=== PATIENT | female | born 1950 | race African-American/Black ===

== ENCOUNTER 2019-11-19 15:18 | Emergency (ER) | payer MEDICARE, SELFPAY ==
[2019-11-19] VITALS (7 sets, daily range): BP systolic 128–162; BP diastolic 92–120; PULSE 94–114; RESP 16–20; TEMP 36.7–36.8; O2SAT 96–100
--- NOTE | ~2019-11-19 | XR_ITS ---
EXAMINATION: XR chest 2V EXAM DATE: 11/19/2019 16:39 INDICATION: Cough, shortness of breath. History of bronchitis. TECHNIQUE: Frontal and lateral projections of the chest obtained and reviewed. Comparison is made to prior examination from 02/24/2018. FINDINGS: The lungs are clear. There are no pleural effusions. Cardiac silhouette is prominent but magnified on this AP technique. There is no pneumothorax suspected. The bones and soft tissues are unremarkable. IMPRESSION: No acute cardiopulmonary findings. Reviewed, dictated and finalized at location A.
--- NOTE | ~2019-11-19 | CT_ITS ---
EXAMINATION: CT abdomen pelvis w con EXAM DATE: 11/19/2019 17:47 INDICATION: Vomiting, diarrhea. Shortness of breath. TECHNIQUE: Spiral CT of the abdomen and pelvis was performed following intravenous injection of 100 m L Omnipaque 350. Axial, coronal and sagittal images were reviewed. The dose-length product (DLP) fo r this examination was 1506.32 mGy-cm. The exposure was tailored according to patient size (auto mA exposure control), and iterative reconstruction (ASIR) was used as additional dose reduction techniqu e. There is no prior study for comparison. FINDINGS: There are approximately a dozen heterogeneous hypodense lobular splenic regions measuring u p to about 3 cm in size, with differential diagnosis including abscesses (could be fungal), Hemangiom elel lymphoma, other metastatic disease. There are also several splenic calcifications indicating hist ory of adenomatous process. There is hepatic steatosis without focal density abnormality. Adrenal glands, pancreas are unremarkab le. Gallbladder is unremarkable. No biliary obstruction. Portal and splenic veins are patent. Kidn eys enhance symmetrically. There is no hydronephrosis. Fibroid uterus. The bladder is unremarkabl e. There is no retroperitoneal or pelvic lymphadenopathy. The appendix is normal. There is small to moderate-sized gastroesophageal hiatal hernia. There is mi ld sigmoid colonic diverticulosis. There is no adjacent inflammatory change to suggest diverticuliti s. No free intraperitoneal gas. There is cardiomegaly. The lung bases are unremarkable. There ar e no osteoblastic or osteolytic lesions identified. IMPRESSION: 1. Multiple lobular heterogeneous splenic regions, differential diagnosis including abscesses, lymph em, metastatic disease, hemangiomata. 2. Small to moderate hiatal hernia. 3. Sigmoid diverticulosis 4. Hepatic steatosis. Reviewed, dictated and finalized at location A. IMPRESSION: 1. Multiple lobular heterogeneous splenic regions, differential diagnosis incl uding abscesses, lymphoma, metastatic disease, hemangiomata. 2. Small to moderate hiatal hernia. 3. Sigmoid diverticulosis 4. Hepatic steatosis.
--- NOTE | 2019-11-19 15:19 | ED.GENADULT ---
HPI - General Adult General Chief complaint: Shortness of Breath/Dyspnea Stated complaint: Throwing up Time Seen by Provider: 11/19/19 15:19 Source: patient and family Mode of arrival: wheelchair Limitations: dementia History of Present Illness HPI narrative: Patient is a 69-year-old female with a history of dementia who presents for evaluation of vomiting, cough and shortness of breath. Patient's daughter provides most of the history. She states her mother has had a 4-day history of inability to tolerate oral intake, numerous episodes of nonbilious, nonbloody emesis over the past 4 days. No associated chest or abdominal pain. No headache. Patient does report a productive cough and shortness of breath. Patient has been isolating at home, no sick contacts. Patient's daughter also states she has had some diarrhea without blood or mucus present. No dark or tarry stools. No rashes. No lower extremity swelling. Patient has been intermittently very diaphoretic per family. Related Data Allergies Allergy/AdvReac Type Severity Reaction Status Date / Time Penicillins Allergy Mild hives Verified 11/10/19 09:21 acetaminophen Allergy Unknown Unknown Verified 11/10/19 09:21 hydrocodone Allergy Unknown Unknown Verified 11/10/19 09:21 peanut Allergy Unknown Itching Verified 11/10/19 09:21 PROPOXYPHENE NAPSYLATE Allergy Mild Rash Uncoded 11/10/19 09:21 Shrimp Allergy Mild Unknown Uncoded 11/10/19 09:21 Review of Systems Review of Systems: Narrative: CONSTITUTIONAL: Denies fever, reports chills and sweats EYES: Denies visual changes, redness, or discharge. ENT: Denies rhinorrhea, reports congestion CARDIOVASCULAR: Denies chest pain, palpitations, or edema. RESPIRATORY: Reports cough and shortness of breath GASTROINTESTINAL: Denies abdominal pain, reports nausea, vomiting and diarrhea GENITOURINARY: Denies dysuria or hematuria. SKIN: Denies rash or itching. MUSCULOSKELETAL: Denies back pain, joint pain, or myalgia. NEUROLOGIC: Denies headache, numbness, or weakness. [facility] [place] Past Medical History Medical History (Updated 11/19/19 @ 20:38 by Milla Abraham MD) Bronchitis Dementia Diabetes Surgical History Surgical History (Updated 11/19/19 @ 15:22 by Milla Abraham MD) H/O section Family History Family History Sibling Cerebrovascular accident Family history of diabetes mellitus in first degree relative Father Carcinoma of colon Family history of malignant neoplasm Mother Family history of diabetes mellitus in first degree relative Hypertension Family history of arthritis Family history of malignant neoplasm Family history of type 2 diabetes mellitus Other Diabetes mellitus Family history of cardiovascular disease Family history of gout Family history of seizure disorder Social History Social History Smoking status: Never smoker Alcohol intake: never Gender identity (if verbalized by the patient): Female Exam Narrative: Exam Narrative: GENERAL: Awake, alert, conversant HEAD: Normocephalic, atraumatic. EYES: PERRLA and EOMI. ENT: Nares clear, no rhinorrhea or epistaxis. Mucous membranes moist. NECK: Supple. CHEST: No respiratory distress, breathing even and non labored HEART: Tachycardic rate, sinus rhythm ABDOMEN: Obese abdomen, non distended, non tender EXTREMITIES: Normal range of motion. No edema. SKIN: Warm, dry, no rash. NEURO:No focal deficits. Alert and oriented x3 Course Course Emergency Course: Patient presented to the emergency department for evaluation of cough, intermittent shortness of breath, nausea and vomiting. At the time of initial assessment, patient's ABCs are intact, vital signs are stable. Patient has no fever, she is not hypoxic. EKG without acute ischemic changes. Laboratory results show no elevation in troponin. No severe electrolyte derangeme
[2019-11-19 15:45] LABS: Hemoglobin 12.9 g/dL (12.0-15.0); Red Blood Count 4.51 M/mm3 (4.2-5.4); White Blood Count 9.6 K/mm3 (4.5-10.0)
[2019-11-19 15:46] LABS: Hematocrit 40.1 % (37.0-47.0); Mean Corpuscular HGB Conc 32.2 g/dl (32-36); Mean Corpuscular Hemoglobin 28.6 pg (26-34); Mean Corpuscular Volume 88.9 fl (80-100); Platelet Count Result 283 k/mm3 (150-375); Red Cell Distribution Width 13.7 % (11.5-14.5)
[2019-11-19 15:47] LABS: Basophils Percent Auto 0.4 % (0.2-1.2); Eosinophils Percent Auto 0.3 % (0-4.4); Immature Granulocyte Absolute 0.05 K/mm3 (0.00-0.031); Immature Granulocyte Percent A 0.5 % (0-0.5); Lymphocytes Absolute Auto 2.41 K/mm3 (0.9-3.2); Lymphocytes Percent Auto 25.1 % (18.3-44.2); Monocytes Absolute Auto 0.7 K/mm3 (0.1-0.6); Monocytes Percent Auto 7.6 % (2.6-8.5); Neutrophils Absolute Auto 6.3 K/mm3 (1.3-6.7); Neutrophils Percent Auto 66.1 % (45.5-73.1)
--- NOTE | 2019-11-19 15:48 | ECG_ITS ---
Measurements Intervals [place] Rate: P: OK: QRS: QRSD: T: QT: QTc: Interpretive Statements SINUS TACHYCARDIA POOR R WAVE PROGRESSION, ANTERIOR LEADS INFERIOR INFARCT, AGE INDETERMINATE ABNORMAL ECG Electronically Signed On 11-20-2019 7:02:09 CDT by Ej Pack D.O.
[2019-11-19 15:51] LABS: Partial Thromboplastin Time 24.6 SECONDS (22.3-36.8); Prothrombin Time 12.4 Seconds (11.1-14.7)
[2019-11-19 16:04] LABS: Albumin Level 4.2 g/dL (3.5-5.1); Alkaline Phosphatase 87 U/L (38-126); Aspartate Amino Transferase 27 U/L (14-36); Bilirubin,Total 0.2 mg/dL (0.2-1.3); Blood Urea Nitrogen 10 mg/dL (7-17); Calcium 9.1 mg/dL (8.4-10.2); Carbon Dioxide 23 mmol/L (22-30); Chloride 94 mmol/L (98-107); Estimated CRCL calculation 80 ml/min; Estimated Glomerular Filt Rate > 60; Glucose 410 mg/dL (65-105); NT Pro B Type Natriuretic Pept 34 PG/ML (5-100); Potassium 3.5 mmol/L (3.4-5.0); Sodium 132 mmol/L (137-145); Troponin I < 0.012 ng/mL (0.000-0.034)
[2019-11-19 16:06] LABS: Alanine Aminotransferase 27 U/L (4-35)
[2019-11-19] MEDS: ONDANSETRON INJ 4 MG/2 ML VIAL IV PUSH (16:13)
[2019-11-19] MEDS: SODIUM CHLORIDE 0.9% IV 1,000 ML 999 ML IV CONT (16:13)
[2019-11-19 16:22] LABS: Add Urine Microscopic? YES; Appearance Urine Clear (Clear); Bilirubin Urine Negative (Negative); Blood Urine Negative (Negative); Color Urine Yellow (Yellow); Glucose Urine UA 3+ mg/dL (Negative); Ketones Urine Negative (Negative); Leukocyte Esterase Ur Negative LEU/UL (Negative); Mucus Urine Few /lpf; Nitrate Urine Negative (Negative); Protein Urine 2+ mg/dL (Negative); RBC Urine 0-2 /hpf (0-2); Urobilinogen Urine Negative mg/dL (<2.0); WBC Urine 0-3 /hpf
== END 2019-11-19 20:57 | disposition home or self-care (01) ==
PROVIDERS: Emergency Provider Emergency Medicine; PCP Family Medicine
DX: R11.2 Nausea with vomiting, unspecified (principal); D73.89 Other diseases of spleen; F03.90 Unspecified dementia, unspecified severity, without behavioral disturbance, psychotic disturbance, mood disturbance, and anxiety; E11.9 Type 2 diabetes mellitus without complications; R06.82 Tachypnea, not elsewhere classified; R94.31 Abnormal electrocardiogram [ECG] [EKG]; K76.0 Fatty (change of) liver, not elsewhere classified; K57.90 Diverticulosis of intestine, part unspecified, without perforation or abscess without bleeding; K44.9 Diaphragmatic hernia without obstruction or gangrene; Z79.4 Long term (current) use of insulin
CPT/HCPCS: 36415; 51701; 71046; 74177; 80053; 81001; 83880; 84484; 85025; 85610; 85730; 87804; 93005; 96374; 99284; J2405; J7030; Q9967

== ENCOUNTER 2019-12-10 21:21 | Emergency (ER) | payer MEDICARE, SELFPAY ==
--- NOTE | ~2019-12-10 | CT_ITS ---
EXAMINATION: CT abdomen pelvis w con DATE: 12/10/2019 22:33 INDICATION: Vomiting and diarrhea TECHNIQUE: Computed tomography (CT) of the abdomen and pelvis was performed with 100 cc Omnipaque 350 intravenous contrast. The dose-length product was 1450.42 mGy-cm. Automated exposure control and ite rative reconstruction technique were employed. COMPARISON: CT dated 11/19/2019 FINDINGS: Heart size is normal. Large hiatal hernia. Mild thickening of the distal esophagus, suspici ous for reflux esophagitis. Fatty infiltration of the liver. Small pleural effusions. No significant vascular abnormality. No lymphadenopathy. Stable hypovascular splenic masses, most likely benign mauricio ngiomas or granulomatous disease. The pancreas, adrenal glands and kidneys are unremarkable. Colonic diverticulosis without evidence for diverticulitis. No free air or free fluid. Tiny fat-containing um bilical hernia. There is moderate thoracic and lumbar spondylosis. There is grade 1 spondylolisthesis at L5-S1. IMPRESSION: 1. Large hiatal hernia with moderate thickening of the distal esophagus, suspicious for reflux esopha gitis. 2: Small pleural effusions. 3: Stable hypovascular splenic masses, most likely benign hemangiomas or granulomatous disease. Malig balta is much less favored given stability compared with MRI dated 08/09/2015. Reviewed, dictated and finalized at location A. IMPRESSION: 1. Large hiatal hernia with moderate thickening of the distal esophagus, suspic ious for reflux esophagitis. 2: Small pleural effusions. 3: Stable hypovascular splenic masses, most likely benign hemangiomas or granul omatous disease. Malignancy is much less favored given stability compared with MRI dated 08/09/2015.
--- NOTE | ~2019-12-10 | XR_ITS ---
EXAMINATION: XR chest 2V 12/10/2019 22:47 INDICATION: Chest pain and shortness of breath PROCEDURE: 2 view chest COMPARISON: Comparison to multiple prior studies sequentially, with oldest reviewed study dated . FINDINGS: The lungs are clear. The cardiomediastinal silhouette is enlarged. There are no pleural ef fusions. There is no pneumothorax suspected. There is dextroscoliosis of the thoracic spine. IMPRESSION: 1: NO ACUTE CARDIOPULMONARY DISEASE. Reviewed, dictated and finalized at location A.
[2019-12-10 21:27] VITALS: BP 159/98; PULSE 126; RESP 28; TEMP 37.2; O2SAT 99
--- NOTE | 2019-12-10 21:35 | ECG_ITS ---
Measurements Intervals [place] Rate: 122 P: 38 AK: 139 QRS: -17 QRSD: 78 T: 32 QT: 322 QTc: 459 Interpretive Statements SINUS TACHYCARDIA DELAYED PRECORDIAL R/S TRANSITION INFERIOR INFARCT, AGE INDETERMINATE BASELINE ARTIFACT- I, III, AVL, AVF ABNORMAL ECG Electronically Signed On 12-11-2019 7:13:37 CDT by Ej Pack D.O.
[2019-12-10 21:51] LABS: Basophils Percent Auto 0.2 % (0.2-1.2); Hematocrit 38.8 % (37.0-47.0); Hemoglobin 12.6 g/dL (12.0-15.0); Immature Granulocyte Percent A 0.8 % (0-0.5); Lymphocytes Absolute Auto 1.71 K/mm3 (0.9-3.2); Lymphocytes Percent Auto 13.1 % (18.3-44.2); Mean Corpuscular HGB Conc 32.5 g/dl (32-36); Mean Corpuscular Hemoglobin 29.2 pg (26-34); Mean Platelet Volume 10.5 fl (7.4-10.4); Monocytes Absolute Auto 0.7 K/mm3 (0.1-0.6); Monocytes Percent Auto 5.5 % (2.6-8.5); Neutrophils Absolute Auto 10.5 K/mm3 (1.3-6.7); Neutrophils Percent Auto 80.4 % (45.5-73.1); Platelet Count Result 248 k/mm3 (150-375); Red Blood Count 4.31 M/mm3 (4.2-5.4); Red Cell Distribution Width 13.8 % (11.5-14.5); White Blood Count 13.1 K/mm3 (4.5-10.0)
[2019-12-10 22:02] LABS: Blood Urea Nitrogen 11 mg/dL (7-17); Carbon Dioxide 25 mmol/L (22-30); Chloride 96 mmol/L (98-107); Estimated CRCL calculation 78 ml/min; Estimated Glomerular Filt Rate > 60; Glucose 427 mg/dL (65-105); Potassium 3.4 mmol/L (3.4-5.0); Sodium 133 mmol/L (137-145)
--- NOTE | 2019-12-10 22:09 | ED.SOB ---
HPI - SOB/Dyspnea General Chief Complaint: Shortness of Breath/Dyspnea Stated Complaint: sob, productive cough Time Seen by Provider: 12/10/19 21:59 History of Present Illness HPI Narrative: Patient presents via EMS for 1 week of vomiting and diarrhea, and chronic shortness of breath. The patient has Alzheimer's dementia, and lives with her . Today she is with her daughter Paty Helms, who just lives a short bit away, and checks on her parents frequently. The daughter reports that her mom has had chills and sweats for a week, vomiting of brown material, coughing and wheezing, and frequent diarrhea. No recorded fever. The patient denies any pain. MD elicited complaint: shortness of breath and cough Onset (ago): week(s) Context: recent illness Timing: constant Severity: moderate Known history of: asthma and diabetes Associated symptoms: cough, wheezing and nausea/vomiting Related Data Allergies Allergy/AdvReac Type Severity Reaction Status Date / Time Penicillins Allergy Mild hives Verified 11/24/19 13:44 acetaminophen Allergy Unknown Unknown Verified 11/24/19 13:44 hydrocodone Allergy Unknown Unknown Verified 11/24/19 13:44 peanut Allergy Unknown Itching Verified 11/24/19 13:44 PROPOXYPHENE NAPSYLATE Allergy Mild Rash Uncoded 11/24/19 13:44 Shrimp Allergy Mild Unknown Uncoded 11/24/19 13:44 Review of Systems Review of Systems: Narrative: The review of systems as per the daughter. No chest pain abdominal pain. Positive cough chills and sweats. Positive vomiting and diarrhea. Positive wheezing. Poor memory. All systems reviewed & are unremarkable except as noted in HPI and below PMFSH Past Medical History Medical History Bronchitis Dementia Diabetes Lesion of spleen Surgical History Surgical History H/O section Social History Social History Smoking status: Never smoker Alcohol intake: never Gender identity (if verbalized by the patient): Female Exam Narrative: Exam Narrative: GENERAL: Well-appearing, well-nourished, and in no acute distress. Morbid obesity. HEAD: Normocephalic, atraumatic. EYES: PERRLA and EOMI. ENT: Nares clear, no rhinorrhea or epistaxis. Mucous membranes moist. NECK: Supple. CHEST: Clear to auscultation. No respiratory distress. HEART: Regular rate and rhythm. No murmur heard. Normal peripheral pulses. ABDOMEN: Soft, nontender, nondistended, normal active bowel sounds. EXTREMITIES: Normal range of motion. No edema. SKIN: Warm, dry, no rash. NEURO: No focal deficits. Alert. PSYCH: Normal mood and affect. Quite pleasant. Course Reevaluation(s) Reevaluation #1: I checked back in with the patient and her daughter, and told them about the testing not showing any particular source for her discomfort, but that the sugar has been high. Daughter told me that she vomited one more time here in the ER. She suggests that it might just be a germ causing the vomiting and diarrhea. I recommended starting her on an antinausea medicine, and possibly an antibiotic. She agrees. I will order ciprofloxacin, which would cover either bronchitis or diverticulosis. And Reglan for the nausea. Date: 12/11/19 Time: 01:14 Vital Signs Vital signs: Vital Signs Temperature 98.9 F 12/10/19 21:27 Pulse Rate 126 H 12/10/19 21:27 Respiratory Rate 28 H 12/10/19 21:27 Blood Pressure 159/98 H 12/10/19 21:27 Pulse Oximetry 99 12/10/19 21:27 Temperature 99.5 F 12/10/19 23:33 Pulse Rate 112 H 12/10/19 23:33 Respiratory Rate 22 H 12/10/19 23:33 Blood Pressure 160/75 H 12/10/19 23:33 Pulse Oximetry 100 12/10/19 23:33 MDM - SOB/Dyspnea Differential Diagnosis Differential diagnosis: Likely asthma with exacerbation Medical Records Attestation: I reviewed the patient's medical records. Lab Data Attestation: I revi
[2019-12-10 22:14] LABS: Troponin I < 0.012 ng/mL (0.000-0.034)
[2019-12-10] MEDS: ASPIRIN 81 MG CHEWABLE TABLET 324 MG PO (22:17)
[2019-12-10 22:23] LABS: Prothrombin Time 12.8 Seconds (11.1-14.7)
[2019-12-10 22:33] LABS: NT Pro B Type Natriuretic Pept 90 PG/ML (5-100)
[2019-12-10] MEDS: FAMOTIDINE 20 MG/2 ML VIAL IV PUSH (22:49)
[2019-12-10] MEDS: INSULIN HUMAN REGULAR (*BKC) 100 UNITS/ML 11 UNITS IV PUSH (22:49)
[2019-12-10] MEDS: SODIUM CHLORIDE 0.9% IV 1,000 ML 999 ML IV CONT (22:49)
[2019-12-10] MEDS: ONDANSETRON INJ 4 MG/2 ML VIAL IV PUSH (22:50)
[2019-12-10 22:52] VITALS: BP 128/80; PULSE 117; RESP 20; O2SAT 99
[2019-12-10 23:33] VITALS: BP 160/75; PULSE 112; RESP 22; TEMP 37.5; O2SAT 100
[2019-12-10 23:43] LABS: Glucose Point of Care 202 (65-105)
[2019-12-11 01:04] LABS: Troponin I 0.012 ng/mL (0.000-0.034)
[2019-12-11 01:30] VITALS: BP 144/85; PULSE 99; RESP 17; O2SAT 97
[2019-12-11] MEDS: METOCLOPRAMIDE HCL INJ 10 MG/2 ML VIAL IV PUSH (01:34)
[2019-12-11] MEDS: CIPROFLOXACIN 500 MG TAB PO (01:34)
== END 2019-12-11 01:40 | disposition home or self-care (01) ==
PROVIDERS: Emergency Provider Emergency Medicine; PCP Family Medicine
DX: K52.9 Noninfective gastroenteritis and colitis, unspecified (principal); E11.9 Type 2 diabetes mellitus without complications; G30.9 Alzheimer's disease, unspecified; F02.80 Dementia in other diseases classified elsewhere, unspecified severity, without behavioral disturbance, psychotic disturbance, mood disturbance, and anxiety; Z79.4 Long term (current) use of insulin; Z79.84 Long term (current) use of oral hypoglycemic drugs
CPT/HCPCS: 36415; 71046; 74177; 80048; 82948; 83880; 84484; 85025; 85610; 85730; 93005; 96361; 96374; 96375; 99284; A9270; J1815; J2405; J2765; J7030; Q9967

== ENCOUNTER 2019-12-22 14:52 | Outpatient (CLI) | payer MEDICARE, SELFPAY ==
[2019-12-22 15:31] LABS: Hematocrit 37.6 % (37.0-47.0); Mean Corpuscular HGB Conc 31.9 g/dl (32-36); Mean Corpuscular Hemoglobin 28.6 pg (26-34); Mean Corpuscular Volume 89.5 fl (80-100); Mean Platelet Volume 9.8 fl (7.4-10.4); Platelet Count Result 322 k/mm3 (150-375); Red Cell Distribution Width 13.5 % (11.5-14.5); White Blood Count 13.8 K/mm3 (4.5-10.0)
[2019-12-22 15:53] LABS: Alanine Aminotransferase 21 U/L (4-35); Albumin Level 3.7 g/dL (3.5-5.1); Alkaline Phosphatase 68 U/L (38-126); Aspartate Amino Transferase 25 U/L (14-36); Bilirubin,Total 0.4 mg/dL (0.2-1.3); Blood Urea Nitrogen 15 mg/dL (7-17); Calcium 9.1 mg/dL (8.4-10.2); Carbon Dioxide 34 mmol/L (22-30); Chloride 97 mmol/L (98-107); Estimated Glomerular Filt Rate 39; Glucose 34 mg/dL (65-105); Sodium 136 mmol/L (137-145)
== END 2019-12-22 14:53 | disposition home or self-care (01) ==
PROVIDERS: PCP Family Medicine; Visit Provider Family Medicine
DX: I10 Essential (primary) hypertension (principal); K92.1 Melena
CPT/HCPCS: 36415; 80053; 85027

== ENCOUNTER 2019-12-22 18:02 | Observation (INO) | payer MEDICARE, SELFPAY ==
--- NOTE | ~2019-12-22 | CT_ITS ---
EXAMINATION: CT abdomen pelvis wo con EXAM DATE: 12/22/2019 21:00 INDICATION: Black diarrhea. Vomiting, abdominal pain. History diverticulitis. TECHNIQUE: Spiral CT of the abdomen and pelvis was performed without contrast. Axial, coronal and s agittal images were reviewed. The dose-length product (DLP) for this examination was 1448.30 mGy-cm. The exposure was tailored according to patient size (auto mA exposure control), and iterative recon struction (ASIR) was used as additional dose reduction technique. Comparison is made to prior examina tion from 12/10/2019. FINDINGS: There is hepatic steatosis with small regions of focal fatty sparing. Splenic lesions again noted, likely benign. Adrenal glands, pancreas are unremarkable. Gallbladder is unremarkable. No bi liary obstruction. There is no nephrolithiasis or hydronephrosis. Fibroid uterus. The bladder is unremarkable. There is no retroperitoneal or pelvic lymphadenopathy. The appendix is normal. There is small to moderate-sized gastroesophageal hiatal hernia. There is be en interval resolution of previously seen distal esophageal edema, esophagitis. There is mild sigmoid colonic diverticulosis. There is no adjacent inflammatory change to suggest diverticulitis. Colonic fluid. No free intraperitoneal gas. There is cardiomegaly. The lung bases are unremarkable. The re are no osteoblastic or osteolytic lesions identified. IMPRESSION: 1. Colonic fluid, correlate for diarrhea. 2. Stable splenic lesions likely benign. 3. Small to moderate hiatal hernia. 4. Sigmoid diverticulosis. 5. Hepatic steatosis. 6. Fibroids. Reviewed, dictated and finalized at location A.
[2019-12-22 18:19] VITALS: BP 102/78; PULSE 92; RESP 20; TEMP 36.3; O2SAT 98
[2019-12-22 18:31] LABS: Basophils Percent Auto 0.4 % (0.2-1.2); Eosinophils Percent Auto 0.2 % (0-4.4); Hematocrit 36.7 % (37.0-47.0); Hemoglobin 11.6 g/dL (12.0-15.0); Immature Granulocyte Absolute 0.05 K/mm3 (0.00-0.031); Immature Granulocyte Percent A 0.5 % (0-0.5); Lymphocytes Absolute Auto 1.77 K/mm3 (0.9-3.2); Mean Corpuscular HGB Conc 31.6 g/dl (32-36); Mean Corpuscular Hemoglobin 28.9 pg (26-34); Mean Corpuscular Volume 91.3 fl (80-100); Mean Platelet Volume 9.8 fl (7.4-10.4); Monocytes Absolute Auto 0.8 K/mm3 (0.1-0.6); Monocytes Percent Auto 6.9 % (2.6-8.5); Neutrophils Absolute Auto 8.5 K/mm3 (1.3-6.7); Platelet Count Result 284 k/mm3 (150-375); Red Blood Count 4.02 M/mm3 (4.2-5.4); Red Cell Distribution Width 13.6 % (11.5-14.5); White Blood Count 11.1 K/mm3 (4.5-10.0)
[2019-12-22 18:45] LABS: Alanine Aminotransferase 21 U/L (4-35); Albumin Level 3.6 g/dL (3.5-5.1); Alkaline Phosphatase 69 U/L (38-126); Aspartate Amino Transferase 23 U/L (14-36); Bilirubin,Total 0.3 mg/dL (0.2-1.3); Blood Urea Nitrogen 15 mg/dL (7-17); Carbon Dioxide 31 mmol/L (22-30); Chloride 96 mmol/L (98-107); Estimated CRCL calculation 27 ml/min; Estimated Glomerular Filt Rate 28; Glucose 118 mg/dL (65-105); Lipase 74 U/L (23-300); Potassium 3.7 mmol/L (3.4-5.0); Sodium 135 mmol/L (137-145)
--- NOTE | 2019-12-22 19:20 | ED.GENADULT ---
HPI - General Adult General Chief complaint: Nausea/Vomiting/Diarrhea Stated complaint: shes having kidney failure Time Seen by Provider: 12/22/19 19:19 Source: patient and family Mode of arrival: ambulatory Limitations: no limitations History of Present Illness HPI narrative: Patient is a 69-year-old female who presents for evaluation of abnormal labs via her primary care physician's office. Patient's daughter states the patient has had numerous episodes of nausea and vomiting since being diagnosed with diverticulitis earlier this week. Patient denies any current chest pain, belly pain, but reports vomiting. Patient's daughter states she has had some black-colored stool, does have a history of bleeding ulcer many years ago. No syncopal event. No fevers. Per daughter, states that the patient has kidney failure and abnormal potassium from recent labs. Related Data Allergies Allergy/AdvReac Type Severity Reaction Status Date / Time Penicillins Allergy Mild hives Verified 12/22/19 13:57 acetaminophen Allergy Unknown Unknown Verified 12/22/19 13:57 hydrocodone Allergy Unknown Unknown Verified 12/22/19 13:57 peanut Allergy Unknown Itching Verified 12/22/19 13:57 PROPOXYPHENE NAPSYLATE Allergy Mild Rash Uncoded 12/22/19 13:57 Shrimp Allergy Mild Unknown Uncoded 12/22/19 13:57 Review of Systems Review of Systems: Narrative: CONSTITUTIONAL: Denies fever, chills, or sweats. EYES: Denies visual changes, redness, or discharge. ENT: Denies rhinorrhea, congestion, sore throat, or otalgia. CARDIOVASCULAR: Denies chest pain, palpitations, or edema. RESPIRATORY: Denies cough or dyspnea. GASTROINTESTINAL: Denies abdominal pain, reports nausea and vomiting, reports dark-colored stools GENITOURINARY: Denies dysuria or hematuria. SKIN: Denies rash or itching. MUSCULOSKELETAL: Denies back pain, joint pain, or myalgia. NEUROLOGIC: Denies headache, numbness, chronic bilateral lower extremity weakness PMFSH Past Medical History Medical History Bronchitis Dementia Diabetes Essential (primary) hypertension Lesion of spleen Melena Surgical History Surgical History H/O section Family History Family History Sibling Cerebrovascular accident Family history of diabetes mellitus in first degree relative Father Carcinoma of colon Family history of malignant neoplasm Mother Family history of diabetes mellitus in first degree relative Hypertension Family history of arthritis Family history of malignant neoplasm Family history of type 2 diabetes mellitus Other Diabetes mellitus Family history of cardiovascular disease Family history of gout Family history of seizure disorder Social History Social History Smoking status: Never smoker Alcohol intake: never Gender identity (if verbalized by the patient): Female Exam Narrative: Exam Narrative: GENERAL: Awake, alert, conversant HEAD: Normocephalic, atraumatic. EYES: PERRLA and EOMI. ENT: Nares clear, no rhinorrhea or epistaxis. Mucous membranes moist. NECK: Supple. CHEST: No respiratory distress, breathing even and non labored HEART: Regular rate, sinus rhythm ABDOMEN:Non distended, mild tenderness in the periumbilical region Rectal: No hemorrhoids, guaiac negative EXTREMITIES: Normal range of motion. No edema. SKIN: Warm, dry, no rash. NEURO:No focal deficits. Alert and oriented x3 Course Vital Signs Vital signs: Vital Signs Temperature 36.3 C L 12/22/19 18:19 Pulse Rate 92 12/22/19 18:19 Respiratory Rate 12/22/19 18:19 Blood Pressure 102/78 12/22/19 18:19 Pulse Oximetry 98 12/22/19 18:19 Temperature 36.3 C L 12/22/19 18:19 Pulse Rate 92 12/22/19 18:19 Respiratory Rate 20 12/22/19 18:19 Blood Pressure 93/
[2019-12-22] MEDS: SODIUM CHLORIDE 0.9% IV 1,000 ML 999 ML IV CONT (20:08)
[2019-12-22 20:45] LABS: Add Urine Microscopic? YES; Amorphous Sediment Urine Moderate; Appearance Urine Cloudy (Clear); Bacteria Urine 1+ /hpf; Bilirubin Urine 2+ (Negative); Blood Urine Negative (Negative); Color Urine Amber (Yellow); Glucose Urine UA Negative (Negative); Ketones Urine Trace mg/dL (Negative); Leukocyte Esterase Ur Negative LEU/UL (Negative); Mucus Urine Heavy /lpf; Nitrate Urine Negative (Negative); Protein Urine 2+ mg/dL (Negative); Squamous Epithelial Cell Urine Few /hpf (Few); Urobilinogen Urine Negative mg/dL (<2.0)
[2019-12-22 20:49] LABS: Specific Grav Ur 1.032 (1.001-1.035)
[2019-12-22 21:30] VITALS: BP 93/78
[2019-12-22 22:00] VITALS: BP 110/59; PULSE 85; RESP 14; O2SAT 97
--- NOTE | 2019-12-22 22:44 | PC.NURSE ---
Report given to nurse Hodan [id number].
[2019-12-22 23:20] VITALS: BP 120/64; PULSE 65; RESP 14; O2SAT 94
[2019-12-22 23:30] VITALS: O2SAT 98
[2019-12-22 23:32] VITALS: BMI 40.3
[2019-12-22 23:33] VITALS: BP 110/76; PULSE 98; RESP 20; TEMP 36.5; O2SAT 97
[2019-12-22] MEDS: SODIUM CHLORIDE 0.9% IV 1,000 ML 125 ML IV CONT (23:33)
--- NOTE | 2019-12-22 23:33 | PC.NURSE ---
This patient, Diane Garrett, was admitted to Medical Room 347-. Patient/family oriented to hospital policies and general routines including ID bracelet, bed and alarms, visiting hours, pain management, procedures, bathroom and other care routines, personal items, smoking policy, room service/diet, and visiting hours. Valuables list has been completed. Information on how to activate the Rapid Response Team has been discussed. Patient/Family are encouraged to report perceived risks to care and to ask questions if they do not understand what they are told or what they should do.
--- NOTE | 2019-12-23 01:44 | PM.IMHP ---
H&P: HPI History of Present Illness Chief complaint: Dehydration, JENNIFER Narrative: This is a 69 year old severely demented diabetic female who presented to the hospital [facility] after being found to have abnormal labs at her doctor's office. The patient was diagnosed and treated for diverticulitis this past week and has had nausea and vomiting throughout the week. The patient's daughter reported to ER provider that the patient has been having black stools. Her BM was tested in the ER and was guiaic negative. The patient was evaluated in the ER [facility] and found to have acute renal failure and dehydration. ON my encounter with the patient she is severely demented and cannot provide any reliable history. When I ask her how old she is, she states, 9 and also believes that she lives with her parents. She denies any discomfort on my encounter with her. Review of Systems Review of Systems: ROS unobtainable: Yes unobtainable due to mental status PMFSH Past Medical History Medical History Bronchitis Dementia Diabetes Essential (primary) hypertension Lesion of spleen Melena Surgical History Surgical History H/O section Family History Family History Sibling Cerebrovascular accident Family history of diabetes mellitus in first degree relative Father Carcinoma of colon Family history of malignant neoplasm Mother Family history of diabetes mellitus in first degree relative Hypertension Family history of arthritis Family history of malignant neoplasm Family history of type 2 diabetes mellitus Other Diabetes mellitus Family history of cardiovascular disease Family history of gout Family history of seizure disorder Social History Social History Smoking status: Never smoker Alcohol intake: unknown Substance use: unknown Substance use type: unknown Gender identity (if verbalized by the patient): Female Spiritual care concerns: No Meds Home Medications and Allergies Home Medications Medication Instructions Recorded Confirmed Type omeprazole 40 mg capsule,delayed 40 mg PO DAILY #30 cap 06/14/19 12/23/19 Rx release diaper,brief,adult,disposable #120 each 06/17/19 12/23/19 Rx fluticasone furoate 100 1 inhalation INHALATION DAILY #1 10/13/19 12/23/19 Rx mcg-vilanterol 25 mcg/dose device inhalation powder celecoxib 200 mg capsule 200 mg PO DAILY #90 cap 10/27/19 12/22/19 Rx furosemide 20 mg tablet 20 mg PO QAM #30 tablet 10/27/19 12/23/19 Rx insulin aspart U-100 100 unit/mL See Rx Instructions SUB-Q .COMPLEX 10/27/19 12/23/19 Rx (3 mL) subcutaneous pen #15 ml MDD 80 units pen needle, diabetic 32 gauge x #100 each 10/27/19 12/23/19 Rx 1/ blood sugar diagnostic #120 each 11/09/19 12/23/19 Rx blood-glucose meter #1 each 11/09/19 12/23/19 Rx lancets 30 gauge #120 each 11/09/19 12/23/19 Rx mirtazapine 7.5 mg tablet 7.5 mg PO DAILY #30 tablet 11/10/19 12/23/19 Rx ondansetron HCl 8 mg tablet 8 mg PO Q8H PRN #60 tablet 11/24/19 12/23/19 Rx metoclopramide HCl [Reglan] 10 mg PO Q6H PRN #20 tablet 12/11/19 12/23/19 Rx losartan 50 mg tablet 50 mg PO DAILY #90 tablet 12/15/19 12/23/19 Rx metformin 500 mg tablet,extended 1,000 mg PO BID #120 tablet 12/17/19 12/23/19 Rx release 24 hr albuterol sulfate 90 mcg/actuation 1 puff INHALATION Q4H PRN #8 gm 12/18/19 12/22/19 Rx aerosol inhaler triamcinolone acetonide 0.5 % 1 applic TOPICAL BID #80 gm 12/22/19 12/23/19 Rx topical cream Allergies Allergy/AdvReac Type Severity Reaction Status Date / Time Penicillins Allergy Mild hives Verified 12/22/19 13:57 acetaminophen Allergy Unknown Unknown Verified 12/22/19 13:57 hydrocodone Allergy Unknown Unknown Verified 12/22/19 13:57 peanut Allergy Unknown Itching Veri
[2019-12-23] MEDS: TOLNAFTATE 1% POWDER 45 GM BTL 1 APPLIC TOPICAL ×3 (02:36→20:26)
[2019-12-23 06:00] VITALS: BP 117/71; PULSE 83; RESP 16; TEMP 36; O2SAT 98
[2019-12-23 06:13] LABS: Basophils Percent Auto 0.4 % (0.2-1.2); Eosinophils Absolute Auto 0.1 K/mm3 (0-0.3); Eosinophils Percent Auto 1.5 % (0-4.4); Hematocrit 33.7 % (37.0-47.0); Hemoglobin 10.6 g/dL (12.0-15.0); Immature Granulocyte Absolute 0.04 K/mm3 (0.00-0.031); Immature Granulocyte Percent A 0.6 % (0-0.5); Lymphocytes Absolute Auto 2.04 K/mm3 (0.9-3.2); Lymphocytes Percent Auto 29.8 % (18.3-44.2); Mean Corpuscular HGB Conc 31.5 g/dl (32-36); Mean Corpuscular Hemoglobin 28.6 pg (26-34); Mean Corpuscular Volume 90.8 fl (80-100); Mean Platelet Volume 9.9 fl (7.4-10.4); Monocytes Absolute Auto 0.6 K/mm3 (0.1-0.6); Monocytes Percent Auto 8.2 % (2.6-8.5); Neutrophils Absolute Auto 4.1 K/mm3 (1.3-6.7); Neutrophils Percent Auto 59.5 % (45.5-73.1); Platelet Count Result 238 k/mm3 (150-375); Red Blood Count 3.71 M/mm3 (4.2-5.4); Red Cell Distribution Width 13.4 % (11.5-14.5); White Blood Count 6.9 K/mm3 (4.5-10.0)
[2019-12-23 06:25] LABS: Blood Urea Nitrogen 16 mg/dL (7-17); Calcium 8.4 mg/dL (8.4-10.2); Carbon Dioxide 32 mmol/L (22-30); Chloride 100 mmol/L (98-107); Estimated CRCL calculation 35 ml/min; Estimated Glomerular Filt Rate 39; Glucose 133 mg/dL (65-105); Potassium 3.4 mmol/L (3.4-5.0); Sodium 135 mmol/L (137-145)
[2019-12-23] MEDS: SODIUM CHLORIDE 0.9% IV 1,000 ML 125 ML IV CONT (07:28)
[2019-12-23 07:58] LABS: Glucose Point of Care 157 (65-105)
[2019-12-23] MEDS: POTASSIUM CHLORIDE 20 MEQ TABLET PO (08:54)
[2019-12-23] MEDS: MIRTAZAPINE 7.5 MG TABLET PO (08:54)
[2019-12-23] MEDS: TRIAMCINOLONE ACET 0.5% CREAM 15 GM TUBE 1 APPLIC TOPICAL ×2 (08:54→16:46)
[2019-12-23] MEDS: PANTOPRAZOLE 40 MG TABLET PO (08:54)
[2019-12-23 11:32] LABS: Glucose Point of Care 187 (65-105)
--- NOTE | 2019-12-23 12:06 | PM.IMPN ---
Progress Note: A&P Assessment and Plan (1) Nausea & vomiting: Code(s): R11.2 - Nausea with vomiting, unspecified Status: Acute Assessment and Plan: Patient had n/v prior to admission most likely the etiology of her dehydration and JENNIFER. She was recently diagnosed with gastroenteritris end of November. Renal function normal then. Symptoms appear to be resolving. She is eating but not eating much per RN. (2) JENNIFER (acute kidney injury): Code(s): N17.9 - Acute kidney failure, unspecified Status: Acute Assessment and Plan: Cr 2.1 on admisison. Appears to be secondary to dehydration from diarrhea, nausea and vomiting from her recent gastroenteritis. Cr better at 1.6 today. Continue IV fluids for now. Avoid nephrotoxic agents and renally dose medications. (3) Dementia: Qualifiers: Dementia behavioral disturbance: without behavioral disturbance Dementia type: unspecified type Qualified Code(s): F03.90 - Unspecified dementia without behavioral disturbance Code(s): F03.90 - Unspecified dementia without behavioral disturbance Status: Chronic Assessment and Plan: Stable. We will treat any acute agitation appropriately (4) Diabetes: Qualifiers: Diabetes mellitus complication status: without complication Diabetes mellitus care home insulin use: with care home use Diabetes mellitus type: type 2 Qualified Code(s): E11.9 - Type 2 diabetes mellitus without complications; Z79.4 - manager long term care (current) use of insulin Code(s): E11.9 - Type 2 diabetes mellitus without complications Status: Chronic Assessment and Plan: A1c 8.2 in September. Glucose reviewed 12/23/19. Glucose well controlled. Continue Accuchecks, SSI Coverage. Metformin remains on hold. Hypoglycemic protocol available as needed. (5) Essential (primary) hypertension: Code(s): I10 - Essential (primary) hypertension Status: Chronic Assessment and Plan: Blood pressure reviewed on 12/23/2019. Blood pressure well controlled. Continue to hold home losartan and Lasix secondary to ARF. PRN IV antihypertensives w/ parameters. (6) Acute dehydration: Code(s): E86.0 - Dehydration Status: Acute Assessment and Plan: Continue IV hydration. Monitor vital signs and urine output. (7) Lesion of spleen: Code(s): D73.89 - Other diseases of spleen Status: Acute Assessment and Plan: CT scan showing a stable splenic lesions likely benign. (8) DVT prophylaxis: Code(s): Z29.9 - Encounter for prophylactic measures, unspecified Status: Acute Assessment and Plan: SCDs Subjective Date/time seen: 12/23/19 12:06 Interval history: 69yo female with dementia here for JENNIFER. Assuming care. Chart reviewed. Patient alert but confused and unable to provide accurate hx. Per RN, no issues overnight. Exam Narrative: Exam Narrative: AF 96.8 117/71 83 16 98% ra Gen - NARD lying almost flat in bed Chest - CTA bilaterally, nml RR CV - RRR S1/S2 Abd - Soft, NT/ND, Positive BS Ext - No pedal edema Neuro - Alert but confused. Psych - Nml mood and affect, pleasant and cooperative Skin - Warm and dry Objective Data Vital Signs Vital Signs: Vital Signs - 24 hr 12/22/19 18:19 12/22/19 21:30 12/22/19 22:00 Temperature 97.3 F L Pulse Rate 92 85 Respiratory Rate 20 14 Blood Pressure 102/78 93/78 L 110/59 L Pulse Oximetry 98 97 12/22/19 23:20 12/22/19 23:30 12/22/19 23:33 Temperature 97.7 F Pulse Rate 65 98 Respiratory Rate 14 20 Blood Pressure 120/64 110/76 Pulse Oximetry 94 98 97 12/23/19 06:00 Temperature 96.8 F L Pulse Rate 83 Respiratory Rate 16 Blood Pressure 117/71 Pulse Oximetry 98 Intake/Output Intake/Output: Intake & Output 12/20/19 12/21/19 12/22/19 12/23/19 23:59 23:59 23:59 23:59 Intake Total 1000 1340 Balance 1000 1340 Meds/Results Medi
[2019-12-23 14:00] VITALS: BP 115/70; PULSE 80; RESP 16; TEMP 36.4; O2SAT 100
[2019-12-23 16:37] LABS: Glucose Point of Care 158 (65-105)
[2019-12-23] MEDS: SODIUM CHLORIDE 0.9% IV 1,000 ML 70 ML IV CONT (16:46)
[2019-12-23 20:17] VITALS: BP 119/64; PULSE 81; RESP 13; TEMP 36.1; O2SAT 98
[2019-12-23 20:34] VITALS: PULSE 81; RESP 13; O2SAT 98
[2019-12-23 20:51] LABS: Glucose Point of Care 136 (65-105)
[2019-12-24 04:49] VITALS: BP 127/89; PULSE 80; RESP 12; TEMP 36.1; O2SAT 97
[2019-12-24 06:41] LABS: Blood Urea Nitrogen 10 mg/dL (7-17); Calcium 8.6 mg/dL (8.4-10.2); Carbon Dioxide 30 mmol/L (22-30); Chloride 98 mmol/L (98-107); Estimated CRCL calculation 67 ml/min; Estimated Glomerular Filt Rate > 60; Glucose 139 mg/dL (65-105); Potassium 3.7 mmol/L (3.4-5.0); Sodium 133 mmol/L (137-145)
[2019-12-24] MEDS: SODIUM CHLORIDE 0.9% IV 1,000 ML 70 ML IV CONT (07:11)
[2019-12-24 07:54] LABS: Glucose Point of Care 143 (65-105)
[2019-12-24] MEDS: PANTOPRAZOLE 40 MG TABLET PO (09:41)
[2019-12-24] MEDS: MIRTAZAPINE 7.5 MG TABLET PO (09:41)
[2019-12-24] MEDS: TOLNAFTATE 1% POWDER 45 GM BTL 1 APPLIC TOPICAL (09:43)
[2019-12-24] MEDS: TRIAMCINOLONE ACET 0.5% CREAM 15 GM TUBE 1 APPLIC TOPICAL (09:44)
[2019-12-24 10:10] LABS: IFOB Positive Control Positive; Immunochemical Fecal Occult Bl Negative (N)
[2019-12-24 11:51] LABS: Glucose Point of Care 209 (65-105)
[2019-12-24] MEDS: INSULIN ASPART (*BKC) 100 UNITS/ML SUB-Q (12:00)
--- NOTE | 2019-12-24 12:45 | PM.DS ---
DS: Admitting Diagnosis Admitting Diagnosis Admitting Diagnosis: Acute kidney failure, unspecified DS: Discharge Diagnosis Discharge Diagnosis (1) Nausea & vomiting: Code(s): R11.2 - Nausea with vomiting, unspecified Status: Acute Assessment and Plan: Patient had n/v prior to admission most likely the etiology of her dehydration and JENNIFER. She was recently diagnosed with gastroenteritris end of November. Renal function normal then. No further GI symptoms. She is eating normal. (2) JENNIFER (acute kidney injury): Code(s): N17.9 - Acute kidney failure, unspecified Status: Acute Assessment and Plan: Cr 2.1 on admisison. Appears to be secondary to dehydration from diarrhea, nausea and vomiting from her recent gastroenteritis as well as her lasix. Treated with IV fluids and Cr normalized. (3) Dementia: Qualifiers: Dementia type: unspecified type Dementia behavioral disturbance: without behavioral disturbance Qualified Code(s): F03.90 - Unspecified dementia without behavioral disturbance Code(s): F03.90 - Unspecified dementia without behavioral disturbance Status: Chronic Assessment and Plan: Stable. (4) Diabetes: Qualifiers: Diabetes mellitus type: type 2 Diabetes mellitus terminologist insulin use: with terminologist use Diabetes mellitus complication status: without complication Qualified Code(s): E11.9 - Type 2 diabetes mellitus without complications; Z79.4 - care home (current) use of insulin Code(s): E11.9 - Type 2 diabetes mellitus without complications Status: Chronic Assessment and Plan: A1c 8.2 in September. Glucose monitored closely. Glucose remained well controlled. Accuchecks, SSI Coverage. Metformin remained on hold. Hypoglycemic protocol available as needed. (5) Essential (primary) hypertension: Code(s): I10 - Essential (primary) hypertension Status: Chronic Assessment and Plan: Blood pressure monitored closely. Blood pressure remianed well controlled. We held home losartan and Lasix secondary to ARF. (6) Acute dehydration: Code(s): E86.0 - Dehydration Status: Acute Assessment and Plan: Related to above. (7) Lesion of spleen: Code(s): D73.89 - Other diseases of spleen Status: Acute Assessment and Plan: CT scan showing a stable splenic lesions likely benign. DS: Summary Hospital Course Reason for hospitalization: 69yo female here for dehydration. Please see H&P for details. Hospital Course: As above. Time Spent with Patient Time attestation: Total time spent providing and/or coordinating discharge services:32 minutes Time spent: Greater than 30 minutes Specific discharge activities: Left message with family. Exam Narrative: Exam Narrative: AF 127/89 80 Gen - NARD Chest - CTA bilaterally, nml RR CV - RRR S1/S2 Abd - Soft, NT/ND, Positive BS Ext - No pedal edema Psych - Nml mood and affect, pleasant and cooperative Skin - Warm and dry DS: Data Data Completed and Pending Labs on day of discharge: Labs from last 24 hours 12/24/19 12/24/19 12/24/19 11:42 09:48 07:52 Sodium Potassium Chloride Carbon Dioxide BUN Creatinine Estim Creat Clear Calc Estimated GFR Glucose POC Capillary Glucose 209 H 143 H Calcium Stl Occult Blood (IFOB) Negative 12/24/19 12/23/19 12/23/19 05:39 20:26 16:35 Sodium 133 L Potassium 3.7 Chloride 98 Carbon Dioxide 30 BUN 10 D Creatinine 0.80 Estim Creat Clear Calc 67 Estimated GFR > 60 Glucose 139 H POC Capillary Glucose 136 H 158 H Calcium 8.6 Stl Occult Blood (IFOB) Discharge Plan Discharge Attending physician on discharge: Carson Fay Discharging Clinician: Carson Fay Anticipated Discharge Date/Time: 12/24/19 12:51 Patient Disposition: Home Health Service
== END 2019-12-24 15:15 | disposition home health service (06) ==
LOC: ANHED 22:00 → ANH3MED 22:27
PROVIDERS: Emergency Medicine; Admitting Provider Family Medicine; Emergency Provider Emergency Medicine; PCP Family Medicine; Visit Provider Internal Medicine
DX: N17.9 Acute kidney failure, unspecified (principal); E86.0 Dehydration; R11.2 Nausea with vomiting, unspecified; F03.90 Unspecified dementia, unspecified severity, without behavioral disturbance, psychotic disturbance, mood disturbance, and anxiety; E11.9 Type 2 diabetes mellitus without complications; I10 Essential (primary) hypertension; D73.89 Other diseases of spleen; Z79.4 Long term (current) use of insulin; Z79.899 Other long term (current) drug therapy
CPT/HCPCS: 36415; 51701; 74176; 80048; 80053; 81001; 81025; 82274; 83690; 85025; 85027; 94640; 96360; 96361; 97162; 99285; A9270; G0378; J1815; J7030

== ENCOUNTER 2019-12-31 10:09 | Outpatient (CLI) | payer MEDICARE, SELFPAY ==
[2019-12-31 11:14] LABS: Blood Urea Nitrogen 7 mg/dL (7-17); Calcium 8.8 mg/dL (8.4-10.2); Carbon Dioxide 27 mmol/L (22-30); Chloride 102 mmol/L (98-107); Estimated Glomerular Filt Rate > 60; Glucose 161 mg/dL (65-105); Potassium 3.7 mmol/L (3.4-5.0); Sodium 136 mmol/L (137-145)
== END 2019-12-31 10:10 | disposition home or self-care (01) ==
LOC: ANHLAB 10:12
PROVIDERS: PCP Family Medicine; Visit Provider Internal Medicine
DX: N17.9 Acute kidney failure, unspecified (principal)
CPT/HCPCS: 36415; 80048

== ENCOUNTER 2020-07-02 10:02 | Emergency (ER) | payer MEDICARE, SELFPAY ==
[2020-07-02] VITALS (11 sets, daily range): BP systolic 104–169; BP diastolic 77–95; PULSE 94–113; RESP 16–23; TEMP 36.6; O2SAT 97–100
--- NOTE | ~2020-07-02 | XR_ITS ---
EXAMINATION: XR chest 1V portable DATE: 07/02/2020 11:40 INDICATION: Cough. TECHNIQUE: A single frontal view of the chest was obtained. COMPARISON: Chest 2 views 12/02/2019, CT abdomen and pelvis 12/22/2019 FINDINGS: There is no pneumonia, pleural effusion, or pneumothorax. The heart size is normal. There i s a moderate-sized hiatal hernia. IMPRESSION: 1. Moderate-sized hiatal hernia. Reviewed, dictated and finalized at location A. UME DESIGN TEACHER
--- NOTE | 2020-07-02 11:00 | ED.GENADULT ---
HPI - General Adult General Chief complaint: Nausea/Vomiting/Diarrhea Stated complaint: N/V Time Seen by Provider: 07/02/20 10:29 Source: patient Mode of arrival: EMS Limitations: dementia History of Present Illness HPI narrative: This patient is a 70 year old female who presents for evaluation of nausea, vomiting diarrhea. Patient has no complaints. She denies nausea, vomiting, diarrhea, abdominal pain, chest pain, sob. Triage was told by daughter that patient had cough, vomiting , diarrhea for 3 days. They were exposed to someone that was positive for covid 3 weeks ago. Her daughter is not at bedside currently to provide history. Related Data Allergies Allergy/AdvReac Type Severity Reaction Status Date / Time Penicillins Allergy Mild hives Verified 07/02/20 11:06 acetaminophen Allergy Unknown Unknown Verified 07/02/20 11:06 hydrocodone Allergy Unknown Unknown Verified 07/02/20 11:06 peanut Allergy Unknown Itching Verified 07/02/20 11:06 PROPOXYPHENE NAPSYLATE Allergy Mild Rash Uncoded 07/02/20 11:06 Shrimp Allergy Mild Unknown Uncoded 07/02/20 11:06 Review of Systems Review of Systems: All systems reviewed & are unremarkable except as noted in HPI and below PMFSH Past Medical History Medical History (Updated 07/02/20 @ 17:05 by Dayana Mott MD) Bronchitis Dementia Dementia with psychosis Diabetes Essential (primary) hypertension Lesion of spleen Melena Surgical History Surgical History H/O section Family History Family History Sibling Cerebrovascular accident Family history of diabetes mellitus in first degree relative Father Carcinoma of colon Family history of malignant neoplasm Mother Family history of diabetes mellitus in first degree relative Hypertension Family history of arthritis Family history of malignant neoplasm Family history of type 2 diabetes mellitus Other Diabetes mellitus Family history of cardiovascular disease Family history of gout Family history of seizure disorder Social History Social History Smoking status: Never smoker Alcohol intake: unknown Substance use: unknown Substance use type: unknown Gender identity (if verbalized by the patient): Female Spiritual care concerns: No Exam Const: General: no acute distress and alert Nutritional Appearance: obese Orientation/consciousness: patient oriented x3 Eyes: EOM: EOMs intact bilaterally Resp: Effort & Inspection: normal respiratory effort and no retractions Auscultation: clear to auscultation bilaterally Cardio: Rate: regular rate Rhythm: regular rhythm Heart sounds: no murmurs GI: GI Palp: Yes Soft to palpation, No Tenderness to palpation present (GI), No Guarding due to palpation present (GI) and No Rebound tenderness present Skin: General skin exam: normal color Rashes: no rashes Neuro: General: patient oriented x3 and moves all extremities Extrem: General: normal to inspection Psych: Mental Status: mental status grossly normal Affect: normal affect Course Reevaluation(s) Reevaluation #1: PAtient has been comfortable without a complaint. She has had no vomiting. She was able to tolerate PO. PAtient's POA is at bedside. I Discussed labs and discharge plan. She reports patient states she feels fine which is good. No abdominal tenderness. Date: 07/02/20 Time: 16:57 Vital Signs Vital signs: Vital Signs Temperature 97.9 F 07/02/20 10:15 Pulse Rate 113 H 07/02/20 10:15 Respiratory Rate 20 07/02/20 10:15 Blood Pressure 132/91 H 07/02/20 10:15 Pulse Oximetry 99 07/02/20 10:15 Temperature 97.9 F 07/02/20 10:15 Pulse Rate 96 07/02/20 13:00 Respiratory Rate 20 07/02/20 13:00 Blood Pressure 169/85 H 07/02/20 13:00 Pulse Oximetry 99 07/02/20 13:00 M
[2020-07-02] MEDS: ONDANSETRON INJ 4 MG/2 ML VIAL IV PUSH (11:14)
[2020-07-02] MEDS: SODIUM CHLORIDE 0.9% IV 1,000 ML 999 ML IV CONT ×2 (11:14→14:12)
[2020-07-02 11:27] LABS: Glucose Point of Care 278 (65-105)
--- NOTE | 2020-07-02 11:27 | PC.NURSE ---
blood sugar was 278
[2020-07-02 11:37] LABS: Basophils Absolute Auto 0.1 K/mm3 (0.0-0.1); Basophils Percent Auto 0.6 % (0.2-1.2); Eosinophils Absolute Auto 0.1 K/mm3 (0-0.3); Eosinophils Percent Auto 0.7 % (0-4.4); Hematocrit 32.9 % (37.0-47.0); Hemoglobin 10.6 g/dL (12.0-15.0); Immature Granulocyte Absolute 0.03 K/mm3 (0.00-0.031); Immature Granulocyte Percent A 0.4 % (0-0.5); Lymphocytes Absolute Auto 2.09 K/mm3 (0.9-3.2); Mean Corpuscular HGB Conc 32.2 g/dl (32-36); Mean Corpuscular Hemoglobin 29.3 pg (26-34); Mean Corpuscular Volume 90.9 fl (80-100); Mean Platelet Volume 10.8 fl (7.4-10.4); Monocytes Absolute Auto 0.7 K/mm3 (0.1-0.6); Monocytes Percent Auto 8.7 % (2.6-8.5); Neutrophils Absolute Auto 5.1 K/mm3 (1.3-6.7); Neutrophils Percent Auto 63.6 % (45.5-73.1); Platelet Count Result 283 k/mm3 (150-375); Red Blood Count 3.62 M/mm3 (4.2-5.4)
[2020-07-02 11:48] LABS: Alanine Aminotransferase 12 U/L (4-35); Albumin Level 3.7 g/dL (3.5-5.1); Alkaline Phosphatase 68 U/L (38-126); Anion Gap 7 mmol/L (8-16); Aspartate Amino Transferase 17 U/L (14-36); Bilirubin,Total 0.3 mg/dL (0.2-1.3); Blood Urea Nitrogen 14 mg/dL (7-17); Calcium 9.1 mg/dL (8.4-10.2); Carbon Dioxide 31 mmol/L (22-30); Chloride 97 mmol/L (98-107); Estimated Glomerular Filt Rate > 60; Glucose 331 mg/dL (65-105); Lipase 64 U/L (23-300); Potassium 3.6 mmol/L (3.4-5.0); Sodium 135 mmol/L (137-145)
[2020-07-02 11:49] LABS: Lactic Acid Reflex 2.1 mmol/L (0.7-2.1)
[2020-07-02 11:54] LABS: CRP 5.3 mg/dL (<1.0)
[2020-07-02 14:34] LABS: Reflex Lactic Acid Yes or No Add Lactic
[2020-07-02 15:00] LABS: Lactic Acid 1.2 mmol/L (0.7-2.1)
[2020-07-02 15:26] LABS: Add Urine Microscopic? YES; Appearance Urine Cloudy (Clear); Bacteria Urine Trace /hpf; Bilirubin Urine Negative (Negative); Blood Urine 3+ (Negative); Color Urine Yellow (Yellow); Glucose Urine UA 1+ mg/dL (Negative); Ketones Urine Trace mg/dL (Negative); Leukocyte Esterase Ur 2+ LEU/UL (Negative); Mucus Urine Rare /lpf; Nitrate Urine Negative (Negative); Protein Urine 3+ mg/dL (Negative); RBC Urine >75 /hpf (0-2); Specific Grav Ur 1.022 (1.001-1.035); Squamous Epithelial Cell Urine Few /hpf (Few); Urobilinogen Urine Negative mg/dL (<2.0)
[2020-07-03 01:23] LABS: SARS-CoV-2 RNA PCR Negative
== END 2020-07-02 17:20 | disposition home or self-care (01) ==
PROVIDERS: Emergency Provider General Practice; PCP Family Medicine
DX: K52.9 Noninfective gastroenteritis and colitis, unspecified (principal); N39.0 Urinary tract infection, site not specified; Z20.828 Contact with and (suspected) exposure to other viral communicable diseases; F03.90 Unspecified dementia, unspecified severity, without behavioral disturbance, psychotic disturbance, mood disturbance, and anxiety; E11.9 Type 2 diabetes mellitus without complications; I10 Essential (primary) hypertension; K44.9 Diaphragmatic hernia without obstruction or gangrene
CPT/HCPCS: 36415; 51701; 71045; 80053; 81001; 82948; 83605; 83690; 85025; 86140; 87086; 87635; 96361; 96374; 99284; C9803; J2405; J7030; U0003

== ENCOUNTER 2020-07-13 15:15 | Emergency (ER) | payer MEDICARE, SELFPAY ==
[2020-07-13] VITALS (22 sets, daily range): BP systolic 118–151; BP diastolic 76–113; PULSE 92–107; RESP 12–27; TEMP 37.1; O2SAT 99–100
--- NOTE | ~2020-07-13 | XR_ITS ---
EXAMINATION: XR chest 2V EXAM DATE: 07/13/2020 16:01 INDICATION: Cough, yellow phlegm. Fell 2 days ago. Diabetes. TECHNIQUE: Frontal and lateral projections of the chest obtained and reviewed. Comparison is made to prior examination from 07/02/2020. FINDINGS: Probable small pleural effusions. There is cardiomegaly. No confluent consolidation. No pne umothorax. Left-sided rotator cuff repair anchor. Thoracolumbar spondylosis. IMPRESSION: 1. Cardiomegaly, small pleural effusions. Reviewed, dictated and finalized at location B. PLANNER
--- NOTE | ~2020-07-13 | CT_ITS ---
EXAMINATION: CT brain wo con DATE: 07/13/2020 15:53 INDICATION: Weakness. Paresis. TECHNIQUE: Computed tomography (CT) of the head was performed without intravenous contrast. The mA wa s adjusted according to patient size. Iterative reconstruction technique was employed. Exam dose: 60 5.33 mGy-cm total exam DLP. COMPARISON: 11/11/2015 MRI brain/brainstem FINDINGS: There is cerebellar and central and cortical cerebral atrophy. Prominent bilateral carotid siphon internal carotid artery calcifications are noted. There is nonspec ific diminished attenuation of the subcortical and periventricular cerebral white matter, likely due to chronic small vessel ischemic changes. No intracranial mass lesion or hemorrhage or cerebrovascular accident is detected. There is no midlin e shift or mass effect. There is no subdural or epidural hematoma. No fracture or bone destruction of the cranial vault. There is mild mucoperiosteal thickening of the maxillary sinuses and soft tissue thickening in the po sterior medial aspect of the right sphenoid sinus. The paranasal sinuses and mastoid air cells otherw ise are unremarkable. IMPRESSION: Cerebral atherosclerosis and chronic small vessel ischemic changes of the cerebral white matter Cerebellar and cerebral atrophy No acute intracranial finding Reviewed, dictated and finalized at Location A. Reviewed, dictated and finalized at location A. OMER ACCOUNT TECHNICIAN
--- NOTE | 2020-07-13 15:24 | ED.SOB ---
HPI - SOB/Dyspnea General Chief Complaint: Weakness Stated Complaint: SOB Time Seen by Provider: 07/13/20 15:22 Source: patient and family Mode of arrival: wheelchair Limitations: dementia History of Present Illness HPI Narrative: Patient is a 70-year-old female with history of Alzheimer's dementia, type 2 diabetes, chronic kidney disease, dementia, who presents for evaluation of diffuse weakness, difficulty with ambulation, cough with productive sputum. Patient's daughter provides most of the history given the patient's history of dementia. Of note, patient was recently seen in this emergency department on July 02, with negative Covid swab, diagnosed with a urinary tract infection and prescribed oral antibiotics. Patient has been worsening since that time. She did finish that course of antibiotics. Patient's daughter states she typically is able to ambulate around the house and complete some ADLs but now patient is so weak she has been unable to do this. No fever, chills, nausea or vomiting. No reported abdominal pain. Related Data Allergies Allergy/AdvReac Type Severity Reaction Status Date / Time Penicillins Allergy Mild hives Verified 07/13/20 15:39 acetaminophen Allergy Unknown Unknown Verified 07/13/20 15:39 hydrocodone Allergy Unknown Unknown Verified 07/13/20 15:39 peanut Allergy Unknown Itching Verified 07/13/20 15:39 PROPOXYPHENE NAPSYLATE Allergy Mild Rash Uncoded 07/02/20 11:06 Shrimp Allergy Mild Unknown Uncoded 07/02/20 11:06 Review of Systems Review of Systems: Narrative: CONSTITUTIONAL: Denies fever, chills, or sweats. EYES: Denies visual changes, redness, or discharge. ENT: Denies rhinorrhea, congestion, sore throat, or otalgia. CARDIOVASCULAR: Denies chest pain, palpitations, or edema. RESPIRATORY: Reports productive cough and shortness of breath with exertion GASTROINTESTINAL: Denies abdominal pain, nausea, vomiting, or diarrhea. GENITOURINARY: Denies dysuria or hematuria. SKIN: Denies rash or itching. MUSCULOSKELETAL: Denies back pain, joint pain, or myalgia. NEUROLOGIC: Denies headache, numbness, or weakness. [facility] Past Medical History Medical History (Updated 07/13/20 @ 18:36 by Milla Abraham MD) Bronchitis Dementia Dementia with psychosis Diabetes Essential (primary) hypertension Lesion of spleen Melena Surgical History Surgical History H/O section Family History Family History Sibling Cerebrovascular accident Family history of diabetes mellitus in first degree relative Father Carcinoma of colon Family history of malignant neoplasm Mother Family history of diabetes mellitus in first degree relative Hypertension Family history of arthritis Family history of malignant neoplasm Family history of type 2 diabetes mellitus Other Diabetes mellitus Family history of cardiovascular disease Family history of gout Family history of seizure disorder Social History Social History Smoking status: Never smoker Alcohol intake: unknown Substance use: unknown Substance use type: unknown Gender identity (if verbalized by the patient): Female Spiritual care concerns: No Exam Narrative: Exam Narrative: GENERAL: Awake, alert, conversant HEAD: Normocephalic, atraumatic. EYES: PERRLA and EOMI. ENT: Nares clear, no rhinorrhea or epistaxis. Mucous membranes moist. NECK: Supple. CHEST: No respiratory distress, breathing even and non labored HEART: Regular rate, sinus rhythm ABDOMEN:Non distended, non tender EXTREMITIES: Normal range of motion. No edema. SKIN: Warm, dry, no rash. NEURO:No focal deficits. Alert and oriented to person, not to place or time. Course Vital Signs Vital signs: Vital Signs Pulse Rate 105 H 07/13/20 15:28 Respiratory Rate 20 07/13/20 15:28 Blood Pressure 118/
--- NOTE | 2020-07-13 15:30 | ECG_ITS ---
Measurements Intervals [place] Rate: 103 P: 34 MS: 149 QRS: 13 QRSD: 73 T: 8 QT: 342 QTc: 448 Interpretive Statements SINUS TACHYCARDIA POSSIBLE LEFT ATRIAL ENLARGEMENT BORDERLINE T WAVE ABNORMALITY- INFERIOR LEADS BORDERLINE ECG Electronically Signed On 07-14-2020 8:44:49 BIT SHARPENER OPERATOR by Ej Pack D.O.
[2020-07-13 15:40] LABS: Basophils Percent Auto 0.3 % (0.2-1.2); Eosinophils Percent Auto 0.4 % (0-4.4); Hemoglobin 10.6 g/dL (12.0-15.0); Immature Granulocyte Absolute 0.05 K/mm3 (0.00-0.031); Immature Granulocyte Percent A 0.5 % (0-0.5); Lymphocytes Absolute Auto 1.68 K/mm3 (0.9-3.2); Lymphocytes Percent Auto 16.7 % (18.3-44.2); Mean Corpuscular HGB Conc 33.1 g/dl (32-36); Mean Corpuscular Hemoglobin 29.3 pg (26-34); Mean Corpuscular Volume 88.4 fl (80-100); Mean Platelet Volume 9.6 fl (7.4-10.4); Monocytes Absolute Auto 0.7 K/mm3 (0.1-0.6); Monocytes Percent Auto 7.1 % (2.6-8.5); Neutrophils Absolute Auto 7.6 K/mm3 (1.3-6.7); Platelet Count Result 430 k/mm3 (150-375); Red Blood Count 3.62 M/mm3 (4.2-5.4); Red Cell Distribution Width 13.5 % (11.5-14.5); White Blood Count 10.1 K/mm3 (4.5-10.0)
[2020-07-13] MEDS: SODIUM CHLORIDE 0.9% IV 1,000 ML 999 ML IV CONT (15:43)
[2020-07-13 15:53] LABS: Alanine Aminotransferase 12 U/L (4-35); Albumin Level 3.4 g/dL (3.5-5.1); Alkaline Phosphatase 71 U/L (38-126); Anion Gap 6 mmol/L (8-16); Aspartate Amino Transferase 15 U/L (14-36); Bilirubin,Total 0.4 mg/dL (0.2-1.3); Blood Urea Nitrogen 9 mg/dL (7-17); Calcium 8.8 mg/dL (8.4-10.2); Carbon Dioxide 30 mmol/L (22-30); Chloride 95 mmol/L (98-107); Estimated CRCL calculation 83 ml/min; Estimated Glomerular Filt Rate > 60; Glucose 269 mg/dL (65-105); Potassium 3.6 mmol/L (3.4-5.0); Sodium 131 mmol/L (137-145)
[2020-07-13 16:01] LABS: Creatine Kinase 27 U/L (30-135)
[2020-07-13 16:05] LABS: Partial Thromboplastin Time 26.1 SECONDS (22.3-36.8); Prothrombin Time 13.8 Seconds (11.1-14.7)
[2020-07-13 16:14] LABS: NT Pro B Type Natriuretic Pept 62 PG/ML (5-100); Troponin I < 0.012 ng/mL (0.000-0.034)
[2020-07-13 17:24] LABS: Add Urine Microscopic? YES; Appearance Urine Clear (Clear); Bacteria Urine Trace /hpf; Bilirubin Urine Negative (Negative); Blood Urine 3+ (Negative); Color Urine Yellow (Yellow); Glucose Urine UA 1+ mg/dL (Negative); Ketones Urine 2+ mg/dL (Negative); Leukocyte Esterase Ur Trace LEU/UL (Negative); Mucus Urine Few /lpf; Nitrate Urine Negative (Negative); Protein Urine 2+ mg/dL (Negative); RBC Urine >75 /hpf (0-2); Specific Grav Ur 1.018 (1.001-1.035); Squamous Epithelial Cell Urine Occasional /hpf (Few); Urobilinogen Urine Negative mg/dL (<2.0)
== END 2020-07-13 18:45 | disposition home or self-care (01) ==
PROVIDERS: Emergency Provider Emergency Medicine; PCP Family Medicine
DX: E86.0 Dehydration (principal); F03.90 Unspecified dementia, unspecified severity, without behavioral disturbance, psychotic disturbance, mood disturbance, and anxiety; E11.9 Type 2 diabetes mellitus without complications; I10 Essential (primary) hypertension
CPT/HCPCS: 36415; 51701; 70450; 71046; 80053; 81001; 82550; 83880; 84484; 85025; 85610; 85730; 87081; 87086; 87880; 93005; 96360; 96361; 99284; J7030

== ENCOUNTER → 2020-07-18 14:46 | Outpatient (CLI) | payer MEDICARE, SELFPAY ==
--- NOTE | ~2020-07-18 | XR_ITS ---
XR chest 2V DATE: 07/18/2020 15:26 INDICATION: Shortness of breath TECHNIQUE: 2 views in wheelchair COMPARISON: 07/13/2020 AP and lateral chest FINDINGS: There is mild infiltrate and/or atelectasis in both lower lung lau. There is minimal if any pleural effusion. Heart size appears borderline. No pulmonary vascular congestion or pneumothorax . Diffuse osteopenia. IMPRESSION: Mild bibasilar infiltrate and/or atelectasis Reviewed, dictated and finalized at location B. RTISING COPY WRITER
--- NOTE | ~2020-07-18 | XR_ITS ---
EXAMINATION: XR abdomen/kub 1V EXAM DATE: 07/18/2020 15:26 INDICATION: R19.7 - Diarrhea, unspecified TECHNIQUE: Frontal projection(s) of the abdomen for interpretation. Comparison is made to prior exami nation from 09/25/2011. FINDINGS: There is moderate amount of colonic stool and gas. No small bowel dilation, nonobstructiv e bowel gas pattern. There are no suspicious calcifications identified. There is no organomegaly suspected. Mild lumbar levoscoliosis. Possible small right pleural effusion. IMPRESSION: Moderate amount of colonic stool and gas. Reviewed, dictated and finalized at location A. TECHNICIAN
== END ==
PROVIDERS: PCP Nurse Practitioner Family; Visit Provider Nurse Practitioner Family
DX: R06.02 Shortness of breath (principal); R05 Cough; R19.7 Diarrhea, unspecified; R11.2 Nausea with vomiting, unspecified; K92.1 Melena; R10.9 Unspecified abdominal pain; R14.0 Abdominal distension (gaseous); D72.820 Lymphocytosis (symptomatic); E87.1 Hypo-osmolality and hyponatremia; R91.8 Other nonspecific abnormal finding of lung field
CPT/HCPCS: 71046; 74018

== ENCOUNTER 2020-07-24 10:02 | Observation (INO) | payer MEDICARE, SELFPAY ==
[2020-07-24] VITALS (11 sets, daily range): BP systolic 96–124; BP diastolic 51–74; PULSE 78–95; RESP 15–18; TEMP 36.1–36.6; O2SAT 95–100
--- NOTE | ~2020-07-24 | CT_ITS ---
EXAMINATION: CTA brain carotid DATE: 07/24/2020 12:09 DISTRICT LEADER INDICATION: Possible stroke TECHNIQUE: Computed tomographic angiography (CTA) of the head was performed without and with 100 mL O mnipaque-350 intravenous contrast. CTA of the neck was performed with intravenous contrast. The dose- length product was 1788.73 mGy-cm. Maximum intensity projection and volume rendered 3D-reconstruction s were created by the technologist on a separate workstation. COMPARISON: CT head dated 07/13/2020. FINDINGS: CT HEAD: No acute intracranial hemorrhage, infarction, mass or mass effect. Generalized brain parench ymal volume loss. There are scattered moderate periventricular and subcortical white matter changes, most likely related to small vessel ischemic disease (microangiopathy). No midline shift. Mild intrac ranial atherosclerosis. Paranasal sinuses are pneumatized. No depressed skull fractures. Lytic defect right temporal bone lateral aspect of the middle cranial fossa. Cannot exclude metastatic disease. HEAD CTA: No hemodynamically significant stenosis, dissection or aneurysm. There is a small defect in the right temporal bone lateral margin middle cranial fossa. Consider metastatic disease. NECK CTA: There is atherosclerosis. The aortic arch and great vessels are unremarkable. No evidence f or aneurysm, dissection or hemodynamically significant stenosis. There is less than 50%% stenosis of the proximal right internal carotid artery relative to normal dis janusz artery lumen diameter (NASCET criteria). There is less than 50% utilized aspects of the lung apic es are unremarkable.% stenosis of the proximal left internal carotid artery relative to normal distal artery lumen diameter. IMPRESSION: 1: No acute intracranial abnormality. No significant abnormality of the intracranial and neck vascula ture. 2: Small defect in the right temporal bone lateral margin middle cranial fossa. Consider metastatic d isease. Reviewed, dictated and finalized at location A. RICT LEADER IMPRESSION: 1: No acute intracranial abnormality. No significant abnormality of the intracr anial and neck vasculature. 2: Small defect in the right temporal bone lateral margin middle cranial fossa. Consider metastatic disease.
--- NOTE | ~2020-07-24 | MR_ITS ---
EXAMINATION: MR brain/brain stem wo/w con EXAM DATE: 07/25/2020 12:07 INDICATION: Facial droop . TECHNIQUE: Magnetic resonance imaging (MRI) of the brain/brain stem obtained without contrast. Sagit janusz T1, axial diffusion, gradient echo (T2*), T1, T2, FLAIR sequences obtained. Patient was then inj ected with 18 cc intravenous Multihance contrast. Axial and coronal postcontrast T1 weighted sequence s obtained. Comparison is made to prior examination from 11/11/2015. FINDINGS: There are no areas of restricted diffusion to suggest acute infarction. There is no acute hemorrhage seen on the T2*, a hemosiderin sensitive sequence. No intraparenchymal brain mass lesion. There is mild to moderate periventricular and subcortical T2/FLAIR signal hyperintensity, nonspecifi c but probably related to small vessel ischemic disease (microangiopathy). There is mild to moderat e prominence of the sulci and ventricles related to cerebral atrophy. There are no extra-axial deonte ections. Flow voids are seen in the cerebral arteries on the T2-weighted sequences consistent with t heir expected patency. Patient has had bilateral ocular lens surgery. Soft tissue is unremarkable. Interval progression of age-related intracranial findings. IMPRESSION: 1. No acute intracranial findings. 2. Chronic age related findings. Reviewed, dictated and finalized at location B. HANDLERS SUPERVISOR
--- NOTE | ~2020-07-24 | XR_ITS ---
EXAMINATION: XR chest 1V portable 07/24/2020 10:39 INDICATION: Left-sided facial droop. Alzheimer's. PROCEDURE: AP portable chest COMPARISON: 07/18/2020 and 07/13/2020 FINDINGS: The lungs are clear. The cardiomediastinal silhouette is within normal limits. There are no pleural effusions. There is no pneumothorax suspected. IMPRESSION: 1: NO ACUTE CARDIOPULMONARY DISEASE. Reviewed, dictated and finalized at location A. AND SPICE MIXER
--- NOTE | 2020-07-24 10:14 | ECG_ITS ---
Measurements Intervals [place] Rate: 82 P: 33 WV: 149 QRS: -15 QRSD: 84 T: -12 QT: 377 QTc: 442 Interpretive Statements SINUS RHYTHM VOLTAGE CRITERIA FOR LVH DELAYED PRECORDIAL R/S TRANSITION NONSPECIFIC ST ELEVATION IN ANT/HIGH LAT LEADS BORDERLINE T WAVE ABNORMALITY- INFERIOR LEADS BORDERLINE ECG Electronically Signed On 07-24-2020 16:35:24 [employer] INTERMODAL TRUCK DRIVER by Ej Pack D.O.
[2020-07-24 10:21] LABS: Glucose Point of Care 140 (65-105)
--- NOTE | 2020-07-24 10:23 | ED.GENADULT ---
HPI - General Adult General Chief complaint: Suspected CVA Stated complaint: facial droop since [id number] Time Seen by Provider: 07/24/20 10:06 Source: family History of Present Illness HPI narrative: Patient is a 70 y/o female brought in by EMS for right facial droop. Patient has history of dementia and she is unable to provide history. Daughter states that she was with this patient from 8:00 AM to 3:00 PM yesterday and she was at baseline when daughter left at 3:00 PM. However, when daughter returned around 9:30 PM, patient had some right facial droop. Daughter states that patient has not been able to walk or eat herself for last 2 week. Daughter states that patient has advance dementia. Related Data Home Medications Medication Instructions Recorded Confirmed folic acid 0.4 mg PO DAILY 07/24/20 memantine-donepezil [Namzaric] PO 07/24/20 Allergies Allergy/AdvReac Type Severity Reaction Status Date / Time Penicillins Allergy Mild hives Verified 07/24/20 10:10 acetaminophen Allergy Unknown Unknown Verified 07/24/20 10:10 hydrocodone Allergy Unknown Unknown Verified 07/24/20 10:10 Iodine and Iodide Containing Allergy Unknown Unknown Verified 07/24/20 12:26 Produc peanut Allergy Unknown Itching Verified 07/24/20 10:10 shellfish derived Allergy Unknown Unknown Verified 07/24/20 12:26 PROPOXYPHENE NAPSYLATE Allergy Mild Rash Uncoded 07/24/20 10:10 Review of Systems Review of Systems: ROS unobtainable: Yes unobtainable due to mental status PMFSH Past Medical History Medical History Bleeding ulcer BMI 33.0-33.9,adult Bronchitis Dementia Dementia with psychosis Diabetes Essential (primary) hypertension Lesion of spleen Melena Surgical History Surgical History H/O section Family History Family History Sibling Cerebrovascular accident Family history of diabetes mellitus in first degree relative Father Carcinoma of colon Family history of malignant neoplasm Mother Family history of diabetes mellitus in first degree relative Hypertension Family history of arthritis Family history of malignant neoplasm Family history of type 2 diabetes mellitus Stomach cancer Sibling Hypertension Hyperlipidemia Cancer Other Diabetes mellitus Family history of cardiovascular disease Family history of gout Family history of seizure disorder Social History Social History Smoking status: Never smoker Alcohol intake: former Substance use: unknown Substance use type: does not use and unknown 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 Gender identity (if verbalized by the patient): Female Spiritual care concerns: No Exam Const: General: no acute distress and well developed Orientation/consciousness: oriented to person, oriented to place, oriented to time and patient oriented x3 HENMT: Head: normocephalic Ears: external ears normal General nose exam: Normal external nose present Eyes: General: appearance normal, both eyes and all related structures Conjunctivae: conjunctivae normal Neck: Neck: normal visual inspection and full ROM Chest: Chest palpation & inspection: normal inspection of the chest and no tenderness Resp: Effort & Inspection: normal respiratory effort Auscultation: clear to auscultation bilaterally Cardio: Rate: regular rate Rhythm: regular rhythm GI: GI Palp: No abdominal tenderness and Yes Soft to palpation Skin: General skin exam: normal color and turgor normal Neuro: General: confusion and other (has spontaneous movement in both arms) Cognition (Neuro): abnormal cognition Speech: Other speech findings present (Neuro) (does not answer question or follow command) Extrem: General: normal to inspection, full ROM and no pedal edema
[2020-07-24 10:24] LABS: Basophils Percent Auto 0.6 % (0.2-1.2); Eosinophils Absolute Auto 0.1 K/mm3 (0-0.3); Eosinophils Percent Auto 1.7 % (0-4.4); Hematocrit 31.8 % (37.0-47.0); Hemoglobin 9.9 g/dL (12.0-15.0); Immature Granulocyte Absolute 0.04 K/mm3 (0.00-0.031); Immature Granulocyte Percent A 0.6 % (0-0.5); Lymphocytes Absolute Auto 1.87 K/mm3 (0.9-3.2); Lymphocytes Percent Auto 28.8 % (18.3-44.2); Mean Corpuscular HGB Conc 31.1 g/dl (32-36); Mean Corpuscular Hemoglobin 27.7 pg (26-34); Mean Corpuscular Volume 89.1 fl (80-100); Mean Platelet Volume 9.2 fl (7.4-10.4); Monocytes Absolute Auto 0.6 K/mm3 (0.1-0.6); Monocytes Percent Auto 8.9 % (2.6-8.5); Neutrophils Absolute Auto 3.9 K/mm3 (1.3-6.7); Neutrophils Percent Auto 59.4 % (45.5-73.1); Platelet Count Result 376 k/mm3 (150-375); Red Blood Count 3.57 M/mm3 (4.2-5.4); Red Cell Distribution Width 13.6 % (11.5-14.5); White Blood Count 6.5 K/mm3 (4.5-10.0)
[2020-07-24 10:34] LABS: Prothrombin Time 14.1 Seconds (11.1-14.7)
[2020-07-24 10:35] LABS: Partial Thromboplastin Time 25.8 SECONDS (22.3-36.8)
[2020-07-24 10:45] LABS: Anion Gap 8 mmol/L (8-16); Blood Urea Nitrogen 16 mg/dL (7-17); Carbon Dioxide 30 mmol/L (22-30); Chloride 100 mmol/L (98-107); Estimated CRCL calculation 61 ml/min; Estimated Glomerular Filt Rate > 60; Glucose 131 mg/dL (65-105); Potassium 3.9 mmol/L (3.4-5.0); Sodium 138 mmol/L (137-145)
[2020-07-24 10:57] LABS: Troponin I < 0.012 ng/mL (0.000-0.034)
--- NOTE | 2020-07-24 14:15 | PM.IMHP ---
H&P: HPI History of Present Illness Date/Time: 07/24/20 14:15 Chief Complaint: Right facial droop. Narrative: This is a 70-year-old female with dementia, hypertension, and insulin-dependent diabetes who presented to the emergency department earlier today via EMS from home for evaluation of a right facial droop. Given her advanced dementia she is unable to provide any history as she is reportedly nonverbal at baseline. As such a majority of the following is obtained via a review of her electronic medical records as well as discussions with family members. Daughter was with the patient yesterday between 08:00 and 15:00 and at that time the patient seemed to be in her usual state of health. When the daughter returned at 21:30, she noticed slight drooping of the right side of the patient's face. I am not certain why they decided to bring her in today and not last night. In any event I was also told that she was recently treated for pneumonia and in fact finished an antibiotic just yesterday. Additionally over the past 2 weeks the patient has not gotten up to walk, is not feeding herself, and apparently she has had a swollen lower lip. Family members are worried that she may be getting dehydrated. At the time my evaluation she is alert and will smile at me on occasion. She did squeeze my fingers with both hands but did not answer questions or follow commands. Review of Systems Review of Systems: Narrative: A review of systems is unable to be obtained given the patient's advanced dementia and nonverbal status. [facility] Past Medical History Medical History (Updated 07/24/20 @ 13:41 by Angy Torre PA-C) Bleeding ulcer Chronic anemia Dementia with behavioral disturbance Essential hypertension Gastroesophageal reflux disease History of bleeding peptic ulcer Insulin dependent type 2 diabetes mellitus Hemoglobin A1c was 6.9% on 04/19/2020. Lesion of spleen Surgical History Surgical History (Updated 07/24/20 @ 13:38 by Angy Torre PA-C) History of section Family History Family History Sibling Cerebrovascular accident Family history of diabetes mellitus in first degree relative Father Carcinoma of colon Family history of malignant neoplasm Mother Family history of diabetes mellitus in first degree relative Hypertension Family history of arthritis Family history of malignant neoplasm Family history of type 2 diabetes mellitus Stomach cancer Sibling Hypertension Hyperlipidemia Cancer Other Diabetes mellitus Family history of cardiovascular disease Family history of gout Family history of seizure disorder Social History Social History (Updated 07/24/20 @ 16:47 by Angy Torre PA-C) Social History: The patient lives in [place] with her . He is legally blind and they have caretakers that help out at home. The patient's daughter also lives nearby and is very involved in her care. 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 Lifelong nonsmoker. No alcohol or illicit substance use. Healthcare power of civil attorney is her daughter, Paty Garrett. Full code. Smoking status: Never smoker Alcohol intake: never Substance use: never Gender identity (if verbalized by the patient): Female Spiritual care concerns: No Meds Home Medications and Allergies Home Medications Medication Instructions Recorded Confirmed Type pen needle, diabetic 32 gauge x #100 each 10/27/19 07/24/20 Rx 1/ blood sugar diagnostic #120 each 11/09/19 07/24/20 Rx blood-glucose meter #1 each 11/09/19 07/24/20 Rx lancets 30 gauge #120 each 11/09/19 07/24/20 Rx metformin 500 mg tablet,extended 1,000 mg PO BID #120 tablet 12/17/19 07/24/20 Rx release 24 hr omeprazole 40 mg capsule,delayed 40 mg PO DAILY #30 cap 01/04/20 07/24/20 Rx release tolnaftate 1 % topical powder 1 applic TOPICAL BID #45 gm 04/11/20 07/24/20 Rx furosemide 20 mg tablet
--- NOTE | 2020-07-24 15:55 | ADMGEN ---
This patient, Diane Garrett, was admitted to Medical Room 250-01. Patient/family oriented to hospital policies and general routines including ID bracelet, bed and alarms, visiting hours, pain management, procedures, bathroom and other care routines, personal items, smoking policy, room service/diet, and visiting hours. Information on how to activate the Rapid Response Team has been discussed. Patient/Family are encouraged to report perceived risks to care and to ask questions if they do not understand what they are told or what they should do.
[2020-07-24 18:45] LABS: Glucose Point of Care 112 (65-105)
[2020-07-24] MEDS: TOLNAFTATE 1% POWDER 45 GM BTL 1 APPLIC TOPICAL (20:44)
[2020-07-24 23:32] LABS: Glucose Point of Care 111 (65-105)
[2020-07-25] VITALS (11 sets, daily range): BP systolic 113–134; BP diastolic 62–84; PULSE 83–103; RESP 15–20; TEMP 36.2–36.8; O2SAT 96–100; BMI 34.7
--- NOTE | 2020-07-25 | ECHO_ITS ---
Patient Info Name: Diane Garrett Age: 70 years : 1950 Gender: Female Ht: 64 in Wt: 201 lbs BSA: 2.07 m2 HR: 92 bpm BP: 128 / 71 mmHg Technical Quality: Good Exam Date: 07/25/2020 10:22 AM Exam Location: [facility] Patient Status: Inpatient Admit Date: 07/24/2020 Staff Ordering Physician: Ami Rob PA-C Machines Technician: Maday Ortega RDCS Attending Provider: Wilder Gonzalez MD Referring Physician: Darron CHEN; Exam Type: CA echo doppler w bubble study Study Info Indications - TIA VS STROKE Complete two-dimensional, color flow and Doppler transthoracic echocardiogram is performed with agitated saline. Summary 1. Left ventricular chamber dimension is normal. 2. Left ventricular systolic function is hyperdynamic, estimated at >70%. 3. The left ventricular diastolic function is grade I diastolic dysfunction. 4. E/e' 7 is not elevated. 5. There is trace tricuspid valve regurgitation. 6. No pulmonary hypertension, estimated pulmonary arterial systolic pressure is 22 mmHg. Left Ventricle E/e' 7 is not elevated. Left ventricular chamber dimension is normal. Left ventricular systolic function is hyperdynamic, estimated at >70%. The left ventricular diastolic function is grade I diastolic dysfunction. Right Ventricle Right ventricular chamber dimension is normal. Right ventricular systolic function is normal. Left Atria Left atrial chamber dimension is normal. Right Atria Right atrial chamber dimension is normal. Atrial Septum Agitated saline injection with and without valsalva maneuver opacified right sided cardiac chambers and no shunt noted to left cardiac chambers. Intact interatrial septum visualized by agitated saline imaging. Aortic Valve The aortic valve is trileaflet. There is no aortic valve stenosis. There is no aortic valve regurgitation. Pulmonic Valve There is no pulmonic regurgitation. Mitral Valve There is no mitral valve stenosis. There is no mitral valve regurgitation. Tricuspid Valve There is trace tricuspid valve regurgitation. No pulmonary hypertension, estimated pulmonary arterial systolic pressure is 22 mmHg. Pericardium/Pleural There is no pericardial effusion. Inferior Vena Cava Normal inferior vena cava with >50% collapse upon inspiration consistent with normal right atrial pressure, 5 mmHg. Aorta The aortic root size at the sinus of Valsalva is normal. Left Ventricular Outflow Tract Name Value Normal LVOT 2D LVOT Diameter 2.0 cm LVOT Doppler LVOT Peak Gradient 5 mmHg LVOT Mean Gradient 3 mmHg LVOT VTI 20 cm LVOT VTI/AV VTI Ratio 0.9 LVOT Stroke Volume 61 ml LVOT CO 5.4 l/min LVOT CI 2.6 l/min/m2 Pulmonic Valve Name Value Normal
[2020-07-25 05:44] LABS: Hematocrit 31.1 % (37.0-47.0); Hemoglobin 9.7 g/dL (12.0-15.0); Mean Corpuscular HGB Conc 31.2 g/dl (32-36); Mean Corpuscular Hemoglobin 27.6 pg (26-34); Mean Corpuscular Volume 88.6 fl (80-100); Mean Platelet Volume 9.3 fl (7.4-10.4); Platelet Count Result 351 k/mm3 (150-375); Red Blood Count 3.51 M/mm3 (4.2-5.4); Red Cell Distribution Width 13.7 % (11.5-14.5); White Blood Count 7.3 K/mm3 (4.5-10.0)
[2020-07-25 06:29] LABS: Hemoglobin A1C 7.9 % (<5.7)
[2020-07-25 06:47] LABS: Alanine Aminotransferase 11 U/L (4-35); Albumin Level 3.3 g/dL (3.5-5.1); Alkaline Phosphatase 62 U/L (38-126); Anion Gap 9 mmol/L (8-16); Aspartate Amino Transferase 28 U/L (14-36); Bilirubin,Total 0.6 mg/dL (0.2-1.3); Blood Urea Nitrogen 13 mg/dL (7-17); Calcium 8.9 mg/dL (8.4-10.2); Carbon Dioxide 27 mmol/L (22-30); Chloride 103 mmol/L (98-107); Cholesterol 175 mg/dL (0-200); Estimated CRCL calculation 79 ml/min; Estimated Glomerular Filt Rate > 60; Glucose 122 mg/dL (65-105); HDL Direct 42 mg/dL; Magnesium 1.7 mg/dL (1.6-2.3); Potassium 4.4 mmol/L (3.4-5.0); Sodium 139 mmol/L (137-145); Triglycerides 138 mg/dL (<150)
[2020-07-25 06:58] LABS: LDL Cholesterol Direct 120 mg/dL
[2020-07-25 07:20] LABS: Iron 38 ug/dL (37-170)
[2020-07-25 07:28] LABS: Percent Iron Saturation 15 % (20-50)
[2020-07-25 07:50] LABS: Glucose Point of Care 121 (65-105)
[2020-07-25 07:53] LABS: Thyroid Stimulating Hormone Reflex 0.837 uIU/mL (0.465-4.68)
[2020-07-25 12:30] LABS: Glucose Point of Care 133 (65-105)
[2020-07-25 14:11] LABS: Folic Acid 12.5 ng/mL (2.76->20)
[2020-07-25 16:23] LABS: Glucose Point of Care 154 (65-105)
[2020-07-25] MEDS: TOLNAFTATE 1% POWDER 45 GM BTL 1 APPLIC TOPICAL (16:37)
--- NOTE | 2020-07-25 16:41 | PM.IMPN ---
Progress Note: A&P Assessment and Plan (1) Facial droop: Code(s): R29.810 - Facial weakness Status: Acute Assessment and Plan: Patient had reported facial droop on admission which has resolved -her MRI is negative -CTA of head shows no acute abnormalities -could be a TIA, aspirin started -echo pending -likely discharge tomorrow once echo is resulted to ensure no shunt causing a TIA (2) Essential hypertension: Code(s): I10 - Essential (primary) hypertension Status: Inactive Assessment and Plan: Last blood pressure 132/76 -continue home Lasix -discontinue Losartan since there is question of possible angioedema outpatient with the swelling of her lip (3) Dementia with behavioral disturbance: Code(s): F03.91 - Unspecified dementia with behavioral disturbance Status: Inactive Assessment and Plan: Chronic and at baseline (4) Chronic anemia: Code(s): D64.9 - Anemia, unspecified Status: Inactive Assessment and Plan: Hemoglobin 9.7 -B12 added -monitor H&H and transfuse if less than 7 (5) Insulin dependent type 2 diabetes mellitus: Code(s): E11.9 - Type 2 diabetes mellitus without complications; Z79.4 - terminal press operator (current) use of insulin Status: Acute Assessment and Plan: Last glucose 154 -continue sliding scale insulin (6) Gastroesophageal reflux disease: Code(s): K21.9 - Gastro-esophageal reflux disease without esophagitis Status: Acute Assessment and Plan: Continue Protonix (7) Abnormal brain CT: Code(s): R90.89 - Other abnormal findings on diagnostic imaging of central nervous system Status: Acute Assessment and Plan: After speaking with the radiologist, this abnormality has been there since 2005 and has not changed. No concern for metastatic disease at this time Time Spent With Patient Time with patient: 25 - 35 minutes Subjective Date/time seen: 07/25/20 16:41 Interval history: Pt is a 70-year-old female who was reportedly nonverbal but does speak with the but mostly just repeats we use a. She is unable to really answer any questions. She did tell me she was not in pain but could not answer any orientation questions, including her name. I have called multiple numbers in the chart and left a message for someone to call me back and I have not heard from them yet. No reports from nursing staff Review of Systems Review of Systems: All systems reviewed & are unremarkable except as noted in HPI and below Exam Narrative: Exam Narrative: General: Well developed well nourished patient in NAD HEENT: normocephalic Neck: supple Neuro: Alert but unable to answer orientation questions. Able to follow commands. Cranial nerves 2-12 intact. Equal strength the upper lower extremity 5/5 CV:RRR Resp:CTA Abd: Soft, non distended. No pain to palpation. Positive bowel sounds Extremities: No swelling, erythema, or pain to palpation. Objective Data Vital Signs Vital Signs: Vital Signs - 24 hr 07/24/20 18:00 07/24/20 20:00 07/24/20 21:59 Temperature 97.2 F L 97.9 F Pulse Rate 82 87 95 Respiratory Rate 16 18 Blood Pressure 100/51 L 124/74 Pulse Oximetry 98 97 07/25/20 00:00 07/25/20 02:42 07/25/20 04:00 Temperature 97.6 F Pulse Rate 90 92 85 Respiratory Rate 16 Blood Pressure 128/71 Pulse Oximetry 98 07/25/20 06:00 07/25/20 08:00 07/25/20 10:00 Temperature 97.5 F L 97.1 F L Pulse Rate 86 85 83 Respiratory Rate 18 18 Blood Pressure 113/75 128/84 Pulse Oximetry 98 100 07/25/20 14:00 Temperature 97.3 F L Pulse Rate 90 Respiratory Rate 15 Blood Pressure 132/76 Pulse Oximetry 99 Intake/Output Intake/Output: Intake & Output 07/22/20 07/23/20 07/24/20 07/25/20 23:59 23:59 23:59 23:59 Intake Total 0 Balance 0 Meds/Results Medications: Active Medications Generic Name Dose Route Start Last
[2020-07-25] MEDS: DONEPEZIL HCL 10 MG TABLET PO (20:33)
[2020-07-25] MEDS: PANTOPRAZOLE 40 MG TABLET PO (20:34)
[2020-07-25] MEDS: COLESTIPOL HCL 1 GM TABLET PO (20:34)
[2020-07-25] MEDS: MEMANTINE HCL XR 28 MG CAP PO (20:35)
[2020-07-25 20:38] LABS: Glucose Point of Care 148 (65-105)
[2020-07-26] VITALS (7 sets, daily range): BP systolic 104–144; BP diastolic 54–70; PULSE 68–92; RESP 14–18; TEMP 36.4–37.1; O2SAT 98–100
[2020-07-26 05:46] LABS: Hematocrit 31.9 % (37.0-47.0)
[2020-07-26 06:02] LABS: Anion Gap 8 mmol/L (8-16); Blood Urea Nitrogen 11 mg/dL (7-17); Calcium 8.6 mg/dL (8.4-10.2); Carbon Dioxide 29 mmol/L (22-30); Chloride 101 mmol/L (98-107); Estimated CRCL calculation 79 ml/min; Estimated Glomerular Filt Rate > 60; Glucose 129 mg/dL (65-105); Potassium 3.4 mmol/L (3.4-5.0); Sodium 138 mmol/L (137-145)
[2020-07-26 08:01] LABS: Glucose Point of Care 126 (65-105)
[2020-07-26] MEDS: TOLNAFTATE 1% POWDER 45 GM BTL 1 APPLIC TOPICAL (09:36)
--- NOTE | 2020-07-26 11:36 | PM.DS ---
DS: Admitting Diagnosis Admitting Diagnosis Admitting Diagnosis: Facial droop DS: Discharge Diagnosis Discharge Diagnosis (1) Facial droop: Code(s): R29.810 - Facial weakness Status: Acute Assessment and Plan: Date of Admission 07/24/20 Date of Discharge/DOS 07/26/20 Ms. Garrett is a 70yo F with history of hypertension, dementia, chronic anemia, insulin-dependent type 2 DM, GERD who presented to the ED for evaluation of right facial droop prior to arrival. She is known to have advanced dementia and family noted she had not been able to walk or feed herself for around 2 weeks. Family noted she had just finished antibiotics for treatment of pneumonia. Head/neck CTA as well as MRI brain show no evidence of acute intracranial findings. CT read small defect in right temporal bone and on further discussion with radiologist it is noted on imaging dating back to at least 2005, not acute. Echocardiogram is within normal limits without atrial shunting identified, detailed below. TIA is a possible cause of her symptoms and aspirin has been started. Patient was ambulating in halls. She remained confused, at times is minimally verbal but is able to speak in few-word phrases with is said to be her baseline. Chest XR is clear without evidence of pneumonia and patient is not short of breath, coughing, or hypoxic. She is hemodynamically stable for discharge on 07/26/20 with instructions to follow up with PCP in 1 week. Patient had reported facial droop on admission which has resolved -her MRI is negative -CTA of head shows no acute abnormalities -could be a TIA, aspirin started -echo detailed below. (2) Essential hypertension: Code(s): I10 - Essential (primary) hypertension Status: Inactive Assessment and Plan: Stable; continue home meds. (3) Dementia with behavioral disturbance: Code(s): F03.91 - Unspecified dementia with behavioral disturbance Status: Chronic Assessment and Plan: Chronic and at baseline (4) Chronic anemia: Code(s): D64.9 - Anemia, unspecified Status: Chronic Assessment and Plan: Hgb low but stable. B12 added. No evidence of acute bleeding. (5) Insulin dependent type 2 diabetes mellitus: Code(s): E11.9 - Type 2 diabetes mellitus without complications; Z79.4 - salvage determiner (current) use of insulin Status: Chronic Assessment and Plan: Blood sugars stable, covered with sliding scale insulin while hospitalized. Continue home regimen with insulin + metformin at discharge. (6) Gastroesophageal reflux disease: Code(s): K21.9 - Gastro-esophageal reflux disease without esophagitis Status: Chronic Assessment and Plan: Continue Protonix (7) Abnormal brain CT: Code(s): R90.89 - Other abnormal findings on diagnostic imaging of central nervous system Status: Acute Assessment and Plan: After speaking with the radiologist, this abnormality has been there since 2005 and has not changed. No concern for metastatic disease at this time DS: Summary Hospital Course Hospital Course: See above. Time Spent with Patient Time attestation: Total time spent providing and/or coordinating discharge services: 35 minutes Exam Narrative: Exam Narrative: General: Well developed well nourished patient in NAD HEENT: normocephalic Neck: supple Neuro: Alert but unable to answer orientation questions. Able to follow commands. Responds verbally to most questions and asks me how I am doing. Cranial nerves 2-12 intact. Equal strength the upper lower extremity 5/5 CV:RRR Resp:CTA Abd: Soft, non distended. No pain to palpation. Positive b
== END 2020-07-26 14:10 | disposition home or self-care (01) ==
LOC: ANHED 12:13 → ANH2MED 12:52
PROVIDERS: Physician Assistant; Admitting Provider Family Medicine; Emergency Provider Emergency Medicine; PCP Nurse Practitioner Family; Visit Provider Internal Medicine
DX: R29.810 Facial weakness (principal); R53.1 Weakness; R90.89 Other abnormal findings on diagnostic imaging of central nervous system; F03.90 Unspecified dementia, unspecified severity, without behavioral disturbance, psychotic disturbance, mood disturbance, and anxiety; I10 Essential (primary) hypertension; E11.9 Type 2 diabetes mellitus without complications; Z79.4 Long term (current) use of insulin; D64.9 Anemia, unspecified; K21.9 Gastro-esophageal reflux disease without esophagitis; Z87.11 Personal history of peptic ulcer disease; Z79.84 Long term (current) use of oral hypoglycemic drugs
CPT/HCPCS: 36415; 70496; 70498; 70553; 71045; 80048; 80053; 80061; 82607; 82728; 82746; 82948; 83036; 83540; 83550; 83735; 84443; 84484; 85014; 85018; 85025; 85027; 85610; 85730; 92610; 93005; 93306; 96375; 99285; A9270; A9577; G0378; Q9967

== ENCOUNTER 2020-09-06 18:03 | Emergency (ER) | payer MEDICARE, SELFPAY ==
[2020-09-06] MEDS: SODIUM CHLORIDE 0.9% IV 1,000 ML 999 ML IV CONT (18:14)
[2020-09-06 18:26] VITALS: BP 99/85; PULSE 122; RESP 14; TEMP 36.9; O2SAT 99
[2020-09-06 18:47] LABS: Glucose Point of Care 338 (65-105)
[2020-09-06 19:12] LABS: Basophils Absolute Auto 0.1 K/mm3 (0.0-0.1); Basophils Percent Auto 0.4 % (0.2-1.2); Eosinophils Percent Auto 0.1 % (0-4.4); Hematocrit 35.4 % (37.0-47.0); Hemoglobin 11.3 g/dL (12.0-15.0); Immature Granulocyte Absolute 0.17 K/mm3 (0.00-0.031); Immature Granulocyte Percent A 1.3 % (0-0.5); Lymphocytes Absolute Auto 2.04 K/mm3 (0.9-3.2); Lymphocytes Percent Auto 15.2 % (18.3-44.2); Mean Corpuscular HGB Conc 31.9 g/dl (32-36); Mean Corpuscular Hemoglobin 27.3 pg (26-34); Mean Corpuscular Volume 85.5 fl (80-100); Mean Platelet Volume 9.5 fl (7.4-10.4); Monocytes Percent Auto 7.2 % (2.6-8.5); Neutrophils Absolute Auto 10.2 K/mm3 (1.3-6.7); Neutrophils Percent Auto 75.8 % (45.5-73.1); Platelet Count Result 441 k/mm3 (150-375); Red Blood Count 4.14 M/mm3 (4.2-5.4); Red Cell Distribution Width 17.2 % (11.5-14.5); White Blood Count 13.5 K/mm3 (4.5-10.0)
[2020-09-06 19:22] LABS: Partial Thromboplastin Time 26.8 SECONDS (22.3-36.8); Prothrombin Time 13.5 Seconds (11.1-14.7)
[2020-09-06 19:26] LABS: Alanine Aminotransferase 23 U/L (4-35); Albumin Level 3.3 g/dL (3.5-5.1); Alkaline Phosphatase 110 U/L (38-126); Anion Gap 6 mmol/L (8-16); Aspartate Amino Transferase 33 U/L (14-36); Bilirubin,Total 0.4 mg/dL (0.2-1.3); Blood Urea Nitrogen 23 mg/dL (7-17); Calcium 8.7 mg/dL (8.4-10.2); Carbon Dioxide 24 mmol/L (22-30); Chloride 101 mmol/L (98-107); Estimated Glomerular Filt Rate > 60; Glucose 374 mg/dL (65-105); Potassium 4.4 mmol/L (3.4-5.0); Sodium 131 mmol/L (137-145)
[2020-09-06 20:16] VITALS: BP 105/92; PULSE 121; RESP 24; O2SAT 100
[2020-09-06 20:48] VITALS: BP 113/93; PULSE 130; RESP 25; O2SAT 98
--- NOTE | 2020-09-06 20:52 | ED.GIBLEED ---
HPI - GI Bleed General Chief complaint: GI Bleed Stated complaint: N/V Time Seen by Provider: 09/06/20 18:12 Source: EMS Mode of arrival: EMS Limitations: dementia History of Present Illness HPI Narrative: Patient is 70 years old -[place] female brought to the emergency room from a snf with a chief complaint of vomiting of coffee-ground material. Once prior to arrival to the emergency room. Patient was discharged from [facility] yesterday after 4 weeks hospitalization for similar symptoms. Patient is status post feeding tube placement 1 week ago. Related Data Home Medications Medication Instructions Recorded Confirmed Namzaric 1 cap PO HS 07/24/20 07/24/20 celecoxib 200 mg PO DAILY 07/24/20 07/24/20 colestipol 1 g PO TID 07/24/20 07/24/20 folic acid 0.4 mg PO DAILY 07/24/20 07/24/20 losartan 50 mg PO DAILY 07/24/20 07/24/20 Allergies Allergy/AdvReac Type Severity Reaction Status Date / Time Penicillins Allergy Mild hives Verified 09/02/20 10:13 hydrocodone Allergy Unknown Unknown Verified 09/02/20 10:13 peanut Allergy Unknown Itching Verified 09/02/20 10:13 shellfish derived Allergy Unknown Unknown Verified 09/02/20 10:13 Review of Systems Review of Systems: ROS unobtainable: Yes unobtainable due to mental status PMFSH Past Medical History Medical History Bleeding ulcer Chronic anemia Dementia with behavioral disturbance Essential hypertension Gastroesophageal reflux disease History of bleeding peptic ulcer Insulin dependent type 2 diabetes mellitus Hemoglobin A1c was 6.9% on 04/19/2020. Lesion of spleen Surgical History Surgical History History of section Family History Family History Sibling Cerebrovascular accident Family history of diabetes mellitus in first degree relative Father Carcinoma of colon Family history of malignant neoplasm Mother Family history of diabetes mellitus in first degree relative Hypertension Family history of arthritis Family history of malignant neoplasm Family history of type 2 diabetes mellitus Stomach cancer Sibling Hypertension Hyperlipidemia Cancer Other Diabetes mellitus Family history of cardiovascular disease Family history of gout Family history of seizure disorder Social History Social History Social History: The patient lives in [place] with her . He is legally blind and they have caretakers that help out at home. The patient's daughter also lives nearby and is very involved in her care. 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 Lifelong nonsmoker. No alcohol or illicit substance use. Healthcare power of sports attorney is her daughter, Paty Garrett. Full code. Smoking status: Never smoker Alcohol intake: never Substance use: never Gender identity (if verbalized by the patient): Female Spiritual care concerns: No Exam Narrative: Exam Narrative: General appearance: Well-developed, well-nourished Skin: Normal color Chest and respiratory: Airway patent, no respiratory distress, no accessory muscle use Heart: Regular rate/rhythm Abdomen: Soft, nontender, no organomegaly, quiet bowel sounds Alert, disoriented x4 Course Course Emergency Course: Stable Consultations Consultation #1: DR CARDOSO, hospitalist at [facility], accepted transfusion. Date: 09/06/20 Time: 21:46 Vital Signs Vital signs: Vital Signs Temperature 36.9 C 09/06/20 18:26 Pulse Rate 122 H 09/06/20 18:26 Respi
[2020-09-06 22:29] VITALS: BP 93/62; PULSE 119; RESP 18; O2SAT 98
--- NOTE | 2020-09-06 22:55 | PC.NURSE ---
made contact with [facility] and [facility] to transfer patient to [facility]. both companies declined. [employer] accepted with an eta of [id number]
--- NOTE | 2020-09-06 23:38 | PC.NURSE ---
[facility] has arrived
[2020-09-06 23:44] VITALS: BP 83/65; PULSE 114; RESP 18; O2SAT 22
== END 2020-09-06 23:47 | disposition short-term general hospital (02) ==
PROVIDERS: Emergency Provider Emergency Medicine; PCP Nurse Practitioner Family
DX: F03.91 Unspecified dementia, unspecified severity, with behavioral disturbance (principal); I10 Essential (primary) hypertension; K21.9 Gastro-esophageal reflux disease without esophagitis; E11.9 Type 2 diabetes mellitus without complications; D64.9 Anemia, unspecified; K92.2 Gastrointestinal hemorrhage, unspecified
CPT/HCPCS: 36415; 80053; 82948; 85025; 85610; 85730; 96360; 96361; 99285; J7030

== ENCOUNTER 2020-10-01 19:22 | Emergency (ER) | payer MEDICARE, SELFPAY ==
[2020-10-01] VITALS (35 sets, daily range): BP systolic 109–153; BP diastolic 80–104; PULSE 121–137; RESP 9–28; TEMP 37.2–37.6; O2SAT 96–100
--- NOTE | ~2020-10-01 | CT_ITS ---
EXAMINATION: CT abdomen pelvis wo con DATE: 10/01/2020 20:39 INDICATION: Coffee-ground emesis TECHNIQUE: Computed tomography (CT) of the abdomen and pelvis was performed without intravenous contr ast. Automated exposure control and iterative reconstruction technique were employed. Exam dose: 120 4.87 mGy-cm total exam DLP. COMPARISON: 12/22/2019 CT abdomen pelvis FINDINGS: Mild predominantly dependent infiltrate and/or atelectasis in the lower lung zones includin g lingula and left greater than right lower lobes. Borderline heart size. Moderate hiatal hernia. Gastrostomy tube in the stomach. The liver, gallbladder, bile ducts, pancreas, pancreatic duct and spleen are unremarkable. Normal morphology of the adrenal glands. No renal mass lesion or urinary tract calculus or hydroureteronephrosis. There is a Baltazar catheter and air within the urinary bladder lumen; moderate thickening and urinary b ladder wall. Approximately 5 cm uterine fundic fibroid. Normal caliber of the abdominal aorta. No intraperitoneal or retroperitoneal or pelvic mass lesion or adenopathy or ascites is noted. Normal appendix. There is diverticulosis of the colon; no CT evidence of diverticulitis. No bowel obs truction, bowel wall thickening, pneumatosis or intraperitoneal free air. Small fat-containing umbilical hernia. Moderately severe multilevel degenerative disc disease of the lumbar spine. There is degenerative change at the apophyseal joints with associated grade 1 anterolisthesis at L5-S 1. IMPRESSION: No bowel obstruction or free air Diverticulosis of the colon Gastrostomy tube in the stomach Moderate hiatal hernia Reviewed, dictated and finalized at [facility]. Reviewed, dictated and finalized at [facility].
--- NOTE | 2020-10-01 19:32 | ED.NAVMDI ---
HPI - Nausea/Vomiting/Diarrhea General Chief complaint: Nausea/Vomiting/Diarrhea Stated complaint: n/v Source: RN notes reviewed History of Present Illness HPI Narrative: Patient presents to emergency department from [facility] via EMS for nausea vomiting. Per staff patient with nausea vomiting starting yesterday with one episode of coffee-ground emesis possible today. The patient was recently admitted to [facility] and discharged on for an upper GI bleed patient currently has a PEG tube as well as chronic Baltazar catheter unable to give any history. The patient was to go to [facility] but per EMS had to suction her twice of brought her to our facility as it was closer. Per the daughter's request at this time she does wish her to return to [facility]. 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 patient was given Zofran by EMS Related Data Home Medications Medication Instructions Recorded Confirmed Namzaric 1 cap PO HS 07/24/20 07/24/20 celecoxib 200 mg PO DAILY 07/24/20 07/24/20 colestipol 1 g PO TID 07/24/20 07/24/20 folic acid 0.4 mg PO DAILY 07/24/20 07/24/20 losartan 50 mg PO DAILY 07/24/20 07/24/20 Allergies Allergy/AdvReac Type Severity Reaction Status Date / Time Penicillins Allergy Mild hives Verified 10/01/20 19:44 hydrocodone Allergy Unknown Unknown Verified 10/01/20 19:44 peanut Allergy Unknown Itching Verified 10/01/20 19:44 shellfish derived Allergy Unknown Unknown Verified 10/01/20 19:44 Review of Systems Review of Systems: ROS unobtainable: Yes unobtainable due to medical condition (Dementia and minimal ability to communicate) PMFSH Past Medical History Medical History Bleeding ulcer Chronic anemia Dementia with behavioral disturbance Essential hypertension Gastroesophageal reflux disease History of bleeding peptic ulcer Insulin dependent type 2 diabetes mellitus Hemoglobin A1c was 6.9% on 04/19/2020. Lesion of spleen Surgical History Surgical History History of section Family History Family History Sibling Cerebrovascular accident Family history of diabetes mellitus in first degree relative Father Carcinoma of colon Family history of malignant neoplasm Mother Family history of diabetes mellitus in first degree relative Hypertension Family history of arthritis Family history of malignant neoplasm Family history of type 2 diabetes mellitus Stomach cancer Sibling Hypertension Hyperlipidemia Cancer Other Diabetes mellitus Family history of cardiovascular disease Family history of gout Family history of seizure disorder Social History Social History Social History: The patient lives in [place] with her . He is legally blind and they have caretakers that help out at home. The patient's daughter also lives nearby and is very involved in her care. 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 Lifelong nonsmoker. No alcohol or illicit substance use. Healthcare power of attorney recruiter is her daughter, Paty Garrett. Full code. Smoking status: Never smoker Alcohol intake: never Substance use: never Gender identity (if verbalized by the patient): Female Spiritual care concerns: No Exam Narrative: Exam Narrative: APPEARANCE: Awake with eyes open will occasionally mumble words does not follow command EYES: PERRL HEENT: Normocephalic, atraumatic, OMM RESPIRATORY: No respiratory distress Clear to auscultation bilaterally with no rhonchi wheezing or rales. CARDIOVASCULAR: Regular rate and rhythm without murmurs rubs or gallops. ABDOMINAL: Soft, nontender, nondistended, no rebound or guarding PEG tube present Rectal: Small amount of soft bro
[2020-10-01] MEDS: SODIUM CHLORIDE 0.9% IV 1,000 ML 999 ML IV CONT ×2 (19:39→23:36)
[2020-10-01 20:13] LABS: Add Urine Microscopic? YES; Amorphous Sediment Urine Few; Appearance Urine Cloudy (Clear); Bacteria Urine 4+ /hpf; Bilirubin Urine Negative (Negative); Color Urine Amber (Yellow); Glucose Urine UA Negative (Negative); Ketones Urine Negative (Negative); Leukocyte Esterase Ur 2+ LEU/UL (Negative); Mucus Urine Heavy /lpf; Nitrate Urine Negative (Negative); Protein Urine 2+ mg/dL (Negative); Specific Grav Ur 1.025 (1.001-1.035); Urobilinogen Urine Negative mg/dL (<2.0); WBC Urine 31-50 /hpf
[2020-10-01 20:19] LABS: Blood Urine Negative (Negative)
[2020-10-01 20:37] LABS: Basophils Absolute Auto 0.1 K/mm3 (0.0-0.1); Basophils Percent Auto 0.3 % (0.2-1.2); Eosinophils Percent Auto 0.1 % (0-4.4); Hematocrit 30.5 % (37.0-47.0); Hemoglobin 9.4 g/dL (12.0-15.0); Immature Granulocyte Absolute 0.15 K/mm3 (0.00-0.031); Immature Granulocyte Percent A 0.9 % (0-0.5); Lymphocytes Absolute Auto 2.15 K/mm3 (0.9-3.2); Lymphocytes Percent Auto 12.4 % (18.3-44.2); Mean Corpuscular HGB Conc 30.8 g/dl (32-36); Mean Corpuscular Hemoglobin 26.3 pg (26-34); Mean Corpuscular Volume 85.4 fl (80-100); Mean Platelet Volume 9.2 fl (7.4-10.4); Monocytes Absolute Auto 1.1 K/mm3 (0.1-0.6); Monocytes Percent Auto 6.3 % (2.6-8.5); Neutrophils Absolute Auto 13.9 K/mm3 (1.3-6.7); Nucleated Red Blood Cells Perc 0.1 % (0.0-0.2); Platelet Count Result 643 k/mm3 (150-375); Red Blood Count 3.57 M/mm3 (4.2-5.4); Red Cell Distribution Width 17.6 % (11.5-14.5); White Blood Count 17.4 K/mm3 (4.5-10.0)
[2020-10-01 20:46] LABS: INR 1.1; Prothrombin Time 15.1 Seconds (11.1-14.7)
[2020-10-01 20:47] LABS: Lactic Acid Reflex 1.3 mmol/L (0.7-2.1); Partial Thromboplastin Time 33.7 SECONDS (22.3-36.8); Potassium 3.8 mmol/L (3.4-5.0)
[2020-10-01 20:49] LABS: Alanine Aminotransferase 12 U/L (4-35); Albumin Level 3.5 g/dL (3.5-5.1); Alkaline Phosphatase 108 U/L (38-126); Anion Gap 4 mmol/L (8-16); Aspartate Amino Transferase 20 U/L (14-36); Bilirubin,Total 0.3 mg/dL (0.2-1.3); Blood Urea Nitrogen 21 mg/dL (7-17); Calcium 9.5 mg/dL (8.4-10.2); Carbon Dioxide 35 mmol/L (22-30); Chloride 100 mmol/L (98-107); Estimated Glomerular Filt Rate > 60; Glucose 228 mg/dL (65-105); Lipase 18 U/L (23-300); Sodium 139 mmol/L (137-145)
--- NOTE | 2020-10-01 21:05 | ECG_ITS ---
Measurements Intervals [place] Rate: 123 P: 22 SD: 143 QRS: -27 QRSD: 81 T: 60 QT: 322 QTc: 461 Interpretive Statements SINUS TACHYCARDIA POOR R WAVE PROGRESSION, CONSIDER ANTERIOR INFARCT ABNORMAL ECG Electronically Signed On 10-02-2020 7:34:23 CDT by Ej Pack D.O.
[2020-10-01] MEDS: PANTOPRAZOLE SODIUM IV 40 MG VIAL IV PUSH (22:02)
--- NOTE | 2020-10-01 22:33 | PC.NURSE ---
spoke with Nadia at [facility] patient access. Triage information given. States will call when bed is available.
--- NOTE | 2020-10-01 22:50 | PC.NURSE ---
PT RECEIVED BED AT [facility]. REPORT CALLED TO [facility]. ALL QUESTIONS ANSWERED
[2020-10-02] VITALS: PULSE 120; O2SAT 97
[2020-10-02 00:01] VITALS: BP 116/80; PULSE 120; RESP 20; O2SAT 99
[2020-10-02 00:05] VITALS: TEMP 36.9
[2020-10-02 00:15] VITALS: PULSE 119; RESP 16; O2SAT 100
[2020-10-02] MEDS: SODIUM CHLORIDE 0.9% IV 1,000 ML 125 ML IV CONT (00:28)
[2020-10-02 00:34] VITALS: BP 107/81; PULSE 123; RESP 14; TEMP 36.9; O2SAT 98
[2020-10-02 01:06] VITALS: BP 113/83; PULSE 125; RESP 16; TEMP 36.9; O2SAT 98
== END 2020-10-02 01:08 | disposition short-term general hospital (02) ==
LOC: ANHED 20:08
PROVIDERS: Emergency Provider Emergency Medicine; PCP Nurse Practitioner Family
DX: R11.2 Nausea with vomiting, unspecified (principal); N39.0 Urinary tract infection, site not specified; K92.2 Gastrointestinal hemorrhage, unspecified; D64.9 Anemia, unspecified; G30.9 Alzheimer's disease, unspecified; F02.80 Dementia in other diseases classified elsewhere, unspecified severity, without behavioral disturbance, psychotic disturbance, mood disturbance, and anxiety; I10 Essential (primary) hypertension; K21.9 Gastro-esophageal reflux disease without esophagitis; E11.9 Type 2 diabetes mellitus without complications; K57.90 Diverticulosis of intestine, part unspecified, without perforation or abscess without bleeding; K44.9 Diaphragmatic hernia without obstruction or gangrene; Z93.1 Gastrostomy status; R00.0 Tachycardia, unspecified; R94.31 Abnormal electrocardiogram [ECG] [EKG]
CPT/HCPCS: 36415; 74176; 80053; 81001; 83605; 83690; 85025; 85610; 85730; 86850; 86900; 86901; 87040; 87077; 87086; 87088; 87186; 93005; 96361; 96365; 96366; 96375; 99285; C9113; J0131; J1956; J7030

== ENCOUNTER 2020-12-01 08:16 | Inpatient (IN) | payer MEDICARE, MEDICAID, SELFPAY ==
[2020-12-01] VITALS (24 sets, daily range): BP systolic 101–139; BP diastolic 70–98; PULSE 96–114; RESP 16–22; TEMP 36.2–36.8; O2SAT 91–100
--- NOTE | ~2020-12-01 | XR_ITS ---
EXAMINATION: XR chest 1V portable EXAM DATE: 12/01/2020 09:05 INDICATION: Dark emesis this morning. TECHNIQUE: Portable AP frontal chest x-ray was obtained. Comparison is made to prior examination from 07/24/2020. FINDINGS: The lungs are clear. There are no pleural effusions. Cardiac silhouette is prominent but magnified on this AP technique. There is no pneumothorax suspected. There are bony degenerative ch anges. There is left rotator cuff repair anchor. There is a gastric banding device. IMPRESSION: No acute cardiopulmonary findings. Reviewed, dictated and finalized at location [facility].
--- NOTE | ~2020-12-01 | CT_ITS ---
EXAMINATION: CT abdomen pelvis w con DATE: 12/01/2020 10:27 INDICATION: Vomiting, dark emesis. TECHNIQUE: Computed tomography (CT) of the abdomen and pelvis was performed with 100 cc Omnipaque 350 intravenous contrast. Automated exposure control and iterative reconstruction technique were employe d. Exam dose: 1188.81 mGy-cm total exam DLP. COMPARISON: 10/01/[address] abdomen pelvis FINDINGS: The lung bases are clear of infiltrate or consolidation. Normal heart size. No pericardia l or pleural effusion. There is a catheter extending from the moderate size hiatal hernia to the mid duodenum. There is a pe rcutaneous gastrostomy tube in the stomach. There are multiple hypoattenuating splenic lesions of variable size measuring up to 3 cm. Overall spl enic size is normal. No hepatic space-occupying mass lesion is detected. The gallbladder is distended. No gallbladder wall thickening or pericholecystic fluid or fat strandin g. No bile duct or pancreatic duct dilatation. No pancreatic mass lesion or calcification. Normal morphology of the adrenal glands. No suspicious renal mass lesion or urinary tract calculus or hydroureteronephrosis. Normal caliber of the abdominal aorta. No intraperitoneal or retroperitoneal or pelvic mass lesion or adenopathy or ascites is evident. Apparent bicornuate uterus. There is a Baltazar catheter in the completely evacuated urinary bladder. The bladder therefore is not o ptimally evaluated. Normal appendix. No bowel obstruction, bowel wall thickening, pneumatosis or intraperitoneal free air . Normal appendix. Diffuse osteopenia. Levoscoliosis of the lumbar spine. Degenerative changes at the apophyseal joints of the lumbar spine with associated grade 1 anterolisth esis at L5-S1. Prominent degenerative disc disease at L5-S1. IMPRESSION: Numerous hypoattenuating splenic lesions; multifocal splenic lesion differential diagnos is includes infectious and inflammatory processes, primary vascular lymphoid neoplasms, metastatic di sease, vascular processes and systemic diseases. The spleen is a relatively rare site for metastatic disease; patient with metastatic lesions of the spleen usually have disease at other sites as well. B reast, lung, ovary, melanoma and colon cancer, and primary tumors metastasize to the spleen. Moderate hiatal hernia Catheter extends from hiatal hernia to mid duodenum Percutaneous gastrostomy tube Bicornuate uterus Baltazar catheter in urinary bladder Reviewed, dictated and finalized at [facility]. Reviewed, dictated and finalized at location [facility]. IMPRESSION: Numerous hypoattenuating splenic lesions; multifocal splenic lesio n differential diagnosis includes infectious and inflammatory processes, primar y vascular lymphoid neoplasms, metastatic disease, vascular processes and syste armani diseases. The spleen is a relatively rare site for metastatic disease; andreas ent with metastatic lesions of the spleen usually have disease at other sites a s well. Breast, lung, ovary, melanoma and colon cancer, and primary tumors meta stasize to the spleen. Moderate hiatal hernia Catheter extends from hiatal hernia to mid duodenum Percutaneous gastrostomy tube Bicornuate uterus Baltazar catheter in urinary bladder
--- NOTE | ~2020-12-01 | XR_ITS ---
EXAMINATION: XR hip RT min 2V DATE: 12/02/2020 19:27 INDICATION: Right hip pain TECHNIQUE: Two views of right hip were obtained. COMPARISON: 08/16/2009 FINDINGS: Bone alignment is normal. No fracture is identified. The soft tissues are unremarkable. The re is moderate osteoarthritis of the hip. IMPRESSION: 1. No acute osseous abnormality. Reviewed, dictated and finalized at location [facility].
--- NOTE | 2020-12-01 08:54 | ED.GIBLEED ---
HPI - GI Bleed General Chief complaint: GI Bleed Stated complaint: Vomiting, GI Bleed Time Seen by Provider: 12/01/20 08:17 Source: family, EMS and RN notes reviewed Mode of arrival: EMS Limitations: dementia History of Present Illness HPI Narrative: This is a 70 year old female with history of dementia. PUD, DM who presents for evaluation of coffee ground EMS. She is coming from a custodial because she had coffee ground emesis this morning. She is unable to given any history. Past history shows she has history of esophageal stricture in which she had to be dilated. She has been to ER twice since August for coffee ground emesis. she is on eliquis for DVT. MD complaint: coffee ground emesis Related Data Home Medications Medication Instructions Recorded Confirmed Saccharomyces boulardii [Florastor] 250 mg FEEDING TUBE BID 12/01/20 12/01/20 apixaban [Eliquis] 5 mg FEEDING TUBE BID 12/01/20 12/01/20 bisacodyl 10 mg RECTAL DAILY PRN 12/01/20 12/01/20 cefuroxime axetil 5 mg FEEDING TUBE BID 12/01/20 12/01/20 collagenase clostridium histo. 1 applic TOPICAL DAILY 12/01/20 12/01/20 [Santyl] cyanocobalamin (vitamin B-12) 1,000 mcg IM MONTHLY 12/01/20 12/01/20 donepezil 10 mg FEEDING TUBE HS 12/01/20 12/01/20 folic acid 1 mg FEEDING TUBE DAILY 12/01/20 12/01/20 gentamicin 1 applic TOPICAL DAILY 12/01/20 12/01/20 insulin glargine 16 unit SUBCUT BID 12/01/20 12/01/20 loperamide [Anti-Diarrheal 2 mg FEEDING TUBE Q8H PRN 12/01/20 12/01/20 (loperamide)] magnesium hydroxide [Milk of 30 ml FEEDING TUBE HS PRN 12/01/20 12/01/20 Magnesia] metoclopramide HCl 5 mg FEEDING TUBE BID PRN 12/01/20 12/01/20 mineral oil [Cnfdl-Rc-Tuh Enema 133 ml RECTAL DAILY PRN 12/01/20 12/01/20 (min oil)] pusfcvlpajav-wwq-ggnm-FA-vit K 1 tablet PO DAILY 12/01/20 12/01/20 [Adults Multivitamin] omeprazole 20 mg FEEDING TUBE BID 12/01/20 12/01/20 rivastigmine 1 patch TOPICAL Q72H PRN 12/01/20 12/01/20 sennosides-docusate sodium 2 tablet PO DAILY PRN 12/01/20 12/01/20 [Senokot-S] sodium phosphates [Fleet Enema] 118 ml RECTAL PRN PRN 12/01/20 12/01/20 sulfamethoxazole-trimethoprim 1 tablet FEEDING TUBE BID 12/01/20 12/01/20 Allergies Allergy/AdvReac Type Severity Reaction Status Date / Time Penicillins Allergy Mild hives Verified 12/01/20 15:02 hydrocodone Allergy Unknown Unknown Verified 12/01/20 15:02 peanut Allergy Unknown Itching Verified 12/01/20 15:02 shellfish derived Allergy Unknown Unknown Verified 12/01/20 15:02 Review of Systems Review of Systems: ROS unobtainable: Yes unobtainable due to medical condition PMFSH Past Medical History Medical History (Updated 12/01/20 @ 18:32 by Esmer Oliveros NP) Bilateral cataracts Bleeding ulcer Chronic anemia Coffee ground emesis Dementia with behavioral disturbance Esophageal stricture Essential hypertension Gastroesophageal reflux disease History of bleeding peptic ulcer Insulin dependent type 2 diabetes mellitus Hemoglobin A1c was 6.9% on 04/19/2020. Lesion of spleen Surgical History Surgical History (Updated 12/01/20 @ 18:32 by Esmer Oliveros NP) History of bilateral carpal tunnel release History of section X3 History of replacement of both shoulder joints Family History Family History Sibling Cerebrovascular accident Family history of diabetes mellitus in first degree relative Father Carcinoma of colon Family history of malignant neoplasm Mother Family history of diabetes mellitus in first degree relative Hypertension Family history of arthritis Family history of malignant neoplasm Family history of type 2 diabetes mellitus Stomach cancer Sibling Hypertension Hyperlipidemia Cancer Other Diabetes mellitus Family history of cardiovascular disease Family history of gout Family history of seizure disorder Social History Social History (Updated 12/01/20 @ 18:33 b
[2020-12-01] MEDS: LACTATED RINGERS 1,000 ML 999 ML IV CONT (09:25)
[2020-12-01] MEDS: ONDANSETRON INJ 4 MG/2 ML VIAL IV PUSH (09:26)
[2020-12-01 09:27] LABS: Basophils Absolute Auto 0.1 K/mm3 (0.0-0.1); Basophils Percent Auto 0.4 % (0.2-1.2); Eosinophils Percent Auto 0.3 % (0-4.4); Hematocrit 32.7 % (37.0-47.0); Hemoglobin 10.1 g/dL (12.0-15.0); Immature Granulocyte Absolute 0.08 K/mm3 (0.00-0.031); Immature Granulocyte Percent A 0.7 % (0-0.5); Lymphocytes Absolute Auto 1.93 K/mm3 (0.9-3.2); Lymphocytes Percent Auto 16.2 % (18.3-44.2); Mean Corpuscular HGB Conc 30.9 g/dl (32-36); Mean Corpuscular Hemoglobin 22.9 pg (26-34); Mean Corpuscular Volume 74.1 fl (80-100); Mean Platelet Volume 9.4 fl (7.4-10.4); Monocytes Absolute Auto 0.9 K/mm3 (0.1-0.6); Monocytes Percent Auto 7.9 % (2.6-8.5); Neutrophils Absolute Auto 8.9 K/mm3 (1.3-6.7); Neutrophils Percent Auto 74.5 % (45.5-73.1); Platelet Count Result 612 k/mm3 (150-375); Red Blood Count 4.41 M/mm3 (4.2-5.4); Red Cell Distribution Width 16.7 % (11.5-14.5); White Blood Count 11.9 K/mm3 (4.5-10.0)
[2020-12-01 09:31] LABS: Add Urine Microscopic? YES; Appearance Urine Cloudy (Clear); Bacteria Urine Trace /hpf; Bilirubin Urine Negative (Negative); Blood Urine 2+ (Negative); Color Urine Amber (Yellow); Glucose Urine UA 2+ mg/dL (Negative); Ketones Urine Negative (Negative); Leukocyte Esterase Ur 3+ LEU/UL (Negative); Mucus Urine Rare /lpf; Nitrate Urine Negative (Negative); Protein Urine 3+ mg/dL (Negative); RBC Urine >75 /hpf (0-2); Squamous Epithelial Cell Urine Few /hpf (Few); Urobilinogen Urine Negative mg/dL (<2.0); WBC Clumps Urine Present /HPF; WBC Urine >75 /hpf
[2020-12-01] MEDS: PANTOPRAZOLE SODIUM IV 40 MG VIAL IV PUSH (09:31)
[2020-12-01 09:37] LABS: INR 1.1; Prothrombin Time 14.3 Seconds (11.1-14.7); Specific Grav Ur 1.032 (1.001-1.035)
[2020-12-01 09:38] LABS: Partial Thromboplastin Time 29.6 SECONDS (22.3-36.8)
[2020-12-01 09:39] LABS: Magnesium 1.8 mg/dL (1.6-2.3)
[2020-12-01 09:59] LABS: Alanine Aminotransferase 16 U/L (4-35); Albumin Level 3.8 g/dL (3.5-5.1); Alkaline Phosphatase 104 U/L (38-126); Anion Gap 6 mmol/L (8-16); Aspartate Amino Transferase 22 U/L (14-36); Bilirubin,Total 0.1 mg/dL (0.2-1.3); Blood Urea Nitrogen 16 mg/dL (7-17); Carbon Dioxide 28 mmol/L (22-30); Chloride 95 mmol/L (98-107); Estimated Glomerular Filt Rate > 60; Glucose 353 mg/dL (65-105); Potassium 4.8 mmol/L (3.4-5.0); Sodium 129 mmol/L (137-145)
--- NOTE | 2020-12-01 10:06 | ECG_ITS ---
Measurements Intervals [place] Rate: 106 P: 28 AL: 147 QRS: 35 QRSD: 70 T: 24 QT: 318 QTc: 422 Interpretive Statements SINUS TACHYCARDIA VENTRICULAR PREMATURE COMPLEX BASELINE ARTIFACT- I, II, III, AVR, AVL,A VF, V5-V6 ABNORMAL ECG Electronically Signed On 12-01-2020 11:20:47 CDT by Ej Pack D.O.
--- NOTE | 2020-12-01 17:18 | WPDGICN ---
Assessment and Plan Assessment and plan (1) Coffee ground emesis: Code(s): K92.0 - Hematemesis Status: Acute Assessment and Plan: daughter asking to evaluate with EGD, she says that had bleeding previously continue with iv protonix bid and will do egd tomorrow last time had esophageal stricture- wonder if she could have esophagitis, ulcer, etc (2) Chronic anemia: Code(s): D64.9 - Anemia, unspecified Status: Chronic Assessment and Plan: continue to monitor hb (3) Dementia with behavioral disturbance: Code(s): F03.91 - Unspecified dementia with behavioral disturbance Status: Chronic Assessment and Plan: she is total care (4) Nausea & vomiting: Code(s): R11.2 - Nausea with vomiting, unspecified Status: Acute Assessment and Plan: antiemetics prn g-j tube in place, holding feeding for now (5) Esophageal stricture: Code(s): K22.2 - Esophageal obstruction Status: Acute GI Consult Note Consult date/time: 12/01/20 17:18 Reason for consult: coffee ground emesis HPI: Diane Garrett is a 70 year old female with advanced dementia who is a jail resident, she has G-J tube that was placed on because ongoing dysphagia (reviewed records, also had esophageal stricture dilated up to 15mm), on anticoagulation with eliquis, DM on insulin, she is bed bound. Daughter is given all the information, patient is almost non-verbal. She came here with new onset of coffee ground emesis, no obvious melena. Hb 10 (similar to previous admission). Review of Systems Review of Systems: ROS unobtainable: Yes unobtainable due to mental status PMFSH Past Medical History Medical History (Updated 12/01/20 @ 17:21 by Steven Pablo MD) Bleeding ulcer Chronic anemia Coffee ground emesis Dementia with behavioral disturbance Esophageal stricture Essential hypertension Gastroesophageal reflux disease History of bleeding peptic ulcer Insulin dependent type 2 diabetes mellitus Hemoglobin A1c was 6.9% on 04/19/2020. Lesion of spleen Surgical History Surgical History History of section Family History Family History Sibling Cerebrovascular accident Family history of diabetes mellitus in first degree relative Father Carcinoma of colon Family history of malignant neoplasm Mother Family history of diabetes mellitus in first degree relative Hypertension Family history of arthritis Family history of malignant neoplasm Family history of type 2 diabetes mellitus Stomach cancer Sibling Hypertension Hyperlipidemia Cancer Other Diabetes mellitus Family history of cardiovascular disease Family history of gout Family history of seizure disorder Social History Social History Social History: The patient lives in [place] with her . He is legally blind and they have caretakers that help out at home. The patient's daughter also lives nearby and is very involved in her care. 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 Lifelong nonsmoker. No alcohol or illicit substance use. Healthcare power of admitted attorneys is her daughter, Paty Garrett. Full code. Smoking status: Never smoker Alcohol intake: never Substance use: never Substance use type: does not use Gender identity (if verbalized by the patient): Female Spiritual care concerns: No Meds Home Medications and Allergies Home Medications Medication Instructions Recorded Confirmed Type Saccharomyces boulardii [Florastor] 250 mg FEEDING TUBE BID 12/01/20 12/01/20 History apixaban [Eliquis] 5 mg FEEDING TUBE BID 12/01/20 12/01/20 History bisacodyl 10 mg RECTAL DAILY PRN 12/01/20 12/01/20 History cefuroxime axetil 5 mg FEEDING TUBE BID 12/01/20 12/01/20 History collagenase clostridium histo. 1 applic T
--- NOTE | 2020-12-01 18:24 | PM.IMHP ---
H&P: HPI History of Present Illness Date/Time: 12/01/20 18:24 this is a 70-year-old female patient who is a resident at care center at [facility]. She has a history of having multiple DVTs and PEs and has been on Eliquis. She has a history of dementia and is bed bound. She is at the end stage of her dementia. The patient recently was admitted to [facility] and discharged last month due to PEG tube issues as well as nausea and vomiting. She also has a history of peptic ulcer disease. The patient was brought to the hospital today to be evaluated for coffee-ground emesis. She typically has tube feeding which causes her diarrhea. She recently was diagnosed with a urinary tract infection as well. She has been on antibiotics. Her daughter Paty Helms who is the power insurance attorney is at the bedside answering questions. The patient is nonverbal. Her H&H was 10.1 and 32.7. Her blood sugar was 353 today. Patient was positive for UTI and Levaquin was started. She was given IV fluids, Protonix,and Levaquin in the emergency room. Patient was admitted to observation status on date of service 12/01/2020. Chief Complaint: Coffee-ground emesis Review of Systems Review of Systems: All systems reviewed & are unremarkable except as noted in HPI and below Constitutional: Constitutional: Reports as per HPI and Reports no additional constitutional complaints Eyes: Eyes: Reports as per HPI and Reports no additional eye complaints ENT: Reports system reviewed and no additional complaints, except as documented and Reports Normal hearing present Cardiovascular: Cardiovascular: Reports no additional cardiovascular complaints Respiratory: Respiratory: Reports no additional respiratory complaints and Reports no additional respiratory complaints Gastrointestinal: Gastrointestinal: Reports as per HPI and Reports no additional gastrointestinal complaints Musculoskeletal: Musculoskeletal: Reports no additional musculoskeletal complaints Integumentary/Breasts: Skin/Breast: Reports system reviewed and no additional complaints, except as docu and Reports as per HPI Neurologic: Reports system reviewed and no additional complaints, except as documented, Reports as per HPI and Reports Normal hearing present Psychiatric: Psychiatric: Reports no additional psychiatric complaints and Reports as per HPI Endocrine: Endocrine: Reports no additional endocrine complaints Hematologic/Lymphatic: Hematologic/Lymphatic: Reports no additional hematologic/lymphatic complaints Allergic/Immunologic: Allergic/Immunologic: Reports no additional allergic/immunologic complaints [facility] Past Medical History Medical History (Updated 05/20/21 @ 18:50 by Esmer Oliveros NP) Bilateral cataracts Bleeding ulcer Chronic anemia Coffee ground emesis Dementia with behavioral disturbance Esophageal stricture Essential hypertension Gastroesophageal reflux disease History of bleeding peptic ulcer Insulin dependent type 2 diabetes mellitus Hemoglobin A1c was 6.9% on 04/19/2020. Lesion of spleen Surgical History Surgical History (Updated 12/01/20 @ 18:32 by Esmer Oliveros NP) History of bilateral carpal tunnel release History of section X3 History of replacement of both shoulder joints Family History Family History Sibling Cerebrovascular accident Family history of diabetes mellitus in first degree relative Father Carcinoma of colon Family history of malignant neoplasm Mother Family history of diabetes mellitus in first degree relative Hypertension Family history of arthritis Family history of malignant neoplasm Family history of type 2 diabetes mellitus Stomach cancer Sibling Hypertension Hyperlipidemia Cancer Other Diabetes mellitus Family history of cardiovascular disease Family history of gout Family history of seizure disorder Social History Social History (Up
[2020-12-01 19:01] LABS: Hematocrit 33.7 % (37.0-47.0); Hemoglobin 10.1 g/dL (12.0-15.0)
[2020-12-01] MEDS: LACTATED RINGERS 1,000 ML 100 ML IV CONT (22:37)
[2020-12-02] VITALS (8 sets, daily range): BP systolic 104–123; BP diastolic 68–78; PULSE 93–112; RESP 14–20; TEMP 36–36.9; O2SAT 96–100; BMI 32.9
[2020-12-02 00:46] LABS: Glucose Point of Care 182 mg/dl (65-105)
[2020-12-02 01:08] LABS: Hematocrit 31.8 % (37.0-47.0); Hemoglobin 9.7 g/dL (12.0-15.0)
[2020-12-02] MEDS: PANTOPRAZOLE SODIUM IV 40 MG VIAL IV PUSH ×3 (03:52→20:23)
[2020-12-02 05:08] LABS: Glucose Point of Care 149 mg/dl (65-105)
[2020-12-02 06:44] LABS: Basophils Percent Auto 0.5 % (0.2-1.2); Eosinophils Percent Auto 0.4 % (0-4.4); Hemoglobin 9.1 g/dL (12.0-15.0); Immature Granulocyte Absolute 0.06 K/mm3 (0.00-0.031); Immature Granulocyte Percent A 0.7 % (0-0.5); Lymphocytes Absolute Auto 1.96 K/mm3 (0.9-3.2); Lymphocytes Percent Auto 23.4 % (18.3-44.2); Mean Corpuscular HGB Conc 30.3 g/dl (32-36); Mean Corpuscular Hemoglobin 23.2 pg (26-34); Mean Corpuscular Volume 76.3 fl (80-100); Mean Platelet Volume 9.2 fl (7.4-10.4); Monocytes Absolute Auto 0.7 K/mm3 (0.1-0.6); Monocytes Percent Auto 8.9 % (2.6-8.5); Neutrophils Absolute Auto 5.5 K/mm3 (1.3-6.7); Neutrophils Percent Auto 66.1 % (45.5-73.1); Platelet Count Result 457 k/mm3 (150-375); Red Blood Count 3.93 M/mm3 (4.2-5.4); Red Cell Distribution Width 16.7 % (11.5-14.5); White Blood Count 8.4 K/mm3 (4.5-10.0)
[2020-12-02 06:58] LABS: Hemoglobin A1C 8.7 % (<5.7)
[2020-12-02 07:03] LABS: Alanine Aminotransferase 13 U/L (4-35); Albumin Level 3.1 g/dL (3.5-5.1); Alkaline Phosphatase 79 U/L (38-126); Anion Gap 3 mmol/L (8-16); Aspartate Amino Transferase 16 U/L (14-36); Bilirubin,Total 0.1 mg/dL (0.2-1.3); Blood Urea Nitrogen 12 mg/dL (7-17); Calcium 9.9 mg/dL (8.4-10.2); Carbon Dioxide 30 mmol/L (22-30); Chloride 99 mmol/L (98-107); Estimated Glomerular Filt Rate > 60; Glucose 139 mg/dL (65-105); Potassium 4.1 mmol/L (3.4-5.0); Sodium 132 mmol/L (137-145)
[2020-12-02 07:11] LABS: Uric Acid 3.3 mg/dL (2.5-7.5)
[2020-12-02] MEDS: LACTATED RINGERS 1,000 ML 100 ML IV CONT ×2 (10:18→23:23)
[2020-12-02] MEDS: levoFLOXacin 500 MG/D5W 100 ML 500 MG/100 ML BAG 100 MG IVPB (10:18)
--- NOTE | 2020-12-02 11:21 | PC.NURSE ---
To GI Lab per bi, IV infusing. Report given to MUMTAZ Martinez.
[2020-12-02 11:46] LABS: Glucose Point of Care 197 mg/dl (65-105)
[2020-12-02] MEDS: LACTATED RINGERS 1,000 ML 150 ML IV CONT (11:48)
--- NOTE | 2020-12-02 11:54 | PCDIET ---
See Nutrition comprehensive, Assessment. When diet order advances tube feeding recommendations: Jevity 1.5 at 60 ml/hr with 120 ml free water flush q 4 hours. Tube feedings providing 1980 kcals/84 gms protein protein. Will continue to monitor every Saturday and Saturday.
--- NOTE | 2020-12-02 11:58 | WPDANESEPPF ---
Anes - Initial Pre Proc Eval Procedure: Operation Date: 12/02/20 12:30 Proposed Procedures p Esophagogastroduodenoscopy - Steven Pablo MD Date/Time: 12/02/20 11:58 Surgeon: Gabriela Pitt MD Pre Op Diagnosis: coffee ground emesis,uti,uti with chronic indwell Patient Data Age: 70 Gender: F Height: 5 ft 2 in Weight: 81.7 kg Last Vital Signs Temp 96.8 F L 12/02/20 11:29 Pulse 100 12/02/20 11:29 Resp 20 12/02/20 11:29 BP 106/68 12/02/20 11:29 Pulse Ox 98 12/02/20 11:29 Allergies Allergy/AdvReac Type Severity Reaction Status Date / Time Penicillins Allergy Mild hives Verified 12/02/20 11:25 hydrocodone Allergy Unknown Unknown Verified 12/02/20 11:25 peanut Allergy Unknown Itching Verified 12/02/20 11:25 shellfish derived Allergy Unknown Unknown Verified 12/02/20 11:25 Home Medications Medication Instructions Recorded Confirmed Type Saccharomyces boulardii [Florastor] 250 mg FEEDING TUBE BID 12/01/20 12/01/20 History apixaban [Eliquis] 5 mg FEEDING TUBE BID 12/01/20 12/01/20 History bisacodyl 10 mg RECTAL DAILY PRN 12/01/20 12/01/20 History cefuroxime axetil 5 mg FEEDING TUBE BID 12/01/20 12/01/20 History collagenase clostridium histo. 1 applic TOPICAL DAILY 12/01/20 12/01/20 History [Santyl] cyanocobalamin (vitamin B-12) 1,000 mcg IM MONTHLY 12/01/20 12/01/20 History donepezil 10 mg FEEDING TUBE HS 12/01/20 12/01/20 History folic acid 1 mg FEEDING TUBE DAILY 12/01/20 12/01/20 History gentamicin 1 applic TOPICAL DAILY 12/01/20 12/01/20 History insulin glargine 16 unit SUBCUT BID 12/01/20 12/01/20 History loperamide [Anti-Diarrheal 2 mg FEEDING TUBE Q8H PRN 12/01/20 12/01/20 History (loperamide)] magnesium hydroxide [Milk of 30 ml FEEDING TUBE HS PRN 12/01/20 12/01/20 History Magnesia] metoclopramide HCl 5 mg FEEDING TUBE BID PRN 12/01/20 12/01/20 History mineral oil [Ejuua-By-Xgl Enema 133 ml RECTAL DAILY PRN 12/01/20 12/01/20 History (min oil)] puyeqhmujhfy-cix-fxko-FA-vit K 1 tablet PO DAILY 12/01/20 12/01/20 History [Adults Multivitamin] omeprazole 20 mg FEEDING TUBE BID 12/01/20 12/01/20 History rivastigmine 1 patch TOPICAL Q72H PRN 12/01/20 12/01/20 History sennosides-docusate sodium 2 tablet PO DAILY PRN 12/01/20 12/01/20 History [Senokot-S] sodium phosphates [Fleet Enema] 118 ml RECTAL PRN PRN 12/01/20 12/01/20 History sulfamethoxazole-trimethoprim 1 tablet FEEDING TUBE BID 12/01/20 12/01/20 History Laboratory Tests 12/01/20 12/01/20 12/02/20 18:48 23:58 00:39 WBC RBC Hgb 10.1 g/dL L g/dL 9.7 g/dL L g/dL (12.0-15.0) (12.0-15.0) Hct 33.7 % L % 31.8 % L % (37.0-47.0) (37.0-47.0) MCV MCH MCHC RDW Plt Count MPV Immature Gran % (Auto) Neut % (Auto) Lymph % (Auto) [place] % (Auto) Eos % (Auto) Baso % (Auto) Lymph # (Auto) [place] # (Auto) Eos # (Auto) Baso # (Auto) Abs Immat Gran (auto) Absolute Neuts (auto) Absolute Nucleated RBC Nucleated RBC % Sodium Potassium Chloride Carbon Dioxide Anion Gap BUN Creatinine Estim Creat Clear Calc Estimated GFR Glucose POC Capillary Glucose 182 mg/dl H mg/dl (65-105) Hemoglobin A1c Uric Acid Calcium Total Bilirubin AST ALT Alkaline Phosphatase Total Protein Albumin 12/02/20 12/02/20 12/02/20 05:02 06:23 06:23 WBC RBC Hgb Hct MCV MCH MCHC RDW Plt Count MPV
--- NOTE | 2020-12-02 13:07 | PC.NURSE ---
Return from GI lab at 1307. Report received from MUMTAZ Bernal.
[2020-12-02 16:25] LABS: Hematocrit 29.9 % (37.0-47.0)
[2020-12-02] MEDS: SILVERGEL (ELTA) 45 ML 1 APPLIC TOPICAL (18:37)
[2020-12-02 18:49] LABS: Glucose Point of Care 129 mg/dl (65-105)
--- NOTE | 2020-12-02 18:56 | PM.IMPN ---
Progress Note: A&P Assessment and Plan (1) Pressure ulcer: Code(s): L89.90 - Pressure ulcer of unspecified site, unspecified stage Status: Acute (2) UTI (urinary tract infection): Code(s): N39.0 - Urinary tract infection, site not specified Status: Acute (3) Esophageal stricture: Code(s): K22.2 - Esophageal obstruction Status: Acute (4) Coffee ground emesis: Code(s): K92.0 - Hematemesis Status: Acute (5) Dementia with behavioral disturbance: Code(s): F03.91 - Unspecified dementia with behavioral disturbance Status: Chronic (6) Chronic anemia: Code(s): D64.9 - Anemia, unspecified Status: Chronic (7) Gastroesophageal reflux disease: Code(s): K21.9 - Gastro-esophageal reflux disease without esophagitis Status: Chronic (8) Insulin dependent type 2 diabetes mellitus: Code(s): E11.9 - Type 2 diabetes mellitus without complications; Z79.4 - exterminator (current) use of insulin Status: Chronic (9) JENNIFER (acute kidney injury): Code(s): N17.9 - Acute kidney failure, unspecified Status: Acute (10) Dementia: Qualifiers: Dementia type: unspecified type Dementia behavioral disturbance: without behavioral disturbance Qualified Code(s): F03.90 - Unspecified dementia without behavioral disturbance Code(s): F03.90 - Unspecified dementia without behavioral disturbance Status: Chronic (11) Hyponatremia: Code(s): E87.1 - Hypo-osmolality and hyponatremia Status: Acute (12) BMI 33.0-33.9,adult: Code(s): Z68.33 - Body mass index [BMI] 33.0-33.9, adult Status: Acute (13) Essential (primary) hypertension: Code(s): I10 - Essential (primary) hypertension Status: Chronic Additional Plan H&H every 6 hours. The patient is NPO. GI consultation has been placed. Dr. Partida has seen the patient. I will attempt to get records from [facility] from her hospitalization back in October. According to the daughter the patient was having some nausea vomiting and having difficulty with her PEG tube at that time. The patient also has a history of peptic ulcer disease and has been on Eliquis. 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 According to the daughter the patient developed DVTs and PEs after she had COVID. However her Eliquis is on hold at this time. The patient is NPO and we will continue with IV fluids and IV Protonix. Patient is NPO at this time. The patient is nonverbal. According to the daughter the patient was still active as of May of this past year. Since then the patient has gone downhill and is at the end-stage of the disease. The patient is nonambulatory and nonverbal. We will do Accu-Cheks every 6 hours with sliding scale. Continue with IV fluids and check her electrolytes in the morning. Will do p.r.n. hydralazine. Urine and blood cultures are pending. She is on Levaquin at this time. Will obtain records from her admission to [facility] in October. The patient had been on antibiotics that was placed in the G-tube however patient apparently has a UTI again. Wound care consult was placed. Continue with Santyl for now. 12/02/20 pt underwent EGD today, cleared to continue using PEG tube, dietary has made Feed recommendations.cont abx following cultures. will meet w POA tomorrow prior to dc R hip xray ordered in light of history of recent fall at SNF prior to admission Time Spent With Patient Time with patient: 25 - 35 minutes Subjective Date/time seen: 12/02/20 18:56 Patient nonverbal does make good eye contact and follows commands able to squeeze my hands does not move feet. Does not grimace during physical examination Exam Narrative: Exam Narrative: GEN: NAD, cooperative obese HEENT: NCAT, MMM, EOMI Neck: no JVD Heart: S1S2 RRR Lungs: CTA B/l Abd: soft, NT, ND, bowel sounds normoactive Ext: moves all, no cyanosis, n
[2020-12-02 23:26] LABS: Glucose Point of Care 148 mg/dl (65-105)
[2020-12-03 06:00] VITALS: BP 98/62; PULSE 91; RESP 16; TEMP 36.8; O2SAT 99
[2020-12-03 06:31] LABS: Glucose Point of Care 223 mg/dl (65-105)
[2020-12-03] MEDS: INSULIN ASPART (*BKC) 100 UNITS/ML SUB-Q ×3 (06:33→18:44)
[2020-12-03 08:28] LABS: Basophils Percent Auto 0.4 % (0.2-1.2); Eosinophils Absolute Auto 0.1 K/mm3 (0-0.3); Eosinophils Percent Auto 0.6 % (0-4.4); Hematocrit 26.9 % (37.0-47.0); Hemoglobin 8.2 g/dL (12.0-15.0); Immature Granulocyte Absolute 0.04 K/mm3 (0.00-0.031); Immature Granulocyte Percent A 0.5 % (0-0.5); Lymphocytes Absolute Auto 2.39 K/mm3 (0.9-3.2); Lymphocytes Percent Auto 28.8 % (18.3-44.2); Mean Corpuscular HGB Conc 30.5 g/dl (32-36); Mean Corpuscular Volume 75.6 fl (80-100); Mean Platelet Volume 9.7 fl (7.4-10.4); Monocytes Absolute Auto 0.7 K/mm3 (0.1-0.6); Monocytes Percent Auto 8.4 % (2.6-8.5); Neutrophils Absolute Auto 5.1 K/mm3 (1.3-6.7); Neutrophils Percent Auto 61.3 % (45.5-73.1); Platelet Count Result 425 k/mm3 (150-375); Red Blood Count 3.56 M/mm3 (4.2-5.4); White Blood Count 8.3 K/mm3 (4.5-10.0)
[2020-12-03 08:39] LABS: Anion Gap 3 mmol/L (8-16); Blood Urea Nitrogen 10 mg/dL (7-17); Carbon Dioxide 26 mmol/L (22-30); Chloride 100 mmol/L (98-107); Estimated CRCL calculation 102 ml/min; Estimated Glomerular Filt Rate > 60; Glucose 253 mg/dL (65-105); Magnesium 1.9 mg/dL (1.6-2.3); Phosphorus 4.5 mg/dL (2.5-4.5); Sodium 129 mmol/L (137-145)
[2020-12-03] MEDS: SILVERGEL (ELTA) 45 ML 1 APPLIC TOPICAL (08:52)
[2020-12-03] MEDS: PANTOPRAZOLE SODIUM IV 40 MG VIAL IV PUSH ×2 (08:52→20:35)
[2020-12-03] MEDS: LACTATED RINGERS 1,000 ML 100 ML IV CONT ×2 (08:55→19:08)
--- NOTE | 2020-12-03 12:25 | P.PNAN_ITS ---
Anes - Prog Note Post-Op Date/Time: 12/03/20 12:25 Cardiovascular status: normal Respiratory status: normal Airway patency: baseline Mental status: baseline Post-Op hydration status: normal Vital Signs: Last Vital Signs Temp 36.8 C 12/03/20 06:00 Pulse 91 12/03/20 06:00 Resp 16 12/03/20 06:00 BP 98/62 L 12/03/20 06:00 Pulse Ox 99 12/03/20 06:00 Pain Score (VAS): 0 I/O: Intake & Output 12/02/20 12/03/20 12/03/20 23:59 07:59 15:59 Intake Total 1000 1000 Output Total 350 750 Balance 650 -750 1000 Laboratory Tests 12/03/20 08:07 12/03/20 08:06 12/02/20 12/02/20 12/02/20 16:09 18:36 23:23 WBC RBC Hgb 9.0 L Hct 29.9 L MCV MCH MCHC RDW Plt Count MPV Immature Gran % (Auto) Neut % (Auto) Lymph % (Auto) [place] % (Auto) Eos % (Auto) Baso % (Auto) Lymph # (Auto) [place] # (Auto) Eos # (Auto) Baso # (Auto) Abs Immat Gran (auto) Absolute Neuts (auto) Absolute Nucleated RBC Nucleated RBC % Sodium Potassium Chloride Carbon Dioxide Anion Gap BUN Creatinine Estim Creat Clear Calc Estimated GFR Glucose POC Capillary Glucose 129 H 148 H Calcium Phosphorus Magnesium 12/03/20 12/03/20 12/03/20 06:29 08:06 08:07 WBC 8.3 RBC 3.56 L Hgb 8.2 L Hct 26.9 L MCV 75.6 L MCH 23.0 L MCHC 30.5 L RDW 17.0 H Plt Count 425 H MPV 9.7 Immature Gran % (Auto) 0.5 Neut % (Auto) 61.3 Lymph % (Auto) 28.8 [place] % (Auto) 8.4 Eos % (Auto) 0.6 Baso % (Auto) 0.4 Lymph # (Auto) 2.39 [place] # (Auto) 0.7 H Eos # (Auto) 0.1 Baso # (Auto) 0.0 Abs Immat Gran (auto) 0.04 H Absolute Neuts (auto) 5.1 Absolute Nucleated RBC 0.0 Nucleated RBC % 0.0 Sodium 129 L Potassium 4.0 Chloride 100 Carbon Dioxide 26 Anion Gap 3 L BUN 10 Creatinine 0.40 L Estim Creat Clear Calc 102 Estimated GFR > 60 Glucose 253 H POC Capillary Glucose 223 H Calcium 9.0 Phosphorus 4.5 Magnesium 1.9 Microbiology 12/01/20 09:12 Urine [place] Urine Culture - Final Klebsiella pnemoniae Enterococcus species 12/01/20 21:06 Blood Blood Culture - Preliminary 12/01/20 21:05 Blood Blood Culture - Preliminary Post-procedural complaints: none Patient Feedback: Patient satisfied with anesthetic care.
[2020-12-03 12:27] LABS: Glucose Point of Care 319 mg/dl (65-105)
[2020-12-03] MEDS: levoFLOXacin 500 MG/D5W 100 ML 500 MG/100 ML BAG 100 MG IVPB (12:36)
[2020-12-03 14:00] VITALS: BP 103/65; PULSE 79; RESP 18; TEMP 36.5; O2SAT 94
--- NOTE | 2020-12-03 16:08 | PM.IMPN ---
Progress Note: A&P Assessment and Plan (1) Pressure ulcer: Code(s): L89.90 - Pressure ulcer of unspecified site, unspecified stage Status: Acute Assessment and Plan: Wound care consult was placed. Continue with Santyl for now. (2) UTI (urinary tract infection): Code(s): N39.0 - Urinary tract infection, site not specified Status: Acute Assessment and Plan: Urine and blood cultures are pending. She is on Levaquin at this time. Will obtain records from her admission to [facility] in October. The patient had been on antibiotics that was placed in the G-tube however patient apparently has a UTI again. (3) Esophageal stricture: Code(s): K22.2 - Esophageal obstruction Status: Acute (4) Coffee ground emesis: Code(s): K92.0 - Hematemesis Status: Acute Assessment and Plan: H&H every 6 hours. The patient is NPO. GI consultation has been placed. Dr. Partida has seen the patient. I will attempt to get records from [facility] from her hospitalization back in October. According to the daughter the patient was having some nausea vomiting and having difficulty with her PEG tube at that time. The patient also has a history of peptic ulcer disease and has been on Eliquis. 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 According to the daughter the patient developed DVTs and PEs after she had COVID. However her Eliquis is on hold at this time. The patient is NPO and we will continue with IV fluids and IV Protonix. (5) Dementia with behavioral disturbance: Code(s): F03.91 - Unspecified dementia with behavioral disturbance Status: Chronic Assessment and Plan: Patient is NPO at this time. The patient is nonverbal. According to the daughter the patient was still active as of May of this past year. Since then the patient has gone downhill and is at the end-stage of the disease. The patient is nonambulatory and nonverbal. (6) Chronic anemia: Code(s): D64.9 - Anemia, unspecified Status: Chronic (7) Gastroesophageal reflux disease: Code(s): K21.9 - Gastro-esophageal reflux disease without esophagitis Status: Chronic (8) Insulin dependent type 2 diabetes mellitus: Code(s): E11.9 - Type 2 diabetes mellitus without complications; Z79.4 - ferry terminal agent (current) use of insulin Status: Chronic Assessment and Plan: We will do Accu-Cheks every 6 hours with sliding scale. (9) JENNIFER (acute kidney injury): Code(s): N17.9 - Acute kidney failure, unspecified Status: Acute (10) Dementia: Qualifiers: Dementia type: unspecified type Dementia behavioral disturbance: without behavioral disturbance Qualified Code(s): F03.90 - Unspecified dementia without behavioral disturbance Code(s): F03.90 - Unspecified dementia without behavioral disturbance Status: Chronic (11) Hyponatremia: Code(s): E87.1 - Hypo-osmolality and hyponatremia Status: Acute Assessment and Plan: Continue with IV fluids and check her electrolytes in the morning. (12) BMI 33.0-33.9,adult: Code(s): Z68.33 - Body mass index [BMI] 33.0-33.9, adult Status: Acute (13) Essential (primary) hypertension: Code(s): I10 - Essential (primary) hypertension Status: Chronic Assessment and Plan: Will do p.r.n. hydralazine Additional Plan H&H every 6 hours. The patient is NPO. GI consultation has been placed. Dr. Partida has seen the patient. I will attempt to get records from [facility] from her hospitalization back in October. According to the daughter the patient was having some nausea vomiting and having difficulty with her PEG tube at that time. The patient also has a history of peptic ulcer disease and has been on Eliquis. 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 According to the daughter the patient developed DVTs
[2020-12-03 16:19] VITALS: O2SAT 95
[2020-12-03 18:42] LABS: Glucose Point of Care 274 mg/dl (65-105)
[2020-12-03 22:00] VITALS: BP 106/59; PULSE 100; RESP 16; TEMP 36.4; O2SAT 100
[2020-12-03 22:06] VITALS: O2SAT 98
[2020-12-04] MEDS: INSULIN ASPART (*BKC) 100 UNITS/ML SUB-Q ×3 (00:06→12:26)
[2020-12-04 00:09] LABS: Glucose Point of Care 258 mg/dl (65-105)
[2020-12-04 06:00] VITALS: BP 96/50; PULSE 104; RESP 16; TEMP 37; O2SAT 100
[2020-12-04] MEDS: LACTATED RINGERS 1,000 ML 100 ML IV CONT (06:14)
[2020-12-04 06:45] LABS: Glucose Point of Care 348 mg/dl (65-105)
[2020-12-04] MEDS: PANTOPRAZOLE SODIUM IV 40 MG VIAL IV PUSH (08:50)
[2020-12-04] MEDS: SILVERGEL (ELTA) 45 ML 1 APPLIC TOPICAL (08:50)
[2020-12-04] MEDS: RIVASTIGMINE TARTRATE 9.5 MG PATCH 1 PATCH TRANSDERM (08:50)
[2020-12-04 09:50] VITALS: O2SAT 96
[2020-12-04 11:25] LABS: Glucose Point of Care 293 mg/dl (65-105)
--- NOTE | 2020-12-04 11:39 | PM.DS ---
DS: Admitting Diagnosis Admitting Diagnosis Admitting Diagnosis: 1) Coffee ground emesis: Code(s): K92.0 - Hematemesis Status: Acute Assessment and Plan: (2) Dementia with behavioral disturbance: Code(s): F03.91 - Unspecified dementia with behavioral disturbance Status: Chronic Assessment and Plan: (3) Insulin dependent type 2 diabetes mellitus: Code(s): E11.9 - Type 2 diabetes mellitus without complications; Z79.4 - USP (current) use of insulin Status: Chronic Assessment and Plan: (4) Hyponatremia: Code(s): E87.1 - Hypo-osmolality and hyponatremia Status: Acute Assessment and Plan: (5) Dementia with psychosis: Code(s): F03.91 - Unspecified dementia with behavioral disturbance Status: Acute Assessment and Plan: (6) Essential (primary) hypertension: Code(s): I10 - Essential (primary) hypertension Status: Chronic Assessment and Plan: Will do p.r.n. hydralazine (7) UTI (urinary tract infection): Code(s): N39.0 - Urinary tract infection, site not specified Status: Acute Assessment and Plan: (8) Pressure ulcer: Code(s): L89.90 - Pressure ulcer of unspecified site, unspecified stage Status: Acute Assessment and Plan: Wound care consult was placed. Continue with Santyl for now. DS: Discharge Diagnosis Discharge Diagnosis (1) Pressure ulcer: Code(s): L89.90 - Pressure ulcer of unspecified site, unspecified stage Status: Acute (2) UTI (urinary tract infection): Code(s): N39.0 - Urinary tract infection, site not specified Status: Acute (3) Esophageal stricture: Code(s): K22.2 - Esophageal obstruction Status: Acute (4) Coffee ground emesis: Code(s): K92.0 - Hematemesis Status: Acute (5) Dementia with behavioral disturbance: Code(s): F03.91 - Unspecified dementia with behavioral disturbance Status: Chronic (6) Chronic anemia: Code(s): D64.9 - Anemia, unspecified Status: Chronic (7) Abnormal brain CT: Code(s): R90.89 - Other abnormal findings on diagnostic imaging of central nervous system Status: Acute (8) Gastroesophageal reflux disease: Code(s): K21.9 - Gastro-esophageal reflux disease without esophagitis Status: Chronic (9) Insulin dependent type 2 diabetes mellitus: Code(s): E11.9 - Type 2 diabetes mellitus without complications; Z79.4 - oysterman (current) use of insulin Status: Chronic (10) BMI 33.0-33.9,adult: Code(s): Z68.33 - Body mass index [BMI] 33.0-33.9, adult Status: Acute DS: Summary Hospital Course Reason for hospitalization: [facility] Hospital Course: H&H every 6 hours. The patient is NPO. GI consultation has been placed. Dr. Partida has seen the patient. I will attempt to get records from [facility] from her hospitalization back in October. According to the daughter the patient was having some nausea vomiting and having difficulty with her PEG tube at that time. The patient also has a history of peptic ulcer disease and has been on Eliquis. 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 According to the daughter the patient developed DVTs and PEs after she had COVID. However her Eliquis is on hold at this time. The patient is NPO and we will continue with IV fluids and IV Protonix. Patient is NPO at this time. The patient is nonverbal. According to the daughter the patient was still active as of May of this past year. Since then the patient has gone downhill and is at the end-stage of the disease. The patient is nonambulatory and nonverbal. We will do Accu-Cheks every 6 hours with sliding scale. Continue with IV fluids and check her electrolytes in the morning. Will do p.r.n. hydralazine. Urine and blood cultures are pending. She is on Levaquin at this time. Will obtain records from her admission
[2020-12-04] MEDS: levoFLOXacin 500 MG/D5W 100 ML 500 MG/100 ML BAG 100 MG IVPB (12:24)
--- NOTE | 2020-12-04 15:02 | PC.NURSE ---
Pt is being discharged back to [facility]. Report has been called and ambulance has been set up to transport pt. Pt's IV has been removed, and PEG tube has been clamped. [place] is chronic and remains intact. Pt's daughter is at bed side. Wound pictures were taken of pt's buttocks at time of discharge.
== END 2020-12-04 14:55 | DRG 381 ==
LOC: ANHED 09:30 → ANH3MEDSUR 13:00
PROVIDERS: Internal Medicine Gastroenterology; Nurse Practitioner; Admitting Provider Family Medicine; Emergency Provider General Practice; PCP Family Medicine; Visit Provider Hospitalist
PROC: 0DJ08ZZ Inspection of Upper Intestinal Tract, Via Natural or Artificial Opening Endoscopic (ICD-10-PCS; CPT 43235; principal; 2020-12-02 12:30)
DX: K22.11 Ulcer of esophagus with bleeding (principal); F03.91 Unspecified dementia, unspecified severity, with behavioral disturbance; E87.1 Hypo-osmolality and hyponatremia; N39.0 Urinary tract infection, site not specified; K22.2 Esophageal obstruction; R13.10 Dysphagia, unspecified; D64.9 Anemia, unspecified; I10 Essential (primary) hypertension; L89.90 Pressure ulcer of unspecified site, unspecified stage; E11.36 Type 2 diabetes mellitus with diabetic cataract; H26.9 Unspecified cataract; E66.9 Obesity, unspecified; Z68.33 Body mass index [BMI] 33.0-33.9, adult; Z74.01 Bed confinement status; Z79.01 Long term (current) use of anticoagulants; Z79.4 Long term (current) use of insulin; Z86.16 Personal history of COVID-19; Z86.711 Personal history of pulmonary embolism; Z86.718 Personal history of other venous thrombosis and embolism; Z88.0 Allergy status to penicillin; Z93.1 Gastrostomy status; Z97.8 Presence of other specified devices
CPT/HCPCS: 36415; 71045; 73502; 74177; 80048; 80053; 81001; 82948; 83036; 83735; 84100; 84550; 85014; 85018; 85025; 85610; 85730; 86850; 86900; 86901; 87040; 87077; 87086; 87088; 87186; 93005; 96361; 96365; 96366; 96375; 96376; 99285; A9270; C9113; G0378; J1815; J1956; J2001; J2405; J2704; J7120; Q9967

== ENCOUNTER 2020-12-07 05:52 | Inpatient (IN) | payer MEDICARE, MEDICAID, SELFPAY ==
[2020-12-07] VITALS (19 sets, daily range): BP systolic 101–136; BP diastolic 58–81; PULSE 111–141; RESP 20–45; TEMP 36.2–37.4; O2SAT 93–100; BMI 26.4
--- NOTE | ~2020-12-07 | XR_ITS ---
EXAMINATION: XR chest 1V portable INDICATION: Hematemesis TECHNIQUE: Portable AP chest at 0743 hours COMPARISON: 12/01/2020 FINDINGS: There are minimal airspace opacities of the lung bases. There is no pleural effusion or pne umothorax. The cardiomediastinal silhouette is normal. An enteric tube projects over the stomach. The re is a suture anchor the left humeral head. IMPRESSION: 1. Bibasilar airspace opacities, consistent with atelectasis versus pneumonia. Reviewed, dictated and finalized at location A.
--- NOTE | ~2020-12-07 | CT_ITS ---
EXAMINATION: CT abdomen pelvis wo con DATE: 12/07/2020 12:34 INDICATION: Sepsis TECHNIQUE: Computed tomography (CT) of the abdomen and pelvis was performed without intravenous contr ast. The dose-length product (DLP) was 1191.62 mGy-cm. Automated exposure control and iterative recon struction technique were employed. COMPARISON: 12/01/2020 FINDINGS: There are airspace opacities of the lower lobes. The heart size is normal. There is a small sliding hiatal hernia. The liver, pancreas, and adrenal glands are normal. There is mild distention of the gallbladder which could relate to fasting state. Previously described hypoattenuating splenic lesions are not well demonstrated in the absence of intravenous contrast but are grossly stable. The kidneys are unremarkable. There is a percutaneous gastrostomy with an enteric tube passing into the t hird portion of the duodenum. There is no free intraperitoneal gas or evidence of bowel obstruction. The bladder is decompressed by Baltazar catheter. There is severe spondylosis. IMPRESSION: 1. Airspace opacities of the lower lobes, consistent with pneumonia. Reviewed, dictated and finalized at location A.
--- NOTE | ~2020-12-07 | US_ITS ---
EXAMINATION: US right upper quadrant DATE: 12/15/2020 11:46 INDICATION: Gallbladder distention. TECHNIQUE: Multiple grayscale and Doppler ultrasound images of the abdomen were obtained. COMPARISON: CT dated 12/14/2020 FINDINGS: Liver has normal echogenicity and contour, with a smooth surface. No liver lesion identified. No intr ahepatic biliary duct dilation suspected. Portal venous flow was seen in the hepatopetal, normal dire ction and has normal Doppler waveform. Gallbladder is dilated with posterior layering echogenic sludg e and shadowing gallstones. There is mild gallbladder wall thickening along with small amount of riley cholecystic fluid. Additional small amount of perihepatic ascites. Common bile duct measures 3 mm britany meter which is normal. The region of the pancreas was not visualized due to the presence of an overly ing percutaneous gastrostomy tube. Per discussion with the drop crew laborer the patient. Indicate discomfo rt on imaging over the gallbladder consistent with a positive sonographic Marx's although specifici ties decreased by patient mental status. Visualized portion of the right kidney demonstrates normal c ontour and echogenicity with no hydronephrosis. Visualized portion of the proximal inferior vena cava is normal. IMPRESSION: 1. Sludge and gallstones within the dilated gallbladder with wall thickening and likely positive sono graphic Marx sign consistent with acute cholecystitis. 2. Small amount of ascites. Reviewed, dictated and finalized at location A. IMPRESSION: 1. Sludge and gallstones within the dilated gallbladder with wall thickening an d likely positive sonographic Marx sign consistent with acute cholecystitis. 2. Small amount of ascites.
--- NOTE | ~2020-12-07 | XR_ITS ---
EXAMINATION: XR chest 1V portable DATE: 12/11/2020 21:53 INDICATION: Aspiration. TECHNIQUE: A single frontal view of the chest was obtained. COMPARISON: Chest single view 12/07/2020, CT abdomen and pelvis 12/07/2020 FINDINGS: There are mild airspace opacities in the perihilar regions. No pleural effusion or pneumoth orax. The heart size is normal. IMPRESSION: 1. Mild airspace opacities in the perihilar regions, consistent with pulmonary edema versus pneumonia . Reviewed, dictated and finalized at location A. IMPRESSION: 1. Mild airspace opacities in the perihilar regions, consistent with pulmonary edema versus pneumonia.
--- NOTE | ~2020-12-07 | US_ITS ---
EXAMINATION: US perc cholecystostomy w imag DATE: 12/16/2020 14:47 INDICATION: Acute cholecystitis TECHNIQUE: The procedure including the risks and benefits was discussed with the patient. Risks discu ssed included bleeding including hemorrhage and bile peritonitis. Oral and written consent were obtai brent. The patient was confirmed to be receiving appropriate antibiotic coverage. The skin overlying t he liver and gallbladder was prepped and draped in usual sterile fashion. Anesthetic was administere d with 1% lidocaine subcutaneously. Attempt was made to pass an 8.5 Fr catheter into the gallbladder by trocar technique under continuous ultrasound observation. The needle could be seen within the gal lbladder however the catheter telescoped along the needle and remaining peripheral to the gallbladder . The inner stylette was removed with spontaneous reflux of likely bile. A J-wire was advanced throug h the and catheter and central needle into the gallbladder with positioning confirmed by CT . Utilizi vita Seldinger technique the tract was serially dilated to 8 Vincentian and subsequently a new 8.5 Vincentian c atheter was advanced into the gallbladder with position confirmed by CT. The stiffener was removed, a nd the pigtail tip was performed and locked. 10 mm black-colored bile was aspirated and sent for cult ure. The catheter was stitched to the skin with suture. Antibiotic ointment and a sterile dressing we re applied. The catheter was then attached to gravity drainage and was draining additional likely vol ar to the conclusion of the procedure. There were no immediate complications. FINDINGS: The gallbladder is dilated with wall thickening and stones and sludge, consistent with acut e cholecystitis. There is also a small amount of perihepatic ascites. Ultrasound images demonstrate t he catheter within the gallbladder. 10 mL bile was aspirated. Final images show the formed pigtail c atheter tip in the gallbladder. IMPRESSION: 1. Successful ultrasound-guided cholecystostomy tube placement. 2. 10 mL bile was sent for aerobic, anaerobic, and fungal cultures. 3. The catheter will be managed by Dr. Ny. A catheter cholangiogram may be performed not less th an 48 hours after tube placement if clinically indicated to assess cystic duct patency. If cholecyst ectomy is not eventually performed and the infectious episode has resolved, the tube may be removed o karolyn a guidewire, preferably not less than 3 weeks after placement to allow time for a mature catheter tract to form to prevent bile leakage and peritonitis. Reviewed, dictated and finalized at location A. IMPRESSION: 1. Successful ultrasound-guided cholecystostomy tube placement. 2. 10 mL bile was sent for aerobic, anaerobic, and fungal cultures. 3. The catheter will be managed by Dr. Ny. A catheter cholangiogram may be performed not less than 48 hours after tube placement if clinically indicated to assess cystic duct patency. If cholecystectomy is not eventually performed and the infectious episode has resolved, the tube may be removed over a guidewi re, preferably not less than 3 weeks after placement to allow time for a mature catheter tract to form to prevent bile leakage and peritonitis.
--- NOTE | ~2020-12-07 | CT_ITS ---
EXAMINATION: CT abdomen pelvis wo con DATE: 12/14/2020 18:51 INDICATION: Abdominal pain, nausea and vomiting TECHNIQUE: Computed tomography (CT) of the abdomen and pelvis was performed without intravenous contr ast. Automated exposure control and iterative reconstruction technique were employed. Exam dose: 124 3.84 mGy-cm total exam DLP. COMPARISON: 12/08/19992010 noncontrast CT abdomen pelvis FINDINGS: There are mild bilateral pleural effusions. There is bilateral lower lobe predominantly dep endent atelectasis and/or infiltrate and mild right middle lobe basilar atelectasis. Cardiomegaly. No pericardial effusion. Mild ascites, a new finding since 12/01/2020. New onset of gallbladder distention and pericholecystic fat stranding since 12/01/2020. Consider acute cholecystitis. Again noted are multiple hypoattenuating lesions of the spleen, also present on 12/01/2020. No pancreatic mass, calcification or ductal dilatation. No bile duct dilatation. There is a gastrostomy tube in the stomach as well as the catheter extending from the gastric fundus into the jejunum. No bowel obstruction is evident. Sliding hiatal hernia. Normal appendix Mild sigmoid diverticulosis; no CT evidence of diverticulitis. Baltazar catheter in urinary bladder; diffuse bladder wall thickening; consider possible cystitis. Enlarged lobular uterus; previous suggestion of bicornuate uterus on 12/01/2020 CT abdomen pelvis exam ination. Normal caliber of the abdominal aorta. No intraperitoneal or retroperitoneal or pelvic mass lesion or adenopathy. No suspicious osteolytic or osteoblastic lesions. IMPRESSION: New onset of mild ascites since 12/01/2020 New onset of the gallbladder distention and pericholecystic fat stranding; consider acute cholecystit is. Reviewed, dictated and finalized at Location A. Reviewed, dictated and finalized at location A. IMPRESSION: New onset of mild ascites since 12/01/2020 New onset of the gallbladder distention and pericholecystic fat stranding; cons ider acute cholecystitis.
[2020-12-07] MEDS: SODIUM CHLORIDE 0.9% IV 1,000 ML 999 ML IV CONT ×2 (06:06→07:36)
--- NOTE | 2020-12-07 06:26 | ED.GIBLEED ---
HPI - GI Bleed General Chief complaint: GI Bleed <Jericho Leon MD - Last Filed: 12/07/20 06:31> Stated complaint: coffee ground emesis <Jericho Leon MD - Last Filed: 12/07/20 06:31> Time Seen by Provider: 12/07/20 06:17 <Jericho Leon MD - Last Filed: 12/07/20 06:31> Source: family <Jericho Leon MD - Last Filed: 12/07/20 06:31> Mode of arrival: ambulatory <Jericho Leon MD - Last Filed: 12/07/20 06:31> Limitations: dementia <Jericho Leon MD - Last Filed: 12/07/20 06:31> History of Present Illness HPI Narrative: Patient is a 70-year-old female brought in from the assisted due to coffee-ground emesis that started this morning. Patient currently on Eliquis due to a history of blood clots according to the daughter. Patient states that she is had similar episodes in the past. Patient is a very poor historian due to her dementia history. <Jericho Leon MD - Last Filed: 12/07/20 06:31> Related Data Home medications: Home Medications Medication Instructions Recorded Confirmed Adults Multivitamin 1 tablet PO DAILY 12/01/20 12/01/20 Eliquis 5 mg FEEDING TUBE BID 12/01/20 12/01/20 Fleet Enema 118 ml RECTAL PRN PRN 12/01/20 12/01/20 Saccharomyces boulardii [Florastor] 250 mg FEEDING TUBE BID 12/01/20 12/01/20 Santyl 1 applic TOPICAL DAILY 12/01/20 12/01/20 bisacodyl 10 mg RECTAL DAILY PRN 12/01/20 12/01/20 cyanocobalamin (vitamin B-12) 1,000 mcg IM MONTHLY 12/01/20 12/01/20 donepezil 10 mg FEEDING TUBE HS 12/01/20 12/01/20 folic acid 1 mg FEEDING TUBE DAILY 12/01/20 12/01/20 gentamicin 1 applic TOPICAL DAILY 12/01/20 12/01/20 insulin glargine 16 unit SUBCUT BID 12/01/20 12/01/20 loperamide [Anti-Diarrheal 2 mg FEEDING TUBE Q8H PRN 12/01/20 12/01/20 (loperamide)] magnesium hydroxide [Milk of 30 ml FEEDING TUBE HS PRN 12/01/20 12/01/20 Magnesia] metoclopramide HCl 5 mg FEEDING TUBE BID PRN 12/01/20 12/01/20 mineral oil [Tufpz-Np-Brz Enema 133 ml RECTAL DAILY PRN 12/01/20 12/01/20 (min oil)] omeprazole 20 mg FEEDING TUBE BID 12/01/20 12/01/20 rivastigmine 1 patch TOPICAL Q72H PRN 12/01/20 12/01/20 sennosides-docusate sodium 2 tablet PO DAILY PRN 12/01/20 12/01/20 [Senokot-S] <Jericho Leon MD - Last Filed: 12/07/20 06:31> Allergies/Adverse reactions: Allergies Allergy/AdvReac Type Severity Reaction Status Date / Time Penicillins Allergy Mild hives Verified 12/07/20 06:56 hydrocodone Allergy Unknown Unknown Verified 12/07/20 06:56 peanut Allergy Unknown Itching Verified 12/07/20 06:56 shellfish derived Allergy Unknown Unknown Verified 12/07/20 06:56 <Jericho Leon MD - Last Filed: 12/07/20 06:31> Review of Systems Review of Systems: ROS unobtainable: Yes unobtainable due to medical condition and unobtainable due to mental status <Jericho Leon MD - Last Filed: 12/07/20 06:31> [facility] Past Medical History Medical History: Medical History Bilateral cataracts Bleeding ulcer Chronic anemia Coffee ground emesis Dementia with behavioral disturbance DVT (deep venous thrombosis) Esophageal stricture Essential hypertension Gastroesophageal reflux disease History of bleeding peptic ulcer History of pulmonary embolism Insulin dependent type 2 diabetes mellitus Hemoglobin A1c was 6.9% on 04/19/2020. Lesion of spleen <Jericho Leon MD - Last Filed: 12/07/20 06:31> Surgical History Surgical History: Surgical History History of bilateral carpal tunnel release History of section X3 History of replacement of both shoulder joints <Jericho Leon MD - Last Filed: 12/07/20 06:31> Family History Family History: Family History Sibling Cerebrovascular accident Family history of diabetes mellitus in first degree rel
[2020-12-07] MEDS: PANTOPRAZOLE SODIUM IV 40 MG VIAL 80 MG IV PUSH (06:36)
[2020-12-07 06:45] LABS: Basophils Percent Auto 0.3 % (0.2-1.2); Hematocrit 34.2 % (37.0-47.0); Hemoglobin 10.2 g/dL (12.0-15.0); Immature Granulocyte Percent A 0.6 % (0-0.5); Lymphocytes Absolute Auto 0.73 K/mm3 (0.9-3.2); Lymphocytes Percent Auto 4.6 % (18.3-44.2); Mean Corpuscular HGB Conc 29.8 g/dl (32-36); Mean Corpuscular Hemoglobin 22.7 pg (26-34); Mean Corpuscular Volume 76.2 fl (80-100); Mean Platelet Volume 9.3 fl (7.4-10.4); Monocytes Absolute Auto 0.7 K/mm3 (0.1-0.6); Monocytes Percent Auto 4.6 % (2.6-8.5); Neutrophils Absolute Auto 14.4 K/mm3 (1.3-6.7); Neutrophils Percent Auto 89.9 % (45.5-73.1); Platelet Count Result 566 k/mm3 (150-375); Red Blood Count 4.49 M/mm3 (4.2-5.4); Red Cell Distribution Width 17.2 % (11.5-14.5)
[2020-12-07 06:53] LABS: Prothrombin Time 14.1 Seconds (11.1-14.7)
[2020-12-07 06:54] LABS: Alanine Aminotransferase 20 U/L (4-35); Albumin Level 3.6 g/dL (3.5-5.1); Alkaline Phosphatase 109 U/L (38-126); Anion Gap 11 mmol/L (8-16); Aspartate Amino Transferase 28 U/L (14-36); Bilirubin,Total 0.3 mg/dL (0.2-1.3); Blood Urea Nitrogen 22 mg/dL (7-17); Calcium 10.1 mg/dL (8.4-10.2); Carbon Dioxide 24 mmol/L (22-30); Chloride 100 mmol/L (98-107); Estimated CRCL calculation 86 ml/min; Estimated Glomerular Filt Rate > 60; Glucose 445 mg/dL (65-105); Partial Thromboplastin Time 21.2 SECONDS (22.3-36.8); Potassium 4.6 mmol/L (3.4-5.0); Sodium 135 mmol/L (137-145)
--- NOTE | 2020-12-07 07:30 | PC.NURSE ---
daughter at [facility] at this time. tech drawing lactic acid and blood cultures. family requesting pt to be transferred to [facility].
[2020-12-07 07:54] LABS: Add Urine Microscopic? YES; Appearance Urine Cloudy (Clear); Bilirubin Urine Negative (Negative); Blood Urine 3+ (Negative); Color Urine Yellow (Yellow); Glucose Urine UA 3+ mg/dL (Negative); Ketones Urine 1+ mg/dL (Negative); Leukocyte Esterase Ur 1+ LEU/UL (Negative); Mucus Urine Rare /lpf; Nitrate Urine Negative (Negative); Protein Urine 2+ mg/dL (Negative); RBC Urine >75 /hpf (0-2); Specific Grav Ur 1.031 (1.001-1.035); Squamous Epithelial Cell Urine Rare /hpf (Few); Urobilinogen Urine Negative mg/dL (<2.0); WBC Urine 51-75 /hpf
[2020-12-07 07:56] LABS: Lactic Acid Reflex 3.4 mmol/L (0.7-2.1)
--- NOTE | 2020-12-07 08:41 | PC.NURSE ---
called imu to give report to the nurse taking care of pt. Talked to Rosanne and stated nurse is taking care of critical pt at the moment and will call back when she has a free moment.
--- NOTE | 2020-12-07 08:43 | PC.NURSE ---
called phlebotomy to come get 2nd set of blood cultures. RN and Tech stuck pt multiple times and were unsuccessful.
--- NOTE | 2020-12-07 10:17 | PM.IMHP ---
H&P: HPI History of Present Illness Date/Time: 12/07/20 10:17 Chief Complaint: Coffee-ground emesis Narrative: 70yo female with advanced dementia and PE/DVT [facility] for coffee-ground emesis and HoTN. Patient is nonverbal and nonmobile chronically and thus unable to provide history. Daughter not available at this time so majority of the history obtained from the chart. Scott hospitalized here on 12/01 for coffee-ground emesis. 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 She underwent EGD which showed multiple superficial ulcers mid esophagus and a severe mid esophageal stenosis that was not traversed. There was concern about dilating the esophagus. Hemoglobin dropped to 8.2 at time of discharge. She was discharged home on December 04 back on Eliquis and Pepcid added (omeprazole was also continued). She had a complicated UTI as well due to her chronic indwelling Baltazar catheter and was discharged back to the prison on antibiotics. Patient is brought in by EMS from the [facility] for recurrent episode of coffee-ground emesis. Blood pressure is 88/56. She was given IV fluids. On arrival in the ED, blood pressure was normal with heart rate of 141. Hemoglobin 10.2. UA had findings consistent with UTI but she does have chronic indwelling Baltazar. Blood and urine cultures collected. Chest x-ray showed minimal bibasilar airspace disease (images reviewed personally). She was given IV fluids, IV Protonix and IV antibiotics. She is on a Protonix drip. She was admitted to the IMU for further care. Review of Systems Review of Systems: ROS unobtainable: Yes unobtainable due to mental status [facility] Past Medical History Medical History (Updated 12/07/20 @ 16:21 by Steven Pablo MD) Bilateral cataracts Bleeding ulcer Chronic anemia Coffee ground emesis Dementia with behavioral disturbance DVT (deep venous thrombosis) Erosive esophagitis Esophageal stricture Essential hypertension Gastroesophageal reflux disease History of bleeding peptic ulcer History of pulmonary embolism Insulin dependent type 2 diabetes mellitus Hemoglobin A1c was 6.9% on 04/19/2020. Lesion of spleen Surgical History Surgical History History of bilateral carpal tunnel release History of section X3 History of replacement of both shoulder joints Family History Family History Sibling Cerebrovascular accident Family history of diabetes mellitus in first degree relative Father Carcinoma of colon Family history of malignant neoplasm Mother Family history of diabetes mellitus in first degree relative Hypertension Family history of arthritis Family history of malignant neoplasm Family history of type 2 diabetes mellitus Stomach cancer Sibling Hypertension Hyperlipidemia Cancer Other Diabetes mellitus Family history of cardiovascular disease Family history of gout Family history of seizure disorder Social History Social History Social History: 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 Lifelong nonsmoker. No alcohol or illicit substance use. Healthcare power of sports attorney is her daughter, Paty Garrett. Full code. She had 3 children. She resides in a prison. Smoking status: Never smoker Alcohol intake: never Substance use: never Substance use type: does not use Gender identity (if verbalized by the patient): Female Spiritual care concerns: No Meds Home Medications and Allergies Home Medications Medication Instructions Recorded Confirmed Type Adults Multivitamin 1 tablet PO DAILY 12/01/20 12/07/20 History Eliquis 5 mg FEEDING TUBE BID 12/01/20 12/07/20 History Fleet Enema 118 ml RECTAL PRN PRN 12/01/20 12/07/20 History Saccharomyces boulardii [Florastor] 250 mg FEEDING TUBE BID 0
[2020-12-07 10:45] LABS: Reflex Lactic Acid Yes or No Add Lactic
[2020-12-07 11:20] LABS: Lactic Acid 5.2 mmol/L (0.7-2.1)
[2020-12-07 11:22] LABS: Hemoglobin 9.4 g/dL (12.0-15.0)
[2020-12-07 11:32] LABS: Iron 15 ug/dL (37-170)
[2020-12-07 11:42] LABS: Percent Iron Saturation 6 % (20-50)
[2020-12-07] MEDS: SODIUM CHLORIDE 0.9% IV 1,000 ML 100 ML IV CONT (11:48)
[2020-12-07 12:30] LABS: Glucose Point of Care 372 mg/dl (65-105)
[2020-12-07 12:43] LABS: Folic Acid 17.1 ng/mL (2.76->20)
[2020-12-07] MEDS: INSULIN ASPART (*BKC) 100 UNITS/ML SUB-Q ×2 (13:14→17:05)
--- NOTE | 2020-12-07 14:20 | ADMGEN ---
This patient, Diane Garrett, was admitted to IMU Room 231-01 on 12/07/20 at 0958. Patient/family oriented to hospital policies and general routines including ID bracelet, bed and alarms, visiting hours, pain management, procedures, bathroom and other care routines, personal items, smoking policy, room service/diet, and visiting hours. Information on how to activate the Rapid Response Team has been discussed. Patient/Family are encouraged to report perceived risks to care and to ask questions if they do not understand what they are told or what they should do.
--- NOTE | 2020-12-07 16:03 | WPDGICN ---
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 (2) Erosive esophagitis: Code(s): K22.10 - Ulcer of esophagus without bleeding Status: Acute Assessment and Plan: protonix twice daily (3) Esophageal stricture: Code(s): K22.2 - Esophageal obstruction Status: Acute Assessment and Plan: ok to resume feeding slowly (she has jejunal feeding using G-J tube- less risk for ongoing aspiration) (4) Severe sepsis: Code(s): A41.9 - Sepsis, unspecified organism; R65.20 - Severe sepsis without septic shock Status: Acute Assessment and Plan: started on antibiotics (5) Pneumonia: Code(s): J18.9 - Pneumonia, unspecified organism Status: Acute Assessment and Plan: antibiotics (6) Pressure ulcer: Code(s): L89.90 - Pressure ulcer of unspecified site, unspecified stage Status: Acute Assessment and Plan: wound care (7) Chronic anemia: Code(s): D64.9 - Anemia, unspecified Status: Chronic GI Consult Note Consult date/time: 12/07/20 16:03 Reason for consult: coffee ground emesis, severe esophagitis HPI: Diane Garrett is a 70 year old female who I met her during recent hospitalization when she was admtited for n/v and coffee ground emesis. She has advanced dementia and is a residential resident, she has G-J tube that was placed on at another hospital because ongoing dysphagia (reviewed records, also had esophageal stricture dilated up to 15mm), on anticoagulation with eliquis because DVT, DM on insulin, she is bed bound. Last hospitalization had EGD that showed severe peptic stenotic stricture in mid esophagus, unable to traverse and dilation was not attempted in this setting. She was sent back to hospital because recurrent episode of coffee-ground emesis and low blood pressure 88/56. Hb low but stable (9-10 close to baseline). Had CT scan a/p that was reviewed, airspace opacities of the lower lobes c/w pneumonia, small sliding hiatal hernia. The liver, pancreas, and adrenal glands are normal, percutaneous gastrostomy with an enteric tube passing into the third portion of the duodenum. Admitted to hospital, started on antibiotics. Daughter is at the bedside. RN reports no more episode of emesis and no melena. Review of Systems Review of Systems: ROS unobtainable: Yes unobtainable due to mental status [facility] Past Medical History Medical History (Updated 12/07/20 @ 16:21 by Steven Pablo MD) Bilateral cataracts Bleeding ulcer Chronic anemia Coffee ground emesis Dementia with behavioral disturbance DVT (deep venous thrombosis) Erosive esophagitis Esophageal stricture Essential hypertension Gastroesophageal reflux disease History of bleeding peptic ulcer History of pulmonary embolism Insulin dependent type 2 diabetes mellitus Hemoglobin A1c was 6.9% on 04/19/2020. Lesion of spleen Surgical History Surgical History History of bilateral carpal tunnel release History of section X3 History of replacement of both shoulder joints Family History Family History Sibling Cerebrovascular accident Family history of diabetes mellitus in first degree relative Father Carcinoma of colon Family history of malignant neoplasm Mother Family history of diabetes mellitus in first degree relative Hypertension Family history of arthritis Family history of malignant neoplasm Family history of type 2 diabetes mellitus Stomach cancer Sibling Hypertension Hyperlipidemia Cancer Other Diabetes mellitus Family
[2020-12-07] MEDS: COLLAGENASE OINT 30 GM TUBE 1 APPLIC TOPICAL (17:05)
[2020-12-07] MEDS: GENTAMICIN SULFATE 0.1% OINT 15 GM TUBE 1 APPLIC TOPICAL (17:05)
[2020-12-07 17:13] LABS: Glucose Point of Care 328 mg/dl (65-105)
[2020-12-07 17:56] LABS: Hematocrit 28.5 % (37.0-47.0); Hemoglobin 8.5 g/dL (12.0-15.0)
[2020-12-07] MEDS: PANTOPRAZOLE SODIUM IV 40 MG VIAL IV PUSH (20:22)
[2020-12-07] MEDS: DONEPEZIL HCL 10 MG TABLET FEED TUBE (20:22)
[2020-12-07 23:36] LABS: Glucose Point of Care 222 mg/dl (65-105)
[2020-12-08] VITALS (26 sets, daily range): BP systolic 100–119; BP diastolic 48–63; PULSE 96–128; RESP 16–26; TEMP 35.8–37; O2SAT 94–100; BMI 28.0; BMI 11.0
[2020-12-08] MEDS: SODIUM CHLORIDE 0.9% IV 1,000 ML 100 ML IV CONT (00:15)
[2020-12-08 05:20] LABS: Lactic Acid Reflex 1.7 mmol/L (0.7-2.1)
[2020-12-08 05:43] LABS: Alanine Aminotransferase 13 U/L (4-35); Albumin Level 2.6 g/dL (3.5-5.1); Alkaline Phosphatase 59 U/L (38-126); Anion Gap 4 mmol/L (8-16); Aspartate Amino Transferase 19 U/L (14-36); Bilirubin,Total < 0.1 mg/dL (0.2-1.3); Blood Urea Nitrogen 13 mg/dL (7-17); Calcium 8.7 mg/dL (8.4-10.2); Carbon Dioxide 24 mmol/L (22-30); Chloride 105 mmol/L (98-107); Estimated CRCL calculation 142 ml/min; Estimated Glomerular Filt Rate > 60; Glucose 246 mg/dL (65-105); Magnesium 1.6 mg/dL (1.6-2.3); Phosphorus 2.7 mg/dL (2.5-4.5); Potassium 3.7 mmol/L (3.4-5.0); Sodium 133 mmol/L (137-145)
[2020-12-08 06:26] LABS: Basophils Percent Auto 0.2 % (0.2-1.2); Eosinophils Absolute Auto 0.1 K/mm3 (0-0.3); Eosinophils Percent Auto 0.5 % (0-4.4); Hematocrit 21.9 % (37.0-47.0); Immature Granulocyte Absolute 0.02 K/mm3 (0.00-0.031); Immature Granulocyte Percent A 0.2 % (0-0.5); Lymphocytes Absolute Auto 1.38 K/mm3 (0.9-3.2); Lymphocytes Percent Auto 14.8 % (18.3-44.2); Mean Corpuscular HGB Conc 30.6 g/dl (32-36); Mean Corpuscular Hemoglobin 22.9 pg (26-34); Mean Corpuscular Volume 74.7 fl (80-100); Mean Platelet Volume 8.9 fl (7.4-10.4); Monocytes Absolute Auto 0.7 K/mm3 (0.1-0.6); Monocytes Percent Auto 7.3 % (2.6-8.5); Neutrophils Absolute Auto 7.2 K/mm3 (1.3-6.7); Platelet Count Result 313 k/mm3 (150-375); Red Blood Count 2.93 M/mm3 (4.2-5.4); Red Cell Distribution Width 17.2 % (11.5-14.5); White Blood Count 9.3 K/mm3 (4.5-10.0)
[2020-12-08 06:28] LABS: Hemoglobin 6.7 g/dL (12.0-15.0)
[2020-12-08] MEDS: GENTAMICIN SULFATE 0.1% OINT 15 GM TUBE 1 APPLIC TOPICAL (09:46)
[2020-12-08] MEDS: COLLAGENASE OINT 30 GM TUBE 1 APPLIC TOPICAL (09:46)
[2020-12-08] MEDS: PANTOPRAZOLE SODIUM IV 40 MG VIAL IV PUSH ×2 (09:46→21:16)
--- NOTE | 2020-12-08 11:35 | PM.IMPN ---
Progress Note: A&P Assessment and Plan (1) Severe sepsis: Code(s): A41.9 - Sepsis, unspecified organism; R65.20 - Severe sepsis without septic shock Status: Acute Assessment and Plan: Patient with sepsis like symptoms with tachycardia, hypotension and leukocytosis. Lactic acid 3.4. Chest x-ray noted and would be concern for aspiration possibly. UA noted as well so consider UTI. No obvious CVA tenderness to suggest pyelonephritis. CT of the abdomen pelvis showing no acute findings. Repeat lactic acid normal this morning. Okay to stop IV fluids. Follow up on cultures. (2) Hematemesis: Code(s): K92.0 - Hematemesis Status: Acute Assessment and Plan: Patient sent back to the ED for coffee-ground emesis. Last admission showed mid-esophageal ulcers near the stricture. It was felt this was the source of the bleeding last time. Suspect this would have been more red blood then coffee-ground. Stomach was not visualized last admission due to the stricture. She was discharged home on Pepcid (Xareto and omeprazole were continued). Discussed with GI. no plans to repeat EGD. Plan to hold Eliquis longer. Continue monitor H&H closely. Contineu PPI. (3) UTI (urinary tract infection): Code(s): N39.0 - Urinary tract infection, site not specified Status: Acute Assessment and Plan: UA concerning for complicated UTI. She has chronic indwelling Baltazar catheter which was exchanged yesterday. Continue IV antibiotics. BCx NGTD. Urine culture pending. Narrow antibiotic coverage when able. (4) Chronic anemia: Code(s): D64.9 - Anemia, unspecified Status: Chronic Assessment and Plan: Hemoglobin 10.2 on admission. Iron 15 with TIBC 248 and TSat 6%. Ferritin 28 consistent with at least a component of iron deficiency. B12/folate normal. Hemoglobin dropped to 6.3 overnight and transfusion ordered. She may benefit from IV iron. Continue to monitor hemoglobin serially. (5) Esophageal stricture: Code(s): K22.2 - Esophageal obstruction Status: Acute Assessment and Plan: EGD on 12/02/2020 showing mid esophageal severe stricture. There is concern about dilating esophagus. There are ulcers noted at the site of the stricture. GI consult and discussed. Continue Protonix. No plans for repeat EGD. (6) History of pulmonary embolism: Code(s): Z86.711 - Personal history of pulmonary embolism Status: Chronic Assessment and Plan: Patient has a history of pulmonary embolism and DVT. She is on long-term Eliquis therapy. Last blood clot in the right arm was in September. Eliquis was resumed after last discharge. Will hold now related to the hematemesis. Discussed with GI: plans to hold Eliquis for at least 1 week. (7) Dementia: Qualifiers: Dementia behavioral disturbance: without behavioral disturbance Dementia type: unspecified type Qualified Code(s): F03.90 - Unspecified dementia without behavioral disturbance Code(s): F03.90 - Unspecified dementia without behavioral disturbance Status: Chronic Assessment and Plan: Chronic and nearring end-stage. Patient is nonverbal and non mobile. She also has dysphagia with G-tube in place. We continued Exelon and Aricept. Family requesting therapy to see if patient can 'at least stand'. Will have her re-evaluated by therapy. (8) Decubitus ulcer: Code(s): L89.90 - Pressure ulcer of unspecified site, unspecified stage Status: Acute Assessment and Plan: Noted on exam. Does not appear to be overtly infected. Wound care consult has been placed. (9) Insulin dependent type 2 diabetes mellitus: Code(s): E11.9 - Type 2 diabetes mellitus without complications; Z79.4 - FDC (current) use of insulin Status: Chronic Assessment and Plan: A1c is 8.7 earlier this month. The patient's blood glucose was reviewed
[2020-12-08 12:24] LABS: Glucose Point of Care 334 mg/dl (65-105)
[2020-12-08] MEDS: INSULIN ASPART (*BKC) 100 UNITS/ML SUB-Q ×2 (13:38→17:54)
[2020-12-08] MEDS: SODIUM CHLORIDE 0.9% IV 250 ML 30 ML IV CONT (13:39)
[2020-12-08 14:13] LABS: Glucose Point of Care 312 mg/dl (65-105)
--- NOTE | 2020-12-08 16:23 | WPDGIPROGNO ---
Progress Note: A&P Assessment and Plan (1) Acute on chronic blood loss anemia: Code(s): D62 - Acute posthemorrhagic anemia Status: Acute Assessment and Plan: given blood transfusion but no overt gib however recent EGD attempt showed severe peptic stricture in esophagus that can be the cause of coffee ground emesis agree to hold eliquis at least another 7 days and continue with high dose protonix bid (will need [facility] given EGD findings) no plan to repeat EGD unless obvious overt GIB discuss with hospitalist (2) Erosive esophagitis: Code(s): K22.10 - Ulcer of esophagus without bleeding Status: Acute Assessment and Plan: medical treatment and hold eliquis for 7 days (3) Severe sepsis: Code(s): A41.9 - Sepsis, unspecified organism; R65.20 - Severe sepsis without septic shock Status: Acute Assessment and Plan: improving with antibiotics (4) Esophageal stricture: Code(s): K22.2 - Esophageal obstruction Status: Acute (5) Pneumonia: Code(s): J18.9 - Pneumonia, unspecified organism Status: Acute (6) Dementia: Qualifiers: Dementia type: unspecified type Dementia behavioral disturbance: without behavioral disturbance Qualified Code(s): F03.90 - Unspecified dementia without behavioral disturbance Code(s): F03.90 - Unspecified dementia without behavioral disturbance Status: Chronic Assessment and Plan: on jejunal feeding Subjective Date/time seen: 12/08/20 16:23 Interval history: this morning noted drop in hb but RN did not report GIB, she has been tolerating tube feeding. Review of Systems Review of Systems: All systems reviewed & are unremarkable except as noted in HPI and below Exam Const: General: no acute distress and ill appearing chronically Other: non verbal HENMT: General nose exam: Normal nares present Eyes: Sclera: sclerae normal Neck: Neck: supple Resp: Effort & Inspection: normal respiratory effort Auscultation: diminished lung sounds Cardio: Rate: regular rate GI: Inspection: non-distended GI Palp: No Tenderness to palpation present (GI) and No Guarding due to palpation present (GI) Auscultation: normal bowel sounds Other: g-j tube in position Urinary Catheter: Urinary Catheter: patent and draining Skin: General skin exam: normal color Other: decubitus ulcer in back Neuro: Other: patient is awake but not interactive with environment Extrem: General: normal to inspection Psych: Other: dementia Objective Data Vital Signs Vital Signs: Vital Signs - 24 hr 12/07/20 17:30 12/07/20 18:00 12/07/20 19:56 Temperature 97.3 F L 98.0 F Pulse Rate 128 H 121 H 114 H Respiratory Rate 23 H 20 Blood Pressure 118/70 120/73 Pulse Oximetry 100 98 12/07/20 20:00 12/07/20 22:00 12/07/20 22:37 Temperature Pulse Rate 116 H 115 H Respiratory Rate Blood Pressure Pulse Oximetry 98 12/07/20 23:40 12/08/20 00:00 12/08/20 01:46 Temperature 98.0 F Pulse Rate 111 H 112 H 104 H Respiratory Rate 20 Blood Pressure 119/63 Pulse Oximetry 98 12/08/20 04:00 12/08/20 05:27 12/08/20 08:00 Temperature 97.6 F Pulse Rate 110 H 105 H 109 H Respiratory Rate 20 Blood Pressure 114/63 Pulse Oximetry 97 12/08/20 08:26 12/08/20 10:00 12/08/20 12:00 Temperature 96.5 F L Pulse Rate 108 H 128 H 106 H Respiratory Rate 22 H Blood Pressure 118/58 L Pulse Oximetry 96 12/08/20 12:33 12/08/20 13:52 12/08/20 14:00 Temperature 96.6 F L 97 F L Pulse Rate 106 H 109 H 106 H Respiratory Rate 24 H 16 Blood Pressure 119/58 L 113/55 L Pulse Oximetry 100 99 12/08/20 14:08 12/08/20 15:08 12/08/20 16:00 Temperature 97.2 F L 96.9 F L Pulse Rate 104 H 105 H 100 Respiratory Rate 16 26 H Blood Pressure 117/56 L 117/53 L Pulse Oximetry 100 98 Intake/Output Intake/Output: Intake & Output 12/05/20 12/06/20 12/07/20 12/08/20 23:59 23:59
[2020-12-08] MEDS: CYANOCOBALAMIN INJ 1,000 MCG/ML VIAL 1000 MCG IM (17:53)
[2020-12-08] MEDS: INSULIN GLARGINE (*BKC) 100 UNITS/ML 16 UNITS SUB-Q (17:53)
[2020-12-08 18:12] LABS: Glucose Point of Care 300 mg/dl (65-105)
[2020-12-08 18:31] LABS: Glucose Point of Care 303 mg/dl (65-105)
[2020-12-08] MEDS: DONEPEZIL HCL 10 MG TABLET FEED TUBE (21:16)
[2020-12-08] MEDS: FUROSEMIDE INJ 40 MG/4 ML VIAL 20 MG IV PUSH (21:41)
[2020-12-08 23:46] LABS: Glucose Point of Care 308 mg/dl (65-105)
[2020-12-09] VITALS (11 sets, daily range): BP systolic 114–140; BP diastolic 59–74; PULSE 81–105; RESP 20–24; TEMP 36.4–36.9; O2SAT 94–100; BMI 11.0
[2020-12-09 00:10] LABS: Hematocrit 32.2 % (37.0-47.0); Hemoglobin 10.2 g/dL (12.0-15.0)
[2020-12-09] MEDS: INSULIN ASPART (*BKC) 100 UNITS/ML SUB-Q ×4 (00:22→17:18)
[2020-12-09 00:36] LABS: Vancomycin Trough < 5.0 ug/mL (10.0-20.0)
[2020-12-09 05:25] LABS: Hematocrit 30.3 % (37.0-47.0); Hemoglobin 9.7 g/dL (12.0-15.0); Mean Corpuscular Hemoglobin 24.6 pg (26-34); Mean Corpuscular Volume 76.7 fl (80-100); Mean Platelet Volume 9.5 fl (7.4-10.4); Platelet Count Result 320 k/mm3 (150-375); Red Blood Count 3.95 M/mm3 (4.2-5.4); Red Cell Distribution Width 17.3 % (11.5-14.5); White Blood Count 9.8 K/mm3 (4.5-10.0)
[2020-12-09 05:38] LABS: Anion Gap 7 mmol/L (8-16); Blood Urea Nitrogen 10 mg/dL (7-17); Calcium 8.6 mg/dL (8.4-10.2); Carbon Dioxide 27 mmol/L (22-30); Chloride 98 mmol/L (98-107); Estimated CRCL calculation 146 ml/min; Estimated Glomerular Filt Rate > 60; Glucose 337 mg/dL (65-105); Potassium 3.6 mmol/L (3.4-5.0); Sodium 132 mmol/L (137-145)
[2020-12-09 05:55] LABS: Glucose Point of Care 333 mg/dl (65-105)
--- NOTE | 2020-12-09 08:02 | WPDCDIQUERY2 ---
CDI Query Clarification Request -UTI has been documented - She has chronic indwelling Barr catheter which was exchanged yesterday documented -Urine culture growing >100,000 Enterococcus Please clarify if UTI is: Due to/associated with chronic indwelling barr catheter Not due to/associated with chronic indwelling barr catheter Unable to determine
--- NOTE | 2020-12-09 08:02 | P.CDI_ITS ---
CDI Query Clarification Request -UTI has been documented - She has chronic indwelling Barr catheter which was exchanged yesterday documented -Urine culture growing >100,000 Enterococcus Please clarify if UTI is: * Due to/associated with chronic indwelling barr catheter * Not due to/associated with chronic indwelling barr catheter * Unable to determine
[2020-12-09] MEDS: COLLAGENASE OINT 30 GM TUBE 1 APPLIC TOPICAL (09:35)
[2020-12-09] MEDS: FOLIC ACID 1 MG TABLET FEED TUBE (09:35)
[2020-12-09] MEDS: GENTAMICIN SULFATE 0.1% OINT 15 GM TUBE 1 APPLIC TOPICAL (09:35)
[2020-12-09] MEDS: PANTOPRAZOLE SODIUM IV 40 MG VIAL IV PUSH ×2 (09:36→20:59)
[2020-12-09] MEDS: INSULIN GLARGINE (*BKC) 100 UNITS/ML 16 UNITS SUB-Q (09:45)
[2020-12-09 11:44] LABS: Glucose Point of Care 270 mg/dl (65-105)
--- NOTE | 2020-12-09 13:05 | PCDIET ---
Nutrition Follow-Up Complete: Nutrition Diagnosis: Increased protein/calorie needs related to increased demands for wound healing as evidenced by unhealed stage III pressure ulcer. Nutrition Goal: Patient to meet estimated nutritional needs. Goal met. Patient tolerating Jevity 1.5 at 60mL/hr with 120mL water flush every 4 hours. Recommend change to Glucerna 1.2 at 75mL/hr for optimal glucose control. Given 22 hours/day, this will provide 1980kcal and 99g protein. Recommend decreasing water flush to 30mL every 4 hours at this time. Last recorded weight is 85.1 kg which is increased from last review. +I/O. Bowel Motility: RN reported BM on 12/07/20 visit. Labs Reviewed: Hgb (9.7), Hct (30.3), Glu (337), Cr (0.3), Na (132) Meds Noted: Vancomycin, Folic Acid, Lantus, Cefepime, Vitamin B12, Novolog, Protonix Additional Notes: Stage III area to right buttock. Will continue to monitor with same goal. Nutrition Monitoring and Evaluation: Follow up every Saturday/Saturday.
[2020-12-09 14:07] LABS: Hemoglobin 11.1 g/dL (12.0-15.0)
--- NOTE | 2020-12-09 15:10 | WPDGIPROGNO ---
Progress Note: A&P Assessment and Plan (1) Acute on chronic blood loss anemia: Code(s): D62 - Acute posthemorrhagic anemia Status: Acute Assessment and Plan: s/p blood transfusion yesterday with stable hb now no report of overt gib but recent EGD showed severe peptic stricture with active inflammation in esophagus (unable to traverse) as cause of coffee ground emesis hold eliquis for now and continue with high dose protonix bid (will need long chain beamer given EGD findings) no plan to repeat EGD unless obvious overt GIB (2) Erosive esophagitis: Code(s): K22.10 - Ulcer of esophagus without bleeding Status: Acute Assessment and Plan: medical treatment and hold eliquis for 7 days (3) Severe sepsis: Code(s): A41.9 - Sepsis, unspecified organism; R65.20 - Severe sepsis without septic shock Status: Acute Assessment and Plan: on broad spectrum iv antibiotics (4) Esophageal stricture: Code(s): K22.2 - Esophageal obstruction Status: Acute Assessment and Plan: on iv protonix bid (5) Pneumonia: Code(s): J18.9 - Pneumonia, unspecified organism Status: Acute (6) Dementia: Qualifiers: Dementia type: unspecified type Dementia behavioral disturbance: without behavioral disturbance Qualified Code(s): F03.90 - Unspecified dementia without behavioral disturbance Code(s): F03.90 - Unspecified dementia without behavioral disturbance Status: Chronic Assessment and Plan: on jejunal feeding Subjective Date/time seen: 12/09/20 15:10 Interval history: no acute events, tolerating tube feeding. She received blood transfusion yesterday Review of Systems Review of Systems: All systems reviewed & are unremarkable except as noted in HPI and below Exam Const: General: no acute distress and ill appearing chronically Other: non verbal HENMT: General nose exam: Normal nares present Eyes: Sclera: sclerae normal Neck: Neck: supple Resp: Effort & Inspection: normal respiratory effort Auscultation: diminished lung sounds Cardio: Rate: regular rate GI: Inspection: non-distended GI Palp: No Tenderness to palpation present (GI) and No Guarding due to palpation present (GI) Auscultation: normal bowel sounds Other: g-j tube in position Urinary Catheter: Urinary Catheter: patent and draining Skin: General skin exam: normal color Other: decubitus ulcer in back Neuro: Other: patient is awake but not interactive with environment Extrem: General: normal to inspection Psych: Other: dementia Objective Data Vital Signs Vital Signs: Vital Signs - 24 hr 12/08/20 16:00 12/08/20 16:08 12/08/20 16:32 Temperature 97.1 F L 97.0 F L Pulse Rate 100 98 103 H Respiratory Rate 20 18 Blood Pressure 101/48 L 104/56 L Pulse Oximetry 99 99 12/08/20 16:49 12/08/20 17:42 12/08/20 17:57 Temperature 97.1 F L 97.0 F L 97.1 F L Pulse Rate 98 97 102 H Respiratory Rate 20 20 22 H Blood Pressure 101/48 L 100/58 L 109/55 L Pulse Oximetry 99 98 100 12/08/20 18:00 12/08/20 18:57 12/08/20 19:57 Temperature 97.0 F L 97.5 F L Pulse Rate 102 H 102 H 105 H Respiratory Rate 21 H 21 H Blood Pressure 109/56 L 114/58 L Pulse Oximetry 98 98 12/08/20 20:00 12/08/20 20:57 12/08/20 21:21 Temperature 97.7 F 98.6 F Pulse Rate 104 H 96 97 Respiratory Rate 20 20 Blood Pressure 119/59 L 112/61 Pulse Oximetry 94 98 12/08/20 22:00 12/09/20 00:00 12/09/20 01:36 Temperature 97.6 F Pulse Rate 97 99 96 Respiratory Rate 20 Blood Pressure 127/66 Pulse Oximetry 12/09/20 04:00 12/09/20 06:00 12/09/20 08:00 Temperature 97.6 F 98.3 F Pulse Rate 94 94 93 Respiratory Rate 20 24 H Blood Pressure 140/64 114/65 Pulse Oximetry 94 99 12/09/20 10:00 12/09/20 12:00 12/09/20 14:13 Temperature 98.5 F Pulse Rate 84 81 Respiratory Rate 20 Blood Pressure 130/74 Pulse Oximetry 100 100 Intake/Output Intake
--- NOTE | 2020-12-09 16:37 | PM.IMPN ---
Progress Note: A&P Assessment and Plan (1) Severe sepsis: Code(s): A41.9 - Sepsis, unspecified organism; R65.20 - Severe sepsis without septic shock Status: Acute Assessment and Plan: Patient with sepsis like symptoms with tachycardia, hypotension and leukocytosis. Lactic acid 3.4. Chest x-ray noted and would be concern for aspiration possibly. UA noted and UCx positive. CT of the abdomen pelvis showing no acute findings except for basilar airspace disease. Repeat lactic acid normal now. We stopped IV fluids. BCx NGTD. Pateitn stable for discharge. Family now wishing patient to staying the hospital for 1 week for unclear reasons. Long discussion with daughter but still unclear on why patient needs to remain hospitalized. Dtr states patient with 'bad cough' but not noted by examiner or staff and patient on room air and in no distress. She is being treated with abx. Discharge and family plans to appeal the discharge. (2) Hematemesis: Code(s): K92.0 - Hematemesis Status: Acute Assessment and Plan: Patient sent back to the ED for coffee-ground emesis. Last admission showed mid-esophageal ulcers near the stricture. It was felt this was the source of the bleeding last time (but suspect this would have been more red blood then coffee-ground). Stomach was not visualized last admission due to the stricture. She was discharged home on Pepcid (Xarelto and omeprazole were continued). Discussed with GI. no plans to repeat EGD. Plan to hold Eliquis longer. Hgb stable now. Continue monitor H&H closely. Continue PPI. (3) Aspiration pneumonia: Code(s): J69.0 - Pneumonitis due to inhalation of food and vomit Status: Acute Assessment and Plan: Patient may have aspirated with the hematemesis. She is somewhat protected with the esophageal stricture. CT Abd showing bibasilar airspace disease. WBC 16K but normal now. No fevers but does have a cough per family. Will add Flagyl. (4) UTI (urinary tract infection): Code(s): N39.0 - Urinary tract infection, site not specified Status: Acute Assessment and Plan: UA concerning for complicated UTI. She has chronic indwelling Baltazar catheter which was exchanged 12/07. BCx NGTD. Urine culture growing Enterococcus sensitive to ampicillin, Macrobid and Vanco. Narrow antibiotic coverage. (5) Chronic anemia: Code(s): D64.9 - Anemia, unspecified Status: Chronic Assessment and Plan: Hemoglobin 10.2 on admission. Iron 15 with TIBC 248 and TSat 6%. Ferritin 28 consistent with at least a component of iron deficiency. B12/folate normal. Hemoglobin dropped to 6.7 yesterday morning and transfusion ordered. Hgb climbed to 11.1 today (was 6.7 false reading?). Add iron. Continue to monitor hemoglobin serially. (6) Esophageal stricture: Code(s): K22.2 - Esophageal obstruction Status: Acute Assessment and Plan: EGD on 12/02/20 showing mid esophageal severe stricture. There are ulcers noted at the site of the stricture as well. There was concern about dilating the esophagus. GI consulted again this admission and discussed. No plans for repeat EGD. Continue Protonix. (7) History of pulmonary embolism: Code(s): Z86.711 - Personal history of pulmonary embolism Status: Chronic Assessment and Plan: Patient has a history of pulmonary embolism and DVT. She is on long-term Eliquis therapy. Last blood clot in the right arm was in September. Eliquis was resumed at time of discharge last admission. Given the recurrent bleeding, will hold Xarelto at least 1 week. Discussed with GI. Family made aware of the plan. (8) Dementia: Qualifiers: Dementia behavioral disturbance: without behavioral disturbance Dementia type: unspecified type Qualified Code(s): F03.90 - Unspecified dementia without behavioral disturbance Code(s): F03.90 - Unspecif
[2020-12-09 17:39] LABS: Glucose Point of Care 247 mg/dl (65-105)
[2020-12-09] MEDS: metroNIDAZOLE 250 MG TABLET FEED TUBE (20:59)
[2020-12-09] MEDS: DONEPEZIL HCL 10 MG TABLET FEED TUBE (20:59)
[2020-12-09] MEDS: NITROFURANTOIN MONOHYD MACROCR 100 MG CAP FEED TUBE (20:59)
[2020-12-09] MEDS: INSULIN GLARGINE (*BKC) 100 UNITS/ML 20 UNITS SUB-Q (21:02)
[2020-12-10] VITALS (8 sets, daily range): BP systolic 114–119; BP diastolic 62–68; PULSE 78–96; RESP 18–20; TEMP 36.1–37.1; O2SAT 99–100
[2020-12-10 00:06] LABS: Glucose Point of Care 182 mg/dl (65-105)
[2020-12-10 04:00] LABS: IFOB Positive Control Positive; Immunochemical Fecal Occult Bl Negative (N)
[2020-12-10 05:32] LABS: Hematocrit 34.4 % (37.0-47.0); Hemoglobin 11.2 g/dL (12.0-15.0); Mean Corpuscular HGB Conc 32.6 g/dl (32-36); Mean Corpuscular Hemoglobin 25.1 pg (26-34); Mean Corpuscular Volume 77.1 fl (80-100); Mean Platelet Volume 9.6 fl (7.4-10.4); Platelet Count Result 376 k/mm3 (150-375); Red Blood Count 4.46 M/mm3 (4.2-5.4); Red Cell Distribution Width 17.5 % (11.5-14.5); White Blood Count 9.9 K/mm3 (4.5-10.0)
[2020-12-10 05:56] LABS: Glucose Point of Care 266 mg/dl (65-105)
[2020-12-10] MEDS: INSULIN ASPART (*BKC) 100 UNITS/ML SUB-Q ×2 (06:31→18:26)
--- NOTE | 2020-12-10 08:19 | PM.IMPN ---
Progress Note: A&P Assessment and Plan (1) Hematemesis: Qualifiers: Nausea presence: unspecified Qualified Code(s): K92.0 - Hematemesis Code(s): K92.0 - Hematemesis Status: Acute Assessment and Plan: Patient sent back to the ED for coffee-ground emesis. Last admission showed mid-esophageal ulcers near the stricture. It was felt this was the source of the bleeding last time. Suspect this would have been more red blood then coffee-ground. Stomach was not visualized last admission due to the stricture. She was discharged home on Pepcid (Xareto and omeprazole were continued). Discussed with GI. no plans to repeat EGD. Plan to hold Eliquis longer. Continue monitor H&H closely. Contineu PPI. (2) UTI (urinary tract infection): Qualifiers: Urinary tract infection type: catheter-associated UTI Indwelling urinary catheter type: indwelling urethral catheter Encounter type: sequela Qualified Code(s): T83.511S - Infection and inflammatory reaction due to indwelling urethral catheter, sequela; N39.0 - Urinary tract infection, site not specified Code(s): N39.0 - Urinary tract infection, site not specified Status: Acute Assessment and Plan: UA concerning for complicated UTI. She has chronic indwelling Baltazar catheter which was exchanged yesterday. 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 (3) Chronic anemia: Code(s): D64.9 - Anemia, unspecified Status: Chronic Assessment and Plan: Hemoglobin 10.2 on admission. Iron 15 with TIBC 248 and TSat 6%. Ferritin 28 consistent with at least a component of iron deficiency. B12/folate normal. 12/10 hgb 11.2 (4) Esophageal stricture: Code(s): K22.2 - Esophageal obstruction Status: Acute Assessment and Plan: EGD on 12/02/2020 showing mid esophageal severe stricture. There is concern about dilating esophagus. There are ulcers noted at the site of the stricture. Continue protonix. No plans for repeat EGD. (5) History of pulmonary embolism: Code(s): Z86.711 - Personal history of pulmonary embolism Status: Chronic Assessment and Plan: Patient has a history of pulmonary embolism and DVT. She is on long-term Eliquis therapy. Last blood clot in the right arm was in September. Eliquis was resumed after last discharge. Per GI recommendations, hold Eliquis for at least one week. (6) Dementia: Qualifiers: Dementia type: unspecified type Dementia behavioral disturbance: without behavioral disturbance Qualified Code(s): F03.90 - Unspecified dementia without behavioral disturbance Code(s): F03.90 - Unspecified dementia without behavioral disturbance Status: Chronic Assessment and Plan: Patient is nonverbal and immobile. She also has dysphagia with G-tube in place. PPS 20. Continue Exelon and Aricept. (7) Decubitus ulcer: Qualifiers: Pressure injury location: unspecified location Pressure injury stage: unstageable Qualified Code(s): L89.95 - Pressure ulcer of unspecified site, unstageable Code(s): L89.90 - Pressure ulcer of unspecified site, unspecified stage Status: Acute Assessment and Plan: Wound care (8) Insulin dependent type 2 diabetes mellitus: Code(s): E11.9 - Type 2 diabetes mellitus without complications; Z79.4 - skilled nursing (current) use of insulin Status: Chronic Assessment and Plan: A1c is 8.7 earlier this month. Continue accuchecks and SSI (9) DVT prophylaxis: Code(s): Z29.9 - Encounter for prophylactic measures, unspecified Status: Acute Assessment and Plan: SCDs Subjective Date/time seen: 12/10/20 08:19 Interval history: 12/10: Mute. Review of Systems Review of Systems: ROS unobtainable: Yes unobtainable due to mental status Exam Narrative: Exam Narrative: AF 98.5 130/74 81 20 100%ra Gen Paige parra
[2020-12-10] MEDS: GENTAMICIN SULFATE 0.1% OINT 15 GM TUBE 1 APPLIC TOPICAL (11:19)
[2020-12-10] MEDS: FOLIC ACID 1 MG TABLET FEED TUBE (11:19)
[2020-12-10] MEDS: NITROFURANTOIN MONOHYD MACROCR 100 MG CAP FEED TUBE ×2 (11:19→22:06)
[2020-12-10] MEDS: COLLAGENASE OINT 30 GM TUBE 1 APPLIC TOPICAL (11:19)
[2020-12-10] MEDS: metroNIDAZOLE 250 MG TABLET FEED TUBE ×4 (11:20→22:06)
[2020-12-10] MEDS: PANTOPRAZOLE SODIUM IV 40 MG VIAL IV PUSH ×2 (11:21→22:07)
[2020-12-10] MEDS: INSULIN GLARGINE (*BKC) 100 UNITS/ML 20 UNITS SUB-Q ×2 (11:27→22:07)
[2020-12-10] MEDS: FERROUS SULFATE LIQUID 325 MG/7.4 ML ELIXIR FEED TUBE ×2 (11:33→17:01)
--- NOTE | 2020-12-10 12:02 | WPDGIPROGNO ---
Progress Note: A&P Assessment and Plan (1) Acute on chronic blood loss anemia: Code(s): D62 - Acute posthemorrhagic anemia Status: Acute Assessment and Plan: s/p blood transfusion 2 days ago with stable hb and no more report of emesis or melena. recent EGD showed severe peptic stricture with active inflammation in esophagus (unable to traverse) as cause of coffee ground emesis hold eliquis for now and continue with high dose protonix bid (will need candy bar attendant given EGD findings) no plan to repeat EGD unless obvious overt GIB (2) Erosive esophagitis: Code(s): K22.10 - Ulcer of esophagus without bleeding Status: Acute Assessment and Plan: medical treatment and hold eliquis for 7 days (3) Severe sepsis: Code(s): A41.9 - Sepsis, unspecified organism; R65.20 - Severe sepsis without septic shock Status: Acute Assessment and Plan: on broad spectrum iv antibiotics (4) Esophageal stricture: Code(s): K22.2 - Esophageal obstruction Status: Acute Assessment and Plan: on iv protonix bid she is getting tube feeding by G-J (5) Pneumonia: Code(s): J18.9 - Pneumonia, unspecified organism Status: Acute (6) Dementia: Qualifiers: Dementia type: unspecified type Dementia behavioral disturbance: without behavioral disturbance Qualified Code(s): F03.90 - Unspecified dementia without behavioral disturbance Code(s): F03.90 - Unspecified dementia without behavioral disturbance Status: Chronic Assessment and Plan: on jejunal feeding Subjective Date/time seen: 12/10/20 12:02 Interval history: no events per RN, tolerating tube feeding and no more report of gib or emesis Review of Systems Review of Systems: All systems reviewed & are unremarkable except as noted in HPI and below Exam Const: General: no acute distress and ill appearing chronically Other: non verbal HENMT: General nose exam: Normal nares present Eyes: Sclera: sclerae normal Neck: Neck: supple Resp: Effort & Inspection: normal respiratory effort Auscultation: diminished lung sounds Cardio: Rate: regular rate GI: Inspection: non-distended GI Palp: No Tenderness to palpation present (GI) and No Guarding due to palpation present (GI) Auscultation: normal bowel sounds Other: g-j tube in position Urinary Catheter: Urinary Catheter: patent and draining Skin: General skin exam: normal color Other: decubitus ulcer in back Neuro: Other: patient is awake but not interactive with environment (baseline) Extrem: General: normal to inspection Psych: Other: dementia Objective Data Vital Signs Vital Signs: Vital Signs - 24 hr 12/09/20 14:13 12/09/20 16:00 12/09/20 20:00 Temperature 98.3 F 98.5 F Pulse Rate 86 90 Respiratory Rate 24 H 22 H Blood Pressure 123/66 121/59 L Pulse Oximetry 100 99 99 12/09/20 22:00 12/10/20 00:00 12/10/20 02:00 Temperature 98.7 F Pulse Rate 88 78 85 Respiratory Rate 20 Blood Pressure 119/65 Pulse Oximetry 99 12/10/20 04:00 12/10/20 06:00 12/10/20 07:23 Temperature 98.8 F 97 F L Pulse Rate 95 96 94 Respiratory Rate 20 18 Blood Pressure 114/67 116/68 Pulse Oximetry 99 100 12/10/20 08:00 Temperature Pulse Rate 94 Respiratory Rate Blood Pressure Pulse Oximetry Intake/Output Intake/Output: Intake & Output 12/07/20 12/08/20 12/09/20 12/10/20 23:59 23:59 23:59 23:59 Intake Total 3800 2302 1336 985 Output Total 425 1450 2475 500 Balance 8912 415 -[phone] Meds/Results Medications: Active Medications Generic Name Dose Route Start Last Admin Trade Name Freq PRN Reason Stop Dose Admin Bisacodyl 10 mg 12/07/20 11:15 Bisacodyl 10 Mg Suppository RECTAL DAILY PRN Constipation Collagenase 1 applic 12/07/20 09:00 12/10/20 11:19 Collagenase Oint 30 Gm Tube TOPICAL 1 applic DAILY EVELIO Administration Cyanocobalamin 1,000 mcg 12/08/20 16:
[2020-12-10 12:34] LABS: Glucose Point of Care 133 mg/dl (65-105)
--- NOTE | 2020-12-10 17:20 | PC.NURSE ---
This patient, Diane Garrett, was received from [ ] on 12/10/20 at 1834. Patient/family oriented to unit policies and routines
--- NOTE | 2020-12-10 18:03 | PC.NURSE ---
This patient, Diane Garrett, was transferred to [facility] on 12/10/20 at 1715. Personal belongings sent with patient. Report given to Linnea PANDYA. Appropriate documentation sent with patient.
[2020-12-10 18:33] LABS: Glucose Point of Care 212 mg/dl (65-105)
[2020-12-10] MEDS: DONEPEZIL HCL 10 MG TABLET FEED TUBE (22:07)
[2020-12-11 00:13] LABS: Glucose Point of Care 211 mg/dl (65-105)
[2020-12-11] MEDS: INSULIN ASPART (*BKC) 100 UNITS/ML SUB-Q ×3 (00:20→17:48)
[2020-12-11 05:51] LABS: Glucose Point of Care 193 mg/dl (65-105)
[2020-12-11 06:11] VITALS: BP 104/54; PULSE 90; RESP 20; TEMP 36.4; O2SAT 98
[2020-12-11] MEDS: FOLIC ACID 1 MG TABLET FEED TUBE (09:55)
[2020-12-11] MEDS: COLLAGENASE OINT 30 GM TUBE 1 APPLIC TOPICAL (09:55)
[2020-12-11] MEDS: PANTOPRAZOLE SODIUM IV 40 MG VIAL IV PUSH (09:55)
[2020-12-11] MEDS: NITROFURANTOIN MONOHYD MACROCR 100 MG CAP FEED TUBE (09:55)
[2020-12-11] MEDS: FERROUS SULFATE LIQUID 325 MG/7.4 ML ELIXIR FEED TUBE ×2 (09:55→16:34)
[2020-12-11] MEDS: metroNIDAZOLE 250 MG TABLET FEED TUBE ×3 (09:55→16:34)
[2020-12-11] MEDS: GENTAMICIN SULFATE 0.1% OINT 15 GM TUBE 1 APPLIC TOPICAL (09:55)
[2020-12-11] MEDS: INSULIN GLARGINE (*BKC) 100 UNITS/ML 20 UNITS SUB-Q (09:58)
--- NOTE | 2020-12-11 11:57 | WPDGIPROGNO ---
Progress Note: A&P Assessment and Plan (1) Acute on chronic blood loss anemia: Code(s): D62 - Acute posthemorrhagic anemia Status: Acute Assessment and Plan: s/p blood transfusion 3 days ago with stable hb since no more report of emesis or melena. 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 treater helper protonix 40mg bid (will need detention given EGD findings) no plan to repeat EGD unless obvious overt GIB (2) Erosive esophagitis: Code(s): K22.10 - Ulcer of esophagus without bleeding Status: Acute Assessment and Plan: medical treatment and keep holding eliquis (3) Severe sepsis: Code(s): A41.9 - Sepsis, unspecified organism; R65.20 - Severe sepsis without septic shock Status: Acute Assessment and Plan: on broad spectrum iv antibiotics resolved (4) Esophageal stricture: Code(s): K22.2 - Esophageal obstruction Status: Acute Assessment and Plan: on iv protonix bid she is getting tube feeding by G-J (5) Pneumonia: Code(s): J18.9 - Pneumonia, unspecified organism Status: Acute (6) Dementia: Qualifiers: Dementia type: unspecified type Dementia behavioral disturbance: without behavioral disturbance Qualified Code(s): F03.90 - Unspecified dementia without behavioral disturbance Code(s): F03.90 - Unspecified dementia without behavioral disturbance Status: Chronic Assessment and Plan: on jejunal feeding Subjective Date/time seen: 12/11/20 11:57 Interval history: family at bedside, no major changes, no more bleeding and she has been tolerating tube feeding. Review of Systems Review of Systems: All systems reviewed & are unremarkable except as noted in HPI and below Exam Const: General: no acute distress and ill appearing chronically Other: non verbal HENMT: General nose exam: Normal nares present Eyes: Sclera: sclerae normal Neck: Neck: supple Resp: Effort & Inspection: normal respiratory effort Auscultation: diminished lung sounds Cardio: Rate: regular rate GI: Inspection: non-distended GI Palp: No Tenderness to palpation present (GI) and No Guarding due to palpation present (GI) Auscultation: normal bowel sounds Other: g-j tube in position Urinary Catheter: Urinary Catheter: patent and draining Skin: General skin exam: normal color Other: decubitus ulcer in back Neuro: Other: patient is awake but not interactive with environment (baseline) Extrem: General: normal to inspection Psych: Other: dementia Objective Data Vital Signs Vital Signs: Vital Signs - 24 hr 12/10/20 16:00 12/10/20 20:18 12/11/20 06:11 Temperature 97.7 F 97.4 F L 97.6 F Pulse Rate 89 96 90 Respiratory Rate 18 18 20 Blood Pressure 117/62 117/65 104/54 L Pulse Oximetry 100 100 98 Intake/Output Intake/Output: Intake & Output 12/08/20 12/09/20 12/10/20 12/11/20 23:59 23:59 23:59 23:59 Intake Total 2302 1336 1935 909 Output Total 1450 2475 950 350 Balance 852 -1139 985 559 Meds/Results Medications: Active Medications Generic Name Dose Route Start Last Admin Trade Name Freq PRN Reason Stop Dose Admin Bisacodyl 10 mg 12/07/20 11:15 Bisacodyl 10 Mg Suppository RECTAL DAILY PRN Constipation Collagenase 1 applic 12/07/20 09:00 12/11/20 09:55 Collagenase Oint 30 Gm Tube TOPICAL 1 applic DAILY EVELIO Administration Cyanocobalamin 1,000 mcg 12/08/20 16:15 12/08/20 17:53 Cyanocobalamin Inj 1,000 Mcg/Ml Vial IM 1,000 mcg MONTHLY EVELIO Administration Dextrose 12.5 gm 12/07/20 11:11 Dextrose 50% 25 Gm/50 Ml Syringe IV PUSH PRN PRN Hypoglycemia Protocol Donepezil HCl 10 mg 12/07/20 21:00 12/10/20 22:07 Donepezil Hcl 10 Mg Tablet FEED TUBE 10 mg HS EVELIO Administration Ferrous Sulfate
[2020-12-11 12:48] LABS: Glucose Point of Care 275 mg/dl (65-105)
--- NOTE | 2020-12-11 13:05 | PM.IMPN ---
Progress Note: A&P Assessment and Plan (1) Hematemesis: Qualifiers: Nausea presence: unspecified Qualified Code(s): K92.0 - Hematemesis Code(s): K92.0 - Hematemesis Status: Acute Assessment and Plan: Patient sent back to the ED for coffee-ground emesis. Last admission showed mid-esophageal ulcers near the stricture. It was felt this was the source of the bleeding last time. Suspect this would have been more red blood then coffee-ground. Stomach was not visualized last admission due to the stricture. She was discharged home on Pepcid (Xareto and omeprazole were continued). Discussed with GI. no plans to repeat EGD. Plan to hold Eliquis longer. Continue monitor H&H closely. Continue PPI. (2) UTI (urinary tract infection): Qualifiers: Urinary tract infection type: catheter-associated UTI Indwelling urinary catheter type: indwelling urethral catheter Encounter type: sequela Qualified Code(s): T83.511S - Infection and inflammatory reaction due to indwelling urethral catheter, sequela; N39.0 - Urinary tract infection, site not specified Code(s): N39.0 - Urinary tract infection, site not specified Status: Acute Assessment and Plan: UA concerning for complicated UTI. She has chronic indwelling Baltazar catheter which was exchanged yesterday. 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 (3) Chronic anemia: Code(s): D64.9 - Anemia, unspecified Status: Chronic Assessment and Plan: Hemoglobin 10.2 on admission. Iron 15 with TIBC 248 and TSat 6%. Ferritin 28 consistent with at least a component of iron deficiency. B12/folate normal. 12/10 hgb 11.2 (4) Esophageal stricture: Code(s): K22.2 - Esophageal obstruction Status: Acute Assessment and Plan: EGD on 12/02/2020 showing mid esophageal severe stricture. There is concern about dilating esophagus. There are ulcers noted at the site of the stricture. Continue protonix. No plans for repeat EGD. (5) History of pulmonary embolism: Code(s): Z86.711 - Personal history of pulmonary embolism Status: Chronic Assessment and Plan: Patient has a history of pulmonary embolism and DVT. She is on long-term Eliquis therapy. Last blood clot in the right arm was in September. Eliquis was resumed after last discharge. Per GI recommendations, hold Eliquis for at least one week. (6) Dementia: Qualifiers: Dementia type: unspecified type Dementia behavioral disturbance: without behavioral disturbance Qualified Code(s): F03.90 - Unspecified dementia without behavioral disturbance Code(s): F03.90 - Unspecified dementia without behavioral disturbance Status: Chronic Assessment and Plan: Patient is nonverbal and immobile. She also has dysphagia with G-tube in place. PPS 20. Continue Exelon and Aricept. (7) Decubitus ulcer: Qualifiers: Pressure injury location: unspecified location Pressure injury stage: unstageable Qualified Code(s): L89.95 - Pressure ulcer of unspecified site, unstageable Code(s): L89.90 - Pressure ulcer of unspecified site, unspecified stage Status: Acute Assessment and Plan: Wound care (8) Insulin dependent type 2 diabetes mellitus: Code(s): E11.9 - Type 2 diabetes mellitus without complications; Z79.4 - termite renewal inspector (current) use of insulin Status: Chronic Assessment and Plan: A1c is 8.7 earlier this month. Continue accuchecks and SSI (9) DVT prophylaxis: Code(s): Z29.9 - Encounter for prophylactic measures, unspecified Status: Acute Assessment and Plan: SCDs Subjective Date/time seen: 12/11/20 13:05 Interval history: 12/11: Mute. Daughter, Paty, and patient's are at bedside. Paty reports that Mrs. Garrett seems to be at her baseline functional status. Review of Systems Review of Systems: ARTURO valente
[2020-12-11 16:56] VITALS: BP 143/75; PULSE 106; RESP 16; TEMP 36.8; O2SAT 97
[2020-12-11 17:49] LABS: Glucose Point of Care 309 mg/dl (65-105)
[2020-12-11 21:00] VITALS: PULSE 95; RESP 32
[2020-12-11 21:16] VITALS: BP 135/77; PULSE 117; RESP 30; TEMP 36.8; O2SAT 97
[2020-12-11 21:26] VITALS: O2SAT 96
--- NOTE | 2020-12-11 23:44 | PM.EVENT ---
Event Note Event Note Event Note: I was notified by the patient's nurse that the patient may have aspirated some of her tube feedings. Tube feedings were discontinued and a stat chest x-ray was obtained. Given concerns for aspiration pneumonitis I have started her on ceftriaxone 1 milligram to 24 hours; she is already taking metronidazole q.i.d.. CPT ordered to help mobilize secretions. Nebs available as needed. Continue to monitor closely.
[2020-12-12] MEDS: INSULIN GLARGINE (*BKC) 100 UNITS/ML 20 UNITS SUB-Q ×3 (00:01→20:06)
[2020-12-12] MEDS: NITROFURANTOIN MONOHYD MACROCR 100 MG CAP FEED TUBE ×3 (00:05→20:05)
[2020-12-12] MEDS: PANTOPRAZOLE SODIUM IV 40 MG VIAL IV PUSH ×3 (00:05→20:06)
[2020-12-12] MEDS: DONEPEZIL HCL 10 MG TABLET FEED TUBE ×2 (00:05→20:05)
[2020-12-12] MEDS: metroNIDAZOLE 250 MG TABLET FEED TUBE ×2 (00:05→09:43)
[2020-12-12] MEDS: TOLNAFTATE 1% POWDER 45 GM BTL 1 APPLIC TOPICAL ×3 (00:06→20:06)
[2020-12-12] MEDS: INSULIN ASPART (*BKC) 100 UNITS/ML SUB-Q ×3 (00:09→23:42)
[2020-12-12] MEDS: IPRATROPIUM BR 0.02% INH SOLN 0.5 MG/2.5 ML VIAL INHALATION (00:17)
[2020-12-12 00:23] VITALS: PULSE 112; RESP 18
[2020-12-12 00:28] LABS: Glucose Point of Care 243 mg/dl (65-105)
[2020-12-12 01:44] VITALS: PULSE 124; RESP 30; TEMP 37.1; O2SAT 91
[2020-12-12 03:12] VITALS: O2SAT 94
[2020-12-12 05:22] LABS: Glucose Point of Care 223 mg/dl (65-105)
[2020-12-12 05:39] LABS: Hematocrit 39.1 % (37.0-47.0); Hemoglobin 12.6 g/dL (12.0-15.0); Mean Corpuscular HGB Conc 32.2 g/dl (32-36); Mean Corpuscular Hemoglobin 24.8 pg (26-34); Mean Platelet Volume 9.4 fl (7.4-10.4); Platelet Count Result 507 k/mm3 (150-375); Red Blood Count 5.08 M/mm3 (4.2-5.4); Red Cell Distribution Width 19.2 % (11.5-14.5)
[2020-12-12 05:58] LABS: Alanine Aminotransferase 17 U/L (4-35); Albumin Level 3.3 g/dL (3.5-5.1); Alkaline Phosphatase 111 U/L (38-126); Anion Gap 9 mmol/L (8-16); Aspartate Amino Transferase 23 U/L (14-36); Bilirubin,Total 0.6 mg/dL (0.2-1.3); Blood Urea Nitrogen 11 mg/dL (7-17); Calcium 9.7 mg/dL (8.4-10.2); Carbon Dioxide 28 mmol/L (22-30); Chloride 98 mmol/L (98-107); Estimated CRCL calculation 115 ml/min; Estimated Glomerular Filt Rate > 60; Glucose 225 mg/dL (65-105); Potassium 4.2 mmol/L (3.4-5.0); Sodium 135 mmol/L (137-145)
[2020-12-12 06:45] VITALS: BP 133/83; PULSE 87; RESP 29; TEMP 36.4; O2SAT 94
--- NOTE | 2020-12-12 08:00 | PC.NURSE ---
Per doctor Carlos- ok to continue to hold tube feed
[2020-12-12] MEDS: GENTAMICIN SULFATE 0.1% OINT 15 GM TUBE 1 APPLIC TOPICAL (09:43)
[2020-12-12] MEDS: COLLAGENASE OINT 30 GM TUBE 1 APPLIC TOPICAL (09:43)
[2020-12-12] MEDS: FOLIC ACID 1 MG TABLET FEED TUBE (09:43)
[2020-12-12] MEDS: FERROUS SULFATE LIQUID 325 MG/7.4 ML ELIXIR FEED TUBE (09:43)
--- NOTE | 2020-12-12 10:28 | WPDGIPROGNO ---
Progress Note: A&P Assessment and Plan (1) Acute on chronic blood loss anemia: Code(s): D62 - Acute posthemorrhagic anemia Status: Acute Assessment and Plan: s/p blood transfusion and hb stable last several days no more report of emesis or melena. keep holding eliquis and continue with buttermaker helper protonix 40mg bid given EGD findings) no plan to repeat EGD unless obvious overt GIB (2) Erosive esophagitis: Code(s): K22.10 - Ulcer of esophagus without bleeding Status: Acute Assessment and Plan: medical treatment and keep holding eliquis (3) Esophageal stricture: Code(s): K22.2 - Esophageal obstruction Status: Acute Assessment and Plan: on iv protonix bid she was getting tube feeding by G-J (4) Aspiration pneumonia: Code(s): J69.0 - Pneumonitis due to inhalation of food and vomit Status: Acute Assessment and Plan: unfortunately given current mental status and advanced dementia she will always be at risk of aspiration (even oral secretions) despite getting feeding in jejunum on antibiotics (5) Dementia: Qualifiers: Dementia type: unspecified type Dementia behavioral disturbance: without behavioral disturbance Qualified Code(s): F03.90 - Unspecified dementia without behavioral disturbance Code(s): F03.90 - Unspecified dementia without behavioral disturbance Status: Chronic Assessment and Plan: on jejunal feeding Subjective Date/time seen: 12/12/20 10:28 Interval history: last night she aspirated, CXR was obtained. Tube feeding on hold now. Review of Systems Review of Systems: All systems reviewed & are unremarkable except as noted in HPI and below Exam Const: General: no acute distress and ill appearing chronically Other: non verbal, more tachypneic today HENMT: General nose exam: Normal nares present Eyes: Sclera: sclerae normal Neck: Neck: supple Resp: Effort & Inspection: normal respiratory effort Auscultation: rales and diminished lung sounds Cardio: Rate: regular rate GI: Inspection: non-distended GI Palp: No Tenderness to palpation present (GI) and No Guarding due to palpation present (GI) Auscultation: normal bowel sounds Other: g-j tube in position Urinary Catheter: Urinary Catheter: patent and draining Skin: General skin exam: normal color Other: decubitus ulcer in back Neuro: Other: patient is awake but not interactive with environment (baseline) Extrem: General: normal to inspection Psych: Other: dementia Objective Data Vital Signs Vital Signs: Vital Signs - 24 hr 12/11/20 16:56 12/11/20 21:00 12/11/20 21:16 Temperature 98.2 F 98.2 F Pulse Rate 106 H 95 117 H Respiratory Rate 16 32 H 30 H Blood Pressure 143/75 H 135/77 Pulse Oximetry 97 97 12/11/20 21:26 12/12/20 00:23 12/12/20 01:44 Temperature 98.7 F Pulse Rate 112 H 124 H Respiratory Rate 18 30 H Blood Pressure Pulse Oximetry 96 91 12/12/20 03:12 12/12/20 06:45 Temperature 97.5 F L Pulse Rate 87 Respiratory Rate 29 H Blood Pressure 133/83 Pulse Oximetry 94 94 Intake/Output Intake/Output: Intake & Output 12/09/20 12/10/20 12/11/20 12/12/20 23:59 23:59 23:59 23:59 Intake Total 1336 1935 2251 50 Output Total 2475 950 1100 800 Balance -7081 372 3942 -750 Meds/Results Medications: Active Medications Generic Name Dose Route Start Last Admin Trade Name Freq PRN Reason Stop Dose Admin Albuterol 2.5 mg 12/12/20 02:04 Albuterol Sulfate Neb 2.5 Mg/0.5 Ml Inh INHALATION Q6HRT PRN Shortness Of Breath Bisacodyl 10 mg 12/07/20 11:15 Bisacodyl 10 Mg Suppository RECTAL DAILY PRN Constipation Collagenase 1 applic 12/07/20 09:00 12/12/20 09:43 Collagenase Oint 30 Gm Tube TOPICAL 1 applic DAILY EVELIO Administration Cyanocobalamin 1,000 mcg 12/08/20 16:15 12/08/20 17:53 Cyanocobalamin Inj 1,000 Mcg/Ml Vial IM 1,000 mcg MONTHLY S
[2020-12-12 13:12] LABS: Glucose Point of Care 172 mg/dl (65-105)
--- NOTE | 2020-12-12 13:37 | PM.IMPN ---
Progress Note: A&P Assessment and Plan (1) Hematemesis: Qualifiers: Nausea presence: unspecified Qualified Code(s): K92.0 - Hematemesis Code(s): K92.0 - Hematemesis Status: Acute Assessment and Plan: Patient sent back to the ED for coffee-ground emesis. Last admission showed mid-esophageal ulcers near the stricture. It was felt this was the source of the bleeding last time. Suspect this would have been more red blood then coffee-ground. Stomach was not visualized last admission due to the stricture. She was discharged home on Pepcid (Xareto and omeprazole were continued). Discussed with GI. no plans to repeat EGD. Plan to hold Eliquis longer. Continue monitor H&H closely. Continue PPI. 12/12/20 13:37 patient is a [facility] was sent to emergency department with a complaint hematoma emesis coffee-ground, patient is chronically anticoagulated with Eliquis for PE and DVT, on last admission patient had a EGD it showed stricture and possibly ulcer and patient was treated and discharged back to the nursing on Eliquis, patient again presented to emergency depart 12/07 with coffee ground emesis hypotension suspected sepsis secondary to UTI, patient is nonverbal and bed-bound unable to provide any review of symptoms or hx, patient was seen by GI recommended conservative management as patient was transfused and hemoglobin remained stable and was treated with IV PPI, and her sepsis and improved as patient was treated with nitrofurantoin for Enterococcus, GI as recommended to hold anticoagulation 1 more week, patient was clinically stable and plan was to discharge patient back to [facility] however last night patient had emesis and concerned the patient may have aspirated and developed aspiration pneumonia as patient has significant elevated white count and chest x-ray is suspicious for infiltrate, patient is being treated with Rocephin and Flagyl, unfortunately patient is unable to provide any review of symptoms, (2) UTI (urinary tract infection): Qualifiers: Urinary tract infection type: catheter-associated UTI Indwelling urinary catheter type: indwelling urethral catheter Encounter type: sequela Qualified Code(s): T83.511S - Infection and inflammatory reaction due to indwelling urethral catheter, sequela; N39.0 - Urinary tract infection, site not specified Code(s): N39.0 - Urinary tract infection, site not specified Status: Acute Assessment and Plan: UA concerning for complicated UTI. She has chronic indwelling Baltazar catheter which was exchanged yesterday. 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 (3) Chronic anemia: Code(s): D64.9 - Anemia, unspecified Status: Chronic Assessment and Plan: Hemoglobin 10.2 on admission. Iron 15 with TIBC 248 and TSat 6%. Ferritin 28 consistent with at least a component of iron deficiency. B12/folate normal. 12/10 hgb 11.2 (4) Esophageal stricture: Code(s): K22.2 - Esophageal obstruction Status: Acute Assessment and Plan: EGD on 12/02/2020 showing mid esophageal severe stricture. There is concern about dilating esophagus. There are ulcers noted at the site of the stricture. Continue protonix. No plans for repeat EGD. (5) History of pulmonary embolism: Code(s): Z86.711 - Personal history of pulmonary embolism Status: Chronic Assessment and Plan: Patient has a history of pulmonary embolism and DVT. She is on long-term Eliquis therapy. Last blood clot in the right arm was in September. Eliquis was resumed after last discharge. Per GI recommendations, hold Eliquis for at least one week. (6) Dementia: Qualifiers: Dementia type: unspecified type Dementia behavioral disturbance: without behavioral disturbance Qualified Code(s): F03.90 - Unspecified dementia without behavioral disturbance Code(s): F03.90 - Unspecified dementia wit
[2020-12-12 14:25] VITALS: BP 120/73; PULSE 126; RESP 22; TEMP 36.1; O2SAT 93
[2020-12-12] MEDS: DEXTROSE 5%/0.9% SOD CHL 1,000 ML 70 ML IV CONT (15:30)
[2020-12-12] MEDS: metroNIDAZOLE 250MG/ISO 50 ML 250 MG/50 ML BAG 50 MG IVPB ×2 (17:55→23:42)
[2020-12-12 18:06] LABS: Glucose Point of Care 187 mg/dl (65-105)
[2020-12-12 19:57] VITALS: BP 140/99; PULSE 120; RESP 18; TEMP 36.2; O2SAT 96
[2020-12-12] MEDS: ONDANSETRON INJ 4 MG/2 ML VIAL IV PUSH (20:01)
[2020-12-12 22:02] LABS: Glucose Point of Care 216 mg/dl (65-105)
[2020-12-13 00:02] LABS: Glucose Point of Care 203 mg/dl (65-105)
[2020-12-13 05:56] VITALS: BP 120/68; PULSE 114; RESP 18; TEMP 36.4; O2SAT 96
[2020-12-13] MEDS: metroNIDAZOLE 250MG/ISO 50 ML 250 MG/50 ML BAG 50 MG IVPB ×4 (05:56→23:49)
[2020-12-13 06:12] LABS: Glucose Point of Care 165 mg/dl (65-105)
[2020-12-13] MEDS: DEXTROSE 5%/0.9% SOD CHL 1,000 ML 70 ML IV CONT (08:46)
[2020-12-13] MEDS: GENTAMICIN SULFATE 0.1% OINT 15 GM TUBE 1 APPLIC TOPICAL (08:47)
[2020-12-13] MEDS: TOLNAFTATE 1% POWDER 45 GM BTL 1 APPLIC TOPICAL ×2 (08:47→20:05)
[2020-12-13] MEDS: COLLAGENASE OINT 30 GM TUBE 1 APPLIC TOPICAL (08:47)
[2020-12-13] MEDS: INSULIN GLARGINE (*BKC) 100 UNITS/ML 20 UNITS SUB-Q ×2 (08:49→20:12)
[2020-12-13] MEDS: PANTOPRAZOLE SODIUM IV 40 MG VIAL IV PUSH ×2 (09:30→20:05)
--- NOTE | 2020-12-13 11:53 | PCNFU ---
Nutrition Follow-Up Complete: Increased protein/calorie needs related to increased demands for wound healing as evidenced by unhealed stage III pressure ulcer. Goal: Patient to meet estimated nutritional needs. Limited progress towards goal. We will continue current goal. Pt current nutrition is NPO. Last recorded weight is 85.9 kg, up from 80.1 kg on admit. Bowel Motility:+BM reported 12/11 Labs Reviewed:Glu 225.Cr 0.4,Alb 3.3,Na 135 Meds Noted:Macrobid,Zofran,Rocephin,Flagyl,B12,Lantus,Folic Acid,Aricept. Additional Notes: Nutrition follow up. Patient tube feeding on hold due to emesis. Patient has Jtube, concerns the patient may have aspirated and developed aspiration pneumonia. Chest xray done 12/12. RD will continue to monitor. Monitoring: Follow up every Saturday/Saturday.
[2020-12-13 12:32] LABS: Glucose Point of Care 140 mg/dl (65-105)
[2020-12-13 14:00] VITALS: BP 118/64; PULSE 109; RESP 18; TEMP 36.2; O2SAT 98
--- NOTE | 2020-12-13 14:35 | PM.IMPN ---
Progress Note: A&P Assessment and Plan (1) Hematemesis: Qualifiers: Nausea presence: unspecified Qualified Code(s): K92.0 - Hematemesis Code(s): K92.0 - Hematemesis Status: Acute Assessment and Plan: Patient sent back to the ED for coffee-ground emesis. Last admission showed mid-esophageal ulcers near the stricture. It was felt this was the source of the bleeding last time. Suspect this would have been more red blood then coffee-ground. Stomach was not visualized last admission due to the stricture. She was discharged home on Pepcid (Xarelto and omeprazole were continued). No plans to repeat EGD. Plan to hold Eliquis longer. Continue monitor H&H closely. Continue PPI. Add Reglan (2) UTI (urinary tract infection): Qualifiers: Encounter type: sequela Indwelling urinary catheter type: indwelling urethral catheter Urinary tract infection type: catheter-associated UTI Qualified Code(s): T83.511S - Infection and inflammatory reaction due to indwelling urethral catheter, sequela; N39.0 - Urinary tract infection, site not specified Code(s): N39.0 - Urinary tract infection, site not specified Status: Acute Assessment and Plan: UA concerning for complicated UTI. She has chronic indwelling Baltazar catheter which was exchanged this admission. Now on nitrofurantoin 100mg bid. (3) Chronic anemia: Code(s): D64.9 - Anemia, unspecified Status: Chronic Assessment and Plan: Hemoglobin 10.2 on admission. Iron 15 with TIBC 248 and TSat 6%. Ferritin 28 consistent with at least a component of iron deficiency. B12/folate normal. 12/12 hgb 12.6. (4) Esophageal stricture: Code(s): K22.2 - Esophageal obstruction Status: Acute Assessment and Plan: EGD on 12/02/2020 showing mid esophageal severe stricture; the stomach was not visualized. There is concern about dilating the esophagus. There are ulcers noted at the site of the stricture. Continue protonix. No plans for repeat EGD. (5) History of pulmonary embolism: Code(s): Z86.711 - Personal history of pulmonary embolism Status: Chronic Assessment and Plan: Patient has a history of pulmonary embolism and DVT. She is on long-term Eliquis therapy. Last blood clot in the right arm was in September. Eliquis was resumed after last discharge. Per GI recommendations, hold Eliquis for at least one week. (6) Dementia: Qualifiers: Dementia behavioral disturbance: without behavioral disturbance Dementia type: unspecified type Qualified Code(s): F03.90 - Unspecified dementia without behavioral disturbance Code(s): F03.90 - Unspecified dementia without behavioral disturbance Status: Chronic Assessment and Plan: Patient is nonverbal and immobile. She also has dysphagia with G-tube in place. PPS 20. Continue Exelon and Aricept. (7) Decubitus ulcer: Qualifiers: Pressure injury location: unspecified location Pressure injury stage: unstageable Qualified Code(s): L89.95 - Pressure ulcer of unspecified site, unstageable Code(s): L89.90 - Pressure ulcer of unspecified site, unspecified stage Status: Acute Assessment and Plan: Wound care (8) Insulin dependent type 2 diabetes mellitus: Code(s): E11.9 - Type 2 diabetes mellitus without complications; Z79.4 - half-way (current) use of insulin Status: Chronic Assessment and Plan: A1c is 8.7 earlier this month. Glucose better controlled. Continue accuchecks and SSI. (9) DVT prophylaxis: Code(s): Z29.9 - Encounter for prophylactic measures, unspecified Status: Acute Assessment and Plan: SCDs Subjective Date/time seen: 12/13/20 14:35 Interval history: 70yo female with advanced dementia and PE/DVT sent in from the [facility] for coffee-ground emesis and [facility]. Patient hospitalized here on 12/01 for coffee-ground
--- NOTE | 2020-12-13 16:59 | WPDGIPROGNO ---
Progress Note: A&P Assessment and Plan (1) Acute on chronic blood loss anemia: Code(s): D62 - Acute posthemorrhagic anemia Status: Acute Assessment and Plan: s/p blood transfusion and hb stable last several days no more report of emesis or melena. keep holding eliquis and continue with [facility] protonix 40mg bid given EGD findings) no plan to repeat EGD unless obvious overt GIB (2) Erosive esophagitis: Code(s): K22.10 - Ulcer of esophagus without bleeding Status: Acute Assessment and Plan: medical treatment and keep holding eliquis (3) Esophageal stricture: Code(s): K22.2 - Esophageal obstruction Status: Acute Assessment and Plan: on iv protonix bid (4) Aspiration pneumonia: Code(s): J69.0 - Pneumonitis due to inhalation of food and vomit Status: Acute Assessment and Plan: unfortunately given current mental status and advanced dementia she will always be at risk of aspiration ok to restart J feeding at slower rate (5) Dementia: Qualifiers: Dementia type: unspecified type Dementia behavioral disturbance: without behavioral disturbance Qualified Code(s): F03.90 - Unspecified dementia without behavioral disturbance Code(s): F03.90 - Unspecified dementia without behavioral disturbance Status: Chronic Subjective Date/time seen: 12/13/20 16:59 Interval history: no more aspiration, resting comfortably and family at bedside Review of Systems Review of Systems: All systems reviewed & are unremarkable except as noted in HPI and below Exam Const: General: no acute distress and ill appearing chronically Other: non verbal, more tachypneic today HENMT: General nose exam: Normal nares present Eyes: Sclera: sclerae normal Neck: Neck: supple Resp: Effort & Inspection: normal respiratory effort Auscultation: rales and diminished lung sounds Cardio: Rate: regular rate GI: Inspection: non-distended GI Palp: No Tenderness to palpation present (GI) and No Guarding due to palpation present (GI) Auscultation: normal bowel sounds Other: g-j tube in position Urinary Catheter: Urinary Catheter: patent and draining Skin: General skin exam: normal color Other: decubitus ulcer in back Neuro: Other: patient is awake but not interactive with environment (baseline) Extrem: General: normal to inspection Psych: Other: dementia Objective Data Vital Signs Vital Signs: Vital Signs - 24 hr 12/12/20 19:57 12/13/20 05:56 12/13/20 14:00 Temperature 97.2 F L 97.5 F L 97.2 F L Pulse Rate 120 H 114 H 109 H Respiratory Rate 18 18 18 Blood Pressure 140/99 H 120/68 118/64 Pulse Oximetry 96 96 98 Intake/Output Intake/Output: Intake & Output 12/10/20 12/11/20 12/12/20 12/13/20 23:59 23:59 23:59 23:59 Intake Total 1935 2251 150 1150 Output Total 950 1100 1275 300 Balance 985 1151 -1125 850 Meds/Results Medications: Active Medications Generic Name Dose Route Start Last Admin Trade Name Freq PRN Reason Stop Dose Admin Albuterol 2.5 mg 12/12/20 02:04 Albuterol Sulfate Neb 2.5 Mg/0.5 Ml Inh INHALATION Q6HRT PRN Shortness Of Breath Bisacodyl 10 mg 12/07/20 11:15 Bisacodyl 10 Mg Suppository RECTAL DAILY PRN Constipation Collagenase 1 applic 12/07/20 09:00 12/13/20 08:47 Collagenase Oint 30 Gm Tube TOPICAL 1 applic DAILY EVELIO Administration Cyanocobalamin 1,000 mcg 12/08/20 16:15 12/08/20 17:53 Cyanocobalamin Inj 1,000 Mcg/Ml Vial IM 1,000 mcg MONTHLY EVELIO Administration Dextrose 12.5 gm 12/07/20 11:11 Dextrose 50% 25 Gm/50 Ml Syringe IV PUSH PRN PRN Hypoglycemia Protocol Donepezil HCl 10 mg 12/07/20 21:00 12/12/20 20:05 Donepezil Hcl 10 Mg Tablet FEED TUBE 10 mg HS EVELIO Administration Ferrous Sulfate 325 mg 12/10/20 09:00 12/13/20 12:21 Ferrous Sulfate Liquid 325 Mg/7.4 Ml Elixir FEED TUBE Not Given BID EVELIO Foli
[2020-12-13] MEDS: METOCLOPRAMIDE HCL 10 MG/10 ML SOLN UDC 5 MG FEED TUBE ×2 (17:10→23:48)
[2020-12-13] MEDS: FERROUS SULFATE LIQUID 325 MG/7.4 ML ELIXIR FEED TUBE (17:11)
[2020-12-13 18:22] LABS: Glucose Point of Care 155 mg/dl (65-105)
[2020-12-13 19:52] VITALS: BP 115/66; PULSE 97; RESP 16; TEMP 37.1; O2SAT 97
[2020-12-13] MEDS: DONEPEZIL HCL 10 MG TABLET FEED TUBE (20:05)
[2020-12-13] MEDS: NITROFURANTOIN MONOHYD MACROCR 100 MG CAP FEED TUBE (20:05)
[2020-12-13 20:59] LABS: Glucose Point of Care 138 mg/dl (65-105)
[2020-12-14 00:04] LABS: Glucose Point of Care 124 mg/dl (65-105)
[2020-12-14] MEDS: DEXTROSE 5%/0.9% SOD CHL 1,000 ML 70 ML IV CONT ×2 (03:12→18:14)
[2020-12-14] MEDS: METOCLOPRAMIDE HCL 10 MG/10 ML SOLN UDC 5 MG FEED TUBE ×4 (05:04→23:54)
[2020-12-14] MEDS: metroNIDAZOLE 250MG/ISO 50 ML 250 MG/50 ML BAG 50 MG IVPB ×4 (05:04→23:53)
[2020-12-14 05:10] LABS: Glucose Point of Care 106 mg/dl (65-105)
[2020-12-14 05:44] LABS: Hematocrit 31.4 % (37.0-47.0); Hemoglobin 9.9 g/dL (12.0-15.0); Mean Corpuscular HGB Conc 31.5 g/dl (32-36); Mean Corpuscular Hemoglobin 24.7 pg (26-34); Mean Corpuscular Volume 78.3 fl (80-100); Mean Platelet Volume 9.5 fl (7.4-10.4); Platelet Count Result 390 k/mm3 (150-375); Red Blood Count 4.01 M/mm3 (4.2-5.4); Red Cell Distribution Width 19.2 % (11.5-14.5); White Blood Count 11.5 K/mm3 (4.5-10.0)
[2020-12-14 05:54] VITALS: BP 133/72; PULSE 100; RESP 16; TEMP 37; O2SAT 95
[2020-12-14 05:56] LABS: Anion Gap 4 mmol/L (8-16); Blood Urea Nitrogen 13 mg/dL (7-17); Calcium 9.2 mg/dL (8.4-10.2); Carbon Dioxide 31 mmol/L (22-30); Chloride 108 mmol/L (98-107); Estimated CRCL calculation 95 ml/min; Estimated Glomerular Filt Rate > 60; Glucose 110 mg/dL (65-105); Potassium 3.4 mmol/L (3.4-5.0); Sodium 143 mmol/L (137-145)
[2020-12-14 08:16] LABS: Glucose Point of Care 141 mg/dl (65-105)
[2020-12-14] MEDS: COLLAGENASE OINT 30 GM TUBE 1 APPLIC TOPICAL (12:02)
[2020-12-14] MEDS: TOLNAFTATE 1% POWDER 45 GM BTL 1 APPLIC TOPICAL ×2 (12:02→20:45)
[2020-12-14] MEDS: FERROUS SULFATE LIQUID 325 MG/7.4 ML ELIXIR FEED TUBE ×2 (12:03→18:12)
[2020-12-14] MEDS: GENTAMICIN SULFATE 0.1% OINT 15 GM TUBE 1 APPLIC TOPICAL (12:03)
[2020-12-14] MEDS: PANTOPRAZOLE SODIUM IV 40 MG VIAL IV PUSH ×2 (12:04→20:45)
[2020-12-14] MEDS: NITROFURANTOIN MONOHYD MACROCR 100 MG CAP FEED TUBE ×2 (12:04→20:45)
[2020-12-14] MEDS: FOLIC ACID 1 MG TABLET FEED TUBE (12:04)
[2020-12-14 12:07] LABS: Glucose Point of Care 115 mg/dl (65-105)
--- NOTE | 2020-12-14 12:25 | PM.IMPN ---
Progress Note: A&P Assessment and Plan (1) Hematemesis: Qualifiers: Nausea presence: unspecified Qualified Code(s): K92.0 - Hematemesis Code(s): K92.0 - Hematemesis Status: Acute Assessment and Plan: Patient sent back to the ED for coffee-ground emesis. Last admission showed mid-esophageal ulcers near the stricture. It was felt this was the source of the bleeding last time. Suspect this would have been more red blood then coffee-ground so suspect ulcer or gastritis. Stomach was not visualized last admission due to the stricture. She was discharged home on Pepcid (Xarelto and omeprazole were continued). No plans to repeat EGD this admission. Plan to hold Eliquis longer. Still having emesis. She has GTube that extends into the third portion of the duodenum. Reglan added but with persistent symptoms. Now with abdominal pain. Check CT A/P. Continue monitor H&H closely. Continue PPI. Advance Reglan if CT okay. (2) UTI (urinary tract infection): Qualifiers: Encounter type: sequela Indwelling urinary catheter type: indwelling urethral catheter Urinary tract infection type: catheter-associated UTI Qualified Code(s): T83.511S - Infection and inflammatory reaction due to indwelling urethral catheter, sequela; N39.0 - Urinary tract infection, site not specified Code(s): N39.0 - Urinary tract infection, site not specified Status: Acute Assessment and Plan: UA concerning for complicated UTI. She has chronic indwelling Baltazar catheter which was exchanged this admission. Now on nitrofurantoin 100mg bid. Stop after today. (3) Chronic anemia: Code(s): D64.9 - Anemia, unspecified Status: Chronic Assessment and Plan: Hemoglobin 10.2 on admission. Iron 15 with TIBC 248 and TSat 6%. Ferritin 28 consistent with at least a component of iron deficiency. B12/folate normal. Hgb 9.9 today which is lower. Continue iron. Follow HH. (4) Esophageal stricture: Code(s): K22.2 - Esophageal obstruction Status: Acute Assessment and Plan: EGD on 12/02/2020 showing mid esophageal severe stricture; the stomach was not visualized. There is concern about dilating the esophagus. There are ulcers noted at the site of the stricture. Only partial since patient able to vomit up tube feeding. Continue Protonix. No plans for repeat EGD. (5) History of pulmonary embolism: Code(s): Z86.711 - Personal history of pulmonary embolism Status: Chronic Assessment and Plan: Patient has a history of pulmonary embolism and DVT. She is on long-term Eliquis therapy. Last blood clot in the right arm was in September. Eliquis was resumed after last discharge. Per GI recommendations, hold Eliquis for at least one week. Dark sttols noted. Repeat HH later today. (6) Dementia: Qualifiers: Dementia behavioral disturbance: without behavioral disturbance Dementia type: unspecified type Qualified Code(s): F03.90 - Unspecified dementia without behavioral disturbance Code(s): F03.90 - Unspecified dementia without behavioral disturbance Status: Chronic Assessment and Plan: Patient is nonverbal and immobile. She also has dysphagia with G-tube in place. PPS 20. Continue Exelon and Aricept. (7) Decubitus ulcer: Qualifiers: Pressure injury location: unspecified location Pressure injury stage: unstageable Qualified Code(s): L89.95 - Pressure ulcer of unspecified site, unstageable Code(s): L89.90 - Pressure ulcer of unspecified site, unspecified stage Status: Acute Assessment and Plan: Continue routine wound care (8) Insulin dependent type 2 diabetes mellitus: Code(s): E11.9 - Type 2 diabetes mellitus without complications; Z79.4 - [facility] (current) use of insulin Status: Chronic Assessment and Plan: A1c is 8.7 earlier this month. Glucose better co
[2020-12-14 13:29] LABS: Hematocrit 32.2 % (37.0-47.0); Hemoglobin 9.9 g/dL (12.0-15.0)
[2020-12-14 14:00] VITALS: BP 93/58; PULSE 95; RESP 20; TEMP 36.7; O2SAT 96
[2020-12-14 18:13] LABS: Hematocrit 33.2 % (37.0-47.0)
[2020-12-14 18:17] LABS: Glucose Point of Care 142 mg/dl (65-105)
[2020-12-14 20:36] VITALS: BP 103/60; PULSE 92; RESP 16; TEMP 36.2; O2SAT 99
[2020-12-14] MEDS: DONEPEZIL HCL 10 MG TABLET FEED TUBE (20:45)
[2020-12-15 00:05] LABS: Glucose Point of Care 147 mg/dl (65-105)
[2020-12-15 00:32] LABS: Hematocrit 33.2 % (37.0-47.0); Hemoglobin 9.9 g/dL (12.0-15.0)
[2020-12-15 05:01] VITALS: BP 128/61; PULSE 77; RESP 18; TEMP 36; O2SAT 100
[2020-12-15] MEDS: metroNIDAZOLE 250MG/ISO 50 ML 250 MG/50 ML BAG 50 MG IVPB ×2 (05:08→12:27)
[2020-12-15] MEDS: METOCLOPRAMIDE HCL 10 MG/10 ML SOLN UDC 5 MG FEED TUBE (05:10)
[2020-12-15 05:24] LABS: Glucose Point of Care 151 mg/dl (65-105)
[2020-12-15 06:21] LABS: Basophils Percent Auto 0.2 % (0.2-1.2); Eosinophils Percent Auto 0.3 % (0-4.4); Hematocrit 35.8 % (37.0-47.0); Hemoglobin 10.8 g/dL (12.0-15.0); Immature Granulocyte Absolute 0.11 K/mm3 (0.00-0.031); Immature Granulocyte Percent A 0.8 % (0-0.5); Lymphocytes Absolute Auto 1.66 K/mm3 (0.9-3.2); Lymphocytes Percent Auto 12.7 % (18.3-44.2); Mean Corpuscular HGB Conc 30.2 g/dl (32-36); Mean Corpuscular Hemoglobin 24.2 pg (26-34); Mean Corpuscular Volume 80.1 fl (80-100); Monocytes Absolute Auto 0.7 K/mm3 (0.1-0.6); Monocytes Percent Auto 5.2 % (2.6-8.5); Neutrophils Absolute Auto 10.6 K/mm3 (1.3-6.7); Neutrophils Percent Auto 80.8 % (45.5-73.1); Platelet Count Result 355 k/mm3 (150-375); Red Blood Count 4.47 M/mm3 (4.2-5.4); Red Cell Distribution Width 19.7 % (11.5-14.5); White Blood Count 13.1 K/mm3 (4.5-10.0)
[2020-12-15 06:34] LABS: Albumin Level 2.9 g/dL (3.5-5.1); Anion Gap 8 mmol/L (8-16); Blood Urea Nitrogen 10 mg/dL (7-17); Calcium 9.1 mg/dL (8.4-10.2); Carbon Dioxide 28 mmol/L (22-30); Chloride 111 mmol/L (98-107); Estimated CRCL calculation 114 ml/min; Estimated Glomerular Filt Rate > 60; Glucose 155 mg/dL (65-105); Magnesium 2.1 mg/dL (1.6-2.3); Phosphorus 3.2 mg/dL (2.5-4.5); Potassium 3.3 mmol/L (3.4-5.0); Sodium 147 mmol/L (137-145)
[2020-12-15 08:43] LABS: Alanine Aminotransferase 17 U/L (4-35); Albumin Level 2.9 g/dL (3.5-5.1); Alkaline Phosphatase 124 U/L (38-126); Aspartate Amino Transferase 36 U/L (14-36); Bilirubin,Total 0.7 mg/dL (0.2-1.3); Lipase 33 U/L (23-300)
[2020-12-15 08:54] VITALS: BP 131/73; PULSE 89; RESP 18; TEMP 36.4; O2SAT 98
[2020-12-15] MEDS: COLLAGENASE OINT 30 GM TUBE 1 APPLIC TOPICAL (10:21)
[2020-12-15] MEDS: POTASSIUM CHLORIDE 20 MEQ PACKET (FOR LIQUID) PO (10:21)
[2020-12-15] MEDS: GENTAMICIN SULFATE 0.1% OINT 15 GM TUBE 1 APPLIC TOPICAL (10:21)
[2020-12-15] MEDS: PANTOPRAZOLE SODIUM IV 40 MG VIAL IV PUSH ×2 (10:22→20:11)
[2020-12-15] MEDS: TOLNAFTATE 1% POWDER 45 GM BTL 1 APPLIC TOPICAL ×2 (10:22→20:11)
[2020-12-15] MEDS: FOLIC ACID 1 MG TABLET FEED TUBE (10:23)
[2020-12-15] MEDS: DEXTROSE 5%/0.9% SOD CHL 1,000 ML 70 ML IV CONT (10:30)
[2020-12-15 12:09] LABS: Glucose Point of Care 167 mg/dl (65-105)
[2020-12-15] MEDS: METOCLOPRAMIDE HCL 10 MG/10 ML SOLN UDC FEED TUBE (12:30)
[2020-12-15 14:43] VITALS: BP 123/65; PULSE 76; RESP 26; TEMP 36.4; O2SAT 93
--- NOTE | 2020-12-15 14:46 | PM.IMPN ---
Progress Note: A&P Assessment and Plan (1) Acute cholecystitis: Code(s): K81.0 - Acute cholecystitis Status: Acute Assessment and Plan: Patient with persistent emesis and now abdominal pain. She had normal appearing GB in September but noted to be distended 12/01/20 and 12/07/20 (which could be seen in the fasting state). Repeat CT yesterday showing new onset of gallbladder distention and pericholecystic fat stranding with mild ascites. RUQ consistent with acute cholecystitis as well. Lipase and LFTs okay. Patient will need CCY vs cholecystostomy tube placement. General surgery consult. Continue Flagyl and Rocephin (2) Hematemesis: Qualifiers: Nausea presence: unspecified Qualified Code(s): K92.0 - Hematemesis Code(s): K92.0 - Hematemesis Status: Acute Assessment and Plan: Patient sent back to the ED for coffee-ground emesis. Last admission showed mid-esophageal ulcers near the stricture. It was felt this was the source of the bleeding last time. Suspect this would have been more red blood then coffee-ground so suspect ulcer or gastritis. Stomach was not visualized last admission due to the stricture. She was discharged home on Pepcid (Xarelto and omeprazole were continued). No plans to repeat EGD this admission. Eliquis has been held >7 days now so okay to resume when okay with others. Still having emesis which may be related to the GB as above. She has GTube that extends into the jejunum. Reglan added due to the persistent emesis but barbara hold since NPO. Continue PPI. Continue IV fluids (3) Aspiration pneumonia: Code(s): J69.0 - Pneumonitis due to inhalation of food and vomit Status: Acute Assessment and Plan: Concern for aspiration PNA afer her last episode of emesis. CXR 11/12 showing mild airspace opacities in the perihilar regions. o fevers or hypoxia. WBC was 26K but better with abx (but this could be related to acute cholecystitis). Continue Flagyl and Rocephin for now. (4) UTI (urinary tract infection): Qualifiers: Urinary tract infection type: catheter-associated UTI Indwelling urinary catheter type: indwelling urethral catheter Encounter type: sequela Qualified Code(s): T83.511S - Infection and inflammatory reaction due to indwelling urethral catheter, sequela; N39.0 - Urinary tract infection, site not specified Code(s): N39.0 - Urinary tract infection, site not specified Status: Acute Assessment and Plan: UA concerning for complicated UTI. She has chronic indwelling Baltaazr catheter which was exchanged this admission. Completed nitrofurantoin. (5) Chronic anemia: Code(s): D64.9 - Anemia, unspecified Status: Chronic Assessment and Plan: Hemoglobin 10.2 on admission. Iron 15 with TIBC 248 and TSat 6%. Ferritin 28 consistent with at least a component of iron deficiency. B12/folate normal. Hgb 10.8 today. Continue iron. Follow HH. (6) Esophageal stricture: Code(s): K22.2 - Esophageal obstruction Status: Acute Assessment and Plan: EGD on 12/02/2020 showing mid esophageal severe stricture; the stomach was not able to be visualized. There is concern about dilating the esophagus. There are ulcers noted at the site of the stricture. Only partial obstruction since patient able to vomit up tube feeding. Continue Protonix indefinitely. No plans for repeat EGD at this time. (7) History of pulmonary embolism: Code(s): Z86.711 - Personal history of pulmonary embolism Status: Chronic Assessment and Plan: Patient has a history of pulmonary embolism and DVT. She is on long-term Eliquis therapy. Last blood clot in the right arm was in September. Eliquis was resumed after last discharge but she re-bled. Per GI recommendations, hold Eliquis for at least one week (Hospital Day 9 now). Hgb remaining stable around 10. Resume Eliquis when okay with surgery
--- NOTE | 2020-12-15 15:45 | PC.NURSE ---
On 12/15/20, the student, [ Janet Ayers], provided care and completed [facility] documentation on this patient. I have reviewed the student's documentation and agree with the findings.
--- NOTE | 2020-12-15 16:32 | WPDGIPROGNO ---
Progress Note: A&P Assessment and Plan (1) Acute cholecystitis: Code(s): K81.0 - Acute cholecystitis Status: Acute Assessment and Plan: imaging showed possible cholecystitis (patient has been more nauseous and also now right abd pain)- good history difficult to obtain because dementia surgery to evaluate (2) Acute on chronic blood loss anemia: Code(s): D62 - Acute posthemorrhagic anemia Status: Acute Assessment and Plan: s/p blood transfusion and hb stable last several days no more gib, keep holding eliquis and continue with lens assistant protonix 40mg bid given EGD findings no plan to repeat EGD unless obvious overt GIB (3) Erosive esophagitis: Code(s): K22.10 - Ulcer of esophagus without bleeding Status: Acute Assessment and Plan: medical treatment and keep holding eliquis (4) Esophageal stricture: Code(s): K22.2 - Esophageal obstruction Status: Acute Assessment and Plan: on iv protonix bid (5) Aspiration pneumonia: Code(s): J69.0 - Pneumonitis due to inhalation of food and vomit Status: Acute (6) Dementia: Qualifiers: Dementia type: unspecified type Dementia behavioral disturbance: without behavioral disturbance Qualified Code(s): F03.90 - Unspecified dementia without behavioral disturbance Code(s): F03.90 - Unspecified dementia without behavioral disturbance Status: Chronic Subjective Date/time seen: 12/15/20 16:32 Interval history: some report of pain and nausea, imaging evaluation possible cholecystitis Review of Systems Review of Systems: All systems reviewed & are unremarkable except as noted in HPI and below Exam Const: General: no acute distress and ill appearing chronically Other: non verbal HENMT: General nose exam: Normal nares present Eyes: Sclera: sclerae normal Neck: Neck: supple Resp: Effort & Inspection: normal respiratory effort Auscultation: diminished lung sounds Cardio: Rate: regular rate GI: Inspection: non-distended GI Palp: Yes Tenderness to palpation present (GI) (right sided) and No Guarding due to palpation present (GI) Auscultation: normal bowel sounds Other: g-j tube in position, clean site Urinary Catheter: Urinary Catheter: patent and draining Skin: General skin exam: normal color Other: decubitus ulcer in back Neuro: Other: patient is awake but not interactive with environment (baseline) Extrem: General: normal to inspection Psych: Other: dementia Objective Data Vital Signs Vital Signs: Vital Signs - 24 hr 12/14/20 20:36 12/15/20 05:01 12/15/20 08:54 Temperature 97.1 F L 96.8 F L 97.6 F Pulse Rate 92 77 89 Respiratory Rate 16 18 18 Blood Pressure 103/60 128/61 131/73 Pulse Oximetry 99 100 98 12/15/20 14:43 Temperature 97.6 F Pulse Rate 76 Respiratory Rate 26 H Blood Pressure 123/65 Pulse Oximetry 93 Intake/Output Intake/Output: Intake & Output 12/12/20 12/13/20 12/14/20 12/15/20 23:59 23:59 23:59 23:59 Intake Total 150 1250 2250 1150 Output Total 1275 550 200 350 Balance -7887 336 5763 800 Meds/Results Medications: Active Medications Generic Name Dose Route Start Last Admin Trade Name Freq PRN Reason Stop Dose Admin Albuterol 2.5 mg 12/12/20 02:04 Albuterol Sulfate Neb 2.5 Mg/0.5 Ml Inh INHALATION Q6HRT PRN Shortness Of Breath Bisacodyl 10 mg 12/07/20 11:15 Bisacodyl 10 Mg Suppository RECTAL DAILY PRN Constipation Collagenase 1 applic 12/07/20 09:00 12/15/20 10:21 Collagenase Oint 30 Gm Tube TOPICAL 1 applic DAILY EVELIO Administration Cyanocobalamin 1,000 mcg 12/08/20 16:15 12/08/20 17:53 Cyanocobalamin Inj 1,000 Mcg/Ml Vial IM 1,000 mcg MONTHLY EVELIO Administration Dextrose 12.5 gm 12/07/20 11:11 Dextrose 50% 25 Gm/50 Ml Syringe IV PUSH PRN PRN Hypoglycemia Protocol Donepezil HCl 10 mg 12/07/20 21:00 12/14/20 20:45 Donepezil H
--- NOTE | 2020-12-15 16:39 | PM.CNGS ---
Assessment and Plan Assessment and plan (1) Acute cholecystitis: Code(s): K81.0 - Acute cholecystitis Status: Acute Assessment and Plan: I have reviewed the patient's imaging and the hospital course during this admission. She has multiple comorbidities and is being currently treated for multiple acute findings. She has concerns for aspiration pneumonia and UTI. She has also had recurrent hematemesis from severe erosive esophagitis. She does not appear to be a stable surgical candidate at this time. I did discuss her current condition and operative options with the family. Surgery would carry a risk for conversion to open and other perioperative complications. Family does not want to risk these potential outcomes. Percutaneous cholecystostomy tube is an option as well. This will allow for decompression of the gallbladder and control of the patient's symptoms. Surgery could be readdressed at a later time if she is more stable and has her other medical conditions under control. Will plan to have Radiology place percutaneous cholecystostomy tube tomorrow if able. Interventional radiologist is no longer in the hospital today, but I will attempt to talk with him in the morning about patient's current status. (2) Aspiration pneumonia: Code(s): J69.0 - Pneumonitis due to inhalation of food and vomit Status: Acute (3) Acute on chronic blood loss anemia: Code(s): D62 - Acute posthemorrhagic anemia Status: Acute (4) Erosive esophagitis: Code(s): K22.10 - Ulcer of esophagus without bleeding Status: Acute (5) Decubitus ulcer: Qualifiers: Pressure injury location: unspecified location Pressure injury stage: unstageable Qualified Code(s): L89.95 - Pressure ulcer of unspecified site, unstageable Code(s): L89.90 - Pressure ulcer of unspecified site, unspecified stage Status: Acute (6) History of pulmonary embolism: Code(s): Z86.711 - Personal history of pulmonary embolism Status: Chronic (7) Acute UTI: Code(s): N39.0 - Urinary tract infection, site not specified Status: Acute (8) Hematemesis: Qualifiers: Nausea presence: unspecified Qualified Code(s): K92.0 - Hematemesis Code(s): K92.0 - Hematemesis Status: Acute (9) Dementia: Qualifiers: Dementia behavioral disturbance: without behavioral disturbance Dementia type: unspecified type Qualified Code(s): F03.90 - Unspecified dementia without behavioral disturbance Code(s): F03.90 - Unspecified dementia without behavioral disturbance Status: Chronic History of Present Illness Consult details Consult date: 12/15/20 Reason for consult: other (cholecystitis) Requesting physician: Carson Fay MD Narrative: This is a 70-year-old woman who am asked to see for acute cholecystitis. She is nonverbal and history is obtained from the chart and the patient's family who is at the bedside with her. She has multiple medical problems and was admitted with hematemesis. She has a history of severe esophageal stricture and dysphagia. About 2 months ago she had a PEG tube placed for tube feedings. She has recently been vomiting up some of her tube feedings and was noted to have abdominal pain. A previous CT about 1 week ago did not show any significant abnormalities with the gallbladder, however a repeat CT was done yesterday and this showed evidence of cholecystitis. A gallbladder ultrasound confirmed evidence of cholelithiasis and gallbladder wall thickening. She was previously a on Eliquis but this has been held for the past 9 days. Review of Systems Review of Systems: ROS unobtainable: Yes unobtainable due to medical condition [facility] Past Medical History Medical History (Updated 12/15/20 @ 14:53 by Carson Fay MD) Acute on chronic blood loss anemia Bilateral cataracts Bleeding ulcer Chronic anemia Coffee ground emesis Jo[place]inenti
[2020-12-15 17:10] LABS: Glucose Point of Care 174 mg/dl (65-105)
[2020-12-15] MEDS: metroNIDAZOLE 500 MG/ISO 100ML 500 MG/100 ML BAG 100 MG IVPB (17:41)
[2020-12-15] MEDS: FERROUS SULFATE LIQUID 325 MG/7.4 ML ELIXIR FEED TUBE (17:42)
[2020-12-15 20:07] VITALS: BP 110/64; PULSE 97; RESP 17; TEMP 36.1; O2SAT 95
[2020-12-15] MEDS: DONEPEZIL HCL 10 MG TABLET FEED TUBE (20:11)
[2020-12-16 00:11] LABS: Glucose Point of Care 179 mg/dl (65-105)
[2020-12-16] MEDS: metroNIDAZOLE 500 MG/ISO 100ML 500 MG/100 ML BAG 100 MG IVPB ×4 (00:39→17:35)
[2020-12-16] MEDS: DEXTROSE 5%/0.9% SOD CHL 1,000 ML 70 ML IV CONT (05:06)
[2020-12-16 05:18] LABS: Glucose Point of Care 187 mg/dl (65-105)
[2020-12-16 06:00] VITALS: BP 112/65; PULSE 86; RESP 17; TEMP 36.2; O2SAT 93
[2020-12-16 06:05] LABS: Basophils Percent Auto 0.2 % (0.2-1.2); Eosinophils Absolute Auto 0.1 K/mm3 (0-0.3); Eosinophils Percent Auto 0.7 % (0-4.4); Hematocrit 33.4 % (37.0-47.0); Hemoglobin 10.1 g/dL (12.0-15.0); Immature Granulocyte Absolute 0.08 K/mm3 (0.00-0.031); Immature Granulocyte Percent A 0.6 % (0-0.5); Lymphocytes Absolute Auto 1.37 K/mm3 (0.9-3.2); Mean Corpuscular HGB Conc 30.2 g/dl (32-36); Mean Corpuscular Volume 79.5 fl (80-100); Mean Platelet Volume 9.2 fl (7.4-10.4); Monocytes Absolute Auto 0.7 K/mm3 (0.1-0.6); Monocytes Percent Auto 4.7 % (2.6-8.5); Neutrophils Absolute Auto 11.5 K/mm3 (1.3-6.7); Neutrophils Percent Auto 83.8 % (45.5-73.1); Platelet Count Result 452 k/mm3 (150-375); Red Cell Distribution Width 19.9 % (11.5-14.5); White Blood Count 13.7 K/mm3 (4.5-10.0)
[2020-12-16 06:22] LABS: Albumin Level 2.5 g/dL (3.5-5.1); Anion Gap 8 mmol/L (8-16); Blood Urea Nitrogen 7 mg/dL (7-17); Calcium 8.9 mg/dL (8.4-10.2); Carbon Dioxide 27 mmol/L (22-30); Chloride 114 mmol/L (98-107); Estimated CRCL calculation 115 ml/min; Estimated Glomerular Filt Rate > 60; Glucose 180 mg/dL (65-105); Magnesium 1.9 mg/dL (1.6-2.3); Potassium 2.8 mmol/L (3.4-5.0); Sodium 149 mmol/L (137-145)
[2020-12-16] MEDS: POTASSIUM CHLORIDE 20 MEQ PACKET (FOR LIQUID) 40 MEQ FEED TUBE ×2 (08:15→14:17)
[2020-12-16] MEDS: PANTOPRAZOLE SODIUM IV 40 MG VIAL IV PUSH ×2 (08:15→21:07)
[2020-12-16] MEDS: FERROUS SULFATE LIQUID 325 MG/7.4 ML ELIXIR FEED TUBE ×2 (08:15→16:35)
[2020-12-16] MEDS: TOLNAFTATE 1% POWDER 45 GM BTL 1 APPLIC TOPICAL ×2 (08:16→21:07)
[2020-12-16] MEDS: DEXTROSE 5%/0.45% SOD CHL 1,000 ML 70 ML IV CONT ×2 (08:16→22:38)
[2020-12-16] MEDS: FOLIC ACID 1 MG TABLET FEED TUBE (08:16)
[2020-12-16] MEDS: COLLAGENASE OINT 30 GM TUBE 1 APPLIC TOPICAL (08:16)
[2020-12-16] MEDS: GENTAMICIN SULFATE 0.1% OINT 15 GM TUBE 1 APPLIC TOPICAL (08:16)
--- NOTE | 2020-12-16 10:13 | PM.IMPN ---
Progress Note: A&P Assessment and Plan (1) Acute cholecystitis: Code(s): K81.0 - Acute cholecystitis Status: Acute Assessment and Plan: Patient with persistent emesis and now abdominal pain. She had normal appearing GB in September but noted to be distended GB 12/01/20 and 12/07/20 (which could be seen in the fasting state). Repeat CT 12/14 showing new onset of gallbladder distention and pericholecystic fat stranding with mild ascites. RUQ consistent with acute cholecystitis as well. Lipase and LFTs okay. GenSurg consulted and appreciate their input. Plan for cholecystostomy tube placement. Continue Flagyl and Rocephin. (2) Hematemesis: Qualifiers: Nausea presence: unspecified Qualified Code(s): K92.0 - Hematemesis Code(s): K92.0 - Hematemesis Status: Acute Assessment and Plan: Last admission showed mid-esophageal ulcers near the stricture. It was felt this was the source of the bleeding last time. Suspect this would have been more red blood then coffee-ground so suspect ulcer or gastritis (stomach was not visualized last admission due to the stricture) She was discharged home on Pepcid (Xarelto and omeprazole were continued). Patient sent back to the ED for coffee-ground emesis. No plans to repeat EGD this admission. Plan to hold Eliquis for at lest 1 week but has been held >7 days now so okay to resume when okay with others. Still having emesis which may be related to the GB as above. She has GTube that extends into the jejunum. Reglan added due to the persistent emesis but held since NPO. Continue PPI. Continue IV fluids with adjustment given the slightly elevated Na. (3) Aspiration pneumonia: Code(s): J69.0 - Pneumonitis due to inhalation of food and vomit Status: Acute Assessment and Plan: Concern for aspiration PNA after her last episode of emesis. CXR 12/12 showing mild airspace opacities in the perihilar regions. No fevers or hypoxia. WBC was 26K but better with abx (but this could be related to acute cholecystitis). Continue Flagyl and Rocephin for now. (4) UTI (urinary tract infection): Qualifiers: Encounter type: sequela Indwelling urinary catheter type: indwelling urethral catheter Urinary tract infection type: catheter-associated UTI Qualified Code(s): T83.511S - Infection and inflammatory reaction due to indwelling urethral catheter, sequela; N39.0 - Urinary tract infection, site not specified Code(s): N39.0 - Urinary tract infection, site not specified Status: Acute Assessment and Plan: UA concerning for complicated UTI. She has chronic indwelling Baltazar catheter which was exchanged this admission. Completed nitrofurantoin. (5) Chronic anemia: Code(s): D64.9 - Anemia, unspecified Status: Chronic Assessment and Plan: Hemoglobin 10.2 on admission. Iron 15 with TIBC 248 and TSat 6%. Ferritin 28 consistent with at least a component of iron deficiency. B12/folate normal. Hgb stable at 10.1 today. Continue iron. Follow HH. (6) Esophageal stricture: Code(s): K22.2 - Esophageal obstruction Status: Acute Assessment and Plan: EGD on 12/02/2020 showing mid esophageal severe stricture; the stomach was not able to be visualized. There is concern about dilating the esophagus. There are ulcers noted at the site of the stricture. Only partial obstruction since patient able to vomit up tube feeding. Continue Protonix indefinitely. No plans for repeat EGD at this time. (7) History of pulmonary embolism: Code(s): Z86.711 - Personal history of pulmonary embolism Status: Chronic Assessment and Plan: Patient has a history of pulmonary embolism and DVT. She is on long-term Eliquis therapy. Last blood clot in the right arm was in September. Eliquis was resumed after last discharge but she re-bled. Per GI recommendations, hold Eliquis for at least one
--- NOTE | 2020-12-16 11:33 | PCNFU ---
Nutrition Follow-Up Complete: Increased protein/calorie needs related to increased demands for wound healing as evidenced by unhealed stage III pressure ulcer. Goal: Patient to meet estimated nutritional needs. Limited progress towards goal. We will continue current goal. Pt current nutrition is NPO. Last recorded weight is 85.4 kg, up from 80.1 kg on admit. Bowel Motility:+BM noted 12/15 Labs Reviewed:Na 149,K 2.8,Glu 180,Cr 0.4,Hct 33.4,Hgb 10.1 Meds Noted: Lantus, Rocephin,B12,Zofran,Folic Acid, Protonix,Flagyl,Reglan. Additional Notes: Patient seen today for nutrition follow up. Spoke with family. Plan for cholecystostomy tube placement today. Discussed nutrition options with family today. Tube feedings have not been tolerated since admit. TPN wound be recommended at this time. Recommend: Clinimix E 5/15 at 40 ml/hr with 250 ml of 20% Lipid Emulsion. TPN wound be providing 1182 kcals and 48 gms protein. Monitoring: Follow up every 3 days.
[2020-12-16 11:39] LABS: Glucose Point of Care 188 mg/dl (65-105)
[2020-12-16 14:00] VITALS: BP 136/79; PULSE 88; RESP 23; TEMP 36.6; O2SAT 99
--- NOTE | 2020-12-16 14:38 | PC.NURSE ---
On 12/16/20, the student, [Janet Ayers ], provided care and completed [facility] documentation on this patient. I have reviewed the student's documentation and agree with the findings.
--- NOTE | 2020-12-16 17:09 | WPDGIPROGNO ---
Progress Note: A&P Assessment and Plan (1) Acute cholecystitis: Code(s): K81.0 - Acute cholecystitis Status: Acute Assessment and Plan: placement percutaneous cholecystostomy tube surgery in the case antibiotics (2) Acute on chronic blood loss anemia: Code(s): D62 - Acute posthemorrhagic anemia Status: Acute Assessment and Plan: s/p blood transfusion and hb stable last several days continue to hold eliquis and skilled nursing protonix 40mg bid given EGD findings no plan to repeat EGD unless obvious overt GIB (3) Erosive esophagitis: Code(s): K22.10 - Ulcer of esophagus without bleeding Status: Acute Assessment and Plan: medical treatment and keep holding eliquis (4) Esophageal stricture: Code(s): K22.2 - Esophageal obstruction Status: Acute Assessment and Plan: on iv protonix bid (5) Aspiration pneumonia: Code(s): J69.0 - Pneumonitis due to inhalation of food and vomit Status: Acute (6) Dementia: Qualifiers: Dementia type: unspecified type Dementia behavioral disturbance: without behavioral disturbance Qualified Code(s): F03.90 - Unspecified dementia without behavioral disturbance Code(s): F03.90 - Unspecified dementia without behavioral disturbance Status: Chronic Subjective Date/time seen: 12/16/20 17:09 Interval history: she underwent percutaneous cholecystostomy tube placement by radiology Review of Systems Review of Systems: All systems reviewed & are unremarkable except as noted in HPI and below Exam Const: General: no acute distress and ill appearing chronically Other: non verbal HENMT: General nose exam: Normal nares present Eyes: Sclera: sclerae normal Neck: Neck: supple Resp: Effort & Inspection: normal respiratory effort Auscultation: diminished lung sounds Cardio: Rate: regular rate GI: Inspection: non-distended GI Palp: Yes Tenderness to palpation present (GI) (right sided) and No Guarding due to palpation present (GI) Auscultation: normal bowel sounds Other: g-j tube in position, clean site new percutaneous cholecystostomy tube with thick dark bile Urinary Catheter: Urinary Catheter: patent and draining Skin: General skin exam: normal color Other: decubitus ulcer in back Neuro: Other: patient is awake but not interactive with environment (baseline) Extrem: General: normal to inspection Psych: Other: dementia Objective Data Vital Signs Vital Signs: Vital Signs - 24 hr 12/15/20 20:07 12/16/20 06:00 12/16/20 14:00 Temperature 97 F L 97.2 F L 98 F Pulse Rate 97 86 88 Respiratory Rate 17 17 23 H Blood Pressure 110/64 112/65 136/79 Pulse Oximetry 95 93 99 Intake/Output Intake/Output: Intake & Output 12/13/20 12/14/20 12/15/20 12/16/20 23:59 23:59 23:59 23:59 Intake Total 1250 2250 1300 1300 Output Total 550 200 525 175 Balance 700 2050 775 1125 Meds/Results Medications: Active Medications Generic Name Dose Route Start Last Admin Trade Name Freq PRN Reason Stop Dose Admin Albuterol 2.5 mg 12/12/20 02:04 Albuterol Sulfate Neb 2.5 Mg/0.5 Ml Inh INHALATION Q6HRT PRN Shortness Of Breath Bisacodyl 10 mg 12/07/20 11:15 Bisacodyl 10 Mg Suppository RECTAL DAILY PRN Constipation Collagenase 1 applic 12/07/20 09:00 12/16/20 08:16 Collagenase Oint 30 Gm Tube TOPICAL 1 applic DAILY EVELIO Administration Cyanocobalamin 1,000 mcg 12/08/20 16:15 12/08/20 17:53 Cyanocobalamin Inj 1,000 Mcg/Ml Vial IM 1,000 mcg MONTHLY EVELIO Administration Dextrose 12.5 gm 12/07/20 11:11 Dextrose 50% 25 Gm/50 Ml Syringe IV PUSH PRN PRN Hypoglycemia Protocol Donepezil HCl 10 mg 12/07/20 21:00 12/15/20 20:11 Donepezil Hcl 10 Mg Tablet FEED TUBE 10 mg HS EVELIO Administration Ferrous Sulfate 325 mg 12/10/20 09:00 12/16/20 16:35 Ferrous Sulfate Liquid 325 Mg/7.4 Ml Elixir FEED TUBE 325
[2020-12-16 17:43] LABS: Glucose Point of Care 188 mg/dl (65-105)
[2020-12-16] MEDS: ACETAMINOPHEN ELIXIR 325 MG/10.15 ML UDC 650 MG FEED TUBE (17:53)
[2020-12-16 19:34] VITALS: BP 110/69; PULSE 92; RESP 18; TEMP 36.6; O2SAT 98
[2020-12-16] MEDS: DONEPEZIL HCL 10 MG TABLET FEED TUBE (21:07)
[2020-12-17] MEDS: metroNIDAZOLE 500 MG/ISO 100ML 500 MG/100 ML BAG 100 MG IVPB ×4 (00:10→17:30)
[2020-12-17 00:16] LABS: Glucose Point of Care 203 mg/dl (65-105)
[2020-12-17] MEDS: INSULIN ASPART (*BKC) 100 UNITS/ML SUB-Q ×2 (00:29→17:35)
[2020-12-17] MEDS: ACETAMINOPHEN ELIXIR 325 MG/10.15 ML UDC 650 MG FEED TUBE ×3 (05:48→20:50)
[2020-12-17 05:52] VITALS: BP 123/65; PULSE 80; RESP 17; TEMP 36.1; O2SAT 97
[2020-12-17 06:18] LABS: Basophils Percent Auto 0.2 % (0.2-1.2); Eosinophils Absolute Auto 0.1 K/mm3 (0-0.3); Eosinophils Percent Auto 0.5 % (0-4.4); Hematocrit 31.2 % (37.0-47.0); Hemoglobin 9.5 g/dL (12.0-15.0); Immature Granulocyte Absolute 0.07 K/mm3 (0.00-0.031); Immature Granulocyte Percent A 0.5 % (0-0.5); Lymphocytes Absolute Auto 1.26 K/mm3 (0.9-3.2); Lymphocytes Percent Auto 9.7 % (18.3-44.2); Mean Corpuscular HGB Conc 30.4 g/dl (32-36); Mean Corpuscular Hemoglobin 24.4 pg (26-34); Mean Platelet Volume 10.7 fl (7.4-10.4); Monocytes Absolute Auto 0.7 K/mm3 (0.1-0.6); Monocytes Percent Auto 5.3 % (2.6-8.5); Neutrophils Absolute Auto 10.9 K/mm3 (1.3-6.7); Neutrophils Percent Auto 83.8 % (45.5-73.1); Platelet Count Result 497 k/mm3 (150-375); Red Cell Distribution Width 20.5 % (11.5-14.5)
[2020-12-17 06:27] LABS: Glucose Point of Care 160 mg/dl (65-105)
[2020-12-17 06:32] LABS: Anion Gap 8 mmol/L (8-16); Blood Urea Nitrogen 6 mg/dL (7-17); Calcium 8.9 mg/dL (8.4-10.2); Carbon Dioxide 26 mmol/L (22-30); Chloride 115 mmol/L (98-107); Estimated CRCL calculation 114 ml/min; Estimated Glomerular Filt Rate > 60; Glucose 169 mg/dL (65-105); Magnesium 1.8 mg/dL (1.6-2.3); Potassium 2.9 mmol/L (3.4-5.0); Sodium 149 mmol/L (137-145)
[2020-12-17] MEDS: POTASSIUM CHLORIDE 20 MEQ PACKET (FOR LIQUID) 40 MEQ PO (09:01)
[2020-12-17] MEDS: PANTOPRAZOLE SODIUM IV 40 MG VIAL IV PUSH ×2 (09:02→20:50)
[2020-12-17] MEDS: FOLIC ACID 1 MG TABLET FEED TUBE (09:02)
[2020-12-17] MEDS: TOLNAFTATE 1% POWDER 45 GM BTL 1 APPLIC TOPICAL ×2 (09:02→20:51)
[2020-12-17] MEDS: GENTAMICIN SULFATE 0.1% OINT 15 GM TUBE 1 APPLIC TOPICAL (09:02)
[2020-12-17] MEDS: COLLAGENASE OINT 30 GM TUBE 1 APPLIC TOPICAL (09:02)
[2020-12-17] MEDS: FERROUS SULFATE LIQUID 325 MG/7.4 ML ELIXIR FEED TUBE ×2 (09:02→17:30)
--- NOTE | 2020-12-17 11:25 | PM.PNGS ---
Progress Note: A&P Assessment and Plan (1) Acute cholecystitis: Code(s): K81.0 - Acute cholecystitis Status: Acute Assessment and Plan: Continue monitoring cholecystostomy tube output. Cultures pending. OK to resume tube feedings as tolerated. Subjective Subjective Date/Time Seen: 12/17/20 11:25 Interval history: No significant changes. Exam GI: Inspection: other (Cholecystostomy tube in place with dark bile output) Objective Data Vital Signs Vital Signs: Vital Signs - 24 hr 12/16/20 14:00 12/16/20 19:34 12/17/20 05:52 Temperature 36.6 C 36.6 C 36.1 C L Pulse Rate 88 92 80 Respiratory Rate 23 H 18 17 Blood Pressure 136/79 110/69 123/65 Pulse Oximetry 99 98 97 Intake/Output Intake/Output: Intake & Output 12/14/20 12/15/20 12/16/20 12/17/20 23:59 23:59 23:59 23:59 Intake Total 2250 1300 2450 200 Output Total 200 525 175 300 Balance 2050 775 2275 -100 Meds/Results Medications: Active Medications Generic Name Dose Route Start Last Admin Trade Name Freq PRN Reason Stop Dose Admin Acetaminophen 650 mg 12/16/20 17:09 12/17/20 05:48 Acetaminophen Elixir 325 Mg/10.15 Ml Udc FEED TUBE 650 mg Q6H PRN Administration Mild Pain (1-3) or Fever Albuterol 2.5 mg 12/12/20 02:04 Albuterol Sulfate Neb 2.5 Mg/0.5 Ml Inh INHALATION Q6HRT PRN Shortness Of Breath Bisacodyl 10 mg 12/07/20 11:15 Bisacodyl 10 Mg Suppository RECTAL DAILY PRN Constipation Collagenase 1 applic 12/07/20 09:00 12/17/20 09:02 Collagenase Oint 30 Gm Tube TOPICAL 1 applic DAILY EVELIO Administration Cyanocobalamin 1,000 mcg 12/08/20 16:15 12/08/20 17:53 Cyanocobalamin Inj 1,000 Mcg/Ml Vial IM 1,000 mcg MONTHLY EVELIO Administration Dextrose 12.5 gm 12/07/20 11:11 Dextrose 50% 25 Gm/50 Ml Syringe IV PUSH PRN PRN Hypoglycemia Protocol Donepezil HCl 10 mg 12/07/20 21:00 12/16/20 21:07 Donepezil Hcl 10 Mg Tablet FEED TUBE 10 mg HS EVELIO Administration Ferrous Sulfate 325 mg 12/10/20 09:00 12/17/20 09:02 Ferrous Sulfate Liquid 325 Mg/7.4 Ml Elixir FEED TUBE 325 mg BID EVELIO Administration Folic Acid 1 mg 12/09/20 09:00 12/17/20 09:02 Folic Acid 1 Mg Tablet FEED TUBE 1 mg DAILY EVELIO Administration Gentamicin Sulfate 1 applic 12/07/20 09:00 12/17/20 09:02 Gentamicin Sulfate 0.1% Oint 15 Gm Tube TOPICAL 1 applic DAILY EVELIO Administration Glucagon 1 mg 12/07/20 11:11 Glucagon For Inj 1 Mg Vial IM PRN PRN Hypoglycemia Protocol Glucose 15 gm 12/07/20 11:11 Glucose Oral Gel 15 Gm Of Glucse In 37.5 Gm Tube PO PRN PRN Hypoglycemia Protocol Dextrose 1,000 mls @ 100 mls/hr 12/07/20 11:11 Dextrose 5% 1,000 Ml IVPB PRN PRN Hypoglycemia Protocol Ceftriaxone Sodium/Dextrose 1 gm in 50 mls @ 100 mls/hr 12/12/20 22:00 12/16/20 21:39 Rocephin 1 Gm/D5w 50 Ml IVPB Infused DAILY@2200 EVELIO Infusion Metronidazole 500 mg in 100 mls @ 100 mls/hr 12/15/20 18:00 12/17/20 06:50 Flagyl 500 Mg/Iso Soln 100 Ml IVPB Infused Q6HR EVELIO Infusion Dextrose/Sodium Chloride 1,000 mls @ 70 mls/hr 12/16/20 07:15 12/16/20 22:38 Dextrose 5% Sodium Chloride 0.45% IV CONT 70 mls/hr .[id number] EVELIO Administration Potassium Chloride 500 mls @ 125 mls/hr 12/17/20 08:15 12/17/20 08:58 Kcl 40 Meq/D5w 500 Ml Peripheral IVPB 12/17/20 12:14 125 mls/hr ONCE ONE Administration Insulin Aspart 3 - 6 units 12/08/20 12:00 12/17/20 05:57 Insulin Aspart (*Bkc) 100 Units/Ml SUB-Q Not Given Q6H [facility] Protocol Insulin Glargine 20 units 12/09/20 21:00 12/14/20 12:28 Insulin Glargine (*Bkc) 100 Units/Ml SUB-Q Not Given Q12H EVELIO Ipratropium [place] 0.5 mg 12/11/20 23:46 12/12/20 00:17 Ipratropium Br 0.02% Inh Soln 0.5 Mg/2.5 Ml Vial INHALATION 0.5 mg Q6HRT PRN Administration Shortness Of Breath Metoclopramide HC
[2020-12-17 12:06] LABS: Glucose Point of Care 190 mg/dl (65-105)
--- NOTE | 2020-12-17 12:45 | PM.IMPN ---
Progress Note: A&P Assessment and Plan (1) Acute cholecystitis: Code(s): K81.0 - Acute cholecystitis Status: Acute Assessment and Plan: Persistent emesis and abdominal pain. Normal appearing GB in September Gallbladder distended on 12/01/20 and 12/07/20 (in fasting state). Repeat CT 12/14 shows new onset of gallbladder distention and pericholecystic fat stranding with mild ascites. \ RUQ consistent with acute cholecystitis Lipase and LFTs okay. GenSurg consulted and appreciate their input. Cholecystostomy tube placement yesterday 12/16/20. Continue Flagyl and Rocephin. (2) Hematemesis: Qualifiers: Nausea presence: unspecified Qualified Code(s): K92.0 - Hematemesis Code(s): K92.0 - Hematemesis Status: Acute Assessment and Plan: Last admission showed mid-esophageal ulcers near the stricture. It was felt this was the source of the bleeding last time. Suspect this would have been more red blood then coffee-ground so suspect ulcer or gastritis (stomach was not visualized last admission due to the stricture) She was discharged home on Pepcid (Xarelto and omeprazole were continued). Patient sent back to the ED for coffee-ground emesis. No plans to repeat EGD this admission. Plan to hold Eliquis for at lest 1 week but has been held >7 days now so okay to resume when okay with others. Still having emesis which may be related to the GB as above. She has GTube that extends into the jejunum. Reglan added due to the persistent emesis but held since NPO. Continue PPI. Continue IV fluids with adjustment given the slightly elevated Na. (3) Aspiration pneumonia: Code(s): J69.0 - Pneumonitis due to inhalation of food and vomit Status: Acute Assessment and Plan: Concern for aspiration PNA after her last episode of emesis. CXR 12/12 showing mild airspace opacities in the perihilar regions. No fevers or hypoxia. WBC was 26K but better with abx (but this could be related to acute cholecystitis). Continue Flagyl and Rocephin for now. (4) UTI (urinary tract infection): Qualifiers: Encounter type: sequela Indwelling urinary catheter type: indwelling urethral catheter Urinary tract infection type: catheter-associated UTI Qualified Code(s): T83.511S - Infection and inflammatory reaction due to indwelling urethral catheter, sequela; N39.0 - Urinary tract infection, site not specified Code(s): N39.0 - Urinary tract infection, site not specified Status: Acute Assessment and Plan: UA concerning for complicated UTI. She has chronic indwelling Baltazar catheter which was exchanged this admission. Completed nitrofurantoin. (5) Chronic anemia: Code(s): D64.9 - Anemia, unspecified Status: Chronic Assessment and Plan: Hemoglobin 10.2 on admission. Iron 15 with TIBC 248 and TSat 6%. Ferritin 28 consistent with at least a component of iron deficiency. B12/folate normal. Hgb stable at 9.5 today. Continue iron. Follow HH. (6) Esophageal stricture: Code(s): K22.2 - Esophageal obstruction Status: Acute Assessment and Plan: EGD on 12/02/2020 showing mid esophageal severe stricture; the stomach was not able to be visualized. There is concern about dilating the esophagus. There are ulcers noted at the site of the stricture. Only partial obstruction since patient able to vomit up tube feeding. Continue Protonix indefinitely. No plans for repeat EGD at this time. Will try to restart tube feeding at a trickle rate. (7) History of pulmonary embolism: Code(s): Z86.711 - Personal history of pulmonary embolism Status: Chronic Assessment and Plan: Patient has a history of pulmonary embolism and DVT. She is on long-term Eliquis therapy. Last blood clot in the right arm was in September. Eliquis was resumed after last discharge but she re-bled. Per GI recommendations, hold
--- NOTE | 2020-12-17 12:58 | WPDGIPROGNO ---
Progress Note: A&P Assessment and Plan (1) Acute cholecystitis: Code(s): K81.0 - Acute cholecystitis Status: Acute Assessment and Plan: placement percutaneous cholecystostomy tube with dark bile surgery in the case antibiotics ok to resume tube feeding by her G-J tube (2) Acute on chronic blood loss anemia: Code(s): D62 - Acute posthemorrhagic anemia Status: Acute Assessment and Plan: s/p blood transfusion and hb stable last several days continue to hold eliquis and lobsterman protonix 40mg bid given EGD findings no plan to repeat EGD unless obvious overt GIB (3) Erosive esophagitis: Code(s): K22.10 - Ulcer of esophagus without bleeding Status: Acute Assessment and Plan: medical treatment and keep holding eliquis (4) Esophageal stricture: Code(s): K22.2 - Esophageal obstruction Status: Acute Assessment and Plan: on iv protonix bid (5) Aspiration pneumonia: Code(s): J69.0 - Pneumonitis due to inhalation of food and vomit Status: Acute (6) Dementia: Qualifiers: Dementia type: unspecified type Dementia behavioral disturbance: without behavioral disturbance Qualified Code(s): F03.90 - Unspecified dementia without behavioral disturbance Code(s): F03.90 - Unspecified dementia without behavioral disturbance Status: Chronic Subjective Date/time seen: 12/17/20 12:58 Interval history: no new issues, cholecystostomy tube draining dark bile, still some abdominal pain. family at bedside Review of Systems Review of Systems: All systems reviewed & are unremarkable except as noted in HPI and below Exam Const: General: no acute distress and ill appearing chronically Other: non verbal HENMT: General nose exam: Normal nares present Eyes: Sclera: sclerae normal Neck: Neck: supple Resp: Effort & Inspection: normal respiratory effort Auscultation: diminished lung sounds Cardio: Rate: regular rate GI: Inspection: non-distended GI Palp: Yes Tenderness to palpation present (GI) (right sided) and No Guarding due to palpation present (GI) Auscultation: normal bowel sounds Other: g-j tube in position, clean site new percutaneous cholecystostomy tube with dark bile Urinary Catheter: Urinary Catheter: patent and draining Skin: General skin exam: normal color Other: decubitus ulcer in back Neuro: Other: patient is awake but not interactive with environment (baseline) Extrem: General: normal to inspection Psych: Other: dementia Objective Data Vital Signs Vital Signs: Vital Signs - 24 hr 12/16/20 14:00 12/16/20 19:34 12/17/20 05:52 Temperature 98 F 97.9 F 97 F L Pulse Rate 88 92 80 Respiratory Rate 23 H 18 17 Blood Pressure 136/79 110/69 123/65 Pulse Oximetry 99 98 97 Intake/Output Intake/Output: Intake & Output 12/14/20 12/15/20 12/16/20 12/17/20 23:59 23:59 23:59 23:59 Intake Total 2250 1300 2450 200 Output Total 200 525 175 300 Balance 2050 775 2275 -100 Meds/Results Medications: Active Medications Generic Name Dose Route Start Last Admin Trade Name Freq PRN Reason Stop Dose Admin Acetaminophen 650 mg 12/16/20 17:09 12/17/20 05:48 Acetaminophen Elixir 325 Mg/10.15 Ml Udc FEED TUBE 650 mg Q6H PRN Administration Mild Pain (1-3) or Fever Albuterol 2.5 mg 12/12/20 02:04 Albuterol Sulfate Neb 2.5 Mg/0.5 Ml Inh INHALATION Q6HRT PRN Shortness Of Breath Bisacodyl 10 mg 12/07/20 11:15 Bisacodyl 10 Mg Suppository RECTAL DAILY PRN Constipation Collagenase 1 applic 12/07/20 09:00 12/17/20 09:02 Collagenase Oint 30 Gm Tube TOPICAL 1 applic DAILY EVELIO Administration Cyanocobalamin 1,000 mcg 12/08/20 16:15 12/08/20 17:53 Cyanocobalamin Inj 1,000 Mcg/Ml Vial IM 1,000 mcg MONTHLY EVELIO Administration Dextrose 12.5 gm 12/07/20 11:11 Dextrose 50% 25 Gm/50 Ml Syringe IV PUSH PRN PRN Hypoglycemia Prot
[2020-12-17 14:00] VITALS: BP 132/62; PULSE 82; RESP 18; TEMP 36.6; O2SAT 97
[2020-12-17 14:40] LABS: Anion Gap 6 mmol/L (8-16); Blood Urea Nitrogen 5 mg/dL (7-17); Calcium 8.7 mg/dL (8.4-10.2); Carbon Dioxide 25 mmol/L (22-30); Chloride 116 mmol/L (98-107); Estimated CRCL calculation 114 ml/min; Estimated Glomerular Filt Rate > 60; Glucose 224 mg/dL (65-105); Potassium 3.3 mmol/L (3.4-5.0); Sodium 147 mmol/L (137-145)
[2020-12-17 17:36] LABS: Glucose Point of Care 207 mg/dl (65-105)
[2020-12-17 20:07] VITALS: BP 119/67; PULSE 98; RESP 16; TEMP 36.6; O2SAT 99
[2020-12-17] MEDS: DONEPEZIL HCL 10 MG TABLET FEED TUBE (20:50)
[2020-12-17 22:35] VITALS: O2SAT 99
[2020-12-18] MEDS: DEXTROSE 5%/0.45% SOD CHL 1,000 ML 70 ML IV CONT ×2 (00:07→22:42)
[2020-12-18] MEDS: metroNIDAZOLE 500 MG/ISO 100ML 500 MG/100 ML BAG 100 MG IVPB ×5 (00:08→23:04)
[2020-12-18] MEDS: INSULIN ASPART (*BKC) 100 UNITS/ML SUB-Q ×4 (00:13→23:10)
[2020-12-18 00:17] LABS: Glucose Point of Care 222 mg/dl (65-105)
[2020-12-18 05:34] VITALS: BP 107/64; PULSE 81; RESP 17; TEMP 36.6; O2SAT 100
[2020-12-18] MEDS: ACETAMINOPHEN ELIXIR 325 MG/10.15 ML UDC 650 MG FEED TUBE ×2 (06:00→18:15)
[2020-12-18 06:05] LABS: Glucose Point of Care 168 mg/dl (65-105)
[2020-12-18 06:40] LABS: Mean Corpuscular Hemoglobin 24.4 pg (26-34); Mean Corpuscular Volume 81.3 fl (80-100); Mean Platelet Volume 9.4 fl (7.4-10.4); Platelet Count Result 470 k/mm3 (150-375); Red Blood Count 3.69 M/mm3 (4.2-5.4); Red Cell Distribution Width 20.7 % (11.5-14.5); White Blood Count 10.7 K/mm3 (4.5-10.0)
[2020-12-18 06:46] LABS: Alanine Aminotransferase 10 U/L (4-35); Albumin Level 2.3 g/dL (3.5-5.1); Alkaline Phosphatase 95 U/L (38-126); Anion Gap 9 mmol/L (8-16); Aspartate Amino Transferase 12 U/L (14-36); Bilirubin,Total 0.1 mg/dL (0.2-1.3); Blood Urea Nitrogen 3 mg/dL (7-17); Calcium 8.2 mg/dL (8.4-10.2); Carbon Dioxide 23 mmol/L (22-30); Chloride 114 mmol/L (98-107); Estimated CRCL calculation 115 ml/min; Estimated Glomerular Filt Rate > 60; Glucose 186 mg/dL (65-105); Magnesium 1.6 mg/dL (1.6-2.3); Potassium 2.9 mmol/L (3.4-5.0); Sodium 146 mmol/L (137-145)
[2020-12-18] MEDS: POTASSIUM CHLORIDE 20 MEQ PACKET (FOR LIQUID) 40 MEQ FEED TUBE (08:01)
[2020-12-18] MEDS: COLLAGENASE OINT 30 GM TUBE 1 APPLIC TOPICAL (08:01)
[2020-12-18] MEDS: FERROUS SULFATE LIQUID 325 MG/7.4 ML ELIXIR FEED TUBE ×2 (08:02→18:16)
[2020-12-18] MEDS: FOLIC ACID 1 MG TABLET FEED TUBE (08:02)
[2020-12-18] MEDS: PANTOPRAZOLE SODIUM IV 40 MG VIAL IV PUSH ×2 (08:02→20:45)
[2020-12-18] MEDS: MAGNESIUM SULF 2 GM/WATER 50ML 2 GM/50 ML BAG IVPB (08:02)
[2020-12-18] MEDS: TOLNAFTATE 1% POWDER 45 GM BTL 1 APPLIC TOPICAL ×2 (08:03→20:45)
[2020-12-18] MEDS: GENTAMICIN SULFATE 0.1% OINT 15 GM TUBE 1 APPLIC TOPICAL (08:03)
--- NOTE | 2020-12-18 08:28 | PM.IMPN ---
Progress Note: A&P Assessment and Plan (1) Acute cholecystitis: Code(s): K81.0 - Acute cholecystitis Status: Acute Assessment and Plan: Persistent emesis and abdominal pain. Normal appearing GB in September Gallbladder distended on 12/01/20 and 12/07/20 (in fasting state). Repeat CT 12/14 shows new onset of gallbladder distention and pericholecystic fat stranding with mild ascites. RUQ consistent with acute cholecystitis Lipase and LFTs okay. GenSurg consulted and appreciate their input. Cholecystostomy tube placement yesterday 12/16/20. Continue Flagyl and Rocephin. Tube feedings continued 30ml/hr free water flush (2) Hematemesis: Qualifiers: Nausea presence: unspecified Qualified Code(s): K92.0 - Hematemesis Code(s): K92.0 - Hematemesis Status: Acute Assessment and Plan: Last admission showed mid-esophageal ulcers near the stricture. It was felt this was the source of the bleeding last time. Suspect this would have been more red blood then coffee-ground so suspect ulcer or gastritis (stomach was not visualized last admission due to the stricture) She was discharged home on Pepcid (Xarelto and omeprazole were continued). Patient sent back to the ED for coffee-ground emesis. No plans to repeat EGD this admission. Plan to hold Eliquis for at lest 1 week but has been held >7 days now so okay to resume when okay with others. Still having emesis which may be related to the GB as above. She has GTube that extends into the jejunum. Reglan added due to the persistent emesis but held since NPO. Continue PPI. Continue IV fluids with adjustment given the slightly elevated Na. Tube feedings have been restarted No reports of vomiting episodes No signs or symptoms of aspiration at present time HOB 30 degees (3) Aspiration pneumonia: Qualifiers: Aspiration pneumonia type: unspecified Laterality: unspecified laterality Lung location: unspecified part of lung Qualified Code(s): J69.0 - Pneumonitis due to inhalation of food and vomit Code(s): J69.0 - Pneumonitis due to inhalation of food and vomit Status: Acute Assessment and Plan: Concern for aspiration PNA after her last episode of emesis. CXR 12/12 showing mild airspace opacities in the perihilar regions. No fevers or hypoxia. WBC was 26K but better with abx (but this could be related to acute cholecystitis). Continue Flagyl and Rocephin for now. (4) UTI (urinary tract infection): Qualifiers: Urinary tract infection type: catheter-associated UTI Indwelling urinary catheter type: indwelling urethral catheter Encounter type: sequela Qualified Code(s): T83.511S - Infection and inflammatory reaction due to indwelling urethral catheter, sequela; N39.0 - Urinary tract infection, site not specified Code(s): N39.0 - Urinary tract infection, site not specified Status: Acute Assessment and Plan: UA concerning for complicated UTI. She has chronic indwelling Baltazar catheter which was exchanged this admission. Completed nitrofurantoin. (5) Chronic anemia: Code(s): D64.9 - Anemia, unspecified Status: Chronic Assessment and Plan: Hemoglobin 10.2 on admission. Iron 15 with TIBC 248 and TSat 6%. Ferritin 28 consistent with at least a component of iron deficiency. B12/folate normal. Hgb stable at 9.5 today. Continue iron. Follow HH. (6) Esophageal stricture: Code(s): K22.2 - Esophageal obstruction Status: Acute Assessment and Plan: EGD on 12/02/2020 showing mid esophageal severe stricture; the stomach was not able to be visualized. There is concern about dilating the esophagus. There are ulcers noted at the site of the stricture. Only partial obstruction since patient able to vomit up tube feeding. Continue Protonix indefinitely. No plans for repeat EGD at this time. Will try to restart
--- NOTE | 2020-12-18 11:50 | WPDGIPROGNO ---
Progress Note: A&P Assessment and Plan (1) Acute cholecystitis: Code(s): K81.0 - Acute cholecystitis Status: Acute Assessment and Plan: placement percutaneous cholecystostomy tube and iv antibiotics she is tolerating feeding by her G-J tube will follow [place], please call if questions (2) Acute on chronic blood loss anemia: Code(s): D62 - Acute posthemorrhagic anemia Status: Acute Assessment and Plan: s/p blood transfusion and hb stable last several days continue to hold eliquis manager intermediate protonix 40mg bid given EGD findings (3) Erosive esophagitis: Code(s): K22.10 - Ulcer of esophagus without bleeding Status: Acute Assessment and Plan: medical treatment (4) Esophageal stricture: Code(s): K22.2 - Esophageal obstruction Status: Acute Assessment and Plan: on protonix bid (5) Aspiration pneumonia: Qualifiers: Aspiration pneumonia type: unspecified Laterality: unspecified laterality Lung location: unspecified part of lung Qualified Code(s): J69.0 - Pneumonitis due to inhalation of food and vomit Code(s): J69.0 - Pneumonitis due to inhalation of food and vomit Status: Acute (6) Dementia: Qualifiers: Dementia type: unspecified type Dementia behavioral disturbance: without behavioral disturbance Qualified Code(s): F03.90 - Unspecified dementia without behavioral disturbance Code(s): F03.90 - Unspecified dementia without behavioral disturbance Status: Chronic Subjective Date/time seen: 12/18/20 11:50 Interval history: started on tube feeding again and she is tolerating, no more report of vomiting. Family at bedside Review of Systems Review of Systems: All systems reviewed & are unremarkable except as noted in HPI and below Exam Const: General: no acute distress and ill appearing chronically Other: non verbal HENMT: General nose exam: Normal nares present Eyes: Sclera: sclerae normal Neck: Neck: supple Resp: Effort & Inspection: normal respiratory effort Auscultation: diminished lung sounds Cardio: Rate: regular rate GI: Inspection: non-distended GI Palp: Yes Tenderness to palpation present (GI) (less tender today in right sided) and No Guarding due to palpation present (GI) Auscultation: normal bowel sounds Other: g-j tube in position, clean site new percutaneous cholecystostomy tube with dark bile Urinary Catheter: Urinary Catheter: patent and draining Skin: General skin exam: normal color Other: decubitus ulcer in back Neuro: Other: patient is awake but not interactive with environment (baseline) Extrem: General: normal to inspection Psych: Other: dementia Objective Data Vital Signs Vital Signs: Vital Signs - 24 hr 12/17/20 14:00 12/17/20 20:07 12/17/20 22:35 Temperature 97.9 F 98 F Pulse Rate 82 98 Respiratory Rate 18 16 Blood Pressure 132/62 119/67 Pulse Oximetry 97 99 99 12/18/20 05:34 Temperature 97.8 F Pulse Rate 81 Respiratory Rate 17 Blood Pressure 107/64 Pulse Oximetry 100 Intake/Output Intake/Output: Intake & Output 12/15/20 12/16/20 12/17/20 12/18/20 23:59 23:59 23:59 23:59 Intake Total 1300 2450 500 1050 Output Total 525 175 505 200 Balance 775 2275 -5 850 Meds/Results Medications: Active Medications Generic Name Dose Route Start Last Admin Trade Name Madhuq PRN Reason Stop Dose Admin Acetaminophen 650 mg 12/16/20 17:09 12/18/20 06:00 Acetaminophen Elixir 325 Mg/10.15 Ml Udc FEED TUBE 650 mg Q6H PRN Administration Mild Pain (1-3) or Fever Albuterol 2.5 mg 12/12/20 02:04 Albuterol Sulfate Neb 2.5 Mg/0.5 Ml Inh INHALATION Q6HRT PRN Shortness Of Breath Bisacodyl 10 mg 12/07/20 11:15 Bisacodyl 10 Mg Suppository RECTAL DAILY PRN Constipation Collagenase 1 applic 12/07/20 09:00 12/18/20 08:01 Collagenase Oint 30 Gm Tube TOPICAL 1 applic DAILY [facility] Admin
[2020-12-18 12:07] LABS: Glucose Point of Care 242 mg/dl (65-105)
--- NOTE | 2020-12-18 13:53 | PM.PNGS ---
Progress Note: A&P Assessment and Plan (1) Acute cholecystitis: Code(s): K81.0 - Acute cholecystitis Status: Acute Assessment and Plan: Continue monitoring cholecystostomy tube output. Cultures show no organisms or WBC. Tolerating tube feedings so far Surgically stable Subjective Subjective Date/Time Seen: 12/18/20 13:53 Interval history: Tube feeds started yesterday evening and patient appears to be tolerating well. Exam GI: Inspection: other (Cholecystostomy tube in place with dark bile output) GI Palp: Yes Soft to palpation, No Tenderness to palpation present (GI) and No Guarding due to palpation present (GI) Objective Data Vital Signs Vital Signs: Vital Signs - 24 hr 12/17/20 14:00 12/17/20 20:07 12/17/20 22:35 Temperature 36.6 C 36.6 C Pulse Rate 82 98 Respiratory Rate 18 16 Blood Pressure 132/62 119/67 Pulse Oximetry 97 99 99 12/18/20 05:34 Temperature 36.6 C Pulse Rate 81 Respiratory Rate 17 Blood Pressure 107/64 Pulse Oximetry 100 Intake/Output Intake/Output: Intake & Output 12/15/20 12/16/20 12/17/20 12/18/20 23:59 23:59 23:59 23:59 Intake Total 1300 2450 500 1250 Output Total 525 175 505 200 Balance 775 2275 -5 1050 Meds/Results Medications: Active Medications Generic Name Dose Route Start Last Admin Trade Name Freq PRN Reason Stop Dose Admin Acetaminophen 650 mg 12/16/20 17:09 12/18/20 06:00 Acetaminophen Elixir 325 Mg/10.15 Ml Udc FEED TUBE 650 mg Q6H PRN Administration Mild Pain (1-3) or Fever Albuterol 2.5 mg 12/12/20 02:04 Albuterol Sulfate Neb 2.5 Mg/0.5 Ml Inh INHALATION Q6HRT PRN Shortness Of Breath Bisacodyl 10 mg 12/07/20 11:15 Bisacodyl 10 Mg Suppository RECTAL DAILY PRN Constipation Collagenase 1 applic 12/07/20 09:00 12/18/20 08:01 Collagenase Oint 30 Gm Tube TOPICAL 1 applic DAILY EVELIO Administration Cyanocobalamin 1,000 mcg 12/08/20 16:15 12/08/20 17:53 Cyanocobalamin Inj 1,000 Mcg/Ml Vial IM 1,000 mcg MONTHLY EVELIO Administration Dextrose 12.5 gm 12/07/20 11:11 Dextrose 50% 25 Gm/50 Ml Syringe IV PUSH PRN PRN Hypoglycemia Protocol Donepezil HCl 10 mg 12/07/20 21:00 12/17/20 20:50 Donepezil Hcl 10 Mg Tablet FEED TUBE 10 mg HS EVELIO Administration Ferrous Sulfate 325 mg 12/10/20 09:00 12/18/20 08:02 Ferrous Sulfate Liquid 325 Mg/7.4 Ml Elixir FEED TUBE 325 mg BID EVELIO Administration Folic Acid 1 mg 12/09/20 09:00 12/18/20 08:02 Folic Acid 1 Mg Tablet FEED TUBE 1 mg DAILY EVELIO Administration Gentamicin Sulfate 1 applic 12/07/20 09:00 12/18/20 08:03 Gentamicin Sulfate 0.1% Oint 15 Gm Tube TOPICAL 1 applic DAILY EVELIO Administration Glucagon 1 mg 12/07/20 11:11 Glucagon For Inj 1 Mg Vial IM PRN PRN Hypoglycemia Protocol Glucose 15 gm 12/07/20 11:11 Glucose Oral Gel 15 Gm Of Glucse In 37.5 Gm Tube PO PRN PRN Hypoglycemia Protocol Dextrose 1,000 mls @ 100 mls/hr 12/07/20 11:11 Dextrose 5% 1,000 Ml IVPB PRN PRN Hypoglycemia Protocol Ceftriaxone Sodium/Dextrose 1 gm in 50 mls @ 100 mls/hr 12/12/20 22:00 12/17/20 21:01 Rocephin 1 Gm/D5w 50 Ml IVPB 100 mls/hr DAILY@2200 EVELIO Administration Metronidazole 500 mg in 100 mls @ 100 mls/hr 12/15/20 18:00 12/18/20 12:58 Flagyl 500 Mg/Iso Soln 100 Ml IVPB Infused Q6HR EEVLIO Infusion Dextrose/Sodium Chloride 1,000 mls @ 70 mls/hr 12/16/20 07:15 12/18/20 00:07 Dextrose 5% Sodium Chloride 0.45% IV CONT 70 mls/hr .[id number] EVELIO Administration Insulin Aspart 3 - 6 units 12/08/20 12:00 12/18/20 11:52 Insulin Aspart (*Bkc) 100 Units/Ml SUB-Q 3 units Q6H EVELIO Administration Protocol Insulin Glargine 20 units 12/09/20 21:00 12/14/20 12:28 Insulin Glargine (*Bkc) 100 Units/Ml SUB-Q Not Given Q12H EVELIO Ipratropium [place] 0.5 mg 12/11/20 23:46 12/12/20 00:17
[2020-12-18 14:00] VITALS: BP 118/60; PULSE 80; RESP 18; TEMP 36.1; O2SAT 100
[2020-12-18] MEDS: MUPIROCIN 2% OINT 22 GM TUBE 1 APPLIC TOPICAL (18:16)
[2020-12-18 18:26] LABS: Glucose Point of Care 225 mg/dl (65-105)
[2020-12-18 20:36] VITALS: BP 134/70; PULSE 94; RESP 18; TEMP 36.2; O2SAT 98
[2020-12-18] MEDS: DONEPEZIL HCL 10 MG TABLET FEED TUBE (20:45)
[2020-12-18 23:13] LABS: Glucose Point of Care 229 mg/dl (65-105)
[2020-12-19] MEDS: metroNIDAZOLE 500 MG/ISO 100ML 500 MG/100 ML BAG 100 MG IVPB ×4 (05:34→23:55)
[2020-12-19 05:36] VITALS: BP 128/69; PULSE 87; RESP 18; TEMP 35.9; O2SAT 99
[2020-12-19 05:48] LABS: Glucose Point of Care 187 mg/dl (65-105)
[2020-12-19 07:40] LABS: Hematocrit 29.4 % (37.0-47.0); Hemoglobin 8.8 g/dL (12.0-15.0); Mean Corpuscular HGB Conc 29.9 g/dl (32-36); Mean Corpuscular Hemoglobin 24.2 pg (26-34); Mean Platelet Volume 9.6 fl (7.4-10.4); Platelet Count Result 517 k/mm3 (150-375); Red Blood Count 3.63 M/mm3 (4.2-5.4); Red Cell Distribution Width 20.9 % (11.5-14.5); White Blood Count 9.2 K/mm3 (4.5-10.0)
[2020-12-19 07:59] LABS: Alanine Aminotransferase 10 U/L (4-35); Albumin Level 2.2 g/dL (3.5-5.1); Alkaline Phosphatase 94 U/L (38-126); Anion Gap 5 mmol/L (8-16); Aspartate Amino Transferase 14 U/L (14-36); Bilirubin,Total < 0.1 mg/dL (0.2-1.3); Blood Urea Nitrogen 4 mg/dL (7-17); Calcium 8.1 mg/dL (8.4-10.2); Carbon Dioxide 24 mmol/L (22-30); Chloride 112 mmol/L (98-107); Estimated CRCL calculation 150 ml/min; Estimated Glomerular Filt Rate > 60; Glucose 225 mg/dL (65-105); Magnesium 1.7 mg/dL (1.6-2.3); Potassium 3.5 mmol/L (3.4-5.0); Sodium 141 mmol/L (137-145)
[2020-12-19 08:05] LABS: Glucose Point of Care 219 mg/dl (65-105)
[2020-12-19] MEDS: FOLIC ACID 1 MG TABLET FEED TUBE (09:13)
[2020-12-19] MEDS: FERROUS SULFATE LIQUID 325 MG/7.4 ML ELIXIR FEED TUBE ×2 (09:13→17:55)
[2020-12-19] MEDS: PANTOPRAZOLE SODIUM IV 40 MG VIAL IV PUSH ×2 (09:13→21:20)
[2020-12-19] MEDS: MUPIROCIN 2% OINT 22 GM TUBE 1 APPLIC TOPICAL ×3 (09:15→17:55)
[2020-12-19] MEDS: COLLAGENASE OINT 30 GM TUBE 1 APPLIC TOPICAL (09:15)
[2020-12-19] MEDS: GENTAMICIN SULFATE 0.1% OINT 15 GM TUBE 1 APPLIC TOPICAL (09:15)
[2020-12-19] MEDS: TOLNAFTATE 1% POWDER 45 GM BTL 1 APPLIC TOPICAL ×2 (09:15→21:21)
--- NOTE | 2020-12-19 11:14 | PCNFU ---
Nutrition Follow-Up Complete: Increased protein/calorie needs related to increased demands for wound healing as evidenced by unhealed stage III pressure ulcer. Goal: Patient to meet estimated nutritional needs. Progressing towards goal. We will continue current goal. Pt current nutrition is Glucerna 1.2 at 50 ml/hr goal rate at 75 ml/hr Last recorded weight is 90.3 kg, up from 80.1 kg on admit. Bowel Motility:+BM reported 12/19 Labs Reviewed:BUN 4,Cr 0.3,Glu 225,Alb 2.2,Hct 29.4,Hgb 8.8 Meds Noted:NovoLog, Lantus, Folic Acid, Protonix,Aricept, Flagyl, Reglan. Additional Notes: Nutrition follow up. Patient tube feeding has re started currently at 50 ml/hr of Glucerna 1.2 goal rate at 75 ml/hr providing 1980 kcals and 99 gms protein. Wounds noted: stage 3 to buttock. Cholecystostomy tube in place. Agree with diet orders. Follow up every Saturday/Saturday.
[2020-12-19 11:39] LABS: Glucose Point of Care 215 mg/dl (65-105)
[2020-12-19] MEDS: INSULIN ASPART (*BKC) 100 UNITS/ML SUB-Q ×2 (12:17→23:55)
[2020-12-19] MEDS: DEXTROSE 5%/0.45% SOD CHL 1,000 ML 70 ML IV CONT (12:20)
--- NOTE | 2020-12-19 13:36 | PM.PNGS ---
Progress Note: A&P Assessment and Plan (1) Acute cholecystitis: Code(s): K81.0 - Acute cholecystitis Status: Acute Assessment and Plan: Continue monitoring cholecystostomy tube output. Preliminary cultures show no organisms or WBC, awaiting final results. WBC normal today. Seems to be tolerating tube feedings. Continue to advance to goal rate. Surgically stable Additional Plan I have discussed plan of care with Dr. Ny. Subjective Subjective Date/Time Seen: 12/19/20 13:36 Interval history: Patient seen with no family at the bedside. She is nonverbal and unable to answer any questions. Per the nurse, she is tolerating her tube feedings and has appeared comfortable all morning. Review of Systems Review of Systems: ROS unobtainable: Yes unobtainable due to mental status Exam Const: General: alert; No acute distress Orientation/consciousness: Other orientation findings ( Nonverbal) GI: Inspection: non-distended GI Palp: Yes Soft to palpation, No Tenderness to palpation present (GI) and No Guarding due to palpation present (GI) Other: Cholecystostomy tube in place with dark bilious output G-tube in place in left upper quadrant Objective Data Vital Signs Vital Signs: Vital Signs - 24 hr 12/18/20 14:00 12/18/20 20:36 12/19/20 05:36 Temperature 97.0 F L 97.1 F L 96.7 F L Pulse Rate 80 94 87 Respiratory Rate 18 18 18 Blood Pressure 118/60 134/70 128/69 Pulse Oximetry 100 98 99 Intake/Output Intake/Output: Intake & Output 12/16/20 12/17/20 12/18/20 12/19/20 23:59 23:59 23:59 23:59 Intake Total 2450 550 3020 1440 Output Total 175 505 320 225 Balance 2275 45 2700 1215 Meds/Results Medications: Active Medications Generic Name Dose Route Start Last Admin Trade Name Freq PRN Reason Stop Dose Admin Acetaminophen 650 mg 12/16/20 17:09 12/18/20 18:15 Acetaminophen Elixir 325 Mg/10.15 Ml Udc FEED TUBE 650 mg Q6H PRN Administration Mild Pain (1-3) or Fever Albuterol 2.5 mg 12/12/20 02:04 Albuterol Sulfate Neb 2.5 Mg/0.5 Ml Inh INHALATION Q6HRT PRN Shortness Of Breath Bisacodyl 10 mg 12/07/20 11:15 Bisacodyl 10 Mg Suppository RECTAL DAILY PRN Constipation Collagenase 1 applic 12/07/20 09:00 12/19/20 09:15 Collagenase Oint 30 Gm Tube TOPICAL 1 applic DAILY EVELIO Administration Cyanocobalamin 1,000 mcg 12/08/20 16:15 12/08/20 17:53 Cyanocobalamin Inj 1,000 Mcg/Ml Vial IM 1,000 mcg MONTHLY EVELIO Administration Dextrose 12.5 gm 12/07/20 11:11 Dextrose 50% 25 Gm/50 Ml Syringe IV PUSH PRN PRN Hypoglycemia Protocol Donepezil HCl 10 mg 12/07/20 21:00 12/18/20 20:45 Donepezil Hcl 10 Mg Tablet FEED TUBE 10 mg HS EVELIO Administration Ferrous Sulfate 325 mg 12/10/20 09:00 12/19/20 09:13 Ferrous Sulfate Liquid 325 Mg/7.4 Ml Elixir FEED TUBE 325 mg BID EVELIO Administration Folic Acid 1 mg 12/09/20 09:00 12/19/20 09:13 Folic Acid 1 Mg Tablet FEED TUBE 1 mg DAILY EVELIO Administration Gentamicin Sulfate 1 applic 12/07/20 09:00 12/19/20 09:15 Gentamicin Sulfate 0.1% Oint 15 Gm Tube TOPICAL 1 applic DAILY EVELIO Administration Glucagon 1 mg 12/07/20 11:11 Glucagon For Inj 1 Mg Vial IM PRN PRN Hypoglycemia Protocol Glucose 15 gm 12/07/20 11:11 Glucose Oral Gel 15 Gm Of Glucse In 37.5 Gm Tube PO PRN PRN Hypoglycemia Protocol Dextrose 1,000 mls @ 100 mls/hr 12/07/20 11:11 Dextrose 5% 1,000 Ml IVPB PRN PRN Hypoglycemia Protocol Ceftriaxone Sodium/Dextrose 1 gm in 50 mls @ 100 mls/hr 12/12/20 22:00 12/18/20 21:48 Rocephin 1 Gm/D5w 50 Ml IVPB Infused DAILY@2200 EVELIO Infusion Metronidazole 500 mg in 100 mls @ 100 mls/hr 12/15/20 18:00 12/19/20 12:16 Flagyl 500 Mg/Iso Soln 100 Ml IVPB 100 mls/hr Q6HR EVELIO Administration Dextrose/Sodium Chloride 1,000 mls @ 70 mls/hr 12/16/20 07:15 12/19/20 12:2
[2020-12-19 14:00] VITALS: BP 137/80; PULSE 86; RESP 20; TEMP 35.9; O2SAT 100
--- NOTE | 2020-12-19 14:42 | PM.IMPN ---
Progress Note: A&P Assessment and Plan (1) Acute cholecystitis: Code(s): K81.0 - Acute cholecystitis Status: Acute Assessment and Plan: Patient with persistent emesis and now abdominal pain. She had normal appearing GB in September but noted to be distended GB 12/01/20 and 12/07/20 (which could be seen in the fasting state). Repeat CT 12/14 showing new onset of gallbladder distention and pericholecystic fat stranding with mild ascites. RUQ US consistent with acute cholecystitis as well. Lipase and LFTs okay. GenSurg consulted and cholecystostomy tube placed 12/16/20. GB culture NGTD. Continue Flagyl and Rocephin. Appreciate GenSurg input. (2) Hematemesis: Qualifiers: Nausea presence: unspecified Qualified Code(s): K92.0 - Hematemesis Code(s): K92.0 - Hematemesis Status: Acute Assessment and Plan: Last admission showed mid-esophageal ulcers near the stricture. It was felt this was the source of the bleeding last time. Suspect this would have been more red blood then coffee-ground so suspect ulcer or gastritis (stomach was not visualized last admission due to the stricture) She was discharged home on Pepcid (Xarelto and omeprazole were continued). Patient sent back to the ED for coffee-ground emesis. No plans to repeat EGD this admission. Plan to hold Eliquis for at lest 1 week but has been held >7 days now so okay to resume when okay with others. Was still having emesis which may be related to the GB as above. She has GTube that extends into the jejunum. Reglan added due to the persistent emesis but held since NPO. TF started and being advanced slowly. Continue PPI. Stop IV fluids. (3) Aspiration pneumonia: Qualifiers: Aspiration pneumonia type: unspecified Laterality: unspecified laterality Lung location: unspecified part of lung Qualified Code(s): J69.0 - Pneumonitis due to inhalation of food and vomit Code(s): J69.0 - Pneumonitis due to inhalation of food and vomit Status: Acute Assessment and Plan: Concern for aspiration PNA after her last episode of emesis. CXR 12/12 showing mild airspace opacities in the perihilar regions. No fevers or hypoxia. WBC was 26K felt related to acute cholecystitis. WBC normal now. Continue Flagyl and Rocephin. (4) UTI (urinary tract infection): Qualifiers: Encounter type: sequela Indwelling urinary catheter type: indwelling urethral catheter Urinary tract infection type: catheter-associated UTI Qualified Code(s): T83.511S - Infection and inflammatory reaction due to indwelling urethral catheter, sequela; N39.0 - Urinary tract infection, site not specified Code(s): N39.0 - Urinary tract infection, site not specified Status: Acute Assessment and Plan: UA concerning for complicated UTI. UCx growing Enterococcus. She has chronic indwelling Baltazar catheter which was exchanged this admission. Completed nitrofurantoin. (5) Chronic anemia: Code(s): D64.9 - Anemia, unspecified Status: Chronic Assessment and Plan: Hemoglobin 10.2 on admission. Iron 15 with TIBC 248 and TSat 6%. Ferritin 28 consistent with at least a component of iron deficiency. B12/folate normal. Hgb shas drifted down to 8.8 today. Dilution related? Continue iron. Follow HH. (6) Esophageal stricture: Code(s): K22.2 - Esophageal obstruction Status: Acute Assessment and Plan: EGD on 12/02/2020 showing mid esophageal severe stricture; the stomach was not able to be visualized. There is concern about dilating the esophagus. There are ulcers noted at the site of the stricture. Only partial obstruction since patient able to vomit up tube feeding. Continue Protonix indefinitely. No plans for repeat EGD at this time. (7) History of pulmonary embolism: Code(s): Z86.711 - Personal history of pulmonary embolism Status: Chronic Assessment and Pl
[2020-12-19] MEDS: ACETAMINOPHEN ELIXIR 325 MG/10.15 ML UDC 650 MG FEED TUBE (17:56)
[2020-12-19 18:10] LABS: Glucose Point of Care 191 mg/dl (65-105)
[2020-12-19 20:04] VITALS: BP 126/77; PULSE 92; RESP 22; TEMP 36; O2SAT 99
[2020-12-19] MEDS: DONEPEZIL HCL 10 MG TABLET FEED TUBE (21:20)
[2020-12-19] MEDS: INSULIN GLARGINE (*BKC) 100 UNITS/ML 10 UNITS SUB-Q (21:36)
[2020-12-19 22:03] LABS: Glucose Point of Care 194 mg/dl (65-105)
[2020-12-19 23:47] LABS: Glucose Point of Care 205 mg/dl (65-105)
[2020-12-20 04:40] VITALS: BP 119/77; PULSE 95; RESP 20; TEMP 37.1; O2SAT 98
[2020-12-20] MEDS: metroNIDAZOLE 500 MG/ISO 100ML 500 MG/100 ML BAG 100 MG IVPB ×3 (05:17→17:27)
[2020-12-20 05:46] LABS: Glucose Point of Care 199 mg/dl (65-105)
[2020-12-20 06:08] LABS: Albumin Level 2.6 g/dL (3.5-5.1); Anion Gap 8 mmol/L (8-16); Blood Urea Nitrogen 6 mg/dL (7-17); Calcium 8.3 mg/dL (8.4-10.2); Carbon Dioxide 22 mmol/L (22-30); Chloride 109 mmol/L (98-107); Estimated CRCL calculation 209 ml/min; Estimated Glomerular Filt Rate > 60; Glucose 222 mg/dL (65-105); Magnesium 1.8 mg/dL (1.6-2.3); Phosphorus 3.3 mg/dL (2.5-4.5); Potassium 3.7 mmol/L (3.4-5.0); Sodium 139 mmol/L (137-145)
[2020-12-20 06:30] LABS: Basophils Percent Auto 0.4 % (0.2-1.2); Eosinophils Absolute Auto 0.1 K/mm3 (0-0.3); Hematocrit 34.6 % (37.0-47.0); Hemoglobin 10.6 g/dL (12.0-15.0); Immature Granulocyte Absolute 0.16 K/mm3 (0.00-0.031); Immature Granulocyte Percent A 1.5 % (0-0.5); Lymphocytes Absolute Auto 1.66 K/mm3 (0.9-3.2); Lymphocytes Percent Auto 15.8 % (18.3-44.2); Mean Corpuscular HGB Conc 30.6 g/dl (32-36); Mean Corpuscular Hemoglobin 24.5 pg (26-34); Mean Corpuscular Volume 80.1 fl (80-100); Monocytes Absolute Auto 0.6 K/mm3 (0.1-0.6); Monocytes Percent Auto 5.7 % (2.6-8.5); Neutrophils Absolute Auto 7.9 K/mm3 (1.3-6.7); Neutrophils Percent Auto 75.6 % (45.5-73.1); Platelet Count Result 621 k/mm3 (150-375); Red Blood Count 4.32 M/mm3 (4.2-5.4); Red Cell Distribution Width 21.3 % (11.5-14.5); White Blood Count 10.5 K/mm3 (4.5-10.0)
[2020-12-20] MEDS: MUPIROCIN 2% OINT 22 GM TUBE 1 APPLIC TOPICAL ×3 (08:40→17:27)
[2020-12-20] MEDS: GENTAMICIN SULFATE 0.1% OINT 15 GM TUBE 1 APPLIC TOPICAL (08:40)
[2020-12-20] MEDS: FERROUS SULFATE LIQUID 325 MG/7.4 ML ELIXIR FEED TUBE ×2 (08:40→17:27)
[2020-12-20] MEDS: FOLIC ACID 1 MG TABLET FEED TUBE (08:40)
[2020-12-20] MEDS: COLLAGENASE OINT 30 GM TUBE 1 APPLIC TOPICAL (08:40)
[2020-12-20] MEDS: PANTOPRAZOLE SODIUM IV 40 MG VIAL IV PUSH ×2 (08:40→20:24)
[2020-12-20] MEDS: TOLNAFTATE 1% POWDER 45 GM BTL 1 APPLIC TOPICAL ×2 (08:40→20:24)
[2020-12-20] MEDS: INSULIN GLARGINE (*BKC) 100 UNITS/ML 10 UNITS SUB-Q (08:41)
--- NOTE | 2020-12-20 11:30 | PCNFU ---
Nutrition Follow-Up Complete: Increased protein/calorie needs related to increased demands for wound healing as evidenced by unhealed stage III pressure ulcer. Goal: Patient to meet estimated nutritional needs. Patient is progressing towards goal. We will continue current goal. Pt current nutrition is Glucerna 1.2 at 75 ml/hr Last recorded weight is 91.4 kg, up from 80.1 kg on admit. Bowel Motility: +BM reported 12/20 Labs Reviewed:Alb 2.6,Glu 222,Hgb 10.6,Hct 34.6 Meds Noted:Vit B12, Folic Acid, Reglan,Lantus, NovoLog, Protonix, Flagyl, Aricept. Additional Notes: Patient seen today for nutrition follow up. Patient is currently at goal rate 75 ml/hr of Glucerna 1.2 and tolerating. Current tube feeding is providing patient with 1980 kcals and 99 gms protein. Wounds noted: stage 3 PU buttock. Agree with diet orders. Cholecystostomy tube placed 12/16/20. Monitoring: Follow up every Saturday/Saturday.
[2020-12-20 11:39] LABS: Glucose Point of Care 233 mg/dl (65-105)
--- NOTE | 2020-12-20 12:12 | PM.IMPN ---
Progress Note: A&P Assessment and Plan (1) Acute cholecystitis: Code(s): K81.0 - Acute cholecystitis Status: Acute Assessment and Plan: Patient with persistent emesis and now abdominal pain. She had normal appearing GB in September but noted to be distended GB 12/01/20 and 12/07/20 (which could be seen in the fasting state). Repeat CT 12/14 showing new onset of gallbladder distention and pericholecystic fat stranding with mild ascites. RUQ US consistent with acute cholecystitis as well. Lipase and LFTs okay. GenSurg consulted and cholecystostomy tube placed 12/16/20. GB culture Negative. Okay for discharge but was informed by case management that family is appealing the discharge. Will continue Flagyl and Rocephin. Appreciate GenSurg input. (2) Hematemesis: Qualifiers: Nausea presence: unspecified Qualified Code(s): K92.0 - Hematemesis Code(s): K92.0 - Hematemesis Status: Acute Assessment and Plan: Last admission showed mid-esophageal ulcers near the stricture. It was felt this was the source of the bleeding last time. Suspect this would have been more red blood then coffee-ground so suspect ulcer or gastritis (stomach was not visualized last admission due to the stricture) She was discharged home on Pepcid (Xarelto and omeprazole were continued). Patient sent back to the ED for coffee-ground emesis. No plans to repeat EGD this admission. Plan to hold Eliquis for at lest 1 week but has been held >7 days now so okay to resume when okay with others. Was still having emesis which may be related to the GB as above. She has GTube that extends into the jejunum. Reglan added due to the persistent emesis but held since NPO. Cholecystostomy tube placed. TF started and she is tolerating. Continue PPI. Continue to hold Reglan and use if needed. (3) Aspiration pneumonia: Qualifiers: Aspiration pneumonia type: unspecified Laterality: unspecified laterality Lung location: unspecified part of lung Qualified Code(s): J69.0 - Pneumonitis due to inhalation of food and vomit Code(s): J69.0 - Pneumonitis due to inhalation of food and vomit Status: Acute Assessment and Plan: Concern for aspiration PNA after her last episode of emesis. CXR 5/31 showing mild airspace opacities in the perihilar regions. No fevers or hypoxia. WBC was 26K felt related to acute cholecystitis. WBC improved. Continue Flagyl and Rocephin. (4) UTI (urinary tract infection): Qualifiers: Encounter type: sequela Indwelling urinary catheter type: indwelling urethral catheter Urinary tract infection type: catheter-associated UTI Qualified Code(s): T83.511S - Infection and inflammatory reaction due to indwelling urethral catheter, sequela; N39.0 - Urinary tract infection, site not specified Code(s): N39.0 - Urinary tract infection, site not specified Status: Acute Assessment and Plan: UA concerning for complicated UTI. UCx growing Enterococcus. She has chronic indwelling Baltazar catheter which was exchanged this admission. Completed nitrofurantoin. (5) Chronic anemia: Code(s): D64.9 - Anemia, unspecified Status: Chronic Assessment and Plan: Hemoglobin 10.2 on admission. Iron 15 with TIBC 248 and TSat 6%. Ferritin 28 consistent with at least a component of iron deficiency. B12/folate normal. Hgb drifted down to 8.8 but better at 10.6 today. Continue iron. Follow HH. (6) Esophageal stricture: Code(s): K22.2 - Esophageal obstruction Status: Acute Assessment and Plan: EGD on 12/02/2020 showing mid esophageal severe stricture; the stomach was not able to be visualized. There is concern about dilating the esophagus. There are ulcers noted at the site of the stricture. Only partial obstruction since patient able to vomit up tube feeding. Continue Protonix indefinitely. No plans for repeat EGD at this time.
[2020-12-20] MEDS: INSULIN ASPART (*BKC) 100 UNITS/ML SUB-Q (12:41)
[2020-12-20 14:00] VITALS: BP 127/80; PULSE 99; RESP 20; TEMP 36.4; O2SAT 100
[2020-12-20] MEDS: APIXABAN 5 MG TABLET FEED TUBE (17:27)
[2020-12-20 17:31] LABS: Glucose Point of Care 181 mg/dl (65-105)
[2020-12-20] MEDS: DONEPEZIL HCL 10 MG TABLET FEED TUBE (20:24)
[2020-12-20] MEDS: ACETAMINOPHEN ELIXIR 325 MG/10.15 ML UDC 650 MG FEED TUBE (20:24)
[2020-12-20] MEDS: INSULIN GLARGINE (*BKC) 100 UNITS/ML 15 UNITS SUB-Q (20:25)
[2020-12-20 20:36] VITALS: BP 132/79; PULSE 96; RESP 16; TEMP 36.6; O2SAT 99
[2020-12-20 21:13] LABS: Glucose Point of Care 197 mg/dl (65-105)
[2020-12-21] MEDS: metroNIDAZOLE 500 MG/ISO 100ML 500 MG/100 ML BAG 100 MG IVPB ×2 (00:07→05:43)
[2020-12-21 00:12] LABS: Glucose Point of Care 173 mg/dl (65-105)
[2020-12-21 05:34] VITALS: BP 156/88; PULSE 97; RESP 16; TEMP 36.1; O2SAT 100
[2020-12-21 05:58] LABS: Hematocrit 32.2 % (37.0-47.0); Hemoglobin 9.7 g/dL (12.0-15.0); Mean Corpuscular HGB Conc 30.1 g/dl (32-36); Mean Corpuscular Hemoglobin 24.7 pg (26-34); Mean Corpuscular Volume 81.9 fl (80-100); Mean Platelet Volume 9.9 fl (7.4-10.4); Platelet Count Result 468 k/mm3 (150-375); Red Blood Count 3.93 M/mm3 (4.2-5.4); White Blood Count 8.4 K/mm3 (4.5-10.0)
[2020-12-21 06:00] LABS: Anion Gap 8 mmol/L (8-16); Blood Urea Nitrogen 7 mg/dL (7-17); Calcium 8.2 mg/dL (8.4-10.2); Carbon Dioxide 24 mmol/L (22-30); Chloride 107 mmol/L (98-107); Estimated CRCL calculation 220 ml/min; Estimated Glomerular Filt Rate > 60; Glucose 213 mg/dL (65-105); Potassium 3.5 mmol/L (3.4-5.0); Sodium 139 mmol/L (137-145)
[2020-12-21 06:00] LABS: Glucose Point of Care 191 mg/dl (65-105)
[2020-12-21] MEDS: FERROUS SULFATE LIQUID 325 MG/7.4 ML ELIXIR FEED TUBE ×2 (08:27→17:55)
[2020-12-21] MEDS: FOLIC ACID 1 MG TABLET FEED TUBE (08:27)
[2020-12-21] MEDS: APIXABAN 5 MG TABLET FEED TUBE ×2 (08:27→17:55)
[2020-12-21] MEDS: COLLAGENASE OINT 30 GM TUBE 1 APPLIC TOPICAL (08:27)
[2020-12-21] MEDS: MUPIROCIN 2% OINT 22 GM TUBE 1 APPLIC TOPICAL ×3 (08:28→17:55)
[2020-12-21] MEDS: GENTAMICIN SULFATE 0.1% OINT 15 GM TUBE 1 APPLIC TOPICAL (08:28)
[2020-12-21] MEDS: INSULIN GLARGINE (*BKC) 100 UNITS/ML 15 UNITS SUB-Q ×2 (08:28→20:22)
[2020-12-21] MEDS: PANTOPRAZOLE SODIUM IV 40 MG VIAL IV PUSH (08:29)
[2020-12-21] MEDS: TOLNAFTATE 1% POWDER 45 GM BTL 1 APPLIC TOPICAL ×2 (08:29→20:22)
[2020-12-21] MEDS: ACETAMINOPHEN ELIXIR 325 MG/10.15 ML UDC 650 MG FEED TUBE (09:10)
[2020-12-21 11:50] LABS: Glucose Point of Care 196 mg/dl (65-105)
[2020-12-21] MEDS: metroNIDAZOLE 250 MG TABLET 500 MG FEED TUBE ×2 (14:06→17:56)
--- NOTE | 2020-12-21 14:10 | PM.IMPN ---
Progress Note: A&P Assessment and Plan (1) Acute cholecystitis: Code(s): K81.0 - Acute cholecystitis Status: Acute Assessment and Plan: Patient with persistent emesis and now abdominal pain. She had normal appearing GB in September but noted to be distended GB 12/01/20 and 12/07/20 (which could be seen in the fasting state). Repeat CT 12/14 showing new onset of gallbladder distention and pericholecystic fat stranding with mild ascites. RUQ US consistent with acute cholecystitis as well. Lipase and LFTs okay. GenSurg consulted and cholecystostomy tube placed 12/16/20. GB culture Negative. Family has appealed the discharge but still okay for discharge. Will continue abx as detailed below. Appreciate GenSurg input. (2) Hematemesis: Qualifiers: Nausea presence: unspecified Qualified Code(s): K92.0 - Hematemesis Code(s): K92.0 - Hematemesis Status: Acute Assessment and Plan: Last admission showed mid-esophageal ulcers near the stricture. It was felt this was the source of the bleeding last time. Suspect this would have been more red blood then coffee-ground so suspect ulcer or gastritis (stomach was not visualized last admission due to the stricture) She was discharged home on Pepcid (Xarelto and omeprazole were continued). Patient sent back to the ED for coffee-ground emesis. No plans to repeat EGD this admission. We held Eliquis since admission but now okay to resume. Was still having emesis which may be related to the GB as above. She has GTube that extends into the jejunum. Reglan added due to the persistent emesis but held since NPO and now toelrating TF without it. Cholecystostomy tube placed. TF at goal. Continue PPI. Continue to hold Reglan and use if needed. (3) Aspiration pneumonia: Qualifiers: Aspiration pneumonia type: unspecified Laterality: unspecified laterality Lung location: unspecified part of lung Qualified Code(s): J69.0 - Pneumonitis due to inhalation of food and vomit Code(s): J69.0 - Pneumonitis due to inhalation of food and vomit Status: Acute Assessment and Plan: Concern for aspiration PNA after her last episode of emesis. CXR 12/12 showing mild airspace opacities in the perihilar regions. No fevers or hypoxia. WBC was 26K felt related to acute cholecystitis +/- PNA. WBC normal now. Rocephin Day 9 - IV lost so barbara give one dose of Levaquin to complete 10 day course. Continue Flagyl Day 7. (4) UTI (urinary tract infection): Qualifiers: Encounter type: sequela Indwelling urinary catheter type: indwelling urethral catheter Urinary tract infection type: catheter-associated UTI Qualified Code(s): T83.511S - Infection and inflammatory reaction due to indwelling urethral catheter, sequela; N39.0 - Urinary tract infection, site not specified Code(s): N39.0 - Urinary tract infection, site not specified Status: Acute Assessment and Plan: UA concerning for complicated UTI. UCx growing Enterococcus. She has chronic indwelling Baltazar catheter which was exchanged this admission. Completed nitrofurantoin. (5) Chronic anemia: Code(s): D64.9 - Anemia, unspecified Status: Chronic Assessment and Plan: Hemoglobin 10.2 on admission. Iron 15 with TIBC 248 and TSat 6%. Ferritin 28 consistent with at least a component of iron deficiency. B12/folate normal. Hgb mostly in the 9-10 range. Continue iron. Follow HH. (6) Esophageal stricture: Code(s): K22.2 - Esophageal obstruction Status: Acute Assessment and Plan: EGD on 12/02/2020 showing mid esophageal severe stricture; the stomach was not able to be visualized. There is concern about dilating the esophagus. There are ulcers noted at the site of the stricture. Only partial obstruction since patient able to vomit up tube feeding. Continue PPI indefinitely. No plans for repeat EGD at this time. (7) Histo
[2020-12-21 15:27] VITALS: BP 130/73; PULSE 95; RESP 20; TEMP 36.6; O2SAT 100
[2020-12-21 17:17] LABS: Glucose Point of Care 173 mg/dl (65-105)
[2020-12-21] MEDS: LANSOPRAZOLE ORAL SUSP 30 MG/10 ML ORAL.SUSP FEED TUBE (17:55)
[2020-12-21 20:06] VITALS: BP 119/71; PULSE 99; RESP 16; TEMP 36.4; O2SAT 100
[2020-12-21] MEDS: DONEPEZIL HCL 10 MG TABLET FEED TUBE (20:22)
[2020-12-21 20:42] LABS: Glucose Point of Care 164 mg/dl (65-105)
[2020-12-21 23:24] LABS: Glucose Point of Care 169 mg/dl (65-105)
[2020-12-22] MEDS: ACETAMINOPHEN ELIXIR 325 MG/10.15 ML UDC 650 MG FEED TUBE ×2 (00:02→20:02)
[2020-12-22] MEDS: metroNIDAZOLE 250 MG TABLET 500 MG FEED TUBE ×5 (00:02→23:08)
[2020-12-22] MEDS: INSULIN ASPART (*BKC) 100 UNITS/ML SUB-Q (05:56)
[2020-12-22 05:59] LABS: Glucose Point of Care 217 mg/dl (65-105)
[2020-12-22] MEDS: INSULIN GLARGINE (*BKC) 100 UNITS/ML 15 UNITS SUB-Q (09:58)
[2020-12-22] MEDS: FERROUS SULFATE LIQUID 325 MG/7.4 ML ELIXIR FEED TUBE ×2 (09:59→17:26)
[2020-12-22] MEDS: LANSOPRAZOLE ORAL SUSP 30 MG/10 ML ORAL.SUSP FEED TUBE ×2 (09:59→17:26)
[2020-12-22] MEDS: FOLIC ACID 1 MG TABLET FEED TUBE (09:59)
[2020-12-22] MEDS: APIXABAN 5 MG TABLET FEED TUBE ×2 (09:59→17:26)
[2020-12-22] MEDS: COLLAGENASE OINT 30 GM TUBE 1 APPLIC TOPICAL (09:59)
[2020-12-22] MEDS: TOLNAFTATE 1% POWDER 45 GM BTL 1 APPLIC TOPICAL ×2 (09:59→20:04)
[2020-12-22] MEDS: MUPIROCIN 2% OINT 22 GM TUBE 1 APPLIC TOPICAL ×3 (09:59→17:26)
[2020-12-22] MEDS: GENTAMICIN SULFATE 0.1% OINT 15 GM TUBE 1 APPLIC TOPICAL (09:59)
[2020-12-22 12:20] LABS: Glucose Point of Care 149 mg/dl (65-105)
[2020-12-22 14:00] VITALS: BP 109/55; PULSE 96; RESP 16; TEMP 36.1; O2SAT 99
--- NOTE | 2020-12-22 14:33 | PM.IMPN ---
Progress Note: A&P Assessment and Plan (1) Acute cholecystitis: Code(s): K81.0 - Acute cholecystitis Status: Acute Assessment and Plan: Patient with persistent emesis and now abdominal pain. She had normal appearing GB in September but noted to be distended GB 12/01/20 and 12/07/20 (which could be seen in the fasting state). Repeat CT 12/14 showing new onset of gallbladder distention and pericholecystic fat stranding with mild ascites. RUQ US consistent with acute cholecystitis as well. Lipase and LFTs okay. GenSurg consulted and cholecystostomy tube placed 12/16/20. GB culture Negative. Family has appealed the discharge but still okay for discharg. Will continue abx as detailed below. Appreciate GenSurg input. (2) Hematemesis: Qualifiers: Nausea presence: unspecified Qualified Code(s): K92.0 - Hematemesis Code(s): K92.0 - Hematemesis Status: Acute Assessment and Plan: Last admission showed mid-esophageal ulcers near the stricture. It was felt this was the source of the bleeding last time. Suspect this would have been more red blood then coffee-ground so suspect ulcer or gastritis (stomach was not visualized last admission due to the stricture) She was discharged home on Pepcid (Xarelto and omeprazole were continued). Patient sent back to the ED for coffee-ground emesis. No plans to repeat EGD this admission. We held Eliquis since admission but now okay to resume. Was still having emesis which may be related to the GB as above. She has GTube that extends into the jejunum. Reglan added due to the persistent emesis but held since NPO and now tolerating TF without it. Cholecystostomy tube placed. TF at goal. Continue PPI. Continue to hold Reglan and use if needed. (3) Aspiration pneumonia: Qualifiers: Aspiration pneumonia type: unspecified Laterality: unspecified laterality Lung location: unspecified part of lung Qualified Code(s): J69.0 - Pneumonitis due to inhalation of food and vomit Code(s): J69.0 - Pneumonitis due to inhalation of food and vomit Status: Acute Assessment and Plan: Concern for aspiration PNA after her last episode of emesis. CXR 12/12 showing mild airspace opacities in the perihilar regions. No fevers or hypoxia. WBC was 26K felt related to acute cholecystitis +/- PNA. WBC normal now. Rocephin Day 9 - IV lost so she was give one dose of Levaquin to complete 10 day course. Continue Flagyl Day 8. (4) UTI (urinary tract infection): Qualifiers: Encounter type: sequela Indwelling urinary catheter type: indwelling urethral catheter Urinary tract infection type: catheter-associated UTI Qualified Code(s): T83.511S - Infection and inflammatory reaction due to indwelling urethral catheter, sequela; N39.0 - Urinary tract infection, site not specified Code(s): N39.0 - Urinary tract infection, site not specified Status: Acute Assessment and Plan: UA concerning for complicated UTI. UCx growing Enterococcus. She has chronic indwelling Baltazar catheter which was exchanged this admission. Completed nitrofurantoin. (5) Chronic anemia: Code(s): D64.9 - Anemia, unspecified Status: Chronic Assessment and Plan: Hemoglobin 10.2 on admission. Iron 15 with TIBC 248 and TSat 6%. Ferritin 28 consistent with at least a component of iron deficiency. B12/folate normal. Hgb mostly in the 9-10 range. Continue iron. (6) Esophageal stricture: Code(s): K22.2 - Esophageal obstruction Status: Acute Assessment and Plan: EGD on 12/02/2020 showing mid esophageal severe stricture; the stomach was not able to be visualized. There is concern about dilating the esophagus. There are ulcers noted at the site of the stricture. Only partial obstruction since patient able to vomit up tube feeding. Continue PPI indefinitely. No plans for repeat EGD at this time. (7) History of pulm
[2020-12-22 17:30] LABS: Glucose Point of Care 131 mg/dl (65-105)
[2020-12-22] MEDS: DONEPEZIL HCL 10 MG TABLET FEED TUBE (20:02)
[2020-12-22] MEDS: INSULIN GLARGINE (*BKC) 100 UNITS/ML 17 UNITS SUB-Q (20:15)
[2020-12-22 21:02] VITALS: BP 101/64; PULSE 99; RESP 18; TEMP 36.6; O2SAT 97
[2020-12-22 23:11] LABS: Glucose Point of Care 128 mg/dl (65-105)
[2020-12-23] MEDS: metroNIDAZOLE 250 MG TABLET 500 MG FEED TUBE ×3 (05:11→18:41)
[2020-12-23 05:18] VITALS: BP 109/65; PULSE 92; RESP 17; TEMP 36.6; O2SAT 97
[2020-12-23 05:20] LABS: Glucose Point of Care 122 mg/dl (65-105)
[2020-12-23 08:00] VITALS: BP 129/61; PULSE 96; RESP 16; TEMP 36; O2SAT 98
[2020-12-23] MEDS: FOLIC ACID 1 MG TABLET FEED TUBE (09:33)
[2020-12-23] MEDS: APIXABAN 5 MG TABLET FEED TUBE ×2 (09:33→18:41)
[2020-12-23] MEDS: FERROUS SULFATE LIQUID 325 MG/7.4 ML ELIXIR FEED TUBE ×2 (09:34→18:41)
[2020-12-23] MEDS: LANSOPRAZOLE ORAL SUSP 30 MG/10 ML ORAL.SUSP FEED TUBE ×2 (09:36→18:41)
[2020-12-23] MEDS: MUPIROCIN 2% OINT 22 GM TUBE 1 APPLIC TOPICAL ×3 (09:37→18:41)
[2020-12-23] MEDS: TOLNAFTATE 1% POWDER 45 GM BTL 1 APPLIC TOPICAL ×2 (09:39→20:45)
[2020-12-23] MEDS: INSULIN GLARGINE (*BKC) 100 UNITS/ML 17 UNITS SUB-Q ×2 (09:46→20:48)
[2020-12-23 12:06] LABS: Glucose Point of Care 151 mg/dl (65-105)
--- NOTE | 2020-12-23 12:33 | PCNFU ---
Nutrition Follow-Up Complete: Increased protein/calorie needs related to increased demands for wound healing as evidenced by unhealed stage III pressure ulcer. goal: Patient to meet estimated nutritional needs. Patient continues to progress towards goal.We will continue current goal. Pt current nutrition is Glucerna 1.2 at 75 ml/hr. Last recorded weight is 92.5 kg, up from 80.1 kg on admit. Bowel Motility:+BM reported 12/22 Labs Reviewed:no new labs to report. Meds Noted:Lantus, B12, Folic Acid, Aricept, Rocephin, Zofran, Flagyl. Additional Notes: Patient seen today for nutrition follow up. Wounds noted: stage 3 buttock. Current tube feedings of Glucerna 1.2 at 75 ml/hr are being tolerated per nursing, providing 1980 kcals and 99 gms protein. Agree with diet orders. Plans for patient to discharge on current tube feeding regimen. Monitoring: Follow up every Saturday/Saturday.
--- NOTE | 2020-12-23 13:14 | PC.NURSE ---
On 12/23/20, the student, [ Liliana Duron], provided care and completed [facility] documentation on this patient. I have reviewed the student's documentation and agree with the findings.
--- NOTE | 2020-12-23 13:18 | PM.IMPN ---
Progress Note: A&P Assessment and Plan (1) Acute cholecystitis: Code(s): K81.0 - Acute cholecystitis Status: Acute Assessment and Plan: Patient with persistent emesis and now abdominal pain. She had by CT a normal appearing GB in September but noted to be distended GB 12/01/20 and 12/07/20 (which could be seen in the fasting state). Repeat CT 12/14 showing new onset of gallbladder distention and pericholecystic fat stranding with mild ascites. RUQ US consistent with acute cholecystitis as well. Lipase and LFTs okay. GenSurg consulted and cholecystostomy tube placed 12/16/20. GB culture Negative. Family have lost the appeal but are doing a second appeal now. Still okay for discharge. Will continue abx as detailed below. Appreciate GenSurg input. (2) Hematemesis: Qualifiers: Nausea presence: unspecified Qualified Code(s): K92.0 - Hematemesis Code(s): K92.0 - Hematemesis Status: Acute Assessment and Plan: Last admission showed mid-esophageal ulcers near the stricture. It was felt this was the source of the bleeding last time. Suspect this would have been more red blood then coffee-ground so suspect ulcer or gastritis (stomach was not visualized last admission due to the stricture) She was discharged home on Pepcid (Xarelto and omeprazole were continued). Patient sent back to the ED for coffee-ground emesis. No plans to repeat EGD this admission. We held Eliquis since admission but now okay to resume (resumed 12/20). Was still having emesis which may be related to the GB as above. She has GTube that extends into the jejunum. Reglan added due to the persistent emesis but held and now tolerating TF without it. Cholecystostomy tube placed. TF at goal. Continue PPI. Continue to hold Reglan and use if needed. (3) Aspiration pneumonia: Qualifiers: Aspiration pneumonia type: unspecified Laterality: unspecified laterality Lung location: unspecified part of lung Qualified Code(s): J69.0 - Pneumonitis due to inhalation of food and vomit Code(s): J69.0 - Pneumonitis due to inhalation of food and vomit Status: Acute Assessment and Plan: Concern for aspiration PNA after her last episode of emesis. CXR 12/12 showing mild airspace opacities in the perihilar regions. No fevers or hypoxia. WBC was 26K felt related to acute cholecystitis +/- PNA. WBC normal now. Rocephin Day 9 - IV lost so she was give one dose of Levaquin to complete 10 day course. Continue Flagyl Day 9. (4) UTI (urinary tract infection): Qualifiers: Urinary tract infection type: catheter-associated UTI Indwelling urinary catheter type: indwelling urethral catheter Encounter type: sequela Qualified Code(s): T83.511S - Infection and inflammatory reaction due to indwelling urethral catheter, sequela; N39.0 - Urinary tract infection, site not specified Code(s): N39.0 - Urinary tract infection, site not specified Status: Acute Assessment and Plan: UA concerning for complicated UTI. UCx growing Enterococcus. She has chronic indwelling Baltazar catheter which was exchanged this admission. Completed nitrofurantoin. (5) Chronic anemia: Code(s): D64.9 - Anemia, unspecified Status: Chronic Assessment and Plan: Hemoglobin 10.2 on admission. Iron 15 with TIBC 248 and TSat 6%. Ferritin 28 consistent with at least a component of iron deficiency. B12/folate normal. Hgb mostly in the 9-10 range. Continue iron. (6) Esophageal stricture: Code(s): K22.2 - Esophageal obstruction Status: Acute Assessment and Plan: EGD on 12/02/2020 showing mid esophageal severe stricture; the stomach was not able to be visualized. There is concern about dilating the esophagus. There are ulcers noted at the site of the stricture. Only partial obstruction since patient able to vomit up tube feeding. Continue PPI indefinitely. No plans for repeat EGD at
[2020-12-23] MEDS: COLLAGENASE OINT 30 GM TUBE 1 APPLIC TOPICAL (13:45)
[2020-12-23] MEDS: GENTAMICIN SULFATE 0.1% OINT 15 GM TUBE 1 APPLIC TOPICAL (13:45)
[2020-12-23 14:04] VITALS: BP 118/64; PULSE 95; RESP 16; TEMP 35.9; O2SAT 99
[2020-12-23 18:52] LABS: Glucose Point of Care 133 mg/dl (65-105)
[2020-12-23 20:00] VITALS: PULSE 93; RESP 16; O2SAT 99
[2020-12-23] MEDS: DONEPEZIL HCL 10 MG TABLET FEED TUBE (20:45)
[2020-12-23 21:19] VITALS: BP 116/71; PULSE 93; RESP 16; TEMP 36.5; O2SAT 99
[2020-12-23 21:21] LABS: Glucose Point of Care 157 mg/dl (65-105)
[2020-12-24 03:04] LABS: Glucose Point of Care 140 mg/dl (65-105)
[2020-12-24 05:01] VITALS: BP 112/62; PULSE 96; RESP 17; TEMP 36.6; O2SAT 100
[2020-12-24] MEDS: metroNIDAZOLE 250 MG TABLET 500 MG FEED TUBE ×4 (05:41→17:33)
[2020-12-24 05:51] LABS: Glucose Point of Care 154 mg/dl (65-105)
[2020-12-24 06:41] LABS: Hematocrit 30.8 % (37.0-47.0); Hemoglobin 9.2 g/dL (12.0-15.0); Mean Corpuscular HGB Conc 29.9 g/dl (32-36); Mean Corpuscular Hemoglobin 23.8 pg (26-34); Mean Corpuscular Volume 79.8 fl (80-100); Mean Platelet Volume 10.3 fl (7.4-10.4); Platelet Count Result 320 k/mm3 (150-375); Red Blood Count 3.86 M/mm3 (4.2-5.4); White Blood Count 7.7 K/mm3 (4.5-10.0)
[2020-12-24 06:57] LABS: Anion Gap 4 mmol/L (8-16); Blood Urea Nitrogen 8 mg/dL (7-17); Calcium 8.5 mg/dL (8.4-10.2); Carbon Dioxide 29 mmol/L (22-30); Chloride 104 mmol/L (98-107); Estimated CRCL calculation 150 ml/min; Estimated Glomerular Filt Rate > 60; Glucose 155 mg/dL (65-105); Potassium 4.1 mmol/L (3.4-5.0); Sodium 137 mmol/L (137-145)
[2020-12-24] MEDS: APIXABAN 5 MG TABLET FEED TUBE ×2 (08:56→17:33)
[2020-12-24] MEDS: TOLNAFTATE 1% POWDER 45 GM BTL 1 APPLIC TOPICAL ×2 (08:56→20:03)
[2020-12-24] MEDS: FERROUS SULFATE LIQUID 325 MG/7.4 ML ELIXIR FEED TUBE ×2 (08:56→17:33)
[2020-12-24] MEDS: GENTAMICIN SULFATE 0.1% OINT 15 GM TUBE 1 APPLIC TOPICAL (08:56)
[2020-12-24] MEDS: MUPIROCIN 2% OINT 22 GM TUBE 1 APPLIC TOPICAL ×3 (08:56→17:33)
[2020-12-24] MEDS: COLLAGENASE OINT 30 GM TUBE 1 APPLIC TOPICAL (08:56)
[2020-12-24] MEDS: FOLIC ACID 1 MG TABLET FEED TUBE (08:56)
[2020-12-24] MEDS: LANSOPRAZOLE ORAL SUSP 30 MG/10 ML ORAL.SUSP FEED TUBE ×2 (08:58→17:33)
[2020-12-24] MEDS: INSULIN GLARGINE (*BKC) 100 UNITS/ML 17 UNITS SUB-Q ×2 (09:00→20:04)
[2020-12-24] MEDS: ACETAMINOPHEN ELIXIR 325 MG/10.15 ML UDC 650 MG FEED TUBE (12:15)
[2020-12-24 12:17] LABS: Glucose Point of Care 139 mg/dl (65-105)
--- NOTE | 2020-12-24 13:17 | PM.IMPN ---
Progress Note: A&P Assessment and Plan (1) Pedal edema: Code(s): R60.0 - Localized edema Status: Acute Assessment and Plan: 12/24 d/w daughter at bedside this could be related to head being up more, volume load from TF. Monitor for s/sx volume overload, worsened edema. (2) Acute cholecystitis: Code(s): K81.0 - Acute cholecystitis Status: Acute Assessment and Plan: Patient with persistent emesis and now abdominal pain. She had by CT a normal appearing GB in September but noted to be distended GB 12/01/20 and 12/07/20 (which could be seen in the fasting state). Repeat CT 12/14 showing new onset of gallbladder distention and pericholecystic fat stranding with mild ascites. RUQ US consistent with acute cholecystitis as well. Lipase and LFTs okay. GenSurg consulted and cholecystostomy tube placed 12/16/20. GB culture Negative. Continue to provide care that patient requires, currently at the equivalent of nursing facility. (3) Hematemesis: Qualifiers: Nausea presence: unspecified Qualified Code(s): K92.0 - Hematemesis Code(s): K92.0 - Hematemesis Status: Acute Assessment and Plan: Last admission showed mid-esophageal ulcers near the stricture. It was felt this was the source of the bleeding last time. Suspect this would have been more red blood then coffee-ground so suspect ulcer or gastritis (stomach was not visualized last admission due to the stricture) She was discharged home on Pepcid (Xarelto and omeprazole were continued). Patient sent back to the ED for coffee-ground emesis. No plans to repeat EGD this admission. We held Eliquis since admission but now okay to resume (resumed 12/20). Was still having emesis which may be related to the GB as above. She has GTube that extends into the jejunum. Reglan added due to the persistent emesis but held and now tolerating TF without it. Cholecystostomy tube placed. TF at goal. Continue PPI. Continue to hold Reglan and use if needed. (4) Aspiration pneumonia: Qualifiers: Aspiration pneumonia type: unspecified Laterality: unspecified laterality Lung location: unspecified part of lung Qualified Code(s): J69.0 - Pneumonitis due to inhalation of food and vomit Code(s): J69.0 - Pneumonitis due to inhalation of food and vomit Status: Acute Assessment and Plan: Concern for aspiration PNA after her last episode of emesis. CXR 12/12 showing mild airspace opacities in the perihilar regions. No fevers or hypoxia. WBC was 26K felt related to acute cholecystitis +/- PNA. WBC normal now. Rocephin Day 9 - IV lost so she was give one dose of Levaquin to complete 10 day course. Continue Flagyl Day 10, d/c after 6/12 PM dose. (5) UTI (urinary tract infection): Qualifiers: Urinary tract infection type: catheter-associated UTI Indwelling urinary catheter type: indwelling urethral catheter Encounter type: sequela Qualified Code(s): T83.511S - Infection and inflammatory reaction due to indwelling urethral catheter, sequela; N39.0 - Urinary tract infection, site not specified Code(s): N39.0 - Urinary tract infection, site not specified Status: Acute Assessment and Plan: UA concerning for complicated UTI. UCx growing Enterococcus. She has chronic indwelling Baltazar catheter which was exchanged this admission. Completed nitrofurantoin. (6) Chronic anemia: Code(s): D64.9 - Anemia, unspecified Status: Chronic Assessment and Plan: Hemoglobin 10.2 on admission. Iron 15 with TIBC 248 and TSat 6%. Ferritin 28 consistent with at least a component of iron deficiency. B12/folate normal. Hgb mostly in the 9-10 range. Continue iron. (7) Esophageal stricture: Code(s): K22.2 - Esophageal obstruction Status: Acute Assessment and Plan: EGD on 12/02/2020 showing mid esophageal severe stricture; the stomach was not able to be visualized.
[2020-12-24 15:30] VITALS: BP 118/71; PULSE 89; RESP 18; TEMP 36.7; O2SAT 99
[2020-12-24 18:06] LABS: Glucose Point of Care 134 mg/dl (65-105)
[2020-12-24] MEDS: DONEPEZIL HCL 10 MG TABLET FEED TUBE (20:03)
[2020-12-24 20:15] VITALS: BP 118/67; PULSE 101; RESP 18; TEMP 36; O2SAT 99
[2020-12-24 20:49] LABS: Glucose Point of Care 141 mg/dl (65-105)
[2020-12-25 00:49] LABS: Glucose Point of Care 140 mg/dl (65-105)
[2020-12-25 05:45] LABS: Glucose Point of Care 139 mg/dl (65-105)
[2020-12-25 06:23] VITALS: BP 145/83; PULSE 91; RESP 18; TEMP 36.2; O2SAT 97
[2020-12-25] MEDS: FERROUS SULFATE LIQUID 325 MG/7.4 ML ELIXIR FEED TUBE ×2 (08:17→18:01)
[2020-12-25] MEDS: FOLIC ACID 1 MG TABLET FEED TUBE (08:17)
[2020-12-25] MEDS: COLLAGENASE OINT 30 GM TUBE 1 APPLIC TOPICAL (08:17)
[2020-12-25] MEDS: GENTAMICIN SULFATE 0.1% OINT 15 GM TUBE 1 APPLIC TOPICAL (08:17)
[2020-12-25] MEDS: MICONAZOLE NITRATE 2% CREAM 30 GM TUBE 1 APPLIC TOPICAL ×2 (08:17→20:46)
[2020-12-25] MEDS: MUPIROCIN 2% OINT 22 GM TUBE 1 APPLIC TOPICAL ×3 (08:17→18:02)
[2020-12-25] MEDS: APIXABAN 5 MG TABLET FEED TUBE ×2 (08:17→18:02)
[2020-12-25] MEDS: LANSOPRAZOLE ORAL SUSP 30 MG/10 ML ORAL.SUSP FEED TUBE ×2 (08:18→18:02)
[2020-12-25] MEDS: ACETAMINOPHEN ELIXIR 325 MG/10.15 ML UDC 650 MG FEED TUBE (08:22)
[2020-12-25] MEDS: TOLNAFTATE 1% POWDER 45 GM BTL 1 APPLIC TOPICAL ×2 (08:37→20:46)
[2020-12-25] MEDS: INSULIN GLARGINE (*BKC) 100 UNITS/ML 17 UNITS SUB-Q ×2 (08:38→20:46)
[2020-12-25 12:31] LABS: Glucose Point of Care 144 mg/dl (65-105)
--- NOTE | 2020-12-25 13:24 | P.PNIM_ITS ---
Progress Note: A&P Assessment and Plan (1) Pedal edema: Code(s): R60.0 - Localized edema Status: Acute Assessment and Plan: 12/24 d/w daughter at bedside this could be related to head being up more, volume load from TF. 12/25 clinically stable Monitor for s/sx volume overload, worsened edema. (2) Acute cholecystitis: Code(s): K81.0 - Acute cholecystitis Status: Acute Assessment and Plan: Patient with persistent emesis and now abdominal pain. She had by CT a normal appearing GB in September but noted to be distended GB 12/01/20 and 12/07/20 (which could be seen in the fasting state). Repeat CT 12/14 showing new onset of gallbladder distention and pericholecystic fat stranding with mild ascites. RUQ US consistent with acute cholecystitis as well. Lipase and LFTs okay. GenSurg consulted and cholecystostomy tube placed 12/16/20. GB culture Negative. Continue to provide care that patient requires, currently at the equivalent of nursing facility. (3) Hematemesis: Qualifiers: Nausea presence: unspecified Qualified Code(s): K92.0 - Hematemesis Code(s): K92.0 - Hematemesis Status: Acute Assessment and Plan: Last admission showed mid-esophageal ulcers near the stricture. It was felt this was the source of the bleeding last time. Suspect this would have been more red blood then coffee-ground so suspect ulcer or gastritis (stomach was not visualized last admission due to the stricture) She was discharged home on Pepcid (Xarelto and omeprazole were continued). Patient sent back to the ED for coffee-ground emesis. No plans to repeat EGD this admission. We held Eliquis since admission but now okay to resume (resumed 12/20). Was still having emesis which may be related to the GB as above. She has GTube that extends into the jejunum. Reglan added due to the persistent emesis but held and now tolerating TF without it. Cholecystostomy tube placed. TF at goal. Continue PPI. Continue to hold Reglan and use if needed. (4) Aspiration pneumonia: Qualifiers: Aspiration pneumonia type: unspecified Laterality: unspecified laterality Lung location: unspecified part of lung Qualified Code(s): J69.0 - Pneumonitis due to inhalation of food and vomit Code(s): J69.0 - Pneumonitis due to inhalation of food and vomit Status: Acute Assessment and Plan: Concern for aspiration PNA after her last episode of emesis. CXR 12/12 showing mild airspace opacities in the perihilar regions. No fevers or hypoxia. WBC was 26K felt related to acute cholecystitis +/- PNA. WBC normal now. Rocephin Day 9 - IV lost so she was give one dose of Levaquin to complete 10 day course. Continued Flagyl 10 days &, d/c'ed after 6/12 PM dose. (5) UTI (urinary tract infection): Qualifiers: Urinary tract infection type: catheter-associated UTI Indwelling urina ry catheter type: indwelling urethral catheter Encounter type: sequela Qualified Code(s): T83.511S - Infection and inflammatory reaction due to indwelling urethral catheter, sequela; N39.0 - Urinary tract infection, site not specified Code(s): N39.0 - Urinary tract infection, site not specified Status: Acute Assessment and Plan: UA concerning for complicated UTI. UCx growing Enterococcus. She has chronic indwelling Baltazar catheter which was exchanged this admission. Completed nitrofurantoin. (6) Chronic anemia: Code(s): D64.9 - Anemia, unspecified Status: Chronic Assessment and Plan: Hemoglobin 10.2 on admission. Iron 15 with TIBC 248 and TSat 6%. Ferritin 28
[2020-12-25 16:00] VITALS: BP 126/75; PULSE 90; RESP 18; TEMP 36; O2SAT 97
[2020-12-25 18:18] LABS: Glucose Point of Care 136 mg/dl (65-105)
[2020-12-25] MEDS: DONEPEZIL HCL 10 MG TABLET FEED TUBE (20:46)
[2020-12-25 21:03] VITALS: BP 116/69; PULSE 97; RESP 20; TEMP 36.6; O2SAT 96
[2020-12-25 21:19] LABS: Glucose Point of Care 157 mg/dl (65-105)
[2020-12-26 00:15] LABS: Glucose Point of Care 156 mg/dl (65-105)
[2020-12-26 05:52] VITALS: BP 102/74; PULSE 85; RESP 18; TEMP 36.6; O2SAT 99
[2020-12-26 06:10] LABS: Hematocrit 32.5 % (37.0-47.0); Hemoglobin 9.8 g/dL (12.0-15.0); Mean Corpuscular HGB Conc 30.2 g/dl (32-36); Mean Corpuscular Hemoglobin 24.6 pg (26-34); Mean Corpuscular Volume 81.7 fl (80-100); Mean Platelet Volume 8.9 fl (7.4-10.4); Platelet Count Result 521 k/mm3 (150-375); Red Blood Count 3.98 M/mm3 (4.2-5.4); White Blood Count 8.9 K/mm3 (4.5-10.0)
[2020-12-26 06:20] LABS: Alanine Aminotransferase 15 U/L (4-35); Albumin Level 2.8 g/dL (3.5-5.1); Alkaline Phosphatase 126 U/L (38-126); Anion Gap 6 mmol/L (8-16); Aspartate Amino Transferase 24 U/L (14-36); Bilirubin,Total < 0.1 mg/dL (0.2-1.3); Blood Urea Nitrogen 7 mg/dL (7-17); Carbon Dioxide 31 mmol/L (22-30); Chloride 102 mmol/L (98-107); Estimated CRCL calculation 146 ml/min; Estimated Glomerular Filt Rate > 60; Glucose 172 mg/dL (65-105); Potassium 4.3 mmol/L (3.4-5.0); Sodium 139 mmol/L (137-145)
[2020-12-26 06:39] LABS: Glucose Point of Care 157 mg/dl (65-105)
[2020-12-26] MEDS: MICONAZOLE NITRATE 2% CREAM 30 GM TUBE 1 APPLIC TOPICAL ×2 (08:45→20:01)
[2020-12-26] MEDS: TOLNAFTATE 1% POWDER 45 GM BTL 1 APPLIC TOPICAL ×2 (08:45→20:01)
[2020-12-26] MEDS: COLLAGENASE OINT 30 GM TUBE 1 APPLIC TOPICAL (08:45)
[2020-12-26] MEDS: GENTAMICIN SULFATE 0.1% OINT 15 GM TUBE 1 APPLIC TOPICAL (08:46)
[2020-12-26] MEDS: MUPIROCIN 2% OINT 22 GM TUBE 1 APPLIC TOPICAL ×2 (08:46→16:46)
[2020-12-26] MEDS: APIXABAN 5 MG TABLET FEED TUBE ×2 (09:01→16:45)
[2020-12-26] MEDS: FOLIC ACID 1 MG TABLET FEED TUBE (09:01)
[2020-12-26] MEDS: FERROUS SULFATE LIQUID 325 MG/7.4 ML ELIXIR FEED TUBE ×2 (09:01→16:45)
[2020-12-26] MEDS: INSULIN GLARGINE (*BKC) 100 UNITS/ML 17 UNITS SUB-Q ×2 (09:06→20:01)
[2020-12-26] MEDS: LANSOPRAZOLE ORAL SUSP 30 MG/10 ML ORAL.SUSP FEED TUBE ×2 (09:06→16:45)
--- NOTE | 2020-12-26 10:26 | PM.IMPN ---
Progress Note: A&P Assessment and Plan (1) Pedal edema: Code(s): R60.0 - Localized edema Status: Acute Assessment and Plan: Minimal if any edema now. Follow (2) Acute cholecystitis: Code(s): K81.0 - Acute cholecystitis Status: Acute Assessment and Plan: Patient with persistent emesis and now abdominal pain. She had by CT a normal appearing GB in September but noted to be distended GB 12/01/20 and 12/07/20 (which could be seen in the fasting state). Repeat CT 12/14 showing new onset of gallbladder distention and pericholecystic fat stranding with mild ascites. RUQ US consistent with acute cholecystitis as well. Lipase and LFTs okay. GenSurg consulted and cholecystostomy tube placed 12/16/20. GB culture Negative. Continue to provide care that patient requires, currently at the equivalent of nursing facility. Family has appealed discharge. Discharge back to [place] when able. (3) Hematemesis: Qualifiers: Nausea presence: unspecified Qualified Code(s): K92.0 - Hematemesis Code(s): K92.0 - Hematemesis Status: Acute Assessment and Plan: Last admission showed mid-esophageal ulcers near the stricture. It was felt this was the source of the bleeding last time. Suspect this would have been more red blood then coffee-ground so suspect ulcer or gastritis (stomach was not visualized last admission due to the stricture) She was discharged home on Pepcid (Xarelto and omeprazole were continued). Patient sent back to the ED for coffee-ground emesis. No plans to repeat EGD this admission. We held Eliquis on admission but able to be resumed 12/20. Was still having emesis which may be related to the GB as above. She has GTube that extends into the jejunum. Reglan added due to the persistent emesis but held and now tolerating TF without it. Cholecystostomy tube placed. TF at goal and tolerating. Continue PPI. Continue to hold Reglan and use if needed. (4) Aspiration pneumonia: Qualifiers: Aspiration pneumonia type: unspecified Laterality: unspecified laterality Lung location: unspecified part of lung Qualified Code(s): J69.0 - Pneumonitis due to inhalation of food and vomit Code(s): J69.0 - Pneumonitis due to inhalation of food and vomit Status: Acute Assessment and Plan: Concern for aspiration PNA after her last episode of emesis. CXR 12/12 showing mild airspace opacities in the perihilar regions. No fevers or hypoxia. WBC was 26K felt related to acute cholecystitis +/- PNA. WBC normal now. Rocephin Day 9 - IV lost so she was give one dose of Levaquin to complete 10 day course. Continued Flagyl 10 days completed on 12/24. (5) UTI (urinary tract infection): Qualifiers: Urinary tract infection type: catheter-associated UTI Indwelling urinary catheter type: indwelling urethral catheter Encounter type: sequela Qualified Code(s): T83.511S - Infection and inflammatory reaction due to indwelling urethral catheter, sequela; N39.0 - Urinary tract infection, site not specified Code(s): N39.0 - Urinary tract infection, site not specified Status: Acute Assessment and Plan: UA concerning for complicated UTI. UCx growing Enterococcus. She has chronic indwelling Baltazar catheter which was exchanged this admission. Completed nitrofurantoin. (6) Chronic anemia: Code(s): D64.9 - Anemia, unspecified Status: Chronic Assessment and Plan: Hemoglobin 10.2 on admission. Iron 15 with TIBC 248 and TSat 6%. Ferritin 28 consistent with at least a component of iron deficiency. B12/folate normal. Hgb mostly in the 9-10 range. Continue iron. (7) Esophageal stricture: Code(s): K22.2 - Esophageal obstruction Status: Acute Assessment and Plan: EGD on 12/02/2020 showing mid esophageal severe stricture; the stomach was not able to be visualized. There is concern about dilating the esophagus.
[2020-12-26 12:09] LABS: Glucose Point of Care 158 mg/dl (65-105)
[2020-12-26 14:40] VITALS: BP 123/75; PULSE 95; RESP 16; TEMP 36.2; O2SAT 100
--- NOTE | 2020-12-26 16:43 | PM.DS ---
DS: Admitting Diagnosis Admitting Diagnosis Admitting Diagnosis: Coffee-ground emesis DS: Discharge Diagnosis Discharge Diagnosis (1) Acute cholecystitis: Code(s): K81.0 - Acute cholecystitis Status: Acute Assessment and Plan: Patient was having persistent emesis and developed abdominal pain. She had by Abdominal CT showing a normal appearing GB in September but noted to be distended GB 12/01/20 and 12/07/20 (which could be seen in the fasting state). Repeat CT Abdomen 12/14 showing new onset of gallbladder distention and pericholecystic fat stranding with mild ascites. RUQ US consistent with acute cholecystitis as well. Lipase and LFTs were okay. GenSurg consulted and cholecystostomy tube placed 12/16/20. GB culture Negative. (2) Hematemesis: Qualifiers: Nausea presence: unspecified Qualified Code(s): K92.0 - Hematemesis Code(s): K92.0 - Hematemesis Status: Acute Assessment and Plan: Last admission for hemetemesis, EGD showed mid-esophageal ulcers near the esophageal stricture. It was felt this was the source of the bleeding last time. Suspect this would have been more red blood then coffee-ground so suspect gastric ulcer or gastritis (stomach was not visualized last admission due to the stricture) She was discharged home on Pepcid (Xarelto and omeprazole were continued). Patient sent back to the ED for coffee-ground emesis this admission. No plans to repeat EGD this admission. We held Eliquis on admission but able to be resumed 12/20. Was still having emesis which may be related to the GB as above. She has GTube that extends into the jejunum. Reglan added due to the persistent emesis but held. Cholecystostomy tube placed. TF resumed and advanced slowly and she is now tolerating TF. TF at goal now. PPI continued (3) Aspiration pneumonia: Qualifiers: Aspiration pneumonia type: unspecified Laterality: unspecified laterality Lung location: unspecified part of lung Qualified Code(s): J69.0 - Pneumonitis due to inhalation of food and vomit Code(s): J69.0 - Pneumonitis due to inhalation of food and vomit Status: Acute Assessment and Plan: Concern for aspiration PNA after her last episode of emesis. CXR 12/12 showing mild airspace opacities in the perihilar regions. No fevers or hypoxia. WBC was 26K felt related to acute cholecystitis +/- PNA. WBC normal now. Rocephin Day 9 - IV lost so she was give one dose of Levaquin to complete 10 day course. Flagyl 10 days completed on 12/24. (4) UTI (urinary tract infection): Qualifiers: Encounter type: sequela Indwelling urinary catheter type: indwelling urethral catheter Urinary tract infection type: catheter-associated UTI Qualified Code(s): T83.511S - Infection and inflammatory reaction due to indwelling urethral catheter, sequela; N39.0 - Urinary tract infection, site not specified Code(s): N39.0 - Urinary tract infection, site not specified Status: Acute Assessment and Plan: UA concerning for complicated UTI. UCx growing Enterococcus. She has chronic indwelling Baltazar catheter which was exchanged this admission. Completed nitrofurantoin. (5) Acute on chronic blood loss anemia: Code(s): D62 - Acute posthemorrhagic anemia Status: Acute Assessment and Plan: Hemoglobin 10.2 on admission. Iron 15 with TIBC 248 and TSat 6%. Ferritin 28 consistent with at least a component of iron deficiency. B12/folate normal. Hgb dropped to 6.2 requiring 2 Units of PRBC on 12/08 felt related to the acute GI blood loss. Hgb climbed to 9.7 and remained stable mostly in the 9-10 range. Treated with iron. (6) Esophageal stricture: Code(s): K22.2 - Esophageal obstruction Status: Acute Assessment and Plan: EGD on 12/02/2020 showing mid esophageal severe stricture; the stomach was not able to be visualized. There is concern about dilating the es
[2020-12-26 19:30] VITALS: BP 110/80; PULSE 97; RESP 18; TEMP 35.9; O2SAT 96
[2020-12-26] MEDS: DONEPEZIL HCL 10 MG TABLET FEED TUBE (20:01)
[2020-12-26 20:33] LABS: Glucose Point of Care 163 mg/dl (65-105)
== END 2020-12-26 22:16 | DRG 698 ==
LOC: ANHED 08:10 → ANHIMU 08:21 → ANH3MED 12-10 17:36
PROVIDERS: Emergency Medicine; Internal Medicine; Nurse Practitioner; Admitting Provider Internal Medicine; Emergency Provider Emergency Medicine; PCP Family Medicine; Visit Provider Internal Medicine
DX: T83.511A Infection and inflammatory reaction due to indwelling urethral catheter, initial encounter (principal); A41.9 Sepsis, unspecified organism; L89.93 Pressure ulcer of unspecified site, stage 3; J18.9 Pneumonia, unspecified organism; J69.0 Pneumonitis due to inhalation of food and vomit; R65.20 Severe sepsis without septic shock; D62 Acute posthemorrhagic anemia; K22.10 Ulcer of esophagus without bleeding; K81.0 Acute cholecystitis; K92.0 Hematemesis; N39.0 Urinary tract infection, site not specified; D64.9 Anemia, unspecified; Z86.711 Personal history of pulmonary embolism; E11.9 Type 2 diabetes mellitus without complications; F03.90 Unspecified dementia, unspecified severity, without behavioral disturbance, psychotic disturbance, mood disturbance, and anxiety; Z79.4 Long term (current) use of insulin; Z93.1 Gastrostomy status
CPT/HCPCS: 36415; 36430; 47490; 71045; 74176; 76705; 80048; 80053; 80069; 80076; 80202; 81001; 82274; 82607; 82728; 82746; 82948; 83540; 83550; 83605; 83690; 83735; 84100; 84443; 85014; 85018; 85025; 85027; 85610; 85730; 86850; 86900; 86901; 86923; 87040; 87070; 87075; 87077; 87081; 87086; 87088; 87102; 87186; 87205; 87206; 94640; 96361; 96374; 96376; 97161; 97166; 97530; 99285; A9270; C9113; G0378; J0692; J0696; J1815; J1940; J2405; J3370; J3420; J3475; J3480; J7030; J7042; J7050; J7060; P9016

== ENCOUNTER 2020-12-30 14:16 | Inpatient (IN) | payer MEDICARE, MEDICAID, SELFPAY ==
[2020-12-30] VITALS (23 sets, daily range): BP systolic 125–147; BP diastolic 79–96; PULSE 85–132; RESP 18–29; TEMP 36.7–37.1; O2SAT 93–100; BMI 30.7
--- NOTE | ~2020-12-30 | CT_ITS ---
EXAMINATION: CT abdomen pelvis w con DATE: 12/30/2020 18:04 INDICATION: Coffee-ground emesis. Gallbladder drain, feeding tube, Baltazar catheter TECHNIQUE: Computed tomography (CT) of the abdomen and pelvis was performed with 100 cc Omnipaque 350 intravenous contrast. Automated exposure control and iterative reconstruction technique were employe d. Exam dose: 1136.35 mGy-cm total exam DLP. COMPARISON: 12/14/2020 CT abdomen pelvis noncontrast examination 12/15/2020 right upper quadrant abdominal ultrasound 12/07/2020 CT abdomen pelvis 11/19/2019 CT abdomen pelvis FINDINGS: Mild bilateral primarily dependent lower lobe atelectasis. Normal heart size. No pericardial or pleural effusion. Small sliding hiatal hernia. There is enhancement of the mucosa of the distal esophagus suggesting es ophagitis. Percutaneous gastrostomy catheter. The catheter extending from the gastric fundus of the distal duode num. There is a percutaneous pigtail catheter in the distended gallbladder lumen. There is mild gallbladde r wall thickening and there is pericholecystic fat stranding suggesting acute cholecystitis. No hepatic space-occupying mass lesion. There are multiple hypoattenuating splenic lesions which are present on prior examinations dating yohannes k to 11/19/2019, described as likely hemangiomas or granulomatous disease. No pancreatic mass lesion or calcification or ductal dilatation. Unremarkable adrenal glands. No renal mass lesion or urinary tract calculus or hydroureteronephrosis. Baltazar catheter and air in the relatively evacuated urinary bladder. Large right uterine fibroid. Normal caliber of the abdominal aorta. No intraperitoneal or retroperitoneal or pelvic mass lesion or adenopathy or ascites. Diverticulosis of the colon; no CT evidence of diverticulitis. No bowel obstruction, bowel wall thick ening, pneumatosis or intraperitoneal free air. No evidence of appendicitis. Grade 1 anterolisthesis at L5-S1 due to degenerative change at the apophyseal joints Severe degenerative disc disease at L5-S1 IMPRESSION: Percutaneous catheter in gallbladder; pericholecystic fat stranding suggesting cholecyst itis Percutaneous gastrostomy catheter Internal catheter from gastric fundus to distal duodenum Diverticulosis of the colon Large right uterine fibroid Reviewed, dictated and finalized at [facility] Reviewed, dictated and finalized at [facility]. IMPRESSION: Percutaneous catheter in gallbladder; pericholecystic fat strandin g suggesting cholecystitis Percutaneous gastrostomy catheter Internal catheter from gastric fundus to distal duodenum Diverticulosis of the colon Large right uterine fibroid
--- NOTE | 2020-12-30 14:37 | ED.GENADULT ---
HPI - General Adult General Chief complaint: Unspecified Stated complaint: coffee brown emesis Time Seen by Provider: 12/30/20 14:28 Source: family Mode of arrival: EMS Limitations: dementia History of Present Illness HPI narrative: 70-year-old with a history of dementia and nonverbal, presently living in a assisted was sent from assisted with complaints of cough with ground emesis since this morning. Daughter states that she was just discharged from the hospital had a drain put in gallbladder for cholecystitis. She also has a history of urinary tract infection and she was on antibiotic for that. However daughter does not recall whether as fever. Onset (ago): day(s) (1) Related Data Home Medications Medication Instructions Recorded Confirmed Eliquis 5 mg FEEDING TUBE BID 12/01/20 12/07/20 Santyl 1 applic TOPICAL DAILY 12/01/20 12/07/20 bisacodyl 10 mg RECTAL DAILY PRN 12/01/20 12/07/20 cyanocobalamin (vitamin B-12) 1,000 mcg IM MONTHLY 12/01/20 12/07/20 donepezil 10 mg FEEDING TUBE HS 12/01/20 12/07/20 folic acid 1 mg FEEDING TUBE DAILY 12/01/20 12/07/20 gentamicin 1 applic TOPICAL DAILY 12/01/20 12/07/20 loperamide [Anti-Diarrheal 2 mg FEEDING TUBE Q8H PRN 12/01/20 12/07/20 (loperamide)] magnesium hydroxide [Milk of 30 ml FEEDING TUBE HS PRN 12/01/20 12/07/20 Magnesia] metoclopramide HCl 5 mg FEEDING TUBE Q12H PRN 12/01/20 12/07/20 Allergies Allergy/AdvReac Type Severity Reaction Status Date / Time Penicillins Allergy Mild hives Verified 12/07/20 06:56 hydrocodone Allergy Unknown Unknown Verified 12/07/20 06:56 peanut Allergy Unknown Itching Verified 12/07/20 06:56 shellfish derived Allergy Unknown Unknown Verified 12/07/20 06:56 Review of Systems Review of Systems: ROS unobtainable: Yes unobtainable due to medical condition PMFSH Past Medical History Medical History Acute on chronic blood loss anemia Bilateral cataracts Bleeding ulcer Chronic anemia Coffee ground emesis Dementia with behavioral disturbance DVT (deep venous thrombosis) Erosive esophagitis Esophageal stricture Essential hypertension Gastroesophageal reflux disease History of bleeding peptic ulcer History of pulmonary embolism Insulin dependent type 2 diabetes mellitus Hemoglobin A1c was 6.9% on 04/19/2020. Lesion of spleen Surgical History Surgical History History of bilateral carpal tunnel release History of section X3 History of replacement of both shoulder joints Family History Family History Sibling Cerebrovascular accident Family history of diabetes mellitus in first degree relative Father Carcinoma of colon Family history of malignant neoplasm Mother Family history of diabetes mellitus in first degree relative Hypertension Family history of arthritis Family history of malignant neoplasm Family history of type 2 diabetes mellitus Stomach cancer Sibling Hypertension Hyperlipidemia Cancer Other Diabetes mellitus Family history of cardiovascular disease Family history of gout Family history of seizure disorder Social History Social History Social History: 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 Lifelong nonsmoker. No alcohol or illicit substance use. Healthcare power of employment attorney is her daughter, Paty Garrett. Full code. She had 3 children. She resides in a assisted. Smoking status: Never smoker Alcohol intake: never Substance use: never Substance use type: does not use Gender identity (if verbalized by the patient): Female Spiritual care concerns: No Exam Narrative: Exam Narrative: GENERAL: Well-appearing, nonverbal, and in no acute distress. HEAD: Normocephalic, atraumatic. EYES: PERRLA and EOMI. ENT: Nares clear, no rhinorrhea or epistaxis. Mucous membrane
[2020-12-30] MEDS: SODIUM CHLORIDE 0.9% IV 1,000 ML 150 ML IV CONT (15:42)
[2020-12-30 16:17] LABS: INR 1.1; Prothrombin Time 14.4 Seconds (11.1-14.7)
[2020-12-30 16:23] LABS: Alanine Aminotransferase 20 U/L (4-35); Albumin Level 3.7 g/dL (3.5-5.1); Alkaline Phosphatase 136 U/L (38-126); Anion Gap 8 mmol/L (8-16); Aspartate Amino Transferase 25 U/L (14-36); Bilirubin,Total 0.5 mg/dL (0.2-1.3); Blood Urea Nitrogen 16 mg/dL (7-17); Carbon Dioxide 35 mmol/L (22-30); Chloride 96 mmol/L (98-107); Estimated CRCL calculation 76 ml/min; Estimated Glomerular Filt Rate > 60; Glucose 301 mg/dL (65-105); Potassium 3.7 mmol/L (3.4-5.0); Sodium 139 mmol/L (137-145)
[2020-12-30 16:24] LABS: Basophils Absolute Auto 0.1 K/mm3 (0.0-0.1); Basophils Percent Auto 0.3 % (0.2-1.2); Hematocrit 37.1 % (37.0-47.0); Hemoglobin 11.3 g/dL (12.0-15.0); Immature Granulocyte Absolute 0.13 K/mm3 (0.00-0.031); Immature Granulocyte Percent A 0.6 % (0-0.5); Lymphocytes Absolute Auto 1.44 K/mm3 (0.9-3.2); Lymphocytes Percent Auto 6.3 % (18.3-44.2); Mean Corpuscular HGB Conc 30.5 g/dl (32-36); Mean Corpuscular Hemoglobin 24.6 pg (26-34); Mean Corpuscular Volume 80.8 fl (80-100); Mean Platelet Volume 9.7 fl (7.4-10.4); Monocytes Absolute Auto 1.2 K/mm3 (0.1-0.6); Monocytes Percent Auto 5.1 % (2.6-8.5); Neutrophils Absolute Auto 19.9 K/mm3 (1.3-6.7); Neutrophils Percent Auto 87.7 % (45.5-73.1); Platelet Count Result 548 k/mm3 (150-375); Red Blood Count 4.59 M/mm3 (4.2-5.4); White Blood Count 22.7 K/mm3 (4.5-10.0)
[2020-12-30 16:36] LABS: Hypochromasia 1+ (NORMAL); Platelet Estimate Increased (Adequate)
--- NOTE | 2020-12-30 17:53 | PC.NURSE ---
Called phleb, Imelda Seo (sp?), requested draw on RM 4. Bcult x2 and lactic
[2020-12-30 18:40] LABS: Lactic Acid Reflex 1.6 mmol/L (0.7-2.1)
[2020-12-30 19:06] LABS: Add Urine Microscopic? YES; Appearance Urine Cloudy (Clear); Bacteria Urine 2+ /hpf; Bilirubin Urine Negative (Negative); Blood Urine 2+ (Negative); Color Urine Yellow (Yellow); Glucose Urine UA 1+ mg/dL (Negative); Ketones Urine Trace mg/dL (Negative); Leukocyte Esterase Ur Negative LEU/UL (Negative); Mucus Urine Heavy /lpf; Nitrate Urine Negative (Negative); Protein Urine 2+ mg/dL (Negative); RBC Urine 21-50 /hpf (0-2); Squamous Epithelial Cell Urine Many /hpf (Few); Urobilinogen Urine Negative mg/dL (<2.0); WBC Clumps Urine Present /HPF; WBC Urine 16-20 /hpf
[2020-12-30] MEDS: ERTAPENEM 1 GM/NS 50 ML 1 GM/50 ML BAG IVPB (19:20)
--- NOTE | 2020-12-30 20:37 | PM.IMHP ---
H&P: HPI History of Present Illness Date/Time: 12/30/20 20:37 Chief Complaint: Coffee-ground emesis Narrative: 70-year-old female with complex past medical history of advanced dementia, DVT PE, esophageal stricture, dysphagia with G-tube, and insulin-dependent diabetes mellitus who presented to the ER from [facility] due to coffee-ground emesis. Information was obtained from past medical records. Patient was hospitalized 12/01/2020 for coffee-ground emesis. She is on Eliquis for DVT and PE history with her last DVT being in the right arm in September 2020. During that hospitalization she had an EGD which demonstrated multiple superficial midesophageal ulcers and severe mid esophageal stenosis that was not transfers twice. The patient's esophagus was not dilated at that time. The patient's Eliquis was held during the hospitalization but resume on discharge. She had Pepcid added to her home meds and she was also continued on omeprazole. She was treated for complicated UTI due to a chronic indwelling Baltazar catheter and discharged back to snf on antibiotics. She was brought back to the hospital on 12/07/2020 due to recurrent coffee-ground emesis. She was hypotensive at that time and received fluids. Her UA also suggested possible UTI but has chronic Baltazar catheter. She was placed on a Protonix drip. Was again held and resumed on 12/20/2020. Her hemoglobin did during that hospitalization dropped to 6.2 and she required 2 units of packed red blood cell transfusion on 12/08/2020. She has a G-tube that extends into the jejunum. The patient had persistent emesis while she was in the hospital and repeat CT scan on 12/14/2020 demonstrated new onset of gallbladder distension and pericolic fat stranding with mild ascites. Right upper quadrant ultrasound demonstrated acute cholecystitis. Patient subsequently had a cholecystectomy tube placed on 12/16/2020 and she was treated with Cipro and Flagyl. He was given 1 dose of Levaquin and to complete a 10 day course of antibiotics after her IV was lost. She completed 10 days of Flagyl in 12/24/2020. Her UA during that hospitalization grew out Enterococcus. She was also treated for suspected aspiration pneumonia at that time. She has a chronic decubitus ulcer. Her hemoglobin A1c was 8.7 in November. On presentation to the ER today the patient was noted to be tachycardic with heart rates in the 120s to 130s. She is afebrile. Her hemoglobin was up from 9.8 on 12/26/2020 up to 11.3. Increased from a 1900 on 12/26/2020 up to 22,700. Pain patient moans out the pain. She is extremely tender in the upper abdomen. The patient's Baltazar catheter was exchanged in the ER. Review of Systems Review of Systems: ROS unobtainable: Yes unobtainable due to medical condition (Dementia) [facility] Past Medical History Medical History (Updated 12/30/20 @ 21:09 by Yue Clark DO) Acute on chronic blood loss anemia Bilateral cataracts Bleeding ulcer Chronic anemia Iron deficiency Chronic indwelling Baltazar catheter Dementia with behavioral disturbance DVT (deep venous thrombosis) Most recent right upper extremity DVT 09/2020 Erosive esophagitis Esophageal stricture Essential hypertension Gastroesophageal reflux disease History of bleeding peptic ulcer History of pulmonary embolism Insulin dependent type 2 diabetes mellitus Hemoglobin A1c was 6.9% on 04/19/2020. Lesion of spleen Surgical History Surgical History (Updated 12/30/20 @ 21:09 by Yue Clark DO) Gastrointestinal tube in situ History of bilateral carpal tunnel release History of section X3 History of replacement of both shoulder joints Family History Family History Sibling Cerebrovascular accident Family history of diabetes mellitus in first degree relative Father Carcinoma of colon Family history of malignant neoplasm Mother Family history of diabetes mellitus i
--- NOTE | 2020-12-30 21:25 | ADMGEN ---
This patient, Diane Garrett, was admitted to Medical Room 243-. Patient/family oriented to hospital policies and general routines including ID bracelet, bed and alarms, visiting hours, pain management, procedures, bathroom and other care routines, personal items, smoking policy, room service/diet, and visiting hours. Information on how to activate the Rapid Response Team has been discussed. Patient/Family are encouraged to report perceived risks to care and to ask questions if they do not understand what they are told or what they should do.
--- NOTE | 2020-12-30 22:08 | PC.NURSE ---
Spoke with Cheryl from [facility]. Reviewed med list, wound care, barr use, tube feeding used at [facility].
[2020-12-30] MEDS: INSULIN ASPART (*BKC) 100 UNITS/ML SUB-Q (22:27)
[2020-12-30] MEDS: INSULIN GLARGINE (*BKC) 100 UNITS/ML 10 UNITS SUB-Q (22:27)
[2020-12-30] MEDS: PANTOPRAZOLE SODIUM IV 40 MG VIAL IV PUSH (22:29)
[2020-12-30 22:40] LABS: Glucose Point of Care 291 mg/dl (65-105)
[2020-12-31] VITALS (9 sets, daily range): BP systolic 116–146; BP diastolic 56–78; PULSE 89–112; RESP 20–22; TEMP 36–36.5; O2SAT 96–100
[2020-12-31] MEDS: SODIUM CHLORIDE 0.9% IV 1,000 ML 125 ML IV CONT ×3 (00:36→16:25)
[2020-12-31] MEDS: MORPHINE SULFATE (*CRX) 2 MG/ML INJ IV PUSH (00:37)
[2020-12-31] MEDS: DONEPEZIL HCL 10 MG TABLET FEED TUBE ×2 (04:10→21:12)
[2020-12-31] MEDS: INSULIN ASPART (*BKC) 100 UNITS/ML SUB-Q (04:13)
[2020-12-31 04:20] LABS: Glucose Point of Care 203 mg/dl (65-105)
[2020-12-31 06:10] LABS: Anion Gap 5 mmol/L (8-16); Blood Urea Nitrogen 14 mg/dL (7-17); Calcium 8.9 mg/dL (8.4-10.2); Carbon Dioxide 31 mmol/L (22-30); Chloride 104 mmol/L (98-107); Estimated CRCL calculation 133 ml/min; Estimated Glomerular Filt Rate > 60; Glucose 217 mg/dL (65-105); Potassium 3.7 mmol/L (3.4-5.0); Sodium 140 mmol/L (137-145)
[2020-12-31] MEDS: LANSOPRAZOLE ORAL SUSP 30 MG/10 ML ORAL.SUSP FEED TUBE ×2 (06:37→16:31)
[2020-12-31 07:23] LABS: Basophils Percent Auto 0.3 % (0.2-1.2); Eosinophils Percent Auto 0.2 % (0-4.4); Hematocrit 33.9 % (37.0-47.0); Hemoglobin 9.9 g/dL (12.0-15.0); Immature Granulocyte Absolute 0.07 K/mm3 (0.00-0.031); Immature Granulocyte Percent A 0.6 % (0-0.5); Lymphocytes Absolute Auto 1.71 K/mm3 (0.9-3.2); Lymphocytes Percent Auto 13.5 % (18.3-44.2); Mean Corpuscular HGB Conc 29.2 g/dl (32-36); Mean Corpuscular Hemoglobin 24.8 pg (26-34); Mean Corpuscular Volume 84.8 fl (80-100); Mean Platelet Volume 10.2 fl (7.4-10.4); Monocytes Absolute Auto 0.9 K/mm3 (0.1-0.6); Monocytes Percent Auto 7.2 % (2.6-8.5); Neutrophils Percent Auto 78.2 % (45.5-73.1); Platelet Count Result 396 k/mm3 (150-375); Red Cell Distribution Width 24.3 % (11.5-14.5); White Blood Count 12.7 K/mm3 (4.5-10.0)
[2020-12-31 08:29] LABS: Hypochromasia 1+ (NORMAL); Platelet Estimate Adequate (Adequate)
[2020-12-31] MEDS: PANTOPRAZOLE SODIUM IV 40 MG VIAL IV PUSH ×2 (08:33→21:13)
[2020-12-31 08:39] LABS: Glucose Point of Care 161 mg/dl (65-105)
[2020-12-31] MEDS: FERROUS SULFATE LIQUID 325 MG/7.4 ML ELIXIR FEED TUBE ×2 (11:17→16:30)
[2020-12-31] MEDS: FOLIC ACID 1 MG TABLET FEED TUBE (11:17)
[2020-12-31 11:23] LABS: Glucose Point of Care 172 mg/dl (65-105)
[2020-12-31] MEDS: MICONAZOLE NITRATE 2% CREAM 30 GM TUBE 1 APPLIC TOPICAL ×2 (12:53→21:13)
[2020-12-31] MEDS: TOLNAFTATE 1% POWDER 45 GM BTL 1 APPLIC TOPICAL ×2 (12:53→21:13)
[2020-12-31] MEDS: COLLAGENASE OINT 30 GM TUBE 1 APPLIC TOPICAL (12:53)
--- NOTE | 2020-12-31 16:13 | PM.IMPN ---
Progress Note: A&P Assessment and Plan (1) SIRS (systemic inflammatory response syndrome): Code(s): R65.10 - Systemic inflammatory response syndrome (SIRS) of non-infectious origin without acute organ dysfunction Status: Acute (2) Acute cholecystitis: Code(s): K81.0 - Acute cholecystitis Status: Acute (3) Erosive esophagitis: Code(s): K22.10 - Ulcer of esophagus without bleeding Status: Acute (4) Coffee ground emesis: Code(s): K92.0 - Hematemesis Status: Acute (5) Chronic indwelling Baltazar catheter: Code(s): Z97.8 - Presence of other specified devices Status: Acute (6) Type 2 diabetes mellitus with hyperglycemia, with long-term current use of insulin: Code(s): E11.65 - Type 2 diabetes mellitus with hyperglycemia; Z79.4 - [facility] (current) use of insulin Status: Acute Additional Plan # SIRS: She was quite tachycardic when Stephan arrived with heart rate in 130s. This has improved. Could be from ongoing cholecystitis started on empiric antibiotic therapy with ertapenem and vancomycin. Follow cultures. CT scan of the abdomen showing pericholecystic fat stranding suggesting cholecystitis no other acute findings noted much improved down to 12,000 from 22 k yesterday UA is dirty however has a chronic indwelling catheter follow urine culture her fluid rate to 60 cc an hour # Coffee-ground emesis: h and h stable slight drop today but could be hemodilution from fluid resuscitation. Continue to monitor. eliquis on old.Recent EGD showed mid esophageal ulcers near the severity of the stricture on Pepcid and omeprazole resumed on Eliquis which is on hold # Advanced dementia # hx of PE/DVT on long-term Eliquis therapy last DVT in right arm and September 2020. # halfway resident # recent cholecystitis status post cholecystostomy tube placement on 12/16/2020 culture negative # Esophageal stricture # Recurrent GI bleed # decubitus ulcer continue continue wound care # Insulin-dependent diabetes mellitus A1c 8.7 in November continue SSI and Accu-Cheks # DVT proph: contraindciated pharmacologic. pas boots. will watch her h and h. if furhter bleeding occurs, consult GI. contniue antiboicsa nd conservative management for cholecystitis as well. Recheck labs in morning Subjective Date/time seen: 12/31/20 16:13 Interval history: No overnight events basin segments NPO no further emesis reported. Review of system could not be completed because of her mental status. Review of Systems Review of Systems: ROS unobtainable: Yes unobtainable due to medical condition (Dementia) Exam Narrative: Exam Narrative: General: Obese, chronically ill-appearing, debilitated HEENT: Mucous membranes are tacky, fair dentition with a few missing teeth Respiratory: Decreased breath sounds at the bases, no tachypnea Cardiovascular: Normal rate and rhythm, 2+ bilateral radial pulses 1+ bilateral pedal pulses Gastrointestinal: Distended, cholecystostomy drain right upper quadrant, no surrounding erythema, G-tube in the left mid abdomen in-situ mildly distended mild tenderness generalized, positive bowel sounds, soft Skin: No pallor, no jaundice, warm to touch, decubitus ulcer to the right buttock about the size of a softball reported with no signs of infection (not examined today.) Musculoskeletal: No clubbing, cyanosis or edema, pressure relieving boots on bilateral heels Neurological: Awake and alert nonverbal not following commands Psychiatric: Confused, calm : Baltazar catheter in place, catheter was exchanged in the ER Hematologic/lymphatic: No petechiae, no bruising Objective Data Vital Signs Vital Signs: Vital Signs - 24 hr 12/30/20 16:15 12/30/20 16:30 12/30/20 16:45 Temperature Pulse Rate 132 H 125 H 130 H Respiratory Rate 29 H Blood Pressure Pulse Oximetry 12/30/20 17:04 12/30/20 17:15 12/30/20 18:39 Temperature Pulse Rate 130 H 127 H 127 H Respiratory Rat
[2020-12-31 16:50] LABS: Glucose Point of Care 152 mg/dl (65-105)
[2020-12-31] MEDS: ERTAPENEM SODIUM 1 GM in SODIUM CHLORIDE 0.9% IV 50 ML IVPB (18:30)
[2020-12-31] MEDS: INSULIN GLARGINE (*BKC) 100 UNITS/ML 10 UNITS SUB-Q (21:14)
[2020-12-31 22:00] LABS: Glucose Point of Care 120 mg/dl (65-105)
[2021-01-01] VITALS (8 sets, daily range): BP systolic 128–145; BP diastolic 62–74; PULSE 82–91; RESP 16–21; TEMP 35.9–36.5; O2SAT 99–100
[2021-01-01 03:50] LABS: Glucose Point of Care 80 mg/dl (65-105)
[2021-01-01 06:44] LABS: Alanine Aminotransferase 11 U/L (4-35); Albumin Level 2.6 g/dL (3.5-5.1); Alkaline Phosphatase 69 U/L (38-126); Anion Gap 5 mmol/L (8-16); Aspartate Amino Transferase 21 U/L (14-36); Bilirubin,Total 0.3 mg/dL (0.2-1.3); Blood Urea Nitrogen 10 mg/dL (7-17); Carbon Dioxide 27 mmol/L (22-30); Chloride 110 mmol/L (98-107); Estimated CRCL calculation 133 ml/min; Estimated Glomerular Filt Rate > 60; Glucose 87 mg/dL (65-105); Potassium 4.2 mmol/L (3.4-5.0); Sodium 142 mmol/L (137-145)
[2021-01-01 06:46] LABS: Basophils Absolute Auto 0.1 K/mm3 (0.0-0.1); Basophils Percent Auto 0.7 % (0.2-1.2); Eosinophils Absolute Auto 0.1 K/mm3 (0-0.3); Hematocrit 30.9 % (37.0-47.0); Hemoglobin 9.1 g/dL (12.0-15.0); Immature Granulocyte Absolute 0.19 K/mm3 (0.00-0.031); Immature Granulocyte Percent A 1.7 % (0-0.5); Immature Platelet Fraction Pct 5.3 % (0.9-11.2); Lymphocytes Percent Auto 15.7 % (18.3-44.2); Mean Corpuscular HGB Conc 29.4 g/dl (32-36); Mean Corpuscular Hemoglobin 24.6 pg (26-34); Mean Corpuscular Volume 83.5 fl (80-100); Mean Platelet Volume 10.8 fl (7.4-10.4); Monocytes Absolute Auto 0.8 K/mm3 (0.1-0.6); Monocytes Percent Auto 6.7 % (2.6-8.5); Neutrophils Absolute Auto 8.5 K/mm3 (1.3-6.7); Neutrophils Percent Auto 74.2 % (45.5-73.1); Nucleated Red Blood Cells Perc 0.3 % (0.0-0.2); Platelet Count Result 276 k/mm3 (150-375); Red Cell Distribution Width 23.9 % (11.5-14.5); White Blood Count 11.5 K/mm3 (4.5-10.0)
[2021-01-01 07:24] LABS: Anisocytosis 1+ (NORMAL); Burr Cells 1+ (NORMAL); Hypochromasia 1+ (NORMAL); Ovalocytes 1+ (NORMAL); Platelet Estimate Adequate (Adequate); Poikilocytosis 1+ (NORMAL)
[2021-01-01] MEDS: SODIUM CHLORIDE 0.9% IV 1,000 ML 60 ML IV CONT (08:20)
[2021-01-01] MEDS: FOLIC ACID 1 MG TABLET FEED TUBE (08:24)
[2021-01-01] MEDS: GENTAMICIN SULFATE 0.1% CR 15 GM TUBE 1 APPLIC TOPICAL (08:24)
[2021-01-01] MEDS: MICONAZOLE NITRATE 2% CREAM 30 GM TUBE 1 APPLIC TOPICAL ×2 (08:24→22:40)
[2021-01-01] MEDS: PANTOPRAZOLE SODIUM IV 40 MG VIAL IV PUSH ×2 (08:24→22:32)
[2021-01-01] MEDS: COLLAGENASE OINT 30 GM TUBE 1 APPLIC TOPICAL (08:24)
[2021-01-01] MEDS: FERROUS SULFATE LIQUID 325 MG/7.4 ML ELIXIR FEED TUBE ×2 (08:24→16:38)
[2021-01-01] MEDS: TOLNAFTATE 1% POWDER 45 GM BTL 1 APPLIC TOPICAL ×2 (08:24→22:37)
[2021-01-01 10:09] LABS: Glucose Point of Care 88 mg/dl (65-105)
--- NOTE | 2021-01-01 10:30 | PM.IMPN ---
Progress Note: A&P Assessment and Plan (1) SIRS (systemic inflammatory response syndrome): Code(s): R65.10 - Systemic inflammatory response syndrome (SIRS) of non-infectious origin without acute organ dysfunction Status: Acute Assessment and Plan: Wbc's getting better. Will continue IV antibiotics. (2) Acute cholecystitis: Code(s): K81.0 - Acute cholecystitis Status: Acute Assessment and Plan: Symptoms are improving. WBC is better, will continue current treatment. (3) Erosive esophagitis: Code(s): K22.10 - Ulcer of esophagus without bleeding Status: Acute Assessment and Plan: Stable on medication (4) Coffee ground emesis: Code(s): K92.0 - Hematemesis Status: Acute Assessment and Plan: No new episodes (5) Chronic indwelling Baltazar catheter: Code(s): Z97.8 - Presence of other specified devices Status: Acute Assessment and Plan: IV antibiotics will continue, urine culture pending (6) Type 2 diabetes mellitus with hyperglycemia, with long-term current use of insulin: Code(s): E11.65 - Type 2 diabetes mellitus with hyperglycemia; Z79.4 - [facility] (current) use of insulin Status: Acute Assessment and Plan: Stable on medicine Additional Plan # SIRS: She was quite tachycardic when Stephan arrived with heart rate in 130s. This has improved. Could be from ongoing cholecystitis started on empiric antibiotic therapy with ertapenem and vancomycin. Follow cultures. CT scan of the abdomen showing pericholecystic fat stranding suggesting cholecystitis no other acute findings noted much improved down to 12,000 from 22 k yesterday UA is dirty however has a chronic indwelling catheter follow urine culture her fluid rate to 60 cc an hour # Coffee-ground emesis: h and h stable slight drop today but could be hemodilution from fluid resuscitation. Continue to monitor. eliquis on old.Recent EGD showed mid esophageal ulcers near the severity of the stricture on Pepcid and omeprazole resumed on Eliquis which is on hold # Advanced dementia # hx of PE/DVT on long-term Eliquis therapy last DVT in right arm and September 2020. # [facility] # recent cholecystitis status post cholecystostomy tube placement on 12/16/2020 culture negative # Esophageal stricture # Recurrent GI bleed # decubitus ulcer continue continue wound care # Insulin-dependent diabetes mellitus A1c 8.7 in November continue SSI and Accu-Cheks # DVT proph: contraindciated pharmacologic. pas boots. will watch her h and h. if furhter bleeding occurs, consult GI. contniue antiboicsa nd conservative management for cholecystitis as well. Recheck labs in morning Is stays okay will discharge in the morning. Subjective Date/time seen: 01/01/21 10:30 Patient was seen during the morning rounds today. Patient is feeling slightly better. No nausea or vomiting. No shortness of breath or chest pain. Mood stable. Review of Systems Review of Systems: ROS unobtainable: Yes unobtainable due to medical condition (Dementia) Exam Narrative: Exam Narrative: General: Obese, chronically ill-appearing, debilitated HEENT: Mucous membranes are tacky, fair dentition with a few missing teeth Respiratory: Decreased breath sounds at the bases, no tachypnea Cardiovascular: Normal rate and rhythm, 2+ bilateral radial pulses 1+ bilateral pedal pulses Gastrointestinal: Distended, cholecystostomy drain right upper quadrant, no surrounding erythema, G-tube in the left mid abdomen in-situ mildly distended mild tenderness generalized, positive bowel sounds, soft Skin: No pallor, no jaundice, warm to touch, decubitus ulcer to the right buttock about the size of a softball reported with no signs of infection (not examined today.) Musculoskeletal: No clubbing, cyanosis or edema, pressure relieving boots on bilateral heels Neurological: Awake and alert nonverbal not following commands Psychiatric: Confus
[2021-01-01 16:37] LABS: Glucose Point of Care 83 mg/dl (65-105)
[2021-01-01 16:37] LABS: Glucose Point of Care 73 mg/dl (65-105)
[2021-01-01] MEDS: ERTAPENEM SODIUM 1 GM in SODIUM CHLORIDE 0.9% IV 50 ML IVPB (18:52)
[2021-01-01] MEDS: DONEPEZIL HCL 10 MG TABLET FEED TUBE (22:25)
[2021-01-01] MEDS: HEPARIN SODIUM 5,000 UNITS/ML VIAL 5000 UNITS SUB-Q (22:29)
[2021-01-01 23:03] LABS: Glucose Point of Care 75 mg/dl (65-105)
[2021-01-02] VITALS (10 sets, daily range): BP systolic 138–177; BP diastolic 71–90; PULSE 75–89; RESP 16–21; TEMP 35.7–36.5; O2SAT 98–100; BMI 35.1
[2021-01-02] MEDS: DEXTROSE 50% 25 GM/50 ML SYRINGE IV PUSH (01:23)
[2021-01-02 01:30] LABS: Glucose Point of Care 65 mg/dl (65-105)
[2021-01-02] MEDS: DEXTROSE 5%/0.45% SOD CHL 1,000 ML 75 ML IV CONT (02:10)
[2021-01-02 02:51] LABS: Glucose Point of Care 108 mg/dl (65-105)
[2021-01-02] MEDS: TOLNAFTATE 1% POWDER 45 GM BTL 1 APPLIC TOPICAL ×2 (08:20→20:27)
[2021-01-02] MEDS: FOLIC ACID 1 MG TABLET FEED TUBE (08:20)
[2021-01-02] MEDS: COLLAGENASE OINT 30 GM TUBE 1 APPLIC TOPICAL (08:20)
[2021-01-02] MEDS: PANTOPRAZOLE SODIUM IV 40 MG VIAL IV PUSH ×2 (08:20→20:18)
[2021-01-02] MEDS: GENTAMICIN SULFATE 0.1% CR 15 GM TUBE 1 APPLIC TOPICAL (08:21)
[2021-01-02] MEDS: HEPARIN SODIUM 5,000 UNITS/ML VIAL 5000 UNITS SUB-Q ×2 (08:21→20:10)
[2021-01-02] MEDS: MICONAZOLE NITRATE 2% CREAM 30 GM TUBE 1 APPLIC TOPICAL (08:29)
[2021-01-02 08:30] LABS: Glucose Point of Care 98 mg/dl (65-105)
[2021-01-02] MEDS: FERROUS SULFATE LIQUID 325 MG/7.4 ML ELIXIR FEED TUBE ×2 (08:37→17:10)
--- NOTE | 2021-01-02 08:59 | PM.IMPN ---
Progress Note: A&P Assessment and Plan (1) SIRS (systemic inflammatory response syndrome): Code(s): R65.10 - Systemic inflammatory response syndrome (SIRS) of non-infectious origin without acute organ dysfunction Status: Acute Assessment and Plan: Wbc's getting better. Will continue IV antibiotics. (2) Acute cholecystitis: Code(s): K81.0 - Acute cholecystitis Status: Acute Assessment and Plan: Symptoms are improving. WBC is better, will continue current treatment. (3) Erosive esophagitis: Code(s): K22.10 - Ulcer of esophagus without bleeding Status: Acute Assessment and Plan: Stable on medication (4) Coffee ground emesis: Code(s): K92.0 - Hematemesis Status: Acute Assessment and Plan: No new episodes (5) Chronic indwelling Baltazar catheter: Code(s): Z97.8 - Presence of other specified devices Status: Acute Assessment and Plan: IV antibiotics will continue, urine culture pending (6) Type 2 diabetes mellitus with hyperglycemia, with long-term current use of insulin: Code(s): E11.65 - Type 2 diabetes mellitus with hyperglycemia; Z79.4 - [facility] (current) use of insulin Status: Acute Assessment and Plan: Stable on medicine Additional Plan # SIRS: She was quite tachycardic when Stephan arrived with heart rate in 130s. This has improved. Could be from ongoing cholecystitis started on empiric antibiotic therapy with ertapenem and vancomycin. Follow cultures. CT scan of the abdomen showing pericholecystic fat stranding suggesting cholecystitis no other acute findings noted much improved down to 12,000 from 22 k yesterday UA is dirty however has a chronic indwelling catheter follow urine culture her fluid rate to 60 cc an hour # Coffee-ground emesis: h and h stable slight drop today but could be hemodilution from fluid resuscitation. Continue to monitor. eliquis on old.Recent EGD showed mid esophageal ulcers near the severity of the stricture on Pepcid and omeprazole resumed on Eliquis which is on hold # Advanced dementia # hx of PE/DVT on long-term Eliquis therapy last DVT in right arm and September 2020. # [facility] # recent cholecystitis status post cholecystostomy tube placement on 12/16/2020 culture negative # Esophageal stricture # Recurrent GI bleed # decubitus ulcer continue continue wound care # Insulin-dependent diabetes mellitus A1c 8.7 in November continue SSI and Accu-Cheks # DVT proph: contraindicated pharmacologic. pas boots. will watch her h and h. if furhter bleeding occurs, consult GI. continue antibiotics and conservative management for cholecystitis as well. 01/02/21 Patient is clinically improving. Patient is afebrile. Patient dominant pain has decreased. Patient family has expressed some interest in getting a palliative care consult, will discuss with them again today and if agree will order the consult. Will start G tube feeding today. Recheck labs in morning Is stays okay will discharge in the morning. Subjective Date/time seen: 01/02/21 08:59 Patient was seen during the morning rounds today. Patient abdominal pain has decreased. No nausea, no vomiting. No shortness of breath or chest pain. No fever. Mood stable. Review of Systems Review of Systems: ROS unobtainable: Yes unobtainable due to medical condition (Dementia) Exam Narrative: Exam Narrative: General: Obese, chronically ill-appearing, debilitated HEENT: Mucous membranes are tacky, fair dentition with a few missing teeth Respiratory: Decreased breath sounds at the bases, no tachypnea Cardiovascular: Normal rate and rhythm, 2+ bilateral radial pulses 1+ bilateral pedal pulses Gastrointestinal: cholecystostomy drain right upper quadrant, no surrounding erythema, G-tube in the left mid abdomen in-situ mildly distended mild tenderness generalized, positive bowel sounds, soft Skin: No pallor, no jaundice, warm to touch, decubitu
--- NOTE | 2021-01-02 12:37 | WPDCDIQUERY2 ---
CDI Query Clarification Request -SIRS- Systemic Inflammatory Response of non-infectious origin and Could be from ongoing cholecystitis started on empiric antibiotic therapy with ertapenem and vancomycin. has been documented. - WBC's getting better. Will continue IV antibiotics has been documented. -SIRS due to infectious cause is sepsis. Please clarify if SIRS is due to infectious cause (sepsis) or non-infectious cause. If non-infectious cause, please also document the cause.
[2021-01-02 12:38] LABS: Glucose Point of Care 123 mg/dl (65-105)
--- NOTE | 2021-01-02 12:55 | PCNSR ---
On 01/02/21, the student,Shannon Lindsay, provided care and completed [facility] documentation on this patient. I have reviewed the student's documentation and agree with the findings.
[2021-01-02 17:28] LABS: Glucose Point of Care 118 mg/dl (65-105)
[2021-01-02] MEDS: ERTAPENEM SODIUM 1 GM in SODIUM CHLORIDE 0.9% IV 50 ML IVPB (18:50)
[2021-01-02 18:55] LABS: Glucose Point of Care 121 mg/dl (65-105)
[2021-01-02] MEDS: INSULIN GLARGINE (*BKC) 100 UNITS/ML 10 UNITS SUB-Q (20:15)
[2021-01-02] MEDS: DONEPEZIL HCL 10 MG TABLET FEED TUBE (20:17)
[2021-01-02 21:39] LABS: Glucose Point of Care 117 mg/dl (65-105)
[2021-01-02 23:34] LABS: Glucose Point of Care 119 mg/dl (65-105)
[2021-01-03 05:24] LABS: Glucose Point of Care 140 mg/dl (65-105)
[2021-01-03 06:00] VITALS: BP 148/80; PULSE 81; RESP 20; TEMP 36.2; O2SAT 98
[2021-01-03 06:07] LABS: Hematocrit 30.4 % (37.0-47.0); Hemoglobin 9.5 g/dL (12.0-15.0); Mean Corpuscular HGB Conc 31.3 g/dl (32-36); Mean Corpuscular Hemoglobin 25.1 pg (26-34); Mean Corpuscular Volume 80.4 fl (80-100); Mean Platelet Volume 9.4 fl (7.4-10.4); Platelet Count Result 323 k/mm3 (150-375); Red Blood Count 3.78 M/mm3 (4.2-5.4); Red Cell Distribution Width 22.1 % (11.5-14.5)
[2021-01-03 06:23] LABS: Alanine Aminotransferase 10 U/L (4-35); Albumin Level 2.8 g/dL (3.5-5.1); Alkaline Phosphatase 85 U/L (38-126); Anion Gap 4 mmol/L (8-16); Aspartate Amino Transferase 14 U/L (14-36); Bilirubin,Total 0.1 mg/dL (0.2-1.3); Blood Urea Nitrogen 4 mg/dL (7-17); Calcium 8.8 mg/dL (8.4-10.2); Carbon Dioxide 31 mmol/L (22-30); Chloride 105 mmol/L (98-107); Estimated CRCL calculation 110 ml/min; Estimated Glomerular Filt Rate > 60; Glucose 155 mg/dL (65-105); Potassium 2.8 mmol/L (3.4-5.0); Sodium 140 mmol/L (137-145)
[2021-01-03] MEDS: POTASSIUM CHLORIDE 20 MEQ PACKET (FOR LIQUID) 40 MEQ PO (06:56)
[2021-01-03 08:48] VITALS: O2SAT 97
[2021-01-03] MEDS: FERROUS SULFATE LIQUID 325 MG/7.4 ML ELIXIR FEED TUBE ×2 (08:53→17:44)
[2021-01-03] MEDS: FOLIC ACID 1 MG TABLET FEED TUBE (08:53)
[2021-01-03] MEDS: COLLAGENASE OINT 30 GM TUBE 1 APPLIC TOPICAL (08:53)
[2021-01-03] MEDS: HEPARIN SODIUM 5,000 UNITS/ML VIAL 5000 UNITS SUB-Q (08:53)
[2021-01-03] MEDS: PANTOPRAZOLE SODIUM IV 40 MG VIAL IV PUSH (08:53)
[2021-01-03] MEDS: TOLNAFTATE 1% POWDER 45 GM BTL 1 APPLIC TOPICAL ×2 (08:54→23:43)
--- NOTE | 2021-01-03 10:56 | PM.IMPN ---
Progress Note: A&P Assessment and Plan (1) Type 2 diabetes mellitus with hyperglycemia, with long-term current use of insulin: Code(s): E11.65 - Type 2 diabetes mellitus with hyperglycemia; Z79.4 - custodial (current) use of insulin Status: Acute Assessment and Plan: Monitor blood sugar (2) Chronic indwelling Baltazar catheter: Code(s): Z97.8 - Presence of other specified devices Status: Acute Assessment and Plan: Discuss family about an to continue or does continue Baltazar catheter (3) SIRS (systemic inflammatory response syndrome): Code(s): R65.10 - Systemic inflammatory response syndrome (SIRS) of non-infectious origin without acute organ dysfunction Status: Acute Assessment and Plan: Monitor vital signs and white blood cells (4) Acute cholecystitis: Code(s): K81.0 - Acute cholecystitis Status: Acute Assessment and Plan: Plan to discuss with family about code status then discuss the treatment plan with general surgery team. (5) Aspiration pneumonia: Qualifiers: Aspiration pneumonia type: unspecified Laterality: unspecified laterality Lung location: unspecified part of lung Qualified Code(s): J69.0 - Pneumonitis due to inhalation of food and vomit Code(s): J69.0 - Pneumonitis due to inhalation of food and vomit Status: Acute Assessment and Plan: Monitor respiratory status (6) History of pulmonary embolism: Code(s): Z86.711 - Personal history of pulmonary embolism Status: Chronic Assessment and Plan: Anticoagulation on hold because of presumed GI bleeding (7) Coffee ground emesis: Code(s): K92.0 - Hematemesis Status: Acute Assessment and Plan: PPI, discussed with family about code status then consider GI consult if patient is not going to be discharged with comfort measures. Subjective Date/time seen: 01/03/21 10:56 Patient is resting in bed no acute distress, staff informed me that the plan was to discharge patient home with home hospice, but when I called Patient's daughter and power of erisa attorney, she informed me that she wants her mom to receive resuscitation if she could not breathe or her heart stopped, it seems to me that the door does not have good understanding about hospice and comfort measures, I requested a meeting with daughter and the power of erisa attorney tomorrow at 10:00 a.m. to discuss treatment plan and discharge arrangement. Daughter agreed with the plan to meet tomorrow morning. Review of Systems ENT: Denies headache(s) Exam Const: General: no acute distress HENMT: Head: normal to inspection Eyes: General: appearance normal, both eyes and all related structures Neck: Neck: normal visual inspection Chest: Chest palpation & inspection: normal inspection of the chest Resp: Effort & Inspection: normal respiratory effort Cardio: Jugular venous distension: no JVD Rate: regular rate GI: Inspection: normal to inspection and non-distended Objective Data Vital Signs Vital Signs: Vital Signs - 24 hr 01/02/21 12:00 01/02/21 14:00 01/02/21 16:00 Temperature 97.7 F Pulse Rate 79 89 81 Respiratory Rate 16 Blood Pressure 141/71 H Pulse Oximetry 100 01/02/21 22:00 01/03/21 06:00 01/03/21 08:48 Temperature 96.4 F L 97.2 F L Pulse Rate 84 81 Respiratory Rate 20 20 Blood Pressure 177/86 H 148/80 H Pulse Oximetry 98 98 97 Intake/Output Intake/Output: Intake & Output 12/31/20 01/01/21 01/02/21 01/03/21 23:59 23:59 23:59 23:59 Intake Total 4050 1050 1050 Output Total 290 700 855 400 Balance 3760 350 195 -400 Meds/Results Medications: Active Medications Generic Name Dose Route Start Last Admin Trade Name Freq PRN Reason Stop Dose Admin Acetaminophen 650 mg 12/30/20 19:08 Acetaminophen 325 Mg Tablet PO Q4H PRN Mild Pain (1-3) or Fever Albuterol 2.5 mg 12/31/20 02:12 Albuterol Sulfate Neb 2.5 Mg/0.
--- NOTE | 2021-01-03 12:38 | PCNFU ---
Nutrition Follow-Up Complete: Nutrition Diagnosis: Inadequate oral intake related to dementia and upper GI bleed as evidenced by physician ordered tube feedings. Nutrition Goal: Have patient tolerate tube feedings. Patient is progressing towards goal. Nutrition recommendation: Continue with tube feeding of Glucerna 1.2 at a goal rate of 75mls/hr. Last recorded weight is 91.1 kg. Bowel Motility: Last documented on 01/03. Labs Reviewed: Hgb (9.5), Hct (30.4), Alb (2.8), K (2.8), BUN (4), Cr(0.4), Glu (155) Meds Noted: Albuterol, Bisacodyl, Collagenase, Aricept, Folic Acid, Ferrous Sulfate, Lantus, Protonix, Atrovent, Tolnaftate Additional Notes: Patient has a stage 3 pressure ulcer on buttocks. Agree with diet orders. Patient is currently at 60mls/hr of Glucerna 1.2 and tolerating, the goal rate of 75mls/hr will give patient 1980 calories, 99 grams of protein, and 1328ml of water. Hospice consult has been ordered. Will follow up in T/F days.
[2021-01-03 12:54] LABS: Glucose Point of Care 162 mg/dl (65-105)
--- NOTE | 2021-01-03 13:28 | PCNSR ---
On 01/03/21, the student,Shannon Lindsay, provided care and completed [facility] documentation on this patient. I have reviewed the student's documentation and agree with the findings.
[2021-01-03 14:00] VITALS: BP 133/71; PULSE 82; RESP 14; TEMP 36.1; O2SAT 100
--- NOTE | 2021-01-03 15:02 | PM.DS ---
DS: Admitting Diagnosis Admitting Diagnosis Admitting Diagnosis: GI bleeding DS: Discharge Diagnosis Discharge Diagnosis (1) Type 2 diabetes mellitus with hyperglycemia, with long-term current use of insulin: Code(s): E11.65 - Type 2 diabetes mellitus with hyperglycemia; Z79.4 - residential (current) use of insulin Status: Acute (2) Chronic indwelling Baltazar catheter: Code(s): Z97.8 - Presence of other specified devices Status: Acute (3) SIRS (systemic inflammatory response syndrome): Code(s): R65.10 - Systemic inflammatory response syndrome (SIRS) of non-infectious origin without acute organ dysfunction Status: Acute (4) Acute on chronic blood loss anemia: Code(s): D62 - Acute posthemorrhagic anemia Status: Acute (5) Erosive esophagitis: Code(s): K22.10 - Ulcer of esophagus without bleeding Status: Acute (6) History of pulmonary embolism: Code(s): Z86.711 - Personal history of pulmonary embolism Status: Chronic (7) Weakness: Code(s): R53.1 - Weakness Status: Acute (8) Dementia with behavioral disturbance: Code(s): F03.91 - Unspecified dementia with behavioral disturbance Status: Chronic (9) Coffee ground emesis: Code(s): K92.0 - Hematemesis Status: Acute DS: Summary Hospital Course Reason for hospitalization: GI bleeding Hospital Course: 70-year-old female with complex past medical history of advanced dementia, DVT PE, esophageal stricture, dysphagia with G-tube, and insulin-dependent diabetes mellitus who presented to the ER from [facility] due to coffee-ground emesis. Patient was hospitalized 12/01/2020 for coffee-ground emesis. She is on Eliquis for DVT and PE history with her last DVT being in the right arm in September 2020. During that hospitalization she had an EGD which demonstrated multiple superficial midesophageal ulcers and severe mid esophageal stenosis that was not transfers twice. The patient's esophagus was not dilated at that time. The patient's Eliquis was held during the hospitalization but resume on discharge. She had Pepcid added to her home meds and she was also continued on omeprazole. She was treated for complicated UTI due to a chronic indwelling Baltazar catheter and [facility]. She was brought back to the hospital on 12/07/2020 due to recurrent coffee-ground emesis. She was hypotensive at that time and received fluids. Her UA also suggested possible UTI but has chronic Baltazar catheter. She was placed on a Protonix drip. Was again held and resumed on 12/20/2020. Her hemoglobin did during that hospitalization dropped to 6.2 and she required 2 units of packed red blood cell transfusion on 12/08/2020. She has a G-tube that extends into the jejunum. The patient had persistent emesis while she was in the hospital and repeat CT scan on 12/14/2020 demonstrated new onset of gallbladder distension and pericolic fat stranding with mild ascites. Right upper quadrant ultrasound demonstrated acute cholecystitis. Patient subsequently had a cholecystectomy tube placed on 12/16/2020 and she was treated with Cipro and Flagyl. He was given 1 dose of Levaquin and to complete a 10 day course of antibiotics after her IV was lost. She completed 10 days of Flagyl in 12/24/2020. Her UA during that hospitalization grew out Enterococcus. She was also treated for suspected aspiration pneumonia at that time. She has a chronic decubitus ulcer. Patient is nonverbal bedridden, dependent on tube feeding. Patient's daughter and power of physical therapist assistant decided to proceed with comfort measures and discharge patient home with home hospice. She agreed with DNR DNI status, and hospice staff will discuss the patient's family about medication under hospice care, daughter wanted to resume all the current medications at this time. Time Spent with Patient Time attestation: Total time spent provi
[2021-01-03 20:00] VITALS: PULSE 82; RESP 14; O2SAT 100
[2021-01-03 21:24] VITALS: BP 147/92; PULSE 88; RESP 16; TEMP 36.1; O2SAT 100
== END 2021-01-04 02:15 | disposition hospice, home (50) | DRG 444 ==
LOC: ANHED 19:02 → ANH2MED 12-31 03:42
PROVIDERS: Emergency Medicine; Internal Medicine; Admitting Provider Internal Medicine; Emergency Provider Family Medicine; PCP Family Medicine; Visit Provider Internal Medicine
DX: K81.0 Acute cholecystitis (principal); L89.313 Pressure ulcer of right buttock, stage 3; K22.11 Ulcer of esophagus with bleeding; J69.0 Pneumonitis due to inhalation of food and vomit; R65.10 Systemic inflammatory response syndrome (SIRS) of non-infectious origin without acute organ dysfunction; K22.10 Ulcer of esophagus without bleeding; K92.0 Hematemesis; D62 Acute posthemorrhagic anemia; K22.2 Esophageal obstruction; E11.65 Type 2 diabetes mellitus with hyperglycemia; F03.90 Unspecified dementia, unspecified severity, without behavioral disturbance, psychotic disturbance, mood disturbance, and anxiety; K21.9 Gastro-esophageal reflux disease without esophagitis; I10 Essential (primary) hypertension; Z96.612 Presence of left artificial shoulder joint; Z96.611 Presence of right artificial shoulder joint; Z86.718 Personal history of other venous thrombosis and embolism; Z79.01 Long term (current) use of anticoagulants; Z79.4 Long term (current) use of insulin; R13.10 Dysphagia, unspecified; Z93.1 Gastrostomy status; Z86.711 Personal history of pulmonary embolism; E66.9 Obesity, unspecified; Z68.35 Body mass index [BMI] 35.0-35.9, adult; Z66 Do not resuscitate
CPT/HCPCS: 36415; 51702; 74177; 80048; 80053; 81001; 82948; 83605; 85025; 85027; 85055; 85610; 87040; 87086; 87088; 96361; 96365; 99285; A9270; C9113; J0131; J1335; J1644; J1815; J2270; J3480; J7030; Q9967

== ENCOUNTER 2021-01-09 18:03 | Inpatient (IN) | payer MEDICARE, MEDICAID, SELFPAY ==
--- NOTE | ~2021-01-09 | CT_ITS ---
EXAMINATION: CT abdomen pelvis w con EXAM DATE: 01/10/2021 18:07 INDICATION: Coffee-ground emesis, cholecystitis, leukocytosis. TECHNIQUE: Spiral CT of the abdomen and pelvis was performed following intravenous injection of 100 m L Omnipaque 350. Axial, coronal and sagittal images of the abdomen and pelvis were reviewed. The do se-length product (DLP) for this examination was 869.55 mGy-cm. The exposure was tailored according to patient size (auto mA exposure control), and iterative reconstruction (ASIR) was used as additiona l dose reduction technique. Comparison is made to prior examination from 12/30/2020. FINDINGS: Again there are multiple lobular splenic lesions, differential diagnosis including chronic granulomatous process or chronic microabscesses, less likely metastatic disease. The liver, spleen, adrenal glands and pancreas are otherwise unremarkable. Gallbladder is moderately distended with associated inflammation and some gas inside the lumen of the gallbladder likely introduced through the cholecystostomy tube which is still in position. No gas wi thin the gallbladder wall. Amount of distention has mild improvement compared to prior study. No sign ificant change in amount of inflammation. Portal and splenic veins are patent. Kidneys enhance symm etrically. There is no hydronephrosis. There is heterogeneously enhancing mass at the right aspect of the fundus, partially exophytic measur ing 4 cm, probably a degenerating fibroid. Baltazar catheter within a collapsed bladder with mild surro unding fat stranding, inflammation. Could be acute and/or chronic cystitis. There is no retroperiton eal or pelvic lymphadenopathy. There is mild scattered arteriosclerotic disease. There is a PEG/jejunostomy tube, with long tubing that has retracted compared to previous examination . On prior study tip was in the proximal aspect of the jejunum. Tip is now the gastric antrum with so me redundancy in the moderate-sized gastroesophageal hiatal hernia. Unremarkable appendix. There is e xpected amount of colonic stool. No free intraperitoneal gas. Mild cardiomegaly. Small right ple ural effusion with adjacent subsegmental atelectasis. Subsegmental left basilar atelectasis. There a re bony degenerative changes. No osteoblastic or osteolytic lesions identified. IMPRESSION: 1. Cholecystostomy tube in moderately distended gallbladder. Mild pericholecystic inflammation uncha nged. 2. Multiple chronic splenic lesions, differential diagnosis including chronic granulomatous process or marker abscesses. Splenic metastases is rare. 3. PEG/jejunostomy tube with retraction of tip to the gastric antrum, some redundancy of the tube in moderate hiatal hernia. 4. Baltazar in position. Bladder wall thickening, acute and/or chronic cystitis. 5. Uterine mass likely degenerating fibroid. 6. Small right effusion, bibasilar subsegmental atelectasis. Reviewed, dictated and finalized at location A. IMPRESSION: 1. Cholecystostomy tube in moderately distended gallbladder. Mild pericholecys tic inflammation unchanged. 2. Multiple chronic splenic lesions, differential diagnosis including chronic granulomatous process or marker abscesses. Splenic metastases is rare. 3. PEG/jejunostomy tube with retraction of tip to the gastric antrum, some red undancy of the tube in moderate hiatal hernia. 4. Baltazar in position. Bladder wall thickening, acute and/or chronic cystitis. 5. Uterine mass likely degenerating fibroid. 6. Small right effusion, bibasilar subsegmental atelectasis.
--- NOTE | ~2021-01-09 | XR_ITS ---
EXAMINATION: XR chest 1V portable EXAM DATE: 01/09/2021 21:45 INDICATION: Leukocytosis. Emesis. Hypertension. TECHNIQUE: Portable AP frontal chest x-ray was obtained. Comparison is made to prior examination from 12/11/2020. FINDINGS: Some predominantly linear bibasilar opacities most consistent with atelectasis. Can't exclu de pneumonia but the airspace disease has improved compared to previous study in November. There is no pne umothorax suspected. Cardiomediastinal silhouette is normal. IMPRESSION: Subsegmental bibasilar opacities, atelectasis or possibly infection. Reviewed, dictated and finalized at location A. IMPRESSION: Subsegmental bibasilar opacities, atelectasis or possibly infection .
[2021-01-09 18:16] VITALS: BP 123/92; PULSE 133; RESP 27; TEMP 36.7; O2SAT 97
--- NOTE | 2021-01-09 18:43 | ECG_ITS ---
Measurements Intervals [place] Rate: 125 P: SD: 0 QRS: 17 QRSD: 81 T: 61 QT: 310 QTc: 448 Interpretive Statements SINUS TACHYCARDIA ATRIAL PREMATURE COMPLEX POSSIBLE LEFT ATRIAL ENLARGEMENT BASELINE ARTIFACT- I, II, III, AVR, AVF ABNORMAL ECG Electronically Signed On 01-09-2021 20:39:27 CDT by Ej Pack D.O.
--- NOTE | 2021-01-09 18:43 | ED.GENADULT ---
HPI - General Adult General Chief complaint: GI Bleed Stated complaint: VOMITING BLOOD Time Seen by Provider: 01/09/21 18:25 Source: patient History of Present Illness HPI narrative: Patient is a 70 y/o female brought in by daughter for vomiting dark material and blood. Daughter states that patient has Dementia and she is non verbal. Patient also has a feeding tube and cholecystostomy tube. Patient is on Eliquis for h/o DVT and PE. Daughter states that the blood thinner may have aggravated the hematemesis. Patient is not able to provide any history herself. Daughter states that patient is DNR. Related Data Home Medications Medication Instructions Recorded Confirmed Santyl 1 applic TOPICAL DAILY 12/01/20 01/09/21 bisacodyl [Dulcolax (bisacodyl)] 10 mg RECTAL DAILY PRN 12/01/20 01/09/21 donepezil [Aricept] 10 mg FEEDING TUBE HS 12/01/20 01/09/21 gentamicin sulfate (PF) 1 applic TOPICAL PRN PRN 01/09/21 01/09/21 tolnaftate [Antifungal 1 applic TOPICAL Q12HR 01/09/21 01/09/21 (tolnaftate)] Allergies Allergy/AdvReac Type Severity Reaction Status Date / Time Penicillins Allergy Mild hives Verified 01/09/21 18:19 hydrocodone Allergy Unknown Unknown Verified 01/09/21 18:19 peanut Allergy Unknown Itching Verified 01/09/21 18:19 shellfish derived Allergy Unknown Unknown Verified 01/09/21 18:19 Review of Systems Review of Systems: ROS unobtainable: Yes unobtainable due to medical condition PMFSH Past Medical History Medical History (Updated 01/10/21 @ 00:36 by Dhara Baltazar MD) Acute on chronic blood loss anemia Bilateral cataracts Bleeding ulcer Chronic anemia Iron deficiency Chronic indwelling Baltazar catheter Dementia with behavioral disturbance DVT (deep venous thrombosis) Most recent right upper extremity DVT 09/2020 Erosive esophagitis Esophageal stricture Essential hypertension Gastroesophageal reflux disease History of bleeding peptic ulcer History of pulmonary embolism Insulin dependent type 2 diabetes mellitus Hemoglobin A1c was 6.9% on 04/19/2020. Lesion of spleen Surgical History Surgical History (Updated 12/30/20 @ 21:09 by Yue Clark DO) Gastrointestinal tube in situ History of bilateral carpal tunnel release History of section X3 History of replacement of both shoulder joints Family History Family History Sibling Cerebrovascular accident Family history of diabetes mellitus in first degree relative Father Carcinoma of colon Family history of malignant neoplasm Mother Family history of diabetes mellitus in first degree relative Hypertension Family history of arthritis Family history of malignant neoplasm Family history of type 2 diabetes mellitus Stomach cancer Sibling Hypertension Hyperlipidemia Cancer Other Diabetes mellitus Family history of cardiovascular disease Family history of gout Family history of seizure disorder Social History Social History (Updated 12/30/20 @ 21:10 by Yue Clark DO) 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 Lifelong nonsmoker. No alcohol or illicit substance use. Healthcare power of commonwealth attorney is her daughter, Paty Garrett. Full code. She had 3 children. She resides in a fdc. Smoking status: Never smoker Alcohol intake: unknown Substance use: unknown Substance use type: does not use Gender identity (if verbalized by the patient): Female Spiritual care concerns: No Exam Const: General: no acute distress and ill appearing Orientation/consciousness: lethargic HENMT: Head: normocephalic Ears: external ears normal General nose exam: Normal external nose present Eyes: General: appearance normal, both eyes and all related structures Conjunctivae: conjunctivae normal Neck: Neck: normal visual inspection and full ROM Chest: Chest palpation & inspection: normal inspection of the chest and no tenderness Resp: Effort &
[2021-01-09 19:29] LABS: Basophils Absolute Auto 0.1 K/mm3 (0.0-0.1); Basophils Percent Auto 0.2 % (0.2-1.2); Hematocrit 38.7 % (37.0-47.0); Hemoglobin 11.8 g/dL (12.0-15.0); Immature Granulocyte Absolute 0.13 K/mm3 (0.00-0.031); Immature Granulocyte Percent A 0.6 % (0-0.5); Lymphocytes Absolute Auto 1.46 K/mm3 (0.9-3.2); Lymphocytes Percent Auto 6.8 % (18.3-44.2); Mean Corpuscular HGB Conc 30.5 g/dl (32-36); Mean Corpuscular Hemoglobin 24.8 pg (26-34); Mean Corpuscular Volume 81.3 fl (80-100); Mean Platelet Volume 9.5 fl (7.4-10.4); Monocytes Absolute Auto 1.1 K/mm3 (0.1-0.6); Neutrophils Absolute Auto 18.9 K/mm3 (1.3-6.7); Neutrophils Percent Auto 87.4 % (45.5-73.1); Platelet Count Result 535 k/mm3 (150-375); Red Blood Count 4.76 M/mm3 (4.2-5.4); Red Cell Distribution Width 22.7 % (11.5-14.5); White Blood Count 21.6 K/mm3 (4.5-10.0)
[2021-01-09 19:40] LABS: Alanine Aminotransferase 12 U/L (4-35); Albumin Level 3.7 g/dL (3.5-5.1); Alkaline Phosphatase 108 U/L (38-126); Anion Gap 10 mmol/L (8-16); Aspartate Amino Transferase 23 U/L (14-36); Bilirubin,Total 0.5 mg/dL (0.2-1.3); Blood Urea Nitrogen 11 mg/dL (7-17); Calcium 9.7 mg/dL (8.4-10.2); Carbon Dioxide 34 mmol/L (22-30); Chloride 102 mmol/L (98-107); Estimated CRCL calculation 70 ml/min; Estimated Glomerular Filt Rate > 60; Glucose 320 mg/dL (65-105); Potassium 3.9 mmol/L (3.4-5.0); Sodium 146 mmol/L (137-145)
[2021-01-09 19:44] LABS: Partial Thromboplastin Time 27.9 SECONDS (22.3-36.8)
[2021-01-09 19:49] LABS: INR 1.1; Prothrombin Time 15.1 Seconds (11.1-14.7)
[2021-01-09 20:03] VITALS: BP 137/104; PULSE 129; RESP 28; O2SAT 97
[2021-01-09] MEDS: SODIUM CHLORIDE 0.9% IV 1,000 ML 999 ML IV CONT (20:23)
[2021-01-09] MEDS: METOCLOPRAMIDE HCL INJ 10 MG/2 ML VIAL IV PUSH (20:23)
[2021-01-09 21:50] VITALS: BP 147/102; PULSE 128; RESP 32; O2SAT 97
[2021-01-09 22:30] VITALS: BP 129/107; PULSE 128; RESP 30; O2SAT 97
--- NOTE | 2021-01-09 23:13 | ADMGEN ---
This patient, Diane Garrett, was admitted to Medical Room 257-01. Patient/family oriented to hospital policies and general routines including ID bracelet, bed and alarms, visiting hours, pain management, procedures, bathroom and other care routines, personal items, smoking policy, room service/diet, and visiting hours. Information on how to activate the Rapid Response Team has been discussed. Patient/Family are encouraged to report perceived risks to care and to ask questions if they do not understand what they are told or what they should do.
--- NOTE | 2021-01-09 23:20 | ECG_ITS ---
Measurements Intervals [place] Rate: 128 P: 34 HI: 118 QRS: -2 QRSD: 74 T: 96 QT: 324 QTc: 474 Interpretive Statements SINUS TACHYCARDIA WITH SHORT HI INTERVAL NONSPECIFIC T-WAVE ABNORMALITY- INF/LAT LEADS BASELINE ARTIFACT- I, II, III, AVR, AVL, AVF, V1-V6 ABNORMAL ECG Electronically Signed On 01-10-2021 6:02:55 CDT by Ej Pack D.O.
[2021-01-09 23:21] VITALS: BMI 27.6
--- NOTE | 2021-01-09 23:22 | PM.IMHP ---
H&P: HPI History of Present Illness Date/Time: 01/09/21 23:22 Chief Complaint: COFFEE-GROUND EMESIS Narrative: THIS IS A 70-YEAR-OLD FEMALE WITH PAST MEDICAL HISTORY SIGNIFICANT FOR ADVANCED DEMENTIA, DECUBITUS ULCER, BED RIDDEN, FEEDING TUBE, INDWELLING PHAN CATHETER, DVT/PE ON ANTICOAGULATION. PATIENT WAS JUST DISCHARGED HOME AFTER SHE WAS EVALUATED FOR COFFEE-GROUND EMESIS PATIENT HAD HER ANTICOAGULATION HELD AND THIS RESOLVED PATIENT WAS DISCHARGED HOME. HOWEVER HER DAUGHTER BRINGS HER IN TODAY AFTER CONCERNS FOR PATIENT HAVING COFFEE-GROUND EMESIS EVER SINCE LAST NIGHT. ALL HISTORY HAS BEEN OBTAINED FROM DAUGHTER WHO IS AT BEDSIDE WELL MEDICAL RECORDS. IN PRIOR ADMISSION PATIENT WAS MADE DNR DNI AND HOSPICE WELL. SHE IS STATUS POST GALLBLADDER DRAIN PLACEMENT WELL. PRELIMINARY WORKUP IS SIGNIFICANT FOR ELEVATION OF WBC. DAUGHTER REITERATED PATIENT'S HOSPICE STATUS WELL DNR DNI. Review of Systems Review of Systems: ROS unobtainable: Yes unobtainable due to medical condition ( ADVANCED DEMENTIA) [facility] Past Medical History Medical History (Updated 01/10/21 @ 02:24 by Alma Pickett MD) Acute on chronic blood loss anemia Bilateral cataracts Bleeding ulcer Chronic anemia Iron deficiency Chronic indwelling Phan catheter Dementia with behavioral disturbance DVT (deep venous thrombosis) Most recent right upper extremity DVT 09/2020 Erosive esophagitis Esophageal stricture Essential hypertension Gastroesophageal reflux disease History of bleeding peptic ulcer History of pulmonary embolism Insulin dependent type 2 diabetes mellitus Hemoglobin A1c was 6.9% on 04/19/2020. Lesion of spleen Surgical History Surgical History (Updated 12/30/20 @ 21:09 by Yue Clark DO) Gastrointestinal tube in situ History of bilateral carpal tunnel release History of section X3 History of replacement of both shoulder joints Family History Family History Sibling Cerebrovascular accident Family history of diabetes mellitus in first degree relative Father Carcinoma of colon Family history of malignant neoplasm Mother Family history of diabetes mellitus in first degree relative Hypertension Family history of arthritis Family history of malignant neoplasm Family history of type 2 diabetes mellitus Stomach cancer Sibling Hypertension Hyperlipidemia Cancer Other Diabetes mellitus Family history of cardiovascular disease Family history of gout Family history of seizure disorder Social History Social History (Updated 12/30/20 @ 21:10 by Yue Clark DO) 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 Lifelong nonsmoker. No alcohol or illicit substance use. Healthcare power of claim attorney is her daughter, Paty Garrett. Full code. She had 3 children. She resides in a snf. Smoking status: Never smoker Alcohol intake: unknown Substance use: unknown Substance use type: does not use Gender identity (if verbalized by the patient): Female Spiritual care concerns: No Meds Home Medications and Allergies Home Medications Medication Instructions Recorded Confirmed Type Santyl 1 applic TOPICAL DAILY 12/01/20 12/30/20 History bisacodyl 10 mg RECTAL DAILY PRN 12/01/20 12/30/20 History donepezil 10 mg FEEDING TUBE HS 12/01/20 12/30/20 History albuterol sulfate 2.5 mg INHALATION Q6HRT PRN #30 ea 12/26/20 12/30/20 Rx ferrous sulfate 325 mg FEEDING TUBE BID #473 ml 12/26/20 12/30/20 Rx ipratropium bromide 0.5 mg INHALATION Q6HRT PRN #12.5 12/26/20 12/30/20 Rx ml gentamicin sulfate (PF) 1 applic TOPICAL PRN PRN 01/09/21 01/09/21 History tolnaftate [Antifungal 1 applic TOPICAL Q12HR 01/09/21 01/09/21 History (tolnaftate)] Allergies Allergy/AdvReac Type Severity Reaction Status Date / Time Penicillins Allergy Mild hives Verified 01/09/21 18:19 hydrocodone Allergy Unknown Unknown Verified
--- NOTE | 2021-01-09 23:30 | ECG_ITS ---
Measurements Intervals [place] Rate: 128 P: 14 ND: 139 QRS: 13 QRSD: 72 T: 63 QT: 288 QTc: 420 Interpretive Statements SINUS TACHYCARDIA VENTRICULAR PREMATURE COMPLEX BORDERLINE ST-T WAVE ABNORMALITY- HIGH LATERAL LEADS BASELINE ARTIFACT- I, II, III, AVR, AVL, AVF, V4 ABNORMAL ECG Electronically Signed On 01-12-2021 15:39:36 CDT by Ej Pack D.O.
[2021-01-10] VITALS: BP 181/97; PULSE 125; RESP 16; TEMP 36.1; O2SAT 95
[2021-01-10] MEDS: metroNIDAZOLE 500 MG/ISO 100ML 500 MG/100 ML BAG 100 MG IVPB ×3 (00:54→16:47)
[2021-01-10] MEDS: CIPROFLOXACIN 400 MG/D5W 200ML 200 ML 200 MG IVPB ×2 (01:59→15:20)
[2021-01-10 04:00] VITALS: BP 136/82; PULSE 132; RESP 18; TEMP 36.2; O2SAT 96
[2021-01-10 05:56] LABS: Basophils Absolute Auto 0.1 K/mm3 (0.0-0.1); Basophils Percent Auto 0.3 % (0.2-1.2); Hematocrit 36.7 % (37.0-47.0); Hemoglobin 10.9 g/dL (12.0-15.0); Immature Granulocyte Absolute 0.15 K/mm3 (0.00-0.031); Immature Granulocyte Percent A 0.7 % (0-0.5); Lymphocytes Absolute Auto 1.38 K/mm3 (0.9-3.2); Lymphocytes Percent Auto 6.5 % (18.3-44.2); Mean Corpuscular HGB Conc 29.7 g/dl (32-36); Mean Corpuscular Hemoglobin 24.5 pg (26-34); Mean Corpuscular Volume 82.7 fl (80-100); Mean Platelet Volume 9.2 fl (7.4-10.4); Monocytes Absolute Auto 1.1 K/mm3 (0.1-0.6); Monocytes Percent Auto 5.3 % (2.6-8.5); Neutrophils Absolute Auto 18.6 K/mm3 (1.3-6.7); Neutrophils Percent Auto 87.2 % (45.5-73.1); Platelet Count Result 502 k/mm3 (150-375); Red Blood Count 4.44 M/mm3 (4.2-5.4); Red Cell Distribution Width 22.8 % (11.5-14.5); White Blood Count 21.3 K/mm3 (4.5-10.0)
[2021-01-10] MEDS: INSULIN ASPART (*BKC) 100 UNITS/ML SUB-Q ×3 (09:22→16:44)
[2021-01-10 09:23] LABS: Glucose Point of Care 319 mg/dl (65-105)
[2021-01-10] MEDS: COLLAGENASE OINT 30 GM TUBE 1 APPLIC TOPICAL (09:25)
[2021-01-10] MEDS: PANTOPRAZOLE SODIUM IV 40 MG VIAL IV PUSH ×2 (09:26→20:12)
[2021-01-10] MEDS: SODIUM CHLORIDE 0.9% IV 1,000 ML 70 ML IV CONT (09:34)
[2021-01-10 09:57] LABS: Anion Gap 8 mmol/L (8-16); Blood Urea Nitrogen 14 mg/dL (7-17); Calcium 9.3 mg/dL (8.4-10.2); Carbon Dioxide 38 mmol/L (22-30); Chloride 102 mmol/L (98-107); Estimated CRCL calculation 71 ml/min; Estimated Glomerular Filt Rate > 60; Glucose 355 mg/dL (65-105); Potassium 3.3 mmol/L (3.4-5.0); Sodium 148 mmol/L (137-145)
[2021-01-10 10:00] VITALS: BP 132/74; PULSE 124; RESP 16; TEMP 36.3; O2SAT 100
[2021-01-10] MEDS: ONDANSETRON INJ 4 MG/2 ML VIAL IV PUSH ×3 (10:30→20:12)
[2021-01-10 11:47] VITALS: BMI 27.6
[2021-01-10 11:58] LABS: Add Urine Microscopic? YES; Appearance Urine Cloudy (Clear); Bilirubin Urine Negative (Negative); Blood Urine 2+ (Negative); Color Urine Amber (Yellow); Glucose Urine UA 1+ mg/dL (Negative); Ketones Urine 1+ mg/dL (Negative); Leukocyte Esterase Ur 1+ LEU/UL (Negative); Mucus Urine Moderate /lpf; Nitrate Urine Negative (Negative); Protein Urine 3+ mg/dL (Negative); RBC Urine >75 /hpf (0-2); Squamous Epithelial Cell Urine Occasional /hpf (Few); WBC Urine 31-50 /hpf
[2021-01-10 11:59] LABS: Specific Grav Ur 1.033 (1.001-1.035)
--- NOTE | 2021-01-10 12:28 | PC.NURSE ---
Patient continues to have intermittent emesis of dark coffee grounds/maroon tinted liquid. Patient holds emesis in her mouth and requires oral suctioning to remove it. Oral care repeatedly provided along with suctioning. Liliana PARDO is aware of emesis. Patient is on her side with HOB elevated and suction at bedside.
[2021-01-10 12:35] LABS: Glucose Point of Care 319 mg/dl (65-105)
--- NOTE | 2021-01-10 13:04 | PCNSR ---
On 01/10/21, the student, Shannon Lindsay, provided care and completed [facility] documentation on this patient. I have reviewed the student's documentation and agree with the findings.
--- NOTE | 2021-01-10 13:57 | PM.IMPN ---
Progress Note: A&P Assessment and Plan (1) GI bleed: Qualifiers: GI bleed type/associated pathology: unspecified gastrointestinal hemorrhage type Qualified Code(s): K92.2 - Gastrointestinal hemorrhage, unspecified Code(s): K92.2 - Gastrointestinal hemorrhage, unspecified Status: Acute Assessment and Plan: Appears her Eliquis was discontinued last admission. Continue holding anticoagulation. She has known severe esophagitis with recurrent hematemesis. Discussed with Dr Partida. Continue PPI and treating symptomatically with antiemetics to make her as comfortable as possible. Hold tube feeds for now as she is vomiting all day. Patient was discharged 01/04/21 home with [facility]. I am told by hospice tax compliance representative and care coordination that patient's hospice services were revoked once patient was admitted to the hospital. Seems the daughter was unaware. Daughter has now signed paperwork to re-instate her hospice services after discharge but wants to continue her workup and treatment while admitted. (2) Cholecystitis with cholelithiasis: Qualifiers: Biliary obstruction: without biliary obstruction Cholecystitis acuity: chronic Cholelithiasis location: gallbladder Qualified Code(s): K80.10 - Calculus of gallbladder with chronic cholecystitis without obstruction Code(s): K80.10 - Calculus of gallbladder with chronic cholecystitis without obstruction Status: Acute Assessment and Plan: Patient had a cholecystostomy tube placed 12/16/20 for acute cholecystitis, intact and draining some scant bile. Given her elevated white count and continued emesis, ordered CT abd/pel for evaluation. She was supposed to follow up with general surgery 4 weeks after discharge which is this week, thus I appreciate surgery input since family wishes for all evaluation to continue at this point. (3) Chronic indwelling Baltazar catheter: Code(s): Z97.8 - Presence of other specified devices Status: Chronic Assessment and Plan: Abnormal UA may be related to chronic Baltazar catheter. (4) Sepsis: Qualifiers: Sepsis acute organ dysfunction status: unspecified Sepsis type: sepsis due to unspecified organism Qualified Code(s): A41.9 - Sepsis, unspecified organism Code(s): A41.9 - Sepsis, unspecified organism Status: Acute Assessment and Plan: With increased leukocytosis and tachycardia. Unclear source, could be GI/gallbladder related or aspiration pneumonia. Continue empiric antibiotics with flagyl and cipro (PCN allergic). Blood culture and UA obtained. Afebrile. Monitor vital signs and urine output. Started IV fluids. (5) Decubitus ulcer: Qualifiers: Pressure injury location: unspecified location Pressure injury stage: unstageable Qualified Code(s): L89.95 - Pressure ulcer of unspecified site, unstageable Code(s): L89.90 - Pressure ulcer of unspecified site, unspecified stage Status: Acute Assessment and Plan: EDUARDO buttock mostly on right. Wound photos reviewed, show pink and white granulation tissue without evidence of acute infection. Appreciate wound nurse evaluation and continue local wound care. (6) Insulin dependent type 2 diabetes mellitus: Code(s): E11.9 - Type 2 diabetes mellitus without complications; Z79.4 - intermodal dispatcher (current) use of insulin Status: Chronic Assessment and Plan: Monitor accu-cheks q6. Cover with SSI q6. Hold tube feedings for now. (7) DVT (deep venous thrombosis): Qualifiers: DVT location: upper extremity Affected thrombotic vein of extremity: unspecified vein of extremity Chronicity: unspecified Laterality: uns
--- NOTE | 2021-01-10 13:57 | WPDGICN ---
Assessment and Plan Assessment and plan (1) GI bleed: Qualifiers: GI bleed type/associated pathology: unspecified gastrointestinal hemorrhage type Qualified Code(s): K92.2 - Gastrointestinal hemorrhage, unspecified Code(s): K92.2 - Gastrointestinal hemorrhage, unspecified Status: Acute Assessment and Plan: coffee ground emesis probably from esophagitis/stricture but stable hb (last egd unable to traverse), also n/v could be from ongoing cholecystitis (treated with iv abx, still cholecystostomy tube) continue with iv antibiotics, iv protonix monitor cbc (2) Coffee ground emesis: Code(s): K92.0 - Hematemesis Status: Acute Assessment and Plan: medical treatment tube feeding on hold (she has G-J tube in place) (3) Esophageal stricture: Code(s): K22.2 - Esophageal obstruction Status: Acute Assessment and Plan: my understanding is that she was discharged with home hospice prognosis is guarded given advanced dementia (4) SIRS (systemic inflammatory response syndrome): Code(s): R65.10 - Systemic inflammatory response syndrome (SIRS) of non-infectious origin without acute organ dysfunction Status: Acute (5) Chronic indwelling Baltazar catheter: Code(s): Z97.8 - Presence of other specified devices Status: Acute (6) Cholecystitis with cholelithiasis: Qualifiers: Biliary obstruction: without biliary obstruction Cholecystitis acuity: chronic Cholelithiasis location: gallbladder Qualified Code(s): K80.10 - Calculus of gallbladder with chronic cholecystitis without obstruction Code(s): K80.10 - Calculus of gallbladder with chronic cholecystitis without obstruction Status: Acute Assessment and Plan: antibiotics surgery consult based on family wishes- ? hospice (7) Dementia: Qualifiers: Dementia type: unspecified type Dementia behavioral disturbance: without behavioral disturbance Qualified Code(s): F03.90 - Unspecified dementia without behavioral disturbance Code(s): F03.90 - Unspecified dementia without behavioral disturbance Status: Chronic GI Consult Note Consult date/time: 01/10/21 13:57 Reason for consult: coffee ground emesis, n/v, cholecystitis HPI: Diane Garrett is a 70 year old female who I met during recent hospitalization. 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 Previous hospitalization for coffee-ground emesis, treated also for UTI (chronic indwelling Baltazar catheter), aspiration pneumonia, also CT scan on 12/14/2020 showed gallbladder distension, Right upper quadrant ultrasound demonstrated acute cholecystitis and subsequently had a cholecystectomy tube placed on 12/16/2020 and also treated with antibiotics. Eventually tube feeding resumed and discharged with home hospice. Family brought patient back with nausea and vomiting dark material. Hb stable at 11, elevated WBC 20k, CXR reviewed showed subsegmental bibasilar opacities, atelectasis or possibly infection. Started on iv antibiotics, iv protonix. Review of Systems Review of Systems: ROS unobtainable: Yes unobtainable due to mental status PMFSH Past Medical History Medical History (Updated 01/10/21 @ 02:24 by Alma Pickett MD) Acute on chronic blood loss anemia Bilateral cataracts Bleeding ulcer Chronic anemia Iron deficiency Chronic indwelling Baltazar catheter Dementia with behavioral disturbance DVT (deep venous thrombosis) Most recent right upper extremity DVT 09/2020 Erosive esophagitis Esophageal stricture Essential hypertension Gastroesophageal reflux disease History of bleeding peptic ulcer History of pulmonary embolism Insulin dependent type 2 diabetes mellitus Hemoglobin A1c was 6.9% on 04/19/2020. Lesion of spl
[2021-01-10 14:00] VITALS: BP 134/75; PULSE 129; RESP 16; TEMP 36.9; O2SAT 100
[2021-01-10] MEDS: LACTATED RINGERS 1,000 ML 70 ML IV CONT (16:38)
[2021-01-10 16:54] LABS: Glucose Point of Care 269 mg/dl (65-105)
[2021-01-10] MEDS: DONEPEZIL HCL 10 MG TABLET FEED TUBE (20:11)
--- NOTE | 2021-01-10 20:32 | PM.CNGS ---
Assessment and Plan Assessment and plan (1) Acute cholecystitis: Onset Date: ~11/2020 Code(s): K81.0 - Acute cholecystitis Status: Acute Assessment and Plan: Patient was discovered to have acute cholecystitis in late November or early December. Because of her medical condition she was not a good surgical candidate. Therefore she had a cholecystostomy tube placed which is still in position. (See CT results from today). I carefully checked the tubing and the collection system and it seems to be intact. At this point would recommend continuing to monitor this. I doubt that her sepsis is on the basis of cholecystitis. Aspiration pneumonia, and/or urinary tract infection or probably higher possibilities. For now would recommend leaving cholecystostomy tube in position and continuing further workup. In general with all this patient's current problems I would not recommend surgical intervention. I would recommend a thorough discussion with the patient's daughter and if possible conversion back to hospice care and keep her comfortable. Appears to me that most likely she has aspiration pneumonia related to her vomiting and stenotic esophagus. If appropriate Hospice care is continued this most likely will lead to her demise. (2) GI bleed: Qualifiers: GI bleed type/associated pathology: unspecified gastrointestinal hemorrhage type Qualified Code(s): K92.2 - Gastrointestinal hemorrhage, unspecified Code(s): K92.2 - Gastrointestinal hemorrhage, unspecified Status: Acute Assessment and Plan: Apparently felt to be related to esophagitis. Previous EGD showed a complete stricture of the lower esophagus please see GI consultation. (3) Type 2 diabetes mellitus with hyperglycemia, with long-term current use of insulin: Code(s): E11.65 - Type 2 diabetes mellitus with hyperglycemia; Z79.4 - long-term (current) use of insulin Status: Acute Assessment and Plan: Hospitalist her following this. (4) Chronic indwelling Baltazar catheter: Code(s): Z97.8 - Presence of other specified devices Status: Chronic Assessment and Plan: I [facility] assume urine testing is being completed. Another possible source of her infection is the urinary tract. (5) Dementia: Qualifiers: Dementia behavioral disturbance: without behavioral disturbance Dementia type: unspecified type Qualified Code(s): F03.90 - Unspecified dementia without behavioral disturbance Code(s): F03.90 - Unspecified dementia without behavioral disturbance Status: Chronic Assessment and Plan: Apparently unchanged from previous admission. History of Present Illness Consult details Consult date: 01/10/21 Reason for consult: other ( Re-evaluation of cholecystostomy tube) Requesting physician: Liliana Haque PA-C Narrative: Ms. Garrett is an unfortunate 70yo Bl F with history of advanced dementia, DVT/PE, dysphagia with g-tube, type 2 diabetes, and severe esophagitis with recurrent hematemesis who is admitted again for hematemesis. Patient had cholecystostomy tube placed 12/16/20 for suspected acute cholecystitis with cholelithiasis. Apparently at home according to patient's daughter this has not been draining much lately. Prior to discharge it had been draining dark brown bile.. The is unable to provide any history as she is mostly nonverbal. According to the [facility] physical the patient was brought back to the emergency room by her daughter this date because she was having continuing emesis even though she was on hospice. Apparently the patient's daughter did not totally understand hospice. Now patient's daughter has talked to Liliana and requested that while she is here everything be done for the patient. She is still not a good surgical candidate so it would be alexandre to simply monitor the cholecystostomy tube output since the CT scan shows that it is in good position. I would not recom
[2021-01-10 21:14] LABS: Glucose Point of Care 199 mg/dl (65-105)
[2021-01-10 22:00] VITALS: BP 98/63; PULSE 127; RESP 20; TEMP 36.8; O2SAT 99
[2021-01-11] VITALS (7 sets, daily range): BP systolic 106–120; BP diastolic 58–78; PULSE 97–122; RESP 18–20; TEMP 35.9–37.6; O2SAT 90–99
[2021-01-11] MEDS: metroNIDAZOLE 500 MG/ISO 100ML 500 MG/100 ML BAG 100 MG IVPB (00:01)
[2021-01-11 00:07] LABS: Glucose Point of Care 193 mg/dl (65-105)
[2021-01-11] MEDS: ONDANSETRON INJ 4 MG/2 ML VIAL IV PUSH ×3 (01:01→09:24)
[2021-01-11] MEDS: CIPROFLOXACIN 400 MG/D5W 200ML 200 ML 200 MG IVPB (01:04)
[2021-01-11 05:46] LABS: Basophils Percent Auto 0.1 % (0.2-1.2); Hematocrit 27.7 % (37.0-47.0); Hemoglobin 8.3 g/dL (12.0-15.0); Immature Granulocyte Absolute 0.08 K/mm3 (0.00-0.031); Immature Granulocyte Percent A 0.6 % (0-0.5); Lymphocytes Absolute Auto 1.62 K/mm3 (0.9-3.2); Lymphocytes Percent Auto 11.5 % (18.3-44.2); Mean Corpuscular Hemoglobin 24.7 pg (26-34); Mean Corpuscular Volume 82.4 fl (80-100); Mean Platelet Volume 9.6 fl (7.4-10.4); Monocytes Absolute Auto 0.9 K/mm3 (0.1-0.6); Monocytes Percent Auto 6.4 % (2.6-8.5); Neutrophils Absolute Auto 11.5 K/mm3 (1.3-6.7); Neutrophils Percent Auto 81.4 % (45.5-73.1); Platelet Count Result 380 k/mm3 (150-375); Red Blood Count 3.36 M/mm3 (4.2-5.4); Red Cell Distribution Width 22.2 % (11.5-14.5); White Blood Count 14.1 K/mm3 (4.5-10.0)
[2021-01-11 06:00] LABS: Anion Gap 6 mmol/L (8-16); Blood Urea Nitrogen 13 mg/dL (7-17); Calcium 8.8 mg/dL (8.4-10.2); Carbon Dioxide 34 mmol/L (22-30); Chloride 106 mmol/L (98-107); Estimated CRCL calculation 71 ml/min; Estimated Glomerular Filt Rate > 60; Glucose 218 mg/dL (65-105); Potassium 3.4 mmol/L (3.4-5.0); Sodium 146 mmol/L (137-145)
[2021-01-11 06:04] LABS: Glucose Point of Care 210 mg/dl (65-105)
[2021-01-11] MEDS: INSULIN ASPART (*BKC) 100 UNITS/ML SUB-Q ×2 (06:07→12:40)
[2021-01-11 07:53] LABS: Glucose Point of Care 192 mg/dl (65-105)
[2021-01-11] MEDS: POTASSIUM CHLORIDE 20 MEQ PACKET (FOR LIQUID) 40 MEQ FEED TUBE (09:24)
[2021-01-11] MEDS: COLLAGENASE OINT 30 GM TUBE 1 APPLIC TOPICAL (09:25)
[2021-01-11] MEDS: PANTOPRAZOLE SODIUM IV 40 MG VIAL IV PUSH ×2 (09:25→20:10)
[2021-01-11] MEDS: LACTATED RINGERS 1,000 ML 70 ML IV CONT (10:34)
[2021-01-11 12:22] LABS: Glucose Point of Care 235 mg/dl (65-105)
[2021-01-11 12:34] LABS: Hematocrit 29.7 % (37.0-47.0); Hemoglobin 8.6 g/dL (12.0-15.0); Mean Corpuscular Hemoglobin 24.5 pg (26-34); Mean Corpuscular Volume 84.6 fl (80-100); Mean Platelet Volume 9.4 fl (7.4-10.4); Platelet Count Result 350 k/mm3 (150-375); Red Blood Count 3.51 M/mm3 (4.2-5.4); Red Cell Distribution Width 22.4 % (11.5-14.5); White Blood Count 14.2 K/mm3 (4.5-10.0)
--- NOTE | 2021-01-11 13:16 | PM.PNGS ---
Progress Note: A&P Assessment and Plan (1) Acute cholecystitis: Onset Date: ~11/2020 Code(s): K81.0 - Acute cholecystitis Status: Acute Assessment and Plan: Continue to monitor cholecystostomy tube drainage. Minimal, if any, output at this time. CT scan abd/pelvis confirmed this is still in good position. We do not expect her current infection to be related to her gallbladder. More likely aspiration pneumonia vs urinary source. Overall poor prognosis. Reportedly, the Hospitalist is planning to speak with the family again today regarding Hospice and plan of care, although it appears she was made a full code yesterday. We would continue to monitor her cholecystostomy tube to gravity for now. (2) GI bleed: Qualifiers: GI bleed type/associated pathology: unspecified gastrointestinal hemorrhage type Qualified Code(s): K92.2 - Gastrointestinal hemorrhage, unspecified Code(s): K92.2 - Gastrointestinal hemorrhage, unspecified Status: Acute Assessment and Plan: GI consulted and apparently this is felt to be related to esophagitis. Previous EGD showed a complete stricture of the lower esophagus. Continue medical management and supportive care. She also continues to have issues with her G-J tube when administered medications and tube feeding through this. In review of the CT scan, it appears her G-J tube has retracted with the tip in the gastric antrum, with some redundancy of the tube in her hiatal hernia. This could be the cause of those issues, but unsure how this could be repositioned considering her esophageal stricture. GI following and possible discussion today regarding plan of care. (3) Type 2 diabetes mellitus with hyperglycemia, with long-term current use of insulin: Code(s): E11.65 - Type 2 diabetes mellitus with hyperglycemia; Z79.4 - prison (current) use of insulin Status: Acute Assessment and Plan: Management per Hospitalist. (4) Chronic indwelling Baltazar catheter: Code(s): Z97.8 - Presence of other specified devices Status: Chronic (5) Dementia: Qualifiers: Dementia type: unspecified type Dementia behavioral disturbance: without behavioral disturbance Qualified Code(s): F03.90 - Unspecified dementia without behavioral disturbance Code(s): F03.90 - Unspecified dementia without behavioral disturbance Status: Chronic Additional Plan I have discussed the patient's case and plan of care with Dr. Clarke. Subjective Subjective Date/Time Seen: 01/11/21 09:56 Patient reports: afebrile Interval history: Patient seen today with no family at the bedside. She is nonverbal when asking her questions with a hx of dementia. She is bedbound. She has a cholecystotomy tube in place with no output documented from overnight, only 5 cc emptied yesterday during the day shift. Review of Systems Review of Systems: ROS unobtainable: Yes unobtainable due to mental status Exam Const: General: awake Limitations: altered mental status ( secondary to dementia) GI: Inspection: non-distended GI Palp: Yes Soft to palpation, No Tenderness to palpation present (GI) and No Guarding due to palpation present (GI) Other: RUQ cholecystostomy tube with scant amount, if any, bilious-appearing drainage in bag. Psych: Insight: Limited insight present (Psych) Judgement: Limited judgement present (Psych) Objective Data Vital Signs Vital Signs: Vital Signs - 24 hr 01/10/21 14:00 01/10/21 22:00 01/11/21 02:00 Temperature 98.4 F 98.3 F 99.7 F H Pulse Rate 129 H 127 H 122 H Respiratory Rate 16 20 20 Blood Pressure 134/75 98/63 L 109/75 Pulse Oximetry 100 99 98 01/11/21 04:00 01/11/21 08:00 01/11/21 09:44 Temperature 98.2 F 98.8 F Pulse Rate 115 H 106 H Respiratory Rate 18 18 Blood Pressure 108/70 106/63 Pulse Oximetry 96 92 90 Intake/Output Intake/Output: Intake & Output 01/08/21 01/09/21 01/10/21 01/11/21 23:59 23:59
--- NOTE | 2021-01-11 14:02 | WPDGIPROGNO ---
Progress Note: A&P Assessment and Plan (1) Nausea & vomiting: Code(s): R11.2 - Nausea with vomiting, unspecified Status: Acute Assessment and Plan: probably from esophagitis/stricture continue with iv protonix (2) Coffee ground emesis: Code(s): K92.0 - Hematemesis Status: Acute Assessment and Plan: she is not longer on anticoagulation since last hospitalization monitor h/h (3) Esophageal stricture: Code(s): K22.2 - Esophageal obstruction Status: Acute Assessment and Plan: last egd unable to traverse stricture she has G-J tube (CT scan reviewed and jejunal extension now on gastric antrum)- resume feeding after she is not vomiting anymore (4) Cholecystitis with cholelithiasis: Qualifiers: Biliary obstruction: without biliary obstruction Cholecystitis acuity: chronic Cholelithiasis location: gallbladder Qualified Code(s): K80.10 - Calculus of gallbladder with chronic cholecystitis without obstruction Code(s): K80.10 - Calculus of gallbladder with chronic cholecystitis without obstruction Status: Acute Assessment and Plan: cholecystostomy tube working ok (reviewed ct scan), also on abx (she could have other source of infection) prognosis is guarded and probably she should be back on hospice again (5) Erosive esophagitis: Code(s): K22.10 - Ulcer of esophagus without bleeding Status: Acute Assessment and Plan: ppi bid (6) Dementia with behavioral disturbance: Code(s): F03.91 - Unspecified dementia with behavioral disturbance Status: Chronic Assessment and Plan: end stage dementia (7) Dementia: Qualifiers: Dementia type: unspecified type Dementia behavioral disturbance: without behavioral disturbance Qualified Code(s): F03.90 - Unspecified dementia without behavioral disturbance Code(s): F03.90 - Unspecified dementia without behavioral disturbance Status: Chronic (8) Cholecystostomy care: Code(s): Z43.4 - Encounter for attention to other artificial openings of digestive tract Status: Acute (9) Chronic indwelling Baltazar catheter: Code(s): Z97.8 - Presence of other specified devices Status: Chronic Subjective Date/time seen: 01/11/21 14:02 Interval history: she is resting comfortable now, RN reports that still was pooling secretion in her mouth and vomiting Review of Systems Review of Systems: All systems reviewed & are unremarkable except as noted in HPI and below Exam Const: Other: chronically ill, non-verbal (baseline) HENMT: General nose exam: Normal nares present Eyes: Sclera: sclerae normal Neck: Neck: supple Resp: Auscultation: no crackles and diminished lung sounds Cardio: Rate: regular rate GI: Inspection: non-distended GI Palp: No Tenderness to palpation present (GI) Percussion: Yes other (cholecystostomy tube with bile material) Auscultation: normal bowel sounds Other: G-J tube in place, site looks ok Urinary Catheter: Urinary Catheter: patent and draining Skin: General skin exam: no erythema Neuro: Other: non-verbal Extrem: General: no edema Objective Data Vital Signs Vital Signs: Vital Signs - 24 hr 01/10/21 22:00 01/11/21 02:00 01/11/21 04:00 Temperature 98.3 F 99.7 F H 98.2 F Pulse Rate 127 H 122 H 115 H Respiratory Rate 20 20 18 Blood Pressure 98/63 L 109/75 108/70 Pulse Oximetry 99 98 96 01/11/21 08:00 01/11/21 09:44 Temperature 98.8 F Pulse Rate 106 H Respiratory Rate 18 Blood Pressure 106/63 Pulse Oximetry 92 90 Intake/Output Intake/Output: Intake & Output 01/08/21 01/09/21 01/10/21 01/11/21 23:59 23:59 23:59 23:59 Intake Total 1000 1200 1400 Output Total 1005 450 Balance 1000 195 950 Meds/Results Medications: Active Medications Generic Name Dose Route Start Last Admin Trade Name Freq PRN Reason Stop Dose Admin Albuterol 2.5 mg 01/10/21 08:51 Albu
--- NOTE | 2021-01-11 15:50 | PM.IMPN ---
Progress Note: A&P Assessment and Plan (1) GI bleed: Qualifiers: GI bleed type/associated pathology: unspecified gastrointestinal hemorrhage type Qualified Code(s): K92.2 - Gastrointestinal hemorrhage, unspecified Code(s): K92.2 - Gastrointestinal hemorrhage, unspecified Status: Acute Assessment and Plan: Instructed to stop Eliquis at discharge 01/04 but daughter tells me she continued to give the Eliquis. Likely the cause of the ongoing bleeding. Stop Eliquis. She has known severe esophagitis with esophageal stricture with recurrent hematemesis. Continue PPI and treating symptomatically with antiemetics to make her as comfortable as possible. Hold tube feeds for now as she is still vomiting all day. Patient was discharged 01/04/21 home with [facility]. Hospice services were revoked when patient was admitted to the hospital. Daughter now wants palliative care at home at discharge. Her tube feedings are held due to continuing emesis. Continue PPI, antiemetics. Long, detailed discussion held with patient's daughter, Paty, at the bedside for > 60 minutes discussing patient's condition and further goals of care. I educated Paty thoroughly regarding each of her mothers complex, serious medical issues and how they contribute to her overall poor prognosis at this time. I discussed at length our recommendations for comfort measures and hospice services, as the treatments we are providing to her at this point are not expected to change her overall outlook. Paty verbalizes understanding of her mother's poor prognosis but describes she still wants to do everything she can do for her mother. We discussed code status at length and Paty does not wish for us to perform CPR or for her mother to be on life support, thus she wishes for patient's code status to change back to Do Not Resuscitate/Do Not Intubate. It remains her goal to bring the patient home with [facility]. (2) Aspiration pneumonia: Qualifiers: Aspiration pneumonia type: unspecified Laterality: unspecified laterality Lung location: unspecified part of lung Qualified Code(s): J69.0 - Pneumonitis due to inhalation of food and vomit Code(s): J69.0 - Pneumonitis due to inhalation of food and vomit Status: Suspected Assessment and Plan: With esophageal stricture, dysphagia and recurrent hematemesis. Abx changed to imipenem today. No acute respiratory distress, tolerating room air. Continue supportive care with suctioning emesis and secretions, nebulized bronchodilator therapy as needed, and tylenol for fevers. (3) Cholecystitis with cholelithiasis: Qualifiers: Biliary obstruction: without biliary obstruction Cholecystitis acuity: chronic Cholelithiasis location: gallbladder Qualified Code(s): K80.10 - Calculus of gallbladder with chronic cholecystitis without obstruction Code(s): K80.10 - Calculus of gallbladder with chronic cholecystitis without obstruction Status: Acute Assessment and Plan: Patient had a cholecystostomy tube placed 12/16/20 for acute cholecystitis, intact and draining some scant bile. Given her elevated white count and continued emesis, ordered CT abd/pel for evaluation which showed not really any change to explain her symptoms. She was supposed to follow up with general surgery 4 weeks after discharge which is this week, thus I appreciate surgery input since family wishes for all evaluation to continue at this point. (4) Chronic indwelling Baltazar catheter: Code(s): Z97.8 - Presence of other specified devices Status: Chronic Assessment and Plan: Abnormal UA may be related to chronic Baltazar catheter. Antibiotic coverage with imipenem for suspected aspiration pneumonia while urine culture is pending.
[2021-01-11 17:16] LABS: Glucose Point of Care 124 mg/dl (65-105)
[2021-01-11] MEDS: DONEPEZIL HCL 10 MG TABLET FEED TUBE (20:09)
[2021-01-12] VITALS: BP 118/72; PULSE 106; RESP 16; TEMP 36.3; O2SAT 97
[2021-01-12] MEDS: LACTATED RINGERS 1,000 ML 70 ML IV CONT ×2 (01:37→18:21)
[2021-01-12 03:09] LABS: Glucose Point of Care 150 mg/dl (65-105)
[2021-01-12 03:54] VITALS: BP 122/76; PULSE 98; RESP 16; TEMP 36.3; O2SAT 95
[2021-01-12 05:21] LABS: Glucose Point of Care 155 mg/dl (65-105)
[2021-01-12 05:47] LABS: Basophils Percent Auto 0.3 % (0.2-1.2); Eosinophils Percent Auto 0.1 % (0-4.4); Hematocrit 27.8 % (37.0-47.0); Hemoglobin 8.1 g/dL (12.0-15.0); Immature Granulocyte Absolute 0.07 K/mm3 (0.00-0.031); Immature Granulocyte Percent A 0.5 % (0-0.5); Lymphocytes Absolute Auto 1.53 K/mm3 (0.9-3.2); Lymphocytes Percent Auto 11.3 % (18.3-44.2); Mean Corpuscular HGB Conc 29.1 g/dl (32-36); Mean Corpuscular Hemoglobin 24.8 pg (26-34); Mean Platelet Volume 9.7 fl (7.4-10.4); Monocytes Absolute Auto 0.6 K/mm3 (0.1-0.6); Monocytes Percent Auto 4.3 % (2.6-8.5); Neutrophils Absolute Auto 11.4 K/mm3 (1.3-6.7); Neutrophils Percent Auto 83.5 % (45.5-73.1); Platelet Count Result 338 k/mm3 (150-375); Red Blood Count 3.27 M/mm3 (4.2-5.4); White Blood Count 13.6 K/mm3 (4.5-10.0)
[2021-01-12 05:53] LABS: Alanine Aminotransferase 8 U/L (4-35); Albumin Level 2.8 g/dL (3.5-5.1); Alkaline Phosphatase 56 U/L (38-126); Anion Gap 3 mmol/L (8-16); Aspartate Amino Transferase 21 U/L (14-36); Bilirubin,Total 0.3 mg/dL (0.2-1.3); Blood Urea Nitrogen 12 mg/dL (7-17); Calcium 8.9 mg/dL (8.4-10.2); Carbon Dioxide 35 mmol/L (22-30); Chloride 107 mmol/L (98-107); Estimated CRCL calculation 101 ml/min; Estimated Glomerular Filt Rate > 60; Glucose 171 mg/dL (65-105); Potassium 3.6 mmol/L (3.4-5.0); Sodium 145 mmol/L (137-145)
[2021-01-12 08:00] VITALS: BP 105/62; PULSE 94; RESP 16; TEMP 36.2; O2SAT 94
[2021-01-12] MEDS: PANTOPRAZOLE SODIUM IV 40 MG VIAL IV PUSH ×2 (08:40→21:11)
[2021-01-12] MEDS: COLLAGENASE OINT 30 GM TUBE 1 APPLIC TOPICAL (08:41)
[2021-01-12 11:39] LABS: Glucose Point of Care 118 mg/dl (65-105)
[2021-01-12 12:00] VITALS: BP 106/65; PULSE 85; RESP 16; TEMP 36.1; O2SAT 98
--- NOTE | 2021-01-12 15:24 | PM.PNGS ---
Progress Note: A&P Assessment and Plan (1) Acute cholecystitis: Onset Date: ~11/2020 Code(s): K81.0 - Acute cholecystitis Status: Acute Assessment and Plan: Continue to monitor cholecystostomy tube drainage. Minimal, if any, output at this time. CT scan abd/pelvis confirmed this is still in good position. Would keep cholecystostomy tube in and plan for this to be kept in after discharge. We have talked to the daughter about this as well. No surgical needs at this time. We will sign off the case. Please let us know if there are any issues. Call our service if there are any issues with the cholecystostomy tube. (2) GI bleed: Qualifiers: GI bleed type/associated pathology: unspecified gastrointestinal hemorrhage type Qualified Code(s): K92.2 - Gastrointestinal hemorrhage, unspecified Code(s): K92.2 - Gastrointestinal hemorrhage, unspecified Status: Acute (3) Type 2 diabetes mellitus with hyperglycemia, with long-term current use of insulin: Code(s): E11.65 - Type 2 diabetes mellitus with hyperglycemia; Z79.4 - shelter (current) use of insulin Status: Acute (4) Chronic indwelling Baltazar catheter: Code(s): Z97.8 - Presence of other specified devices Status: Chronic (5) Dementia: Qualifiers: Dementia type: unspecified type Dementia behavioral disturbance: without behavioral disturbance Qualified Code(s): F03.90 - Unspecified dementia without behavioral disturbance Code(s): F03.90 - Unspecified dementia without behavioral disturbance Status: Chronic Additional Plan I have discussed the patient's case and plan of care with Dr. Clarke. Subjective Subjective Date/Time Seen: 01/12/21 10:24 Interval history: This is a 70yo F with history of advanced dementia, DVT/PE, dysphagia with g-tube, type 2 diabetes, and severe esophagitis with recurrent hematemesis who is admitted again for hematemesis. Patient had cholecystostomy tube placed 12/16/20. She is unable to provide any history as she is mostly nonverbal. No family at the bedside at the time of my exam. Review of Systems Review of Systems: ROS unobtainable: Yes unobtainable due to mental status Exam Const: General: no acute distress and lethargic Limitations: physical limitations GI: Inspection: non-distended GI Palp: Yes Soft to palpation, No Tenderness to palpation present (GI) (no grimacing with palpation of entire abd) and No Guarding due to palpation present (GI) Auscultation: normal bowel sounds Other: RUQ cholecystostomy tube with scant amount, if any, bilious-appearing drainage in bag. Psych: Insight: Limited insight present (Psych) Judgement: Limited judgement present (Psych) Objective Data Vital Signs Vital Signs: Vital Signs - 24 hr 01/11/21 16:00 01/11/21 20:00 01/12/21 00:00 Temperature 96.7 F L 97.4 F L 97.3 F L Pulse Rate 99 102 H 106 H Respiratory Rate 18 18 16 Blood Pressure 110/58 L 120/78 118/72 Pulse Oximetry 94 96 97 01/12/21 03:54 01/12/21 08:00 01/12/21 12:00 Temperature 97.3 F L 97.2 F L 97.0 F L Pulse Rate 98 94 85 Respiratory Rate 16 16 16 Blood Pressure 122/76 105/62 106/65 Pulse Oximetry 95 94 98 Intake/Output Intake/Output: Intake & Output 01/09/21 01/10/21 01/11/21 01/12/21 23:59 23:59 23:59 23:59 Intake Total 1000 1200 1600 1200 Output Total 1005 650 255 Balance 1000 195 950 945 Meds/Results Medications: Active Medications Generic Name Dose Route Start Last Admin Trade Name Freq PRN Reason Stop Dose Admin Albuterol 2.5 mg 01/10/21 08:51 Albuterol Sulfate Neb 2.5 Mg/0.5 Ml Inh INHALATION Q6HRT PRN Shortness Of Breath Bisacodyl 10 mg 01/10/21 08:51 Bisacodyl 10 Mg Suppository RECTAL DAILY PRN Constipation Collagenase 1 applic 01/10/21 09:00 01/12/21 08:41 Collagenase Oint 30 Gm Tube TOPICAL 1 applic DAILY EVELIO Administration Dextrose 12.5 gm 01/10/21 08:57
[2021-01-12 16:00] VITALS: BP 108/60; PULSE 74; RESP 16; TEMP 36.4; O2SAT 96
--- NOTE | 2021-01-12 16:29 | WPDGIPROGNO ---
Progress Note: A&P Assessment and Plan (1) Nausea & vomiting: Code(s): R11.2 - Nausea with vomiting, unspecified Status: Acute Assessment and Plan: on presentation and probably from esophagitis/stricture continue with iv protonix will resume tube feeding and monitor (2) Coffee ground emesis: Code(s): K92.0 - Hematemesis Status: Acute Assessment and Plan: she is not longer on anticoagulation since last hospitalization monitor h/h I would rather not repeat another egd- alf prognosis is guarded and probably she should be under hospice care (3) Esophageal stricture: Code(s): K22.2 - Esophageal obstruction Status: Acute Assessment and Plan: last egd unable to traverse stricture she has G-J tube (CT scan reviewed and jejunal extension now on gastric antrum)- will resume feeding again (4) Cholecystitis with cholelithiasis: Qualifiers: Biliary obstruction: without biliary obstruction Cholecystitis acuity: chronic Cholelithiasis location: gallbladder Qualified Code(s): K80.10 - Calculus of gallbladder with chronic cholecystitis without obstruction Code(s): K80.10 - Calculus of gallbladder with chronic cholecystitis without obstruction Status: Acute Assessment and Plan: cholecystostomy tube working ok (reviewed ct scan), also on abx (she could have other source of infection) prognosis is guarded and probably she should be back on hospice again (5) Erosive esophagitis: Code(s): K22.10 - Ulcer of esophagus without bleeding Status: Acute Assessment and Plan: ppi bid and probably source of coffee ground (6) Dementia with behavioral disturbance: Code(s): F03.91 - Unspecified dementia with behavioral disturbance Status: Chronic Assessment and Plan: end stage dementia (7) Dementia: Qualifiers: Dementia type: unspecified type Dementia behavioral disturbance: without behavioral disturbance Qualified Code(s): F03.90 - Unspecified dementia without behavioral disturbance Code(s): F03.90 - Unspecified dementia without behavioral disturbance Status: Chronic (8) Cholecystostomy care: Code(s): Z43.4 - Encounter for attention to other artificial openings of digestive tract Status: Acute (9) Chronic indwelling Baltazar catheter: Code(s): Z97.8 - Presence of other specified devices Status: Chronic Subjective Date/time seen: 01/12/21 16:29 Interval history: RN reports that she has been stable today, no vomiting Review of Systems Review of Systems: All systems reviewed & are unremarkable except as noted in HPI and below Exam Const: Other: non-verbal, resting comfortable HENMT: General nose exam: Normal nares present Eyes: Sclera: sclerae normal Neck: Neck: supple Resp: Auscultation: diminished lung sounds Cardio: Rate: regular rate GI: GI Palp: Yes Soft to palpation and No Tenderness to palpation present (GI) Auscultation: normal bowel sounds Other: g-j tube and cholecystostomy tube in place Urinary Catheter: Urinary Catheter: patent and draining Skin: General skin exam: no erythema Neuro: Cognition (Neuro): abnormal cognition Other: end-stage dementia Extrem: General: no edema Objective Data Vital Signs Vital Signs: Vital Signs - 24 hr 01/11/21 20:00 01/12/21 00:00 01/12/21 03:54 Temperature 97.4 F L 97.3 F L 97.3 F L Pulse Rate 102 H 106 H 98 Respiratory Rate 18 16 16 Blood Pressure 120/78 118/72 122/76 Pulse Oximetry 96 97 95 01/12/21 08:00 01/12/21 12:00 Temperature 97.2 F L 97.0 F L Pulse Rate 94 85 Respiratory Rate 16 16 Blood Pressure 105/62 106/65 Pulse Oximetry 94 98 Intake/Output Intake/Output: Intake & Output 01/09/21 01/10/21 01/11/21 01/12/21 23:59 23:59 23:59 23:59 Intake Total 1000 1200 1600 1300 Output Total 1005 650 255 Balance 1000 511 241 0156 Meds/Results Medications: Active Medicati
--- NOTE | 2021-01-12 16:48 | PM.IMPN ---
Progress Note: A&P Assessment and Plan (1) GI bleed: Qualifiers: GI bleed type/associated pathology: unspecified gastrointestinal hemorrhage type Qualified Code(s): K92.2 - Gastrointestinal hemorrhage, unspecified Code(s): K92.2 - Gastrointestinal hemorrhage, unspecified Status: Acute Assessment and Plan: Instructed to stop Eliquis at discharge 01/04 but daughter tells me she continued to give the Eliquis. Likely the cause of the ongoing bleeding. Stop Eliquis. She has known severe esophagitis with esophageal stricture with recurrent hematemesis. Continue PPI and treating symptomatically with antiemetics to make her as comfortable as possible. Hold tube feeds for now as she is still vomiting all day. Patient was discharged 01/04/21 home with [facility]. Hospice services were revoked when patient was admitted to the hospital. Daughter now wants palliative care at home at discharge. Her tube feedings are held due to continuing emesis. Continue PPI, antiemetics. Patient will need tube feedings for greater than 90 days. Long, detailed discussion held with patient's daughter, Paty, at the bedside for > 60 minutes discussing patient's condition and further goals of care. I educated Paty thoroughly regarding each of her mothers complex, serious medical issues and how they contribute to her overall poor prognosis at this time. I discussed at length our recommendations for comfort measures and hospice services, as the treatments we are providing to her at this point are not expected to change her overall outlook. Paty verbalizes understanding of her mother's poor prognosis but describes she still wants to do everything she can do for her mother. We discussed code status at length and Paty does not wish for us to perform CPR or for her mother to be on life support, thus she wishes for patient's code status to change back to Do Not Resuscitate/Do Not Intubate. It remains her goal to bring the patient home with [facility]. (2) Aspiration pneumonia: Qualifiers: Aspiration pneumonia type: unspecified Laterality: unspecified laterality Lung location: unspecified part of lung Qualified Code(s): J69.0 - Pneumonitis due to inhalation of food and vomit Code(s): J69.0 - Pneumonitis due to inhalation of food and vomit Status: Suspected Assessment and Plan: With esophageal stricture, dysphagia and recurrent hematemesis. Abx changed to imipenem today. No acute respiratory distress, tolerating room air. Continue supportive care with suctioning emesis and secretions, nebulized bronchodilator therapy as needed, and tylenol for fevers. (3) Cholecystitis with cholelithiasis: Qualifiers: Biliary obstruction: without biliary obstruction Cholecystitis acuity: chronic Cholelithiasis location: gallbladder Qualified Code(s): K80.10 - Calculus of gallbladder with chronic cholecystitis without obstruction Code(s): K80.10 - Calculus of gallbladder with chronic cholecystitis without obstruction Status: Acute Assessment and Plan: Patient had a cholecystostomy tube placed 12/16/20 for acute cholecystitis, intact and draining some scant bile. Given her elevated white count and continued emesis, ordered CT abd/pel for evaluation which showed not really any change to explain her symptoms. She was supposed to follow up with general surgery 4 weeks after discharge which is this week, thus I appreciate surgery input since family wishes for all evaluation to continue at this point. (4) Chronic indwelling Baltazar catheter: Code(s): Z97.8 - Presence of other specified devices Status: Chronic Assessment and Plan: Abnormal UA may be related to chronic Baltazar catheter. Antibiotic coverage with imipenem for suspected aspiration pneumonia while ur
[2021-01-12 17:43] LABS: Glucose Point of Care 133 mg/dl (65-105)
[2021-01-12 20:00] VITALS: BP 122/73; PULSE 88; RESP 18; TEMP 36.7; O2SAT 94
[2021-01-12] MEDS: DONEPEZIL HCL 10 MG TABLET FEED TUBE (21:11)
[2021-01-13] VITALS: BP 110/63; PULSE 76; RESP 16; TEMP 36.3; O2SAT 97
[2021-01-13 00:38] LABS: Glucose Point of Care 153 mg/dl (65-105)
[2021-01-13 04:00] VITALS: BP 115/68; PULSE 72; RESP 18; TEMP 36.3; O2SAT 98
[2021-01-13 06:18] LABS: Glucose Point of Care 184 mg/dl (65-105)
[2021-01-13] MEDS: COLLAGENASE OINT 30 GM TUBE 1 APPLIC TOPICAL (09:17)
[2021-01-13] MEDS: PANTOPRAZOLE SODIUM IV 40 MG VIAL IV PUSH ×2 (09:17→20:30)
[2021-01-13 10:15] VITALS: BP 104/58; PULSE 77; RESP 16; TEMP 36.1; O2SAT 98
--- NOTE | 2021-01-13 11:19 | PCNFU ---
Nutrition Follow-Up Complete: Altered GI function related to GI bleeding and vomiting as evidenced by a weight loss of over 10lbs within the past month. Goal: Have patient meet estimated nutritional needs. Patient is progressing towards goal. No new goal at this time. Pt current nutrition is Glucerna 1.2 at 40 ml/hour over 22 hours per day with 30 ml water flushes Q4. This provides a total of 1,056 calories, 53.8 grams of protein, and 888.4 ml of water. Patient is tolerating well. Last recorded weight is 73 kg. Recommend re-weighing patient prior to discharge. Bowel Motility: +BM 01/13 Labs Reviewed: POC Capillary Glucose 184 Meds Noted: Albuterol, Aricept, Glucagon, Novolog, Atrovent Neb, Lactated Ringers (1,000 mls at 70 mls/hr.), Bisacodyl Additional Notes: Patient's tube feeding goal is Glucerna 1.2 at 75 mls/hour over 22 hours per day with a 30 ml water flush Q4 which will provide the patient with 1980 calories, 99 grams of protein, and 55277 ml of water. She is currently at 40 ml/hour over 22 hours per day tolerating well. Will continue to advance rate towards goal as tolerated. She has an unstageable pressure ulcer on bilateral buttocks. Will follow up every Saturday/Saturday.
[2021-01-13] MEDS: LACTATED RINGERS 1,000 ML 70 ML IV CONT (12:10)
[2021-01-13 12:14] LABS: Glucose Point of Care 205 mg/dl (65-105)
[2021-01-13] MEDS: INSULIN ASPART (*BKC) 100 UNITS/ML SUB-Q (12:14)
--- NOTE | 2021-01-13 13:31 | P.PNIM_ITS ---
Progress Note: A&P Assessment and Plan (1) GI bleed: Qualifiers: GI bleed type/associated pathology: unspecified gastrointestinal hemorrhage type Qualified Code(s): K92.2 - Gastrointestinal hemorrhage, unspecified Code(s): K92.2 - Gastrointestinal hemorrhage, unspecified Status: Acute Assessment and Plan: * Instructed to stop Eliquis at discharge 01/04 but daughter tells me she continued to give the Eliquis. Likely the cause of the ongoing bleeding. Stop Eliquis. * She has known severe esophagitis with esophageal stricture with recurrent hematemesis. Continue PPI and treating symptomatically with antiemetics to make her as comfortable as possible. Hold tube feeds for now as she is still vomiting all day. * Patient was discharged 01/04/21 home with [facility]. Hospice services were revoked when patient was admitted to the hospital. Daughter now wants palliative care at home at discharge. * Her tube feedings are held due to continuing emesis. Continue PPI, antiemetics. * Patient will need tube feedings for greater than 90 days. Long, detailed discussion held with patient's daughter, Paty, at the bedside for > 60 minutes discussing patient's condition and further goals of care. I educated Paty thoroughly regarding each of her mothers complex, serious medical issues and how they contribute to her overall poor prognosis at this time. I discussed at length our recommendations for comfort measures and hospice services, as the treatments we are providing to her at this point are not expected to change her overall outlook. Paty verbalizes understanding of her mother's poor prognosis but describes she still wants to do everything she can do for her mother. We discussed code status at length and Paty does not wish for us to perform CPR or for her mother to be on life support, thus she wishes for patient's code status to change back to Do Not Resuscitate/Do Not Intubate. It remains her goal to bring the patient home with [facility]. (2) Aspiration pneumonia: Qualifiers: Aspiration pneumonia type: unspecified Laterality: unspecified later ality Lung location: unspecified part of lung Qualified Code(s): J69.0 - Pneumonitis due to inhalation of food and vomit Code(s): J69.0 - Pneumonitis due to inhalation of food and vomit Status: Suspected Assessment and Plan: * With esophageal stricture, dysphagia and recurrent hematemesis. * Abx changed to imipenem today. No acute respiratory distress, tolerating room air. Continue supportive care with suctioning emesis and secretions, nebulized bronchodilator therapy as needed, and tylenol for fevers. (3) Cholecystitis with cholelithiasis: Qualifiers: Biliary obstruction: without biliary obstruction Cholecystitis acuity: chronic Cholelithiasis location: gallbladder Qualified Code(s): K80.10 - Calculus of gallbladder with chronic cholecystitis without obstruction Code(s): K80.10 - Calculus of gallbladder with chronic cholecystitis without obstruction Status: Acute Assessment and Plan: * Patient had a cholecystostomy tube placed 12/16/20 for acute cholecystitis, intact and draining some scant bile. * Given her elevated white count and continued emesis, ordered CT abd/pel for evaluation which showed not really any change to explain her symptoms. * She was supposed to follow up with general surgery 4 weeks after discharge which is this week, thus I appreciate surgery input since family wishes for all evaluation to continue at this point.
[2021-01-13 14:00] VITALS: BP 102/59; BP 111/65; PULSE 101; PULSE 85; RESP 16; TEMP 36.5; O2SAT 100; O2SAT 99
--- NOTE | 2021-01-13 14:14 | PCDIET ---
Spoke with Dr. Pickett regarding tube feeding order. She clarified she wants to continue Glucerna 1.2 at 40 ml/hour with a goal rate of 75 ml/hour.
--- NOTE | 2021-01-13 15:06 | WPDGIPROGNO ---
Progress Note: A&P Assessment and Plan (1) Nausea & vomiting: Code(s): R11.2 - Nausea with vomiting, unspecified Status: Acute Assessment and Plan: on presentation and probably from esophagitis/stricture continue with iv protonix tolerating tube feeding- no more emesis, mostly now patient holding saliva in her mouth but RN did not notice any gastric content (2) Coffee ground emesis: Code(s): K92.0 - Hematemesis Status: Acute Assessment and Plan: she is not longer on anticoagulation hb low but stable I would rather not repeat another egd- skilled nursing prognosis is guarded and probably she should be under hospice care (3) Esophageal stricture: Code(s): K22.2 - Esophageal obstruction Status: Acute Assessment and Plan: last egd unable to traverse stricture she has G-J tube (CT scan reviewed and jejunal extension now on gastric antrum)- she is back on tube feeding again (4) Cholecystitis with cholelithiasis: Qualifiers: Biliary obstruction: without biliary obstruction Cholecystitis acuity: chronic Cholelithiasis location: gallbladder Qualified Code(s): K80.10 - Calculus of gallbladder with chronic cholecystitis without obstruction Code(s): K80.10 - Calculus of gallbladder with chronic cholecystitis without obstruction Status: Acute Assessment and Plan: cholecystostomy tube working ok (reviewed ct scan), also on abx (she could have other source of infection) (5) Erosive esophagitis: Code(s): K22.10 - Ulcer of esophagus without bleeding Status: Acute Assessment and Plan: ppi bid and probably source of coffee ground (6) Dementia with behavioral disturbance: Code(s): F03.91 - Unspecified dementia with behavioral disturbance Status: Chronic Assessment and Plan: end stage dementia (7) Dementia: Qualifiers: Dementia type: unspecified type Dementia behavioral disturbance: without behavioral disturbance Qualified Code(s): F03.90 - Unspecified dementia without behavioral disturbance Code(s): F03.90 - Unspecified dementia without behavioral disturbance Status: Chronic (8) Cholecystostomy care: Code(s): Z43.4 - Encounter for attention to other artificial openings of digestive tract Status: Acute (9) Chronic indwelling Baltazar catheter: Code(s): Z97.8 - Presence of other specified devices Status: Chronic Subjective Date/time seen: 01/13/21 15:06 Interval history: she has been tolerating tube feeding now at 55 ml/h (RN reports that patient will keep large pool of saliva in mouth and then spit it out, she has not seen any gastric content/emesis) Review of Systems Review of Systems: All systems reviewed & are unremarkable except as noted in HPI and below Exam Const: Other: non-verbal, resting comfortable HENMT: General nose exam: Normal nares present Eyes: Sclera: sclerae normal Neck: Neck: supple Resp: Auscultation: diminished lung sounds Cardio: Rate: regular rate GI: GI Palp: Yes Soft to palpation and No Tenderness to palpation present (GI) Auscultation: normal bowel sounds Other: g-j tube and cholecystostomy tube in place Urinary Catheter: Urinary Catheter: patent and draining Skin: General skin exam: no erythema Neuro: Cognition (Neuro): abnormal cognition Other: end-stage dementia Extrem: General: no edema Objective Data Vital Signs Vital Signs: Vital Signs - 24 hr 01/12/21 16:00 01/12/21 20:00 01/13/21 00:00 Temperature 97.5 F L 98.0 F 97.4 F L Pulse Rate 74 88 76 Respiratory Rate 16 18 16 Blood Pressure 108/60 122/73 110/63 Pulse Oximetry 96 94 97 01/13/21 04:00 01/13/21 10:15 Temperature 97.3 F L 97 F L Pulse Rate 72 77 Respiratory Rate 18 16 Blood Pressure 115/68 104/58 L Pulse Oximetry 98 98 Intake/Output Intake/Output: Intake & Output 01/10/21 01/11/21 01/12/21 01/13/21 23:59 23:59 23:59 23:59 Inta
[2021-01-13 20:00] VITALS: BP 117/64; PULSE 85; RESP 16; TEMP 36.6; O2SAT 98
[2021-01-13] MEDS: DONEPEZIL HCL 10 MG TABLET FEED TUBE (20:30)
[2021-01-14] VITALS (7 sets, daily range): BP systolic 104–122; BP diastolic 57–77; PULSE 71–88; RESP 14–20; TEMP 36.1–36.5; O2SAT 96–100
[2021-01-14 00:48] LABS: Glucose Point of Care 190 mg/dl (65-105)
[2021-01-14] MEDS: LACTATED RINGERS 1,000 ML 70 ML IV CONT ×2 (05:02→20:23)
[2021-01-14] MEDS: INSULIN ASPART (*BKC) 100 UNITS/ML SUB-Q ×3 (06:43→19:21)
[2021-01-14 06:51] LABS: Glucose Point of Care 241 mg/dl (65-105)
[2021-01-14] MEDS: PANTOPRAZOLE SODIUM IV 40 MG VIAL IV PUSH ×2 (09:21→20:21)
[2021-01-14] MEDS: COLLAGENASE OINT 30 GM TUBE 1 APPLIC TOPICAL (09:21)
[2021-01-14 13:14] LABS: Glucose Point of Care 222 mg/dl (65-105)
--- NOTE | 2021-01-14 15:13 | PM.IMPN ---
Progress Note: A&P Assessment and Plan (1) GI bleed: Qualifiers: GI bleed type/associated pathology: unspecified gastrointestinal hemorrhage type Qualified Code(s): K92.2 - Gastrointestinal hemorrhage, unspecified Code(s): K92.2 - Gastrointestinal hemorrhage, unspecified Status: Acute Assessment and Plan: HAS BEEN TOLERATED TUBE FEEDINGS NO COFFEE-GROUND EMESIS ADVANCED TO FEEDING TO GOAL Instructed to stop Eliquis at discharge 01/04 but daughter tells me she continued to give the Eliquis. Likely the cause of the ongoing bleeding. Stop Eliquis. She has known severe esophagitis with esophageal stricture with recurrent hematemesis. Continue PPI and treating symptomatically with antiemetics to make her as comfortable as possible. Hold tube feeds for now as she is still vomiting all day. Patient was discharged 01/04/21 home with [facility]. Hospice services were revoked when patient was admitted to the hospital. Daughter now wants palliative care at home at discharge. Her tube feedings are held due to continuing emesis. Continue PPI, antiemetics. Patient will need tube feedings for greater than 90 days. Long, detailed discussion held with patient's daughter, Paty, at the bedside for > 60 minutes discussing patient's condition and further goals of care. I educated Paty thoroughly regarding each of her mothers complex, serious medical issues and how they contribute to her overall poor prognosis at this time. I discussed at length our recommendations for comfort measures and hospice services, as the treatments we are providing to her at this point are not expected to change her overall outlook. Paty verbalizes understanding of her mother's poor prognosis but describes she still wants to do everything she can do for her mother. We discussed code status at length and Paty does not wish for us to perform CPR or for her mother to be on life support, thus she wishes for patient's code status to change back to Do Not Resuscitate/Do Not Intubate. It remains her goal to bring the patient home with [facility]. (2) Aspiration pneumonia: Qualifiers: Aspiration pneumonia type: unspecified Laterality: unspecified laterality Lung location: unspecified part of lung Qualified Code(s): J69.0 - Pneumonitis due to inhalation of food and vomit Code(s): J69.0 - Pneumonitis due to inhalation of food and vomit Status: Suspected Assessment and Plan: WILL DISCONTINUE ANTIBIOTICS TODAY CULTURES NEGATIVE CLINICALLY STABLE With esophageal stricture, dysphagia and recurrent hematemesis. Abx changed to imipenem today. No acute respiratory distress, tolerating room air. Continue supportive care with suctioning emesis and secretions, nebulized bronchodilator therapy as needed, and tylenol for fevers. (3) Cholecystitis with cholelithiasis: Qualifiers: Biliary obstruction: without biliary obstruction Cholecystitis acuity: chronic Cholelithiasis location: gallbladder Qualified Code(s): K80.10 - Calculus of gallbladder with chronic cholecystitis without obstruction Code(s): K80.10 - Calculus of gallbladder with chronic cholecystitis without obstruction Status: Acute Assessment and Plan: Patient had a cholecystostomy tube placed 12/16/20 for acute cholecystitis, intact and draining some scant bile. Given her elevated white count and continued emesis, ordered CT abd/pel for evaluation which showed not really any change to explain her symptoms. She was supposed to follow up with general surgery 4 weeks after discharge which is this week, thus I appreciate surgery input since family wishes for all evaluation to continue at this point. (4) Chronic indwelling Baltazar catheter: Code(s): Z97.8 - Presence of other specified device
[2021-01-14 19:23] LABS: Glucose Point of Care 202 mg/dl (65-105)
[2021-01-14 19:32] LABS: Glucose Point of Care 191 mg/dl (65-105)
[2021-01-14] MEDS: DONEPEZIL HCL 10 MG TABLET FEED TUBE (20:21)
[2021-01-14 22:49] LABS: Basophils Percent Auto 0.3 % (0.2-1.2); Eosinophils Absolute Auto 0.1 K/mm3 (0-0.3); Eosinophils Percent Auto 1.4 % (0-4.4); Hematocrit 25.9 % (37.0-47.0); Hemoglobin 7.9 g/dL (12.0-15.0); Immature Granulocyte Absolute 0.08 K/mm3 (0.00-0.031); Immature Granulocyte Percent A 0.8 % (0-0.5); Lymphocytes Absolute Auto 1.63 K/mm3 (0.9-3.2); Lymphocytes Percent Auto 17.2 % (18.3-44.2); Mean Corpuscular HGB Conc 30.5 g/dl (32-36); Mean Platelet Volume 10.1 fl (7.4-10.4); Monocytes Absolute Auto 0.6 K/mm3 (0.1-0.6); Monocytes Percent Auto 6.5 % (2.6-8.5); Neutrophils Percent Auto 73.8 % (45.5-73.1); Nucleated Red Blood Cells Perc 0.4 % (0.0-0.2); Platelet Count Result 350 k/mm3 (150-375); Red Blood Count 3.16 M/mm3 (4.2-5.4); Red Cell Distribution Width 21.7 % (11.5-14.5); White Blood Count 9.5 K/mm3 (4.5-10.0)
[2021-01-14 22:59] LABS: Anion Gap 5 mmol/L (8-16); Blood Urea Nitrogen 10 mg/dL (7-17); Calcium 8.4 mg/dL (8.4-10.2); Carbon Dioxide 30 mmol/L (22-30); Chloride 105 mmol/L (98-107); Estimated CRCL calculation 129 ml/min; Estimated Glomerular Filt Rate > 60; Glucose 209 mg/dL (65-105); Potassium 3.6 mmol/L (3.4-5.0); Sodium 140 mmol/L (137-145)
[2021-01-15] VITALS: BP 133/76; PULSE 91; RESP 16; TEMP 36.3; O2SAT 100
[2021-01-15] MEDS: INSULIN ASPART (*BKC) 100 UNITS/ML SUB-Q ×2 (01:17→12:43)
[2021-01-15 01:18] LABS: Glucose Point of Care 213 mg/dl (65-105)
[2021-01-15 05:27] VITALS: BP 144/85; PULSE 90; RESP 16; TEMP 36.2; O2SAT 100
[2021-01-15 06:16] LABS: Glucose Point of Care 107 mg/dl (65-105)
[2021-01-15 08:00] VITALS: BP 116/83; PULSE 83; RESP 16; TEMP 36.1; O2SAT 99
[2021-01-15] MEDS: COLLAGENASE OINT 30 GM TUBE 1 APPLIC TOPICAL (09:05)
[2021-01-15] MEDS: PANTOPRAZOLE SODIUM IV 40 MG VIAL IV PUSH (09:05)
--- NOTE | 2021-01-15 11:16 | PM.DS ---
DS: Admitting Diagnosis Admitting Diagnosis Admitting Diagnosis: THIS IS A 70-YEAR-OLD FEMALE WITH PAST MEDICAL HISTORY SIGNIFICANT FOR ADVANCED DEMENTIA, DECUBITUS ULCER, BED RIDDEN, FEEDING TUBE, INDWELLING PHAN CATHETER, DVT/PE ON ANTICOAGULATION. PATIENT WAS JUST DISCHARGED HOME AFTER SHE WAS EVALUATED FOR COFFEE-GROUND EMESIS PATIENT HAD HER ANTICOAGULATION HELD AND THIS RESOLVED PATIENT WAS DISCHARGED HOME. HOWEVER HER DAUGHTER BRINGS HER IN TODAY AFTER CONCERNS FOR PATIENT HAVING COFFEE-GROUND EMESIS EVER SINCE LAST NIGHT. ALL HISTORY HAS BEEN OBTAINED FROM DAUGHTER WHO IS AT BEDSIDE WELL MEDICAL RECORDS. IN PRIOR ADMISSION PATIENT WAS MADE DNR DNI AND HOSPICE WELL. SHE IS STATUS POST GALLBLADDER DRAIN PLACEMENT WELL. PRELIMINARY WORKUP IS SIGNIFICANT FOR ELEVATION OF WBC. DAUGHTER REITERATED PATIENT'S HOSPICE STATUS WELL DNR DNI. (1) GI bleed: Qualifiers: GI bleed type/associated pathology: unspecified gastrointestinal hemorrhage type Qualified Code(s): K92.2 - Gastrointestinal hemorrhage, unspecified Code(s): K92.2 - Gastrointestinal hemorrhage, unspecified Status: Acute Assessment and Plan: HOLDING P.O. ANTICOAGULANT CONTINUE TO MONITOR (2) Chronic indwelling Phan catheter: Code(s): Z97.8 - Presence of other specified devices Status: Acute Assessment and Plan: CATHETER CARE (3) Decubitus ulcer: Qualifiers: Pressure injury location: unspecified location Pressure injury stage: unstageable Qualified Code(s): L89.95 - Pressure ulcer of unspecified site, unstageable Code(s): L89.90 - Pressure ulcer of unspecified site, unspecified stage Status: Acute Assessment and Plan: AROUND THE CLOCK TURNING SCHEDULE WOUND CARE CONSULT (4) Insulin dependent type 2 diabetes mellitus: Code(s): E11.9 - Type 2 diabetes mellitus without complications; Z79.4 - residential (current) use of insulin Status: Chronic Assessment and Plan: NPO TUBE FEEDING ACCU-CHEKS Q.6 HOURS (5) DVT (deep venous thrombosis): Code(s): I82.409 - Acute embolism and thrombosis of unspecified deep veins of unspecified lower extremity Status: Inactive Assessment and Plan: SCDS HOLDING P.O. ANTICOAGULATION DUE TO COFFEE-GROUND EMESIS (6) Type 2 diabetes mellitus with hyperglycemia, with long-term current use of insulin: Code(s): E11.65 - Type 2 diabetes mellitus with hyperglycemia; Z79.4 - hay baler (current) use of insulin Status: Acute Assessment and Plan: CONTINUE TO MONITOR ON TUBE FEEDING (7) Dementia: Qualifiers: Dementia type: unspecified type Dementia behavioral disturbance: without behavioral disturbance Qualified Code(s): F03.90 - Unspecified dementia without behavioral disturbance Code(s): F03.90 - Unspecified dementia without behavioral disturbance Status: Chronic Assessment and Plan: ADVANCED PATIENT IS A DNR DNI AND ON HOSPICE DS: Discharge Diagnosis Discharge Diagnosis (1) GI bleed: Qualifiers: GI bleed type/associated pathology: unspecified gastrointestinal hemorrhage type Qualified Code(s): K92.2 - Gastrointestinal hemorrhage, unspecified Code(s): K92.2 - Gastrointestinal hemorrhage, unspecified Status: Acute Assessment and Plan: HAS BEEN TOLERATED TUBE FEEDINGS NO COFFEE-GROUND EMESIS ADVANCED TO FEEDING TO GOAL Instructed to stop Eliquis at discharge 01/04 but daughter tells me she continued to give the Eliquis. Likely the cause of the ongoing bleeding. Stop Eliquis. She has known severe esophagitis with esophageal stricture with recurrent hematemesis. Continue PPI and treating symptomatically with antiemetics to make her as comfortable as possible. Hold tube feeds for now as she is still vomiting all day. Patient was discharged 01/04/21 home with [facility]. Hospice services were revoked when patient was
[2021-01-15 12:05] VITALS: BP 134/71; PULSE 82; RESP 16; TEMP 36.1; O2SAT 100
--- NOTE | 2021-01-15 12:12 | PC.NURSE ---
This nurse called and informed the patients daughter, Paty Garrett, over the phone that the patient was being discharged and that the ambulance was on their way. Per family they were okay with her discharge and will be awaiting her arrival. This nurse called to inform [facility] visiting nurse that the patient was being discharged and that the discharge paperwork was being faxed to their facility. Multiple attempted phone calls to [phone] with no success and a message stating that the call could not be completed as dialed. After informing Care Coordination this nurse received a new phone number to contact, . A message was left for the quality control chemist nurse in regards to the patients discharge from the hospital. No contact was every made with the facility prior to the patients discharge via ambulance.
[2021-01-15 12:38] LABS: Glucose Point of Care 210 mg/dl (65-105)
== END 2021-01-15 13:04 | disposition home health service (06) | DRG 871 ==
LOC: ANHED 18:53 → ANH2MED 22:44
PROVIDERS: Physician Assistant; Admitting Provider Internal Medicine; Emergency Provider Emergency Medicine; PCP Family Medicine; Visit Provider Internal Medicine
DX: A41.9 Sepsis, unspecified organism (principal); J69.0 Pneumonitis due to inhalation of food and vomit; K92.0 Hematemesis; K22.10 Ulcer of esophagus without bleeding; K80.10 Calculus of gallbladder with chronic cholecystitis without obstruction; I82.629 Acute embolism and thrombosis of deep veins of unspecified upper extremity; K21.00 Gastro-esophageal reflux disease with esophagitis, without bleeding; K22.2 Esophageal obstruction; R13.10 Dysphagia, unspecified; Z43.4 Encounter for attention to other artificial openings of digestive tract; L89.320 Pressure ulcer of left buttock, unstageable; L89.310 Pressure ulcer of right buttock, unstageable; L89.159 Pressure ulcer of sacral region, unspecified stage; D50.0 Iron deficiency anemia secondary to blood loss (chronic); E11.65 Type 2 diabetes mellitus with hyperglycemia; I10 Essential (primary) hypertension; F03.90 Unspecified dementia, unspecified severity, without behavioral disturbance, psychotic disturbance, mood disturbance, and anxiety; Z66 Do not resuscitate; Z74.01 Bed confinement status; Z86.711 Personal history of pulmonary embolism; Z88.0 Allergy status to penicillin; Z97.8 Presence of other specified devices
CPT/HCPCS: 36415; 71045; 74177; 80048; 80053; 81001; 82948; 83735; 85025; 85027; 85610; 85730; 86850; 86900; 86901; 87040; 87086; 93005; 96361; 96365; 96366; 96367; 96375; 99285; A9270; C9113; G0378; J0743; J0744; J1815; J2405; J2765; J3480; J7030; J7120; Q9967

== ENCOUNTER 2021-01-18 10:04 | Inpatient (IN) | payer MEDICARE, MEDICAID, SELFPAY ==
--- NOTE | ~2021-01-18 | XR_ITS ---
XR abdomen NG/feed tube insert DATE: 01/19/2021 01:35 INDICATION: NG tube placement TECHNIQUE: Portable AP upright view on 01/19/2021 at 0133 hours COMPARISON: None FINDINGS: A nasogastric tube is present in the stomach, the distal tip overlying the distal body of t he stomach. There is a larger bore catheter overlying the stomach and first half of the duodenum. Cholecystostomy tube overlies the right upper quadrant. No intraperitoneal free air is evident. The bowel gas pattern is nonspecific. IMPRESSION: NG tube in distal body of stomach Reviewed, dictated and finalized at [facility]. Reviewed, dictated and finalized at location [facility].
--- NOTE | ~2021-01-18 | CT_ITS ---
EXAMINATION: CT abdomen pelvis w con EXAM DATE: 01/18/2021 13:58 INDICATION: Nausea vomiting, coffee-ground emesis. History splenic lesion, esophagitis, GI bleed. TECHNIQUE: Spiral CT of the abdomen and pelvis was performed following intravenous injection of 100 m L Omnipaque 350. Axial, coronal and sagittal images of the abdomen and pelvis were reviewed. The do se-length product (DLP) for this examination was 921.34 mGy-cm. The exposure was tailored according to patient size (auto mA exposure control), and iterative reconstruction (ASIR) was used as additiona l dose reduction technique. Comparison is made to prior examination from 01/10/2021. FINDINGS: Again there are multiple lobular splenic lesions, differential diagnosis including chronic granulomatous process or chronic microabscesses, less likely metastatic disease. The liver, adrenal glands and pancreas are unremarkable. Gallbladder is moderately distended with associated inflammation and some gas inside the lumen of the gallbladder likely introduced through the cholecystostomy tube which is still in position. No gas wi thin the gallbladder wall. No significant change in amount of inflammation. Portal and splenic vein s are patent. Kidneys enhance symmetrically. There is no hydronephrosis. There is heterogeneously enhancing mass at the right aspect of the fundus, partially exophytic measur ing 4 cm, probably a degenerating fibroid. Baltazar catheter within a collapsed bladder with mild surro unding fat stranding, inflammation. Could be acute and/or chronic cystitis. There is no retroperiton eal or pelvic lymphadenopathy. There is mild scattered arteriosclerotic disease. There is edema of the distal aspect of the esophagus, esophagitis. There is a PEG/jejunostomy tube, w ith long tubing that was initially positioned in the jejunum. On more recent study a week ago this wa s in the gastric antrum and today has readvanced to the duodenum. Redundant portion of tube loops int o moderate-sized gastroesophageal hiatal hernia. Unremarkable appendix. There is expected amount of c olonic stool. No free intraperitoneal gas. Mild cardiomegaly. Interval increase in small to moderate right pleural effusion with adjacent segmental atelectasis. De velopment of small left pleural effusion with left basilar subsegmental atelectasis. There are bony degenerative changes. No osteoblastic or osteolytic lesions identified. IMPRESSION: 1. Cholecystostomy tube in moderately distended gallbladder. Mild pericholecystic inflammation uncha nged. 2. Multiple chronic splenic lesions, differential diagnosis including chronic granulomatous process or micro-abscesses. Splenic metastases are rare. 3. PEG/jejunostomy tube with redundancy and moderate sized hiatal hernia, tip has advanced to the du odenum. 4. Distal esophageal edema, esophagitis. 5. Baltazar in position. Bladder wall thickening, acute and/or chronic cystitis. 6. Uterine mass likely degenerating fibroid. Reviewed, dictated and finalized at location [facility]. IMPRESSION: 1. Cholecystostomy tube in moderately distended gallbladder. Mild pericholecys tic inflammation unchanged. 2. Multiple chronic splenic lesions, differential diagnosis including chronic granulomatous process or micro-abscesses. Splenic metastases are rare. 3. PEG/jejunostomy tube with redundancy and moderate sized hiatal hernia, tip has advanced to the duodenum. 4. Distal esophageal edema, esophagitis. 5. Baltazar in position. Bladder wall thickening, acute and/or chronic cystitis. 6. Uterine mass likely degenerating fibroid.
--- NOTE | ~2021-01-18 | XR_ITS ---
EXAMINATION: XR chest 2V EXAM DATE: 01/18/2021 10:34 INDICATION: Vomiting. TECHNIQUE: Frontal and lateral projections of the chest obtained and reviewed. Comparison is made to prior examination from 01/09/2021. FINDINGS: Small bilateral pleural effusions. Adjacent basilar subsegmental atelectasis. No confluent consolidation, pneumothorax or pleural effusion suspected. The cardiomediastinal silhouette is promi nent but magnified on this AP technique. There are bony degenerative changes. Left humeral rotator cu ff repair anchor. Jejunostomy tube with catheter extending into small to moderate-sized hiatal hernia, tip overlying du odenum. Cholecystostomy tube. Correlate these findings with CT abdomen pelvis from 01/11/2020. IMPRESSION: 1. Small pleural effusions. Adjacent atelectasis. 2. Small to moderate hiatal hernia as above. Reviewed, dictated and finalized at location [facility].
[2021-01-18 10:06] VITALS: BP 125/90; PULSE 125; RESP 22; O2SAT 98
--- NOTE | 2021-01-18 10:44 | PC.NURSE ---
Per daughter pt has had upper GI bleed and vomiting blood since May , was d/charly for same on 01/15. Pt dribbling out coffee ground emesis, pt Lorrie suctioned, pt's airway patent and spitting out secretions
[2021-01-18 11:10] VITALS: TEMP 37.8
[2021-01-18 12:13] LABS: Alanine Aminotransferase 11 U/L (4-35); Albumin Level 3.6 g/dL (3.5-5.1); Alkaline Phosphatase 91 U/L (38-126); Anion Gap 14 mmol/L (8-16); Aspartate Amino Transferase 32 U/L (14-36); Bilirubin,Total 0.7 mg/dL (0.2-1.3); Blood Urea Nitrogen 9 mg/dL (7-17); Calcium 9.4 mg/dL (8.4-10.2); Carbon Dioxide 23 mmol/L (22-30); Chloride 103 mmol/L (98-107); Estimated Glomerular Filt Rate > 60; Glucose 271 mg/dL (65-105); Potassium 3.9 mmol/L (3.4-5.0); Sodium 140 mmol/L (137-145)
[2021-01-18 12:46] LABS: Lipase < 10 U/L (23-300)
[2021-01-18 12:50] LABS: Basophils Percent Auto 0.1 % (0.2-1.2); Hematocrit 34.5 % (37.0-47.0); Hemoglobin 10.2 g/dL (12.0-15.0); Immature Granulocyte Absolute 0.12 K/mm3 (0.00-0.031); Immature Granulocyte Percent A 0.7 % (0-0.5); Lymphocytes Absolute Auto 1.21 K/mm3 (0.9-3.2); Mean Corpuscular HGB Conc 29.6 g/dl (32-36); Mean Corpuscular Hemoglobin 24.3 pg (26-34); Mean Corpuscular Volume 82.3 fl (80-100); Mean Platelet Volume 9.4 fl (7.4-10.4); Monocytes Absolute Auto 1.2 K/mm3 (0.1-0.6); Monocytes Percent Auto 6.7 % (2.6-8.5); Neutrophils Absolute Auto 14.9 K/mm3 (1.3-6.7); Neutrophils Percent Auto 85.5 % (45.5-73.1); Nucleated Red Blood Cells Perc 0.1 % (0.0-0.2); Platelet Count Result 641 k/mm3 (150-375); Red Blood Count 4.19 M/mm3 (4.2-5.4); Red Cell Distribution Width 22.6 % (11.5-14.5); White Blood Count 17.4 K/mm3 (4.5-10.0)
[2021-01-18] MEDS: ONDANSETRON INJ 4 MG/2 ML VIAL IV PUSH (13:28)
[2021-01-18] MEDS: SODIUM CHLORIDE 0.9% IV 1,000 ML 999 ML IV CONT (13:28)
[2021-01-18 15:37] LABS: Add Urine Microscopic? YES; Appearance Urine Clear (Clear); Bacteria Urine Trace /hpf; Bilirubin Urine Negative (Negative); Blood Urine Negative (Negative); Color Urine Yellow (Yellow); Glucose Urine UA 1+ mg/dL (Negative); Ketones Urine 2+ mg/dL (Negative); Leukocyte Esterase Ur Negative LEU/UL (Negative); Mucus Urine Moderate /lpf; Nitrate Urine Negative (Negative); Protein Urine 2+ mg/dL (Negative); Squamous Epithelial Cell Urine Rare /hpf (Few); Urobilinogen Urine Negative mg/dL (<2.0)
[2021-01-18 15:44] LABS: Specific Grav Ur 1.056 (1.001-1.035)
[2021-01-18 15:55] VITALS: BP 133/94; PULSE 118; RESP 20; O2SAT 99
--- NOTE | 2021-01-18 15:56 | ED.NAVMDI ---
HPI - Nausea/Vomiting/Diarrhea General Chief complaint: Nausea/Vomiting/Diarrhea Stated complaint: VOMITING BLOOD Time Seen by Provider: 01/18/21 10:05 History of Present Illness HPI Narrative: Patient is a 70-year-old female who was sent into the ER from home for hematemesis. Patient had some coffee-ground emesis last night and today. Patient is a complex patient who was recently discharged on 01/15 to home. Patient was originally on hospice but that was withdrawn and she was placed on palliative care. Family was unhappy with her care at the care center in [facility]. Patient's daughter would like patient's bleeding to be controlled. Chart review shows patient has bad esophagitis and esophageal stricture as well as hiatal hernia. Patient is on PPI chronically. Patient unable to provide any history due to profound dementia. Related Data Home Medications Medication Instructions Recorded Confirmed Santyl 1 applic TOPICAL DAILY 12/01/20 01/09/21 bisacodyl [Dulcolax (bisacodyl)] 10 mg RECTAL DAILY PRN 12/01/20 01/09/21 donepezil [Aricept] 10 mg FEEDING TUBE HS 12/01/20 01/09/21 gentamicin sulfate (PF) 1 applic TOPICAL PRN PRN 01/09/21 01/09/21 tolnaftate [Antifungal 1 applic TOPICAL Q12HR 01/09/21 01/09/21 (tolnaftate)] Allergies Allergy/AdvReac Type Severity Reaction Status Date / Time Penicillins Allergy Mild hives Verified 01/18/21 10:31 hydrocodone Allergy Unknown Unknown Verified 01/18/21 10:31 peanut Allergy Unknown Itching Verified 01/18/21 10:31 shellfish derived Allergy Unknown Unknown Verified 01/18/21 10:31 Review of Systems Review of Systems: ROS unobtainable: Yes unobtainable due to mental status [facility] Past Medical History Medical History (Updated 01/18/21 @ 16:36 by Pedrito Prieto MD) Acute on chronic blood loss anemia Bilateral cataracts Bleeding ulcer Cholecystostomy care Chronic anemia Iron deficiency Chronic indwelling Baltazar catheter Dementia with behavioral disturbance DVT (deep venous thrombosis) Most recent right upper extremity DVT 09/2020 Erosive esophagitis Esophageal stricture Essential hypertension Gastroesophageal reflux disease History of bleeding peptic ulcer History of pulmonary embolism Insulin dependent type 2 diabetes mellitus Hemoglobin A1c was 6.9% on 04/19/2020. Lesion of spleen Surgical History Surgical History Gastrointestinal tube in situ History of bilateral carpal tunnel release History of section X3 History of replacement of both shoulder joints Family History Family History Sibling Cerebrovascular accident Family history of diabetes mellitus in first degree relative Father Carcinoma of colon Family history of malignant neoplasm Mother Family history of diabetes mellitus in first degree relative Hypertension Family history of arthritis Family history of malignant neoplasm Family history of type 2 diabetes mellitus Stomach cancer Sibling Hypertension Hyperlipidemia Cancer Other Diabetes mellitus Family history of cardiovascular disease Family history of gout Family history of seizure disorder Social History Social History (Updated 12/30/20 @ 21:10 by Yue Clark DO) Social History: 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 Lifelong nonsmoker. No alcohol or illicit substance use. Healthcare power of poising inspector is her daughter, Paty Garrett. Full code. She had 3 children. She resides in a alf. Smoking status: Never smoker Alcohol intake: unknown Substance use: unknown Substance use type: does not use Gender identity (if verbalized by the patient): Female Spiritual care concerns: No Exam Narrative: Exam Narrative: GENERAL: Chronically ill-appearing, obese, and in no acute distress. HEAD: Normocephalic, atraumatic. ENT: Mucous membranes moist. Dried dark emesis around mouth CH
[2021-01-18] MEDS: metroNIDAZOLE 1000MG/ISO 200ML 1,000 MG/200 ML BAG 100 MG IVPB (16:52)
--- NOTE | 2021-01-18 17:35 | ADMGEN ---
This patient, Diane Garrett, was admitted to Medical Room 255-. Patient/family oriented to hospital policies and general routines including ID bracelet, bed and alarms, visiting hours, pain management, procedures, bathroom and other care routines, personal items, smoking policy, room service/diet, and visiting hours. Information on how to activate the Rapid Response Team has been discussed. Patient/Family are encouraged to report perceived risks to care and to ask questions if they do not understand what they are told or what they should do.
--- NOTE | 2021-01-18 17:58 | PM.IMHP ---
H&P: HPI History of Present Illness Date/Time: 01/18/21 17:58 This is a 70-year-old female patient who resides with her daughter. The patient was just discharged from here on 01/15/2021. The patient had been on hospice at 1 time now the patient is on palliative care. The daughter attempted to take care of her mother at home but stated that she was not given any medications or tube feedings. She was not sure which she was supposed to do. The mather hospital nurse has not even been out to see the patient. The daughter stated that she did have any tube feeding already medications so the patient has not gotten any tube feedings or any medications. The patient's daughter stated that she had been vomiting bright red blood coffee-ground emesis today. The patient has a history of having a GI bleed she has severe gastritis. She had been on anticoagulation for her PEs and DVTs but was taken off since she developed this she I bleed. She also has a chronic indwelling Baltazar catheter. The patient is a DNR DNI the patient was discharged on [facility] palate of care on 01/15/2021 however the daughter stated that the patient has not even seen a nurse from the palliative care as of yet. The patient was seen by GI specialist when she was here last week. The patient has esophagitis/ strictures and was placed on Protonix at that time. At this point the daughter feels that she cannot take care of her mother at home any further. The daughter is at the bedside and she is cheerful. Patient is being admitted to observation status on the date of service of 01/18/2021. Chief Complaint: Hematemesis Review of Systems Review of Systems: All systems reviewed & are unremarkable except as noted in HPI and below Constitutional: Constitutional: Reports as per HPI and Reports no additional constitutional complaints Eyes: Eyes: Reports as per HPI and Reports no additional eye complaints ENT: Reports system reviewed and no additional complaints, except as documented and Reports Normal hearing present Cardiovascular: Cardiovascular: Reports no additional cardiovascular complaints Respiratory: Respiratory: Reports no additional respiratory complaints and Reports no additional respiratory complaints Gastrointestinal: Gastrointestinal: Reports as per HPI and Reports no additional gastrointestinal complaints Musculoskeletal: Musculoskeletal: Reports no additional musculoskeletal complaints Integumentary/Breasts: Skin/Breast: Reports system reviewed and no additional complaints, except as docu and Reports as per HPI Neurologic: Reports system reviewed and no additional complaints, except as documented, Reports as per HPI and Reports Normal hearing present Psychiatric: Psychiatric: Reports no additional psychiatric complaints and Reports as per HPI Endocrine: Endocrine: Reports no additional endocrine complaints Hematologic/Lymphatic: Hematologic/Lymphatic: Reports no additional hematologic/lymphatic complaints Allergic/Immunologic: Allergic/Immunologic: Reports no additional allergic/immunologic complaints [facility] Past Medical History Medical History Acute on chronic blood loss anemia Bilateral cataracts Bleeding ulcer Cholecystostomy care Chronic anemia Iron deficiency Chronic indwelling Baltazar catheter Dementia with behavioral disturbance DVT (deep venous thrombosis) Most recent right upper extremity DVT 09/2020 Erosive esophagitis Esophageal stricture Essential hypertension Gastroesophageal reflux disease History of bleeding peptic ulcer History of pulmonary embolism Insulin dependent type 2 diabetes mellitus Hemoglobin A1c was 6.9% on 04/19/2020. Lesion of spleen Surgical History Surgical History Gastrointestinal tube in situ History of bilateral carpal tunnel release History of section X3 History of replacement of both shoulder joints
[2021-01-18 18:45] VITALS: BMI 28.3
[2021-01-18 18:49] VITALS: BP 131/86; PULSE 117; RESP 16; TEMP 36.1; O2SAT 100
[2021-01-18 19:44] LABS: Hematocrit 33.2 % (37.0-47.0); Hemoglobin 9.7 g/dL (12.0-15.0)
[2021-01-18 20:05] LABS: Hemoglobin A1C 7.2 % (<5.7)
[2021-01-18 20:32] VITALS: BP 126/78; PULSE 119; RESP 18; TEMP 36.2; O2SAT 97
[2021-01-18] MEDS: SODIUM CHLORIDE 0.9% IV 1,000 ML 100 ML IV CONT (20:43)
[2021-01-18] MEDS: CIPROFLOXACIN 400 MG/D5W 200ML 200 ML 200 MG IVPB (21:17)
[2021-01-18] MEDS: TOLNAFTATE 1% POWDER 45 GM BTL 1 APPLIC TOPICAL (22:06)
[2021-01-18] MEDS: PROMETHAZINE HCL 25 MG/ML AMPUL 12.5 MG IV PUSH (22:06)
[2021-01-18] MEDS: PANTOPRAZOLE SODIUM IV 40 MG VIAL IV PUSH (22:06)
[2021-01-18 22:42] LABS: Glucose Point of Care 266 mg/dl (65-105)
[2021-01-18] MEDS: metroNIDAZOLE 500 MG/ISO 100ML 500 MG/100 ML BAG 100 MG IVPB (23:23)
[2021-01-19] VITALS (7 sets, daily range): BP systolic 108–148; BP diastolic 60–82; PULSE 96–110; RESP 16–26; TEMP 36.1–36.5; O2SAT 92–99; BMI 28.3
--- NOTE | 2021-01-19 | ECHO_ITS ---
Patient Info Name: Diane Garrett Age: 70 years : 1950 Gender: Female Ht: 64 in Wt: 165 lbs BSA: 1.86 m2 HR: 95 bpm BP: 116 / 69 mmHg Heart Rhythm: Sinus Rhythm Exam Date: 01/19/2021 3:38 PM Exam Location: [facility] Pulmonary Exam Room: [facility] Patient Status: Inpatient Admit Date: 01/19/2021 Staff Ordering Physician: Ami Rob PA-C Ribbon Blockmaker: maya Attending Provider: Ami Rob PA-C Referring Physician: Darron CHEN; Exam Type: CA echo dop color flow w con Study Info Indications - murmur Complete two-dimensional, color flow and Doppler transthoracic echocardiogram is performed with contrast to opacify the left ventricle and to improve the deliniation of the left ventricle endocardial borders. Contrast/Agitated Saline Contrast/Ag. Saline: Definity Amount: --- ml Summary 1. Left ventricular chamber dimension is normal. 2. Definity contrast administered improved wall motion interpretation. 3. Left ventricular systolic function is hyperdynamic, estimated at >70%. 4. There is mildly increased left ventricular wall thickness. 5. The left ventricular diastolic function is grade I diastolic dysfunction. 6. There is mild aortic valve sclerosis. 7. There is trace pulmonic regurgitation. Left Ventricle E/e' from tissue doppler is not calculated. Definity contrast administered improved wall motion interpretation. Left ventricular chamber dimension is normal. Left ventricular systolic function is hyperdynamic, estimated at >70%. There is mildly increased left ventricular wall thickness. The left ventricular diastolic function is grade I diastolic dysfunction. Right Ventricle Right ventricular systolic function is normal and with normal TAPSE 2.1 cm. Right ventricular chamber dimension is normal. Left Atria Left atrial chamber dimension is normal. Right Atria Right atrial chamber dimension is normal. Aortic Valve The aortic valve is trileaflet. There is mild aortic valve sclerosis. There is no aortic valve stenosis. There is no aortic valve regurgitation. Pulmonic Valve There is trace pulmonic regurgitation. Mitral Valve There is no mitral valve stenosis. There is no mitral valve regurgitation. Tricuspid Valve There is no tricuspid valve regurgitation. Pericardium/Pleural There is no pericardial effusion. Inferior Vena Cava Inferior vena cava is not well visualized. Aorta The aortic root size at the sinus of Valsalva is normal. Left Ventricular Outflow Tract Name Value Normal LVOT 2D LVOT Diameter 1.79 cm LVOT Doppler LVOT Peak Gradient 7 mmHg LVOT Mean Gradient 4 mmHg LVOT VTI 25.26 cm LVOT VTI/AV VTI Ratio 0.88 LVOT Stroke Volume 63.67 ml LVOT CO 5.99 l/min LVOT CI 3.22 L/min/m2 Pulmonic Valve Name
--- NOTE | 2021-01-19 00:40 | PC.NURSE ---
Spoke with SHON Newman regarding NG tube placement. She verbalized understanding and agreed to NG placement if the provider deems it necessary.
[2021-01-19 01:22] LABS: Hematocrit 30.9 % (37.0-47.0); Hemoglobin 8.9 g/dL (12.0-15.0)
[2021-01-19 05:52] LABS: Basophils Percent Auto 0.1 % (0.2-1.2); Hematocrit 29.6 % (37.0-47.0); Hemoglobin 8.8 g/dL (12.0-15.0); Immature Granulocyte Absolute 0.07 K/mm3 (0.00-0.031); Immature Granulocyte Percent A 0.5 % (0-0.5); Lymphocytes Absolute Auto 1.33 K/mm3 (0.9-3.2); Lymphocytes Percent Auto 9.7 % (18.3-44.2); Mean Corpuscular HGB Conc 29.7 g/dl (32-36); Mean Corpuscular Hemoglobin 24.3 pg (26-34); Mean Corpuscular Volume 81.8 fl (80-100); Mean Platelet Volume 9.3 fl (7.4-10.4); Monocytes Absolute Auto 1.2 K/mm3 (0.1-0.6); Monocytes Percent Auto 8.4 % (2.6-8.5); Neutrophils Absolute Auto 11.2 K/mm3 (1.3-6.7); Neutrophils Percent Auto 81.3 % (45.5-73.1); Platelet Count Result 526 k/mm3 (150-375); Red Blood Count 3.62 M/mm3 (4.2-5.4); Red Cell Distribution Width 22.1 % (11.5-14.5); White Blood Count 13.8 K/mm3 (4.5-10.0)
[2021-01-19] MEDS: metroNIDAZOLE 500 MG/ISO 100ML 500 MG/100 ML BAG 100 MG IVPB ×3 (06:04→21:49)
[2021-01-19 06:07] LABS: Alanine Aminotransferase 9 U/L (4-35); Albumin Level 3.2 g/dL (3.5-5.1); Alkaline Phosphatase 87 U/L (38-126); Anion Gap 10 mmol/L (8-16); Aspartate Amino Transferase 16 U/L (14-36); Bilirubin,Total 0.4 mg/dL (0.2-1.3); Blood Urea Nitrogen 7 mg/dL (7-17); Calcium 8.9 mg/dL (8.4-10.2); Carbon Dioxide 30 mmol/L (22-30); Chloride 105 mmol/L (98-107); Estimated CRCL calculation 84 ml/min; Estimated Glomerular Filt Rate > 60; Glucose 229 mg/dL (65-105); Magnesium 1.9 mg/dL (1.6-2.3); Potassium 2.9 mmol/L (3.4-5.0); Sodium 145 mmol/L (137-145)
[2021-01-19 06:23] LABS: Glucose Point of Care 185 mg/dl (65-105)
[2021-01-19 07:29] LABS: Hemoglobin A1C 7.3 % (<5.7)
[2021-01-19] MEDS: CIPROFLOXACIN 400 MG/D5W 200ML 200 ML 200 MG IVPB ×2 (08:44→20:39)
[2021-01-19] MEDS: TOLNAFTATE 1% POWDER 45 GM BTL 1 APPLIC TOPICAL ×2 (08:45→20:43)
[2021-01-19] MEDS: COLLAGENASE OINT 30 GM TUBE 1 APPLIC TOPICAL (08:45)
[2021-01-19] MEDS: PANTOPRAZOLE SODIUM IV 40 MG VIAL IV PUSH ×2 (08:45→20:42)
[2021-01-19] MEDS: SODIUM CHLORIDE 0.9% IV 1,000 ML 100 ML IV CONT (08:53)
[2021-01-19 10:19] LABS: Lipase < 10 U/L (23-300)
--- NOTE | 2021-01-19 11:39 | PM.IMPN ---
Progress Note: A&P Assessment and Plan (1) GI bleed: Qualifiers: GI bleed type/associated pathology: unspecified gastrointestinal hemorrhage type Qualified Code(s): K92.2 - Gastrointestinal hemorrhage, unspecified Code(s): K92.2 - Gastrointestinal hemorrhage, unspecified Status: Acute Assessment and Plan: There are reports that she had both bright red blood and coffee-ground emesis prior to admission but no further issues here - she has a history of severe gastritis and an EGD was attempted in the past but could not get through the stricture - she was able to get an NG tube yesterday but she has pulled it out -Plan for EGD for evaluation of UGIB according to RN -Dr. Herrera consulted, appreciate his recommendations -Continue protonix -Hgb stable (2) Cholecystitis: Code(s): K81.9 - Cholecystitis, unspecified Status: Acute Assessment and Plan: Pt has a hx of this and a cholecystostomy tube was placed 12/16/20 -Plan to keep this in indefinitely due to symptoms and pt being on pallitive care -CT reveals Cholecystostomy tube in moderately distended gallbladder. Mild pericholecystic inflammation unchanged. -Spoke with Sx, no need for consult at this time. No acute changes -Continue cipro + flagyl at this time (3) Cholecystostomy care: Code(s): Z43.4 - Encounter for attention to other artificial openings of digestive tract Status: Acute Assessment and Plan: Continue routine care (4) Type 2 diabetes mellitus with hyperglycemia, with long-term current use of insulin: Code(s): E11.65 - Type 2 diabetes mellitus with hyperglycemia; Z79.4 - senior living (current) use of insulin Status: Acute Assessment and Plan: Last glucose 185 (pt has been NPO) -A1c 7.3 -continue SSI while here -I don't see any home meds listed, will verify (5) Pressure ulcer: Code(s): L89.90 - Pressure ulcer of unspecified site, unspecified stage Status: Acute Assessment and Plan: These are chronic. -Continue with speciality mattress (6) Dementia with behavioral disturbance: Code(s): F03.91 - Unspecified dementia with behavioral disturbance Status: Chronic Assessment and Plan: No acute symptoms at this time (7) Sinus tachycardia: Code(s): R00.0 - Tachycardia, unspecified Status: Acute Assessment and Plan: Noted on EKG, better on exam -Could be due to bleed or anxiety -Pt has a hx of PE but I cannot find any information on it. -She is not hypoxic, I do not think a PE is causing her tachycardia -Echo ordered (8) Newly recognized murmur: Code(s): R01.1 - Cardiac murmur, unspecified Status: Acute Assessment and Plan: I don't see any documentation about a murmur in the past and last echo does not show any valve disease -echo ordered (9) Thrombocytosis: Code(s): D47.3 - Essential (hemorrhagic) thrombocythemia Status: Acute Assessment and Plan: Reactive? -continue abx -monitor with daily CBCs Time Spent With Patient Time with patient: 25 - 35 minutes Subjective Date/time seen: 01/19/21 11:39 Interval history: Pt is a 70-year-old female who is essentially nonverbal with dementia here for GI bleed. Patient was seen today does not really answer any questions. I spoke with the who states she has not had any further hematemesis. She has dark urine which she has had in the past according to the nurse and appears unchanged. No other events noted. Review of Systems Review of Systems: All systems reviewed & are unremarkable except as noted in HPI and below Exam Narrative: Exam Narrative: General: elderly patient resting comfortably in bed in no acute distress HEENT: normocephalic Neck: supple Neuro: Alert but does not answer orientation questions or follow commands CV:RRR with a harsh 3/6 systolic murmur best heard at the left
--- NOTE | 2021-01-19 12:12 | PC.NURSE ---
To GI Lab per REMBERTO pat intact. Report given to MUMTAZ Lacy.
--- NOTE | 2021-01-19 12:25 | WPDANESEPPF ---
Anes - Initial Pre Proc Eval Procedure: Operation Date: 01/19/21 12:30 Proposed Procedures p Esophagogastroduodenoscopy - Delta Herrera MD Date/Time: 01/19/21 12:25 Surgeon: Ami Rob PA-C Pre Op Diagnosis: cholecystitis,dehydration,gastritis Patient Data Age: 70 Gender: F Height: 1.63 m Weight: 75 kg Last Vital Signs Temp 36.4 C L 01/19/21 05:43 Pulse 110 H 01/19/21 05:43 Resp 18 01/19/21 05:43 BP 116/69 01/19/21 05:43 Pulse Ox 99 01/19/21 05:43 Allergies Allergy/AdvReac Type Severity Reaction Status Date / Time Penicillins Allergy Mild hives Verified 01/19/21 12:27 hydrocodone Allergy Unknown Unknown Verified 01/19/21 12:27 peanut Allergy Unknown Itching Verified 01/19/21 12:27 shellfish derived Allergy Unknown Unknown Verified 01/19/21 12:27 Home Medications Medication Instructions Recorded Confirmed Type Santyl 1 applic TOPICAL DAILY 12/01/20 01/18/21 History bisacodyl [Dulcolax (bisacodyl)] 10 mg RECTAL DAILY PRN 12/01/20 01/18/21 History donepezil [Aricept] 10 mg FEEDING TUBE HS 12/01/20 01/18/21 History albuterol sulfate 2.5 mg INHALATION Q6HRT PRN #30 ea 12/26/20 01/18/21 Rx ferrous sulfate 325 mg FEEDING TUBE BID #473 ml 12/26/20 01/18/21 Rx ipratropium bromide 0.5 mg INHALATION Q6HRT PRN #12.5 12/26/20 01/18/21 Rx ml gentamicin sulfate (PF) 1 applic TOPICAL PRN PRN 01/09/21 01/18/21 History tolnaftate [Antifungal 1 applic TOPICAL Q12HR 01/09/21 01/18/21 History (tolnaftate)] insulin aspart U-100 [Novolog See Rx Instructions .ROUTE .COMPLEX 01/19/21 01/19/21 History Flexpen U-100 Insulin] insulin glargine [Lantus Solostar See Rx Instructions .ROUTE .COMPLEX 01/19/21 01/19/21 History U-100 Insulin] Laboratory Tests 01/18/21 01/18/21 01/18/21 11:53 12:37 15:20 WBC 17.4 K/mm3 H K/mm3 (4.5-10.0) RBC 4.19 M/mm3 L M/mm3 (4.2-5.4) Hgb 10.2 g/dL L g/dL (12.0-15.0) Hct 34.5 % L % (37.0-47.0) MCV 82.3 fl fl (80-100) MCH 24.3 pg L pg (26-34) MCHC 29.6 g/dl L g/dl (32-36) RDW 22.6 % H % (11.5-14.5) Plt Count 641 k/mm3 H D k/mm3 (150-375) MPV 9.4 fl fl (7.4-10.4) Immature Gran % (Auto) 0.7 % H % (0-0.5) Neut % (Auto) 85.5 % H % (45.5-73.1) Lymph % (Auto) 7.0 % L % (18.3-44.2) [place]on % (Auto) 6.7 % % (2.6-8.5) Eos % (Auto) 0.0 % % (0-4.4) Baso % (Auto) 0.1 % L % (0.2-1.2) Lymph # (Auto) 1.21 K/mm3 K/mm3 (0.9-3.2) Dickson # (Auto) 1.2 K/mm3 H K/mm3 (0.1-0.6) Eos # (Auto) 0.0 K/mm3 K/mm3 (0-0.3) Baso # (Auto) 0.0 K/mm3 K/mm3 (0.0-0.1) Abs Immat Gran (auto) 0.12 K/mm3 H K/mm3 (0.00-0.031) Absolute Neuts (auto) 14.9 K/mm3 H K/mm3 (1.3-6.7) Absolute Nucleated RBC 0.0 K/mm3 K/mm3 (0.0-0.012) Nucleated RBC % 0.1 % % (0.0-0.2) Sodium Potassium Chloride Carbon Dioxide Anion Gap BUN Creatinine Estim Creat Clear Calc Estimated GFR Glucose POC Capillary Glucose Hemoglobin A1c Calcium Magnesium Total Bilirubin AST ALT Alkaline Phosphatase Total Protein Albumin Lipase < 10 U/L L U/L (23-300) TSH (Reflex) Urine Color Yellow (Yellow) Urine Appearance Clear (Clear) Urine pH 5.0 (5.0-9.0) Ur Specific [place] 1.056 H (1.001-1.035) Urine Protein 2+ mg/dL H mg/dL (Negative) Urine Glucose (UA) 1+ mg/dL H mg/dL (Negative) Urine Ketones 2+ mg/dL H mg/dL (Negative) Ur Blood (Man) Negative (Negative) Urine Nitrate Negative (Negati
[2021-01-19 12:27] LABS: Glucose Point of Care 220 mg/dl (65-105)
--- NOTE | 2021-01-19 12:39 | WPDGICN ---
Assessment and Plan Assessment and plan (1) GI bleed: Qualifiers: GI bleed type/associated pathology: unspecified gastrointestinal hemorrhage type Qualified Code(s): K92.2 - Gastrointestinal hemorrhage, unspecified Code(s): K92.2 - Gastrointestinal hemorrhage, unspecified Status: Acute Assessment and Plan: EGD with possible biopsy or dilatation or cautery to be done today. (2) Esophageal stricture: Code(s): K22.2 - Esophageal obstruction Status: Acute Assessment and Plan: I doubt that we will be able to dilate the stricture. Consequently she will be dependent on tube feedings indefinitely GI Consult Note Consult date/time: 01/19/21 12:39 HPI: Diane Garrett is a 70 year old female Was admitted with hematemesis. The patient about the hospital by her daughter with him he she lives. She had had coffee-ground emesis. She does have an indwelling she 2. No blood has been seen in or around that . Also she has not had black or tarry stools. Endoscopy that was done a few months ago revealed a very high-grade stricture in the esophagus. At that time it had been hoped that the stricture could be dilated so that she would not need to depend on the feeding tube which had been previously placed. However it was determined that the stricture was too tight to safely dilate. The patient was placed on hospice, but that was reversed recently Review of Systems Review of Systems: All systems reviewed & are unremarkable except as noted in HPI and below PMFSH Past Medical History Medical History Acute on chronic blood loss anemia Bilateral cataracts Bleeding ulcer Cholecystostomy care Chronic anemia Iron deficiency Chronic indwelling [place] catheter Dementia with behavioral disturbance DVT (deep venous thrombosis) Most recent right upper extremity DVT 09/2020 Erosive esophagitis Esophageal stricture Essential hypertension Gastroesophageal reflux disease History of bleeding peptic ulcer History of pulmonary embolism Insulin dependent type 2 diabetes mellitus Hemoglobin A1c was 6.9% on 04/19/2020. Lesion of spleen Surgical History Surgical History Gastrointestinal tube in situ History of bilateral carpal tunnel release History of section X3 History of replacement of both shoulder joints Family History Family History Sibling Cerebrovascular accident Family history of diabetes mellitus in first degree relative Father Carcinoma of colon Family history of malignant neoplasm Mother Family history of diabetes mellitus in first degree relative Hypertension Family history of arthritis Family history of malignant neoplasm Family history of type 2 diabetes mellitus Stomach cancer Sibling Hypertension Hyperlipidemia Cancer Other Diabetes mellitus Family history of cardiovascular disease Family history of gout Family history of seizure disorder Social History Social History Social History: 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 Lifelong nonsmoker. No alcohol or illicit substance use. Healthcare power of assistant strength coach is her daughter, Paty Garrett. Full code. She had 3 children. She resides in a longterm. Smoking status: Never smoker Alcohol intake: never Substance use: never Substance use type: does not use Gender identity (if verbalized by the patient): Female Spiritual care concerns: No Meds Home Medications and Allergies Home Medications Medication Instructions Recorded Confirmed Type Santyl 1 applic TOPICAL DAILY 12/01/20 01/18/21 History bisacodyl [Dulcolax (bisacodyl)] 10 mg RECTAL DAILY PRN 12/01/20 01/18/21 History donepezil [Aricept] 10 mg FEEDING TUBE HS 12/01/20 01/18/21 History albuterol sulfate
[2021-01-19] MEDS: LACTATED RINGERS 1,000 ML 150 ML IV CONT (12:41)
[2021-01-19] MEDS: EPINEPHrine INJ 1 MG/10 ML SYRINGE XX (13:33)
[2021-01-19 13:54] LABS: Glucose Point of Care 207 mg/dl (65-105)
--- NOTE | 2021-01-19 14:48 | PC.NURSE ---
Returned from GI Lab. Report received from MUMTAZ Mclaughlin.
[2021-01-19] MEDS: PERFLUTREN LIPID MICROSPHERES 1.5 ML VIAL DILUTED TO 10 ML TOTAL VOLUME IV PUSH (16:02)
[2021-01-19] MEDS: INSULIN ASPART (*BKC) 100 UNITS/ML SUB-Q (18:00)
[2021-01-19 18:01] LABS: Glucose Point of Care 201 mg/dl (65-105)
[2021-01-19 23:28] LABS: Hematocrit 24.5 % (37.0-47.0); Hemoglobin 7.1 g/dL (12.0-15.0)
[2021-01-20 00:14] LABS: Glucose Point of Care 111 mg/dl (65-105)
[2021-01-20 05:13] LABS: Hematocrit 27.2 % (37.0-47.0); Hemoglobin 7.7 g/dL (12.0-15.0); Mean Corpuscular HGB Conc 28.3 g/dl (32-36); Mean Corpuscular Hemoglobin 24.2 pg (26-34); Mean Corpuscular Volume 85.5 fl (80-100); Mean Platelet Volume 9.2 fl (7.4-10.4); Platelet Count Result 376 k/mm3 (150-375); Red Blood Count 3.18 M/mm3 (4.2-5.4); Red Cell Distribution Width 21.9 % (11.5-14.5); White Blood Count 9.2 K/mm3 (4.5-10.0)
[2021-01-20 05:14] VITALS: BP 114/69; PULSE 88; RESP 16; TEMP 36.1; O2SAT 100
[2021-01-20] MEDS: metroNIDAZOLE 500 MG/ISO 100ML 500 MG/100 ML BAG 100 MG IVPB ×3 (05:34→20:30)
[2021-01-20 06:15] LABS: Glucose Point of Care 189 mg/dl (65-105)
[2021-01-20 06:20] LABS: Anion Gap 5 mmol/L (8-16); Blood Urea Nitrogen 7 mg/dL (7-17); Calcium 8.7 mg/dL (8.4-10.2); Carbon Dioxide 30 mmol/L (22-30); Chloride 109 mmol/L (98-107); Estimated CRCL calculation 102 ml/min; Estimated Glomerular Filt Rate > 60; Glucose 192 mg/dL (65-105); Potassium 3.2 mmol/L (3.4-5.0); Sodium 144 mmol/L (137-145)
--- NOTE | 2021-01-20 10:00 | PC.NURSE ---
Called Ami PARDO to notify her of tube feeding being put on hold for residual of 130 cc followed by emesis of tube feeding. No new orders received at this time.
[2021-01-20] MEDS: PANTOPRAZOLE SODIUM IV 40 MG VIAL IV PUSH ×2 (10:10→20:29)
[2021-01-20] MEDS: CIPROFLOXACIN 400 MG/D5W 200ML 200 ML 200 MG IVPB ×2 (10:10→20:27)
[2021-01-20] MEDS: POTASSIUM CHLORIDE 20 MEQ PACKET (FOR LIQUID) 40 MEQ FEED TUBE (10:10)
[2021-01-20] MEDS: TOLNAFTATE 1% POWDER 45 GM BTL 1 APPLIC TOPICAL ×2 (10:11→20:30)
[2021-01-20] MEDS: COLLAGENASE OINT 30 GM TUBE 1 APPLIC TOPICAL (10:11)
[2021-01-20 10:28] VITALS: O2SAT 95
[2021-01-20] MEDS: SODIUM CHLORIDE 0.9% IV 1,000 ML 100 ML IV CONT ×2 (10:34)
--- NOTE | 2021-01-20 11:47 | P.CDI_ITS ---
CDI Query Clarification Request -GI Bleed has been documented -EGD findings of esophageal ulcer with adherent clot that was injected and c auterized -7/7 H&H 10.2/34.5 7/8 H&H 8.9/30.9 7/9 H&H 7.7/27.2 Please clarify if there is a possible corresponding diagnosis for above findings.
[2021-01-20 12:20] LABS: Hematocrit 26.4 % (37.0-47.0); Hemoglobin 7.7 g/dL (12.0-15.0)
--- NOTE | 2021-01-20 12:30 | PC.NURSE ---
Checked tube feeding residual after feeding off for 2 1/2 hours. Liquid potassium given at 1000 still in tube. Residual remains around 120 cc. Left tube feeding on hold and notified Ami PARDO. No further emesis noted.
[2021-01-20 12:42] LABS: Glucose Point of Care 216 mg/dl (65-105)
--- NOTE | 2021-01-20 13:07 | PCNFU ---
Nutrition Follow-Up Complete: Altered GI function as related to cholecystitis as evidenced by NPO status Nutrition Goal: Meet estimated nutritional needs Goal is in progress, patient is currently working up to goal rate of 75mls/hr. Nutrition recommendation: Continue with Glucerna 1.2 at 75mls/hr which give 1980 calories, 99 grams of protein, 1328mls free water. Last recorded weight is 75 kg. Bowel Motility: Last documented on 01/17. Labs Reviewed:Hgb(7.7), Hct(27.2), K(3.2), Cr(0.4), Glu(192) Meds Noted: Albuterol, Bisacodyl, Ciprofloxacin, Collagenase, Glucagon, Lactated Ringers 150mls/hr, Potassium Chloride, Novolog, Atrovent, Ativan, Flagyl, Protonix, Normal Saline at 100mls/hr, Tolnaftate, Promethazine Additional Notes: Unstageable wound on right buttock and stage 3 wound on left buttock. Agree with diet orders. Patient started on 30mls/hr yesterday and the nurses are slowly increasing her rate until goal rate is met. If no bowel movement occurs over the weekend, recommend adding a motility agent. Will monitor every Saturday and Saturday.
[2021-01-20] MEDS: INSULIN ASPART (*BKC) 100 UNITS/ML SUB-Q (13:12)
--- NOTE | 2021-01-20 13:26 | WPDANESPN ---
Anes - Prog Note Post-Op Date/Time: 01/20/21 13:26 Cardiovascular status: normal Respiratory status: normal Airway patency: baseline Mental status: baseline Post-Op hydration status: normal Vital Signs: Last Vital Signs Temp 36.1 C L 01/20/21 05:14 Pulse 88 01/20/21 05:14 Resp 16 01/20/21 05:14 BP 114/69 01/20/21 05:14 Pulse Ox 95 01/20/21 10:28 Pain Score (VAS): 1 I/O: Intake & Output 01/19/21 01/20/21 01/20/21 23:59 07:59 15:59 Intake Total 2000 100 1000 Output Total 175 100 Balance 1825 0 1000 Laboratory Tests 01/20/21 12:03 01/20/21 05:00 01/19/21 01/19/21 01/19/21 13:51 17:59 23:18 WBC RBC Hgb 7.1 L Hct 24.5 L MCV MCH MCHC RDW Plt Count MPV Sodium Potassium Chloride Carbon Dioxide Anion Gap BUN Creatinine Estim Creat Clear Calc Estimated GFR Glucose POC Capillary Glucose 207 H 201 H Calcium 01/20/21 01/20/21 01/20/21 00:12 05:00 05:00 WBC 9.2 RBC 3.18 L Hgb 7.7 L Hct 27.2 L MCV 85.5 MCH 24.2 L MCHC 28.3 L RDW 21.9 H Plt Count 376 H MPV 9.2 Sodium 144 Potassium 3.2 L Chloride 109 H Carbon Dioxide 30 Anion Gap 5 L BUN 7 Creatinine 0.40 L Estim Creat Clear Calc 102 Estimated GFR > 60 Glucose 192 H POC Capillary Glucose 111 H Calcium 8.7 01/20/21 01/20/21 01/20/21 05:49 12:03 12:39 WBC RBC Hgb 7.7 L Hct 26.4 L MCV MCH MCHC RDW Plt Count MPV Sodium Potassium Chloride Carbon Dioxide Anion Gap BUN Creatinine Estim Creat Clear Calc Estimated GFR Glucose POC Capillary Glucose 189 H 216 H Calcium Microbiology 01/18/21 15:20 Urine [place] Urine Culture - Final 01/18/21 19:36 Blood Blood Culture - Preliminary 01/18/21 19:36 Blood Blood Culture - Preliminary Post-procedural complaints: none Patient Feedback: Patient satisfied with anesthetic care.
[2021-01-20 14:00] VITALS: BP 128/67; PULSE 87; RESP 16; TEMP 36.2; O2SAT 100
--- NOTE | 2021-01-20 14:57 | PCNSR ---
On 01/20/21, the student, [Shannon Lindsay ], provided care and completed [facility] documentation on this patient. I have reviewed the student's documentation and agree with the findings.
[2021-01-20] MEDS: METOCLOPRAMIDE HCL INJ 10 MG/2 ML VIAL 5 MG IV PUSH (15:08)
--- NOTE | 2021-01-20 16:36 | PM.IMPN ---
Progress Note: A&P Assessment and Plan (1) GI bleed: Qualifiers: GI bleed type/associated pathology: unspecified gastrointestinal hemorrhage type Qualified Code(s): K92.2 - Gastrointestinal hemorrhage, unspecified Code(s): K92.2 - Gastrointestinal hemorrhage, unspecified Status: Acute Assessment and Plan: EGD showed an ulcer in the distal esophagus with adherent clot that was injected with epinephrine and cauterized -she had some vomiting today but with no blood -hgb stable, 7.7 -Continue protonix -tube feeds restarted but pt threw up so the rate was decreased. One dose of Reglan given (2) Cholecystitis: Code(s): K81.9 - Cholecystitis, unspecified Status: Acute Assessment and Plan: Pt has a hx of this and a cholecystostomy tube was placed 12/16/20 and it continues to drain -Plan to keep this in indefinitely due to symptoms and pt being on pallitive care -CT reveals Cholecystostomy tube in moderately distended gallbladder. Mild pericholecystic inflammation unchanged. -Spoke with Sx, no need for consult at this time. No acute changes -Continue cipro + flagyl at this time (3) Cholecystostomy care: Code(s): Z43.4 - Encounter for attention to other artificial openings of digestive tract Status: Acute Assessment and Plan: Continue routine care (4) Type 2 diabetes mellitus with hyperglycemia, with long-term current use of insulin: Code(s): E11.65 - Type 2 diabetes mellitus with hyperglycemia; Z79.4 - long term care administrator (current) use of insulin Status: Acute Assessment and Plan: Last glucose 216 -A1c 7.3 -continue SSI while here and will do 10u of lantus tonight as long as she is getting tube feeds (she takes 17uBID at home) (5) Pressure ulcer: Code(s): L89.90 - Pressure ulcer of unspecified site, unspecified stage Status: Acute Assessment and Plan: These are chronic. -Continue with speciality mattress (6) Dementia with behavioral disturbance: Code(s): F03.91 - Unspecified dementia with behavioral disturbance Status: Chronic Assessment and Plan: No acute symptoms at this time (7) Sinus tachycardia: Code(s): R00.0 - Tachycardia, unspecified Status: Acute Assessment and Plan: Resoled -Could have be due to bleed or anxiety -Pt has a hx of PE but I cannot find any information on it. -She is not hypoxic, I do not think a PE caused her tachycardia -Echo without significant review (8) Newly recognized murmur: Code(s): R01.1 - Cardiac murmur, unspecified Status: Acute Assessment and Plan: Echo below: 1. Left ventricular chamber dimension is normal. 2. Definity contrast administered improved wall motion interpretation. 3. Left ventricular systolic function is hyperdynamic, estimated at >70%. 4. There is mildly increased left ventricular wall thickness. 5. The left ventricular diastolic function is grade I diastolic dysfunction. 6. There is mild aortic valve sclerosis. 7. There is trace pulmonic regurgitation. (9) Thrombocytosis: Code(s): D47.3 - Essential (hemorrhagic) thrombocythemia Status: Acute Assessment and Plan: Reactive, much improved Subjective Date/time seen: 01/20/21 16:36 Interval history: Pt is a 70-year-old female who is essentially nonverbal with dementia here for GI bleed. Patient was seen today does not really answer any questions. I spoke with the daughter at bedside about plan of care. She states that her mom requires a slow tube feeding or she will throw up. As of today, she states her mom is back to her baseline. Exam Narrative: Exam Narrative: General: elderly patient resting comfortably in bed in no acute distress HEENT: normocephalic Neck: supple Neuro: Alert but does not answer orientation questions or follow commands CV:RRR with a harsh 3/6 systolic murmu
[2021-01-20 18:46] LABS: Glucose Point of Care 143 mg/dl (65-105)
[2021-01-20] MEDS: INSULIN GLARGINE (*BKC) 100 UNITS/ML 8 UNITS SUB-Q (20:28)
[2021-01-20 20:34] LABS: Glucose Point of Care 141 mg/dl (65-105)
[2021-01-20 20:58] VITALS: BP 125/58; PULSE 82; RESP 20; TEMP 36.8; O2SAT 99
[2021-01-20 23:49] LABS: Glucose Point of Care 140 mg/dl (65-105)
[2021-01-21 05:41] LABS: Hematocrit 26.3 % (37.0-47.0); Hemoglobin 7.7 g/dL (12.0-15.0)
[2021-01-21] MEDS: metroNIDAZOLE 500 MG/ISO 100ML 500 MG/100 ML BAG 100 MG IVPB ×3 (05:41→21:22)
[2021-01-21 05:52] LABS: Glucose Point of Care 168 mg/dl (65-105)
[2021-01-21 05:56] LABS: Anion Gap 7 mmol/L (8-16); Blood Urea Nitrogen 7 mg/dL (7-17); Calcium 8.5 mg/dL (8.4-10.2); Carbon Dioxide 30 mmol/L (22-30); Chloride 106 mmol/L (98-107); Estimated CRCL calculation 130 ml/min; Estimated Glomerular Filt Rate > 60; Glucose 183 mg/dL (65-105); Magnesium 1.7 mg/dL (1.6-2.3); Potassium 3.1 mmol/L (3.4-5.0); Sodium 143 mmol/L (137-145)
[2021-01-21 06:00] VITALS: BP 131/86; PULSE 85; RESP 20; TEMP 36.7; O2SAT 100
[2021-01-21] MEDS: COLLAGENASE OINT 30 GM TUBE 1 APPLIC TOPICAL (10:10)
[2021-01-21] MEDS: CIPROFLOXACIN 400 MG/D5W 200ML 200 ML 200 MG IVPB ×2 (10:10→20:07)
[2021-01-21] MEDS: TOLNAFTATE 1% POWDER 45 GM BTL 1 APPLIC TOPICAL ×2 (10:10→20:08)
[2021-01-21] MEDS: PANTOPRAZOLE SODIUM IV 40 MG VIAL IV PUSH ×2 (10:22→20:09)
[2021-01-21] MEDS: METOCLOPRAMIDE HCL INJ 10 MG/2 ML VIAL 5 MG IV PUSH (10:25)
[2021-01-21 12:12] LABS: Glucose Point of Care 203 mg/dl (65-105)
[2021-01-21] MEDS: INSULIN ASPART (*BKC) 100 UNITS/ML SUB-Q (12:24)
[2021-01-21 14:00] VITALS: BP 125/73; PULSE 85; RESP 20; TEMP 36.7; O2SAT 100
--- NOTE | 2021-01-21 15:27 | PM.IMPN ---
Progress Note: A&P Assessment and Plan (1) GI bleed: Qualifiers: GI bleed type/associated pathology: unspecified gastrointestinal hemorrhage type Qualified Code(s): K92.2 - Gastrointestinal hemorrhage, unspecified Code(s): K92.2 - Gastrointestinal hemorrhage, unspecified Status: Acute Assessment and Plan: EGD showed an ulcer in the distal esophagus with adherent clot that was injected with epinephrine and cauterized -she had some vomiting today but with no blood -hgb stable, 7.7 -Continue protonix -tube feeds restarted and pt is doing well on Reglan. (2) Cholecystitis: Code(s): K81.9 - Cholecystitis, unspecified Status: Acute Assessment and Plan: Pt has a hx of this and a cholecystostomy tube was placed 12/16/20 and it continues to drain -Plan to keep this in indefinitely due to symptoms and pt being on pallitive care -CT reveals Cholecystostomy tube in moderately distended gallbladder. Mild pericholecystic inflammation unchanged. -Spoke with Sx, no need for consult at this time. No acute changes -WBC was up a bit on admission and better with tx. Continue cipro + flagyl at this time (short course) (3) Cholecystostomy care: Code(s): Z43.4 - Encounter for attention to other artificial openings of digestive tract Status: Acute Assessment and Plan: Continue routine care (4) Type 2 diabetes mellitus with hyperglycemia, with long-term current use of insulin: Code(s): E11.65 - Type 2 diabetes mellitus with hyperglycemia; Z79.4 - assisted (current) use of insulin Status: Acute Assessment and Plan: Last glucose 203 -A1c 7.3 -continue SSI while here and continue 10u of lantus tonight as long as she is getting tube feeds (she takes 17uBID at home) (5) Pressure ulcer: Code(s): L89.90 - Pressure ulcer of unspecified site, unspecified stage Status: Acute Assessment and Plan: These are chronic. -Continue with speciality mattress (6) Dementia with behavioral disturbance: Code(s): F03.91 - Unspecified dementia with behavioral disturbance Status: Chronic Assessment and Plan: No acute symptoms at this time (7) Sinus tachycardia: Code(s): R00.0 - Tachycardia, unspecified Status: Acute Assessment and Plan: Resolved -Could have be due to bleed or anxiety -Pt has a hx of PE but I cannot find any information on it. -She is not hypoxic, I do not think a PE caused her tachycardia -Echo without significant review (8) Newly recognized murmur: Code(s): R01.1 - Cardiac murmur, unspecified Status: Acute Assessment and Plan: Echo below: 1. Left ventricular chamber dimension is normal. 2. Definity contrast administered improved wall motion interpretation. 3. Left ventricular systolic function is hyperdynamic, estimated at >70%. 4. There is mildly increased left ventricular wall thickness. 5. The left ventricular diastolic function is grade I diastolic dysfunction. 6. There is mild aortic valve sclerosis. 7. There is trace pulmonic regurgitation. (9) Thrombocytosis: Code(s): D47.3 - Essential (hemorrhagic) thrombocythemia Status: Acute Assessment and Plan: Reactive, much improved Subjective Date/time seen: 01/21/21 15:27 Interval history: Pt is a 70-year-old female who is essentially nonverbal with dementia here for GI bleed. Patient was seen today does not really answer any questions. I spoke with the daughter at bedside about plan of care. Her mom continues to be at baseline per daughter. No events overnight. No high tube feeding residuals or vomiting per nursing. Exam Narrative: Exam Narrative: General: elderly patient resting comfortably in bed in no acute distress HEENT: normocephalic Neck: supple Neuro: Alert but does not answer orientation questions or follow commands CV:RRR with
[2021-01-21] MEDS: METOCLOPRAMIDE HCL INJ 10 MG/2 ML VIAL IV PUSH (17:51)
--- NOTE | 2021-01-21 18:00 | PC.NURSE ---
Daughter requesting IV Tylenol for patient - generalized discomfort. Patient FLACC 1. Also requesting something for diarrhea as patient had 2 large loose stools today. Finally, daughter requesting a scopalamine patch for increased phlegm and oral secretions today. Called Dr. Melo and left voice message relaying these requests.
[2021-01-21 18:27] LABS: Glucose Point of Care 198 mg/dl (65-105)
[2021-01-21 20:00] VITALS: O2SAT 100
[2021-01-21] MEDS: INSULIN GLARGINE (*BKC) 100 UNITS/ML 8 UNITS SUB-Q (20:08)
[2021-01-21 21:31] LABS: Glucose Point of Care 189 mg/dl (65-105)
[2021-01-21 21:41] VITALS: BP 107/55; PULSE 88; RESP 20; TEMP 36.7; O2SAT 100
[2021-01-22 00:28] LABS: Glucose Point of Care 172 mg/dl (65-105)
[2021-01-22] MEDS: metroNIDAZOLE 500 MG/ISO 100ML 500 MG/100 ML BAG 100 MG IVPB ×2 (05:33→13:13)
[2021-01-22] MEDS: METOCLOPRAMIDE HCL INJ 10 MG/2 ML VIAL IV PUSH ×2 (05:34→11:34)
[2021-01-22 05:57] LABS: Anion Gap 5 mmol/L (8-16); Blood Urea Nitrogen 8 mg/dL (7-17); Calcium 8.5 mg/dL (8.4-10.2); Carbon Dioxide 28 mmol/L (22-30); Chloride 104 mmol/L (98-107); Estimated CRCL calculation 130 ml/min; Estimated Glomerular Filt Rate > 60; Glucose 201 mg/dL (65-105); Potassium 3.5 mmol/L (3.4-5.0); Sodium 137 mmol/L (137-145)
[2021-01-22 05:58] LABS: Hematocrit 25.4 % (37.0-47.0); Hemoglobin 7.3 g/dL (12.0-15.0)
[2021-01-22 06:00] VITALS: BP 131/80; PULSE 88; RESP 20; TEMP 36.4; O2SAT 99
[2021-01-22 06:19] LABS: Glucose Point of Care 192 mg/dl (65-105)
[2021-01-22] MEDS: POTASSIUM CHLORIDE 20 MEQ PACKET (FOR LIQUID) FEED TUBE (09:06)
[2021-01-22] MEDS: PANTOPRAZOLE SODIUM IV 40 MG VIAL IV PUSH (09:06)
[2021-01-22] MEDS: COLLAGENASE OINT 30 GM TUBE 1 APPLIC TOPICAL (09:06)
[2021-01-22] MEDS: CIPROFLOXACIN 400 MG/D5W 200ML 200 ML 200 MG IVPB (09:06)
[2021-01-22] MEDS: TOLNAFTATE 1% POWDER 45 GM BTL 1 APPLIC TOPICAL (09:07)
[2021-01-22 11:35] LABS: Glucose Point of Care 203 mg/dl (65-105)
[2021-01-22] MEDS: INSULIN ASPART (*BKC) 100 UNITS/ML SUB-Q (11:35)
[2021-01-22 11:58] LABS: Hemoglobin 7.9 g/dL (12.0-15.0)
--- NOTE | 2021-01-22 13:32 | PM.DS ---
DS: Admitting Diagnosis Admitting Diagnosis Admitting Diagnosis: Gi bleed DS: Discharge Diagnosis Discharge Diagnosis (1) GI bleed: Qualifiers: GI bleed type/associated pathology: unspecified gastrointestinal hemorrhage type Qualified Code(s): K92.2 - Gastrointestinal hemorrhage, unspecified Code(s): K92.2 - Gastrointestinal hemorrhage, unspecified Status: Acute Assessment and Plan: EGD showed an ulcer in the distal esophagus with adherent clot that was injected with epinephrine and cauterized 01/19/21 -hgb stable, 7.9 at d/c -Zegerid given for outpt coverage -Continue tube feedings and Reglan. -No bleeding in the 2 days prior to d/c (2) Cholecystitis: Code(s): K81.9 - Cholecystitis, unspecified Status: Acute Assessment and Plan: Pt has a hx of this and a cholecystostomy tube was placed 12/16/20 and it continues to drain -Plan to keep this in indefinitely due to symptoms and pt being on palliative care -CT reveals Cholecystostomy tube in moderately distended gallbladder. Mild pericholecystic inflammation unchanged. -Spoke with Sx, no need for consult at this time. No acute changes -WBC was up a bit on admission and better with tx. Continue cipro + flagyl at this time (short course) (3) Cholecystostomy care: Code(s): Z43.4 - Encounter for attention to other artificial openings of digestive tract Status: Acute Assessment and Plan: Continue routine care (4) Type 2 diabetes mellitus with hyperglycemia, with long-term current use of insulin: Code(s): E11.65 - Type 2 diabetes mellitus with hyperglycemia; Z79.4 - termite treater helper (current) use of insulin Status: Acute Assessment and Plan: Last glucose 203 -A1c 7.3 -continue home regimen (5) Pressure ulcer: Code(s): L89.90 - Pressure ulcer of unspecified site, unspecified stage Status: Acute Assessment and Plan: These are chronic. -Continue with speciality mattress (6) Dementia with behavioral disturbance: Code(s): F03.91 - Unspecified dementia with behavioral disturbance Status: Chronic Assessment and Plan: No acute symptoms at this time (7) Sinus tachycardia: Code(s): R00.0 - Tachycardia, unspecified Status: Acute Assessment and Plan: Resolved -Could have be due to bleed or anxiety -Pt has a hx of PE but I cannot find any information on it. -She is not hypoxic, I do not think a PE caused her tachycardia -Echo without significant review (8) Newly recognized murmur: Code(s): R01.1 - Cardiac murmur, unspecified Status: Acute Assessment and Plan: Echo below: 1. Left ventricular chamber dimension is normal. 2. Definity contrast administered improved wall motion interpretation. 3. Left ventricular systolic function is hyperdynamic, estimated at >70%. 4. There is mildly increased left ventricular wall thickness. 5. The left ventricular diastolic function is grade I diastolic dysfunction. 6. There is mild aortic valve sclerosis. 7. There is trace pulmonic regurgitation. (9) Thrombocytosis: Code(s): D47.3 - Essential (hemorrhagic) thrombocythemia Status: Acute Assessment and Plan: Reactive, much improved DS: Summary Hospital Course Hospital Course: Patient is a 70-year-old female who presented emergency room on 01/18/21 for hematemesis. vitals in the ER were pulse 125, respiratory rate 22, blood pressure 125/90, pulse ox 98 on room air. Initial white blood cell count 17.4, hemoglobin 10.2, hematocrit 34.5, platelets 641. BMP showed hyperglycemia 271. Chest x-ray showed small pleural effusions. Abdominal CT revealed:1. Cholecystostomy tube in moderately distended gallbladder. Mild pericholecystic inflammation unchanged. 2. Multiple chronic splenic lesions, differential diagnosis including chronic granulomatous process or micro-abscesses. S
--- NOTE | 2021-01-22 15:50 | PC.NURSE ---
Called to give discharge instructions to patient's daughter Paty. All questions were answered.
== END 2021-01-22 15:55 | disposition hospice, home (50) | DRG 381 ==
LOC: ANHED 16:36 → ANH2MED 16:47
PROVIDERS: Internal Medicine Gastroenterology; Nurse Practitioner; Physician Assistant; Admitting Provider Family Medicine; Emergency Provider Emergency Medicine; PCP Family Medicine; Visit Provider Internal Medicine
PROC: 0DJ08ZZ Inspection of Upper Intestinal Tract, Via Natural or Artificial Opening Endoscopic (ICD-10-PCS; CPT 43235; principal; 2021-01-19 12:30)
DX: K22.11 Ulcer of esophagus with bleeding (principal); F03.91 Unspecified dementia, unspecified severity, with behavioral disturbance; K22.2 Esophageal obstruction; K21.00 Gastro-esophageal reflux disease with esophagitis, without bleeding; K81.9 Cholecystitis, unspecified; E11.36 Type 2 diabetes mellitus with diabetic cataract; H26.9 Unspecified cataract; E11.65 Type 2 diabetes mellitus with hyperglycemia; L89.90 Pressure ulcer of unspecified site, unspecified stage; I10 Essential (primary) hypertension; D50.9 Iron deficiency anemia, unspecified; E86.0 Dehydration; R00.0 Tachycardia, unspecified; R01.1 Cardiac murmur, unspecified; D47.3 Essential (hemorrhagic) thrombocythemia; Z66 Do not resuscitate; Z79.4 Long term (current) use of insulin; Z79.899 Other long term (current) drug therapy; Z86.711 Personal history of pulmonary embolism; Z93.1 Gastrostomy status; Z93.8 Other artificial opening status; Z97.8 Presence of other specified devices
CPT/HCPCS: 36415; 71046; 74177; 80048; 80053; 81001; 82948; 83036; 83690; 83735; 84443; 85014; 85018; 85025; 85027; 87040; 87086; 96361; 96365; 96366; 96367; 96375; 96376; 99285; A9270; C8929; C9113; G0378; J0131; J0171; J0744; J1815; J2405; J2550; J2704; J2765; J3480; J7030; J7120; Q9957; Q9967

== ENCOUNTER 2021-01-24 15:20 | Inpatient (IN) | payer MEDICARE, MEDICAID, SELFPAY ==
--- NOTE | ~2021-01-24 | CT_ITS ---
EXAMINATION: CT abdomen pelvis w con EXAM DATE: 01/24/2021 18:55 INDICATION: Vomiting. TECHNIQUE: Spiral CT of the abdomen and pelvis was performed following intravenous injection of 100 m L Omnipaque 350. Axial, coronal and sagittal images of the abdomen and pelvis were reviewed. The do se-length product (DLP) for this examination was 1103.69 mGy-cm. The exposure was tailored according to patient size (auto mA exposure control), and iterative reconstruction (ASIR) was used as addition al dose reduction technique. Comparison is made to prior examination from 01/10/2021, 11/19/2019. FINDINGS: There are multiple lobular splenic lesions up to about 3 cm, differential diagnosis includi ng chronic granulomatous process or chronic microabscesses, less likely metastatic disease. These violeta ear unchanged compared to recent prior studies. There is mild interval increase in size of these comp ared to 11/19/2019. The liver, adrenal glands and pancreas are unremarkable. Cholecystostomy tube is in position. There has been interval decrease in amount of gallbladder disten tion, only mild distention today. Improvement in previously seen pericholecystic inflammation. Basilio l and splenic veins are patent. Kidneys enhance symmetrically. There is no hydronephrosis. There is heterogeneously enhancing mass at the right aspect of the fundus, partially exophytic measur ing 4 cm, probably a degenerating fibroid. Baltazar catheter within a collapsed bladder with mild surro unding fat stranding, inflammation. Could be acute and/or chronic cystitis. There is no retroperiton eal or pelvic lymphadenopathy. There is mild scattered arteriosclerotic disease. There is edema of the distal aspect of the esophagus, esophagitis. There is a PEG/jejunostomy tube wi th interval decrease in previously seen redundancy, tip has advanced to the jejunum. Unremarkable violeta endix. There is expected amount of colonic stool. No free intraperitoneal gas. Mild cardiomegaly. Small to moderate-sized bilateral pleural effusions with adjacent segmental atelectasis. There are bony degenerative changes. No osteoblastic or osteolytic lesions identified. Mild to moderate lumba r levoscoliosis. IMPRESSION: 1. Cholecystostomy tube, improvement in gallbladder distention and adjacent inflammation. 2. Multiple chronic splenic lesions, differential diagnosis including chronic granulomatous process or micro-abscesses. Splenic metastases are rare. Mild increase in volume suspected compared to December 01. 3. PEG/jejunostomy tube in position. 4. Distal esophageal edema, esophagitis. 5. Baltazar in position. Bladder wall thickening, acute and/or chronic cystitis. 6. Uterine mass likely degenerating fibroid. Reviewed, dictated and finalized at location A. IMPRESSION: 1. Cholecystostomy tube, improvement in gallbladder distention and adjacent in flammation. 2. Multiple chronic splenic lesions, differential diagnosis including chronic granulomatous process or micro-abscesses. Splenic metastases are rare. Mild inc rease in volume suspected compared to November 2019. 3. PEG/jejunostomy tube in position. 4. Distal esophageal edema, esophagitis. 5. Baltazar in position. Bladder wall thickening, acute and/or chronic cystitis. 6. Uterine mass likely degenerating fibroid.
[2021-01-24 14:38] VITALS: BP 88/63; PULSE 142; RESP 21; TEMP 36.8; O2SAT 99
--- NOTE | 2021-01-24 15:29 | ECG_ITS ---
Measurements Intervals [place] Rate: 129 P: 3 [place]: 142 QRS: 8 QRSD: 64 T: 34 QT: 316 QTc: 463 Interpretive Statements SINUS TACHYCARDIA BASELINE ARTIFACT- II, III, AVR, AVL, AVF, V1-V3 ABNORMAL ECG Electronically Signed On 01-24-2021 16:34:13 CDT by Ej Pack D.O.
[2021-01-24 16:05] LABS: Hematocrit 29.8 % (37.0-47.0); Hemoglobin 8.9 g/dL (12.0-15.0); Mean Corpuscular HGB Conc 29.9 g/dl (32-36); Mean Corpuscular Hemoglobin 24.5 pg (26-34); Mean Corpuscular Volume 82.1 fl (80-100); Mean Platelet Volume 9.2 fl (7.4-10.4); Platelet Count Result 682 k/mm3 (150-375); Red Blood Count 3.63 M/mm3 (4.2-5.4); Red Cell Distribution Width 22.4 % (11.5-14.5)
[2021-01-24] MEDS: SODIUM CHLORIDE 0.9% IV 1,000 ML 999 ML IV CONT ×2 (16:12→21:41)
--- NOTE | 2021-01-24 16:13 | ED.GENADULT ---
HPI - General Adult General Chief complaint: Unspecified Stated complaint: COUGHING UP BLOOD Source: family Limitations: dementia History of Present Illness HPI narrative: Patient is a 70 y/o female brought in by EMS for vomiting blood and dark material. Daughter states patient started to spit up dark material last night. There is no known alleviating or exacerbating factor. Patient is unable to provide any additional history. Related Data Home Medications Medication Instructions Recorded Confirmed Santyl 1 applic TOPICAL DAILY 12/01/20 01/18/21 bisacodyl [Dulcolax (bisacodyl)] 10 mg RECTAL DAILY PRN 12/01/20 01/18/21 donepezil [Aricept] 10 mg FEEDING TUBE HS 12/01/20 01/18/21 gentamicin sulfate (PF) 1 applic TOPICAL PRN PRN 01/09/21 01/18/21 tolnaftate [Antifungal 1 applic TOPICAL Q12HR 01/09/21 01/18/21 (tolnaftate)] Lantus Solostar U-100 Insulin See Rx Instructions .ROUTE .COMPLEX 01/19/21 01/19/21 insulin aspart U-100 [Novolog See Rx Instructions .ROUTE .COMPLEX 01/19/21 01/19/21 Flexpen U-100 Insulin] metoclopramide HCl 10 mg PO TID 01/21/21 01/21/21 Allergies Allergy/AdvReac Type Severity Reaction Status Date / Time Penicillins Allergy Mild hives Verified 01/19/21 12:27 hydrocodone Allergy Unknown Unknown Verified 01/19/21 12:27 peanut Allergy Unknown Itching Verified 01/19/21 12:27 shellfish derived Allergy Unknown Unknown Verified 01/19/21 12:27 Review of Systems Review of Systems: ROS unobtainable: Yes unobtainable due to medical condition PMFSH Past Medical History Medical History Acute on chronic blood loss anemia Bilateral cataracts Bleeding ulcer Cholecystostomy care Chronic anemia Iron deficiency Chronic indwelling Baltazar catheter Dementia with behavioral disturbance DVT (deep venous thrombosis) Most recent right upper extremity DVT 09/2020 Erosive esophagitis Esophageal stricture Essential hypertension Gastroesophageal reflux disease History of bleeding peptic ulcer History of pulmonary embolism Insulin dependent type 2 diabetes mellitus Hemoglobin A1c was 6.9% on 04/19/2020. Lesion of spleen Surgical History Surgical History Gastrointestinal tube in situ History of bilateral carpal tunnel release History of section X3 History of replacement of both shoulder joints Family History Family History Sibling Cerebrovascular accident Family history of diabetes mellitus in first degree relative Father Carcinoma of colon Family history of malignant neoplasm Mother Family history of diabetes mellitus in first degree relative Hypertension Family history of arthritis Family history of malignant neoplasm Family history of type 2 diabetes mellitus Stomach cancer Sibling Hypertension Hyperlipidemia Cancer Other Diabetes mellitus Family history of cardiovascular disease Family history of gout Family history of seizure disorder Social History Social History Social History: 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 Lifelong nonsmoker. No alcohol or illicit substance use. Healthcare power of associate attorney is her daughter, Paty Garrett. Full code. She had 3 children. She resides in a retirement. Smoking status: Never smoker Alcohol intake: never Substance use: never Substance use type: does not use Gender identity (if verbalized by the patient): Female Spiritual care concerns: No Exam Const: General: no acute distress and well developed Orientation/consciousness: lethargic HENMT: Head: normocephalic Ears: external ears normal General nose exam: Normal external nose present Eyes: General: appearance normal, both eyes and all related structures Conjunctivae: conjunctivae normal Neck: Neck: normal visual inspection and full ROM Chest: Chest
[2021-01-24 16:15] LABS: Alanine Aminotransferase 14 U/L (4-35); Albumin Level 3.4 g/dL (3.5-5.1); Alkaline Phosphatase 86 U/L (38-126); Anion Gap 10 mmol/L (8-16); Aspartate Amino Transferase 22 U/L (14-36); Bilirubin,Total 0.5 mg/dL (0.2-1.3); Blood Urea Nitrogen 13 mg/dL (7-17); Calcium 9.1 mg/dL (8.4-10.2); Carbon Dioxide 32 mmol/L (22-30); Chloride 98 mmol/L (98-107); Estimated CRCL calculation 82 ml/min; Estimated Glomerular Filt Rate > 60; Glucose 338 mg/dL (65-105); Potassium 3.8 mmol/L (3.4-5.0); Sodium 140 mmol/L (137-145)
[2021-01-24 16:23] LABS: Lipase < 10 U/L (23-300)
[2021-01-24 16:29] LABS: Band Neutrophils Percent 2 % (0-6); Lymphocytes Absolute Manual 1.84 K/mm3 (1.1-4.5); Monocytes Absolute Manual 0.23 K/mm3 (0.1-0.90); Monocytes Percent Manual 1 % (3-9); Neutrophils Absolute Manual 20.93 K/mm3 (1.7-7.2); Neutrophils Percent Manual 89 % (46-73); Total Cells Counted 100
[2021-01-24 16:30] LABS: Anisocytosis 3+ (NORMAL); Hypochromasia 1+ (NORMAL); Platelet Estimate Increased (Adequate)
[2021-01-24 17:32] LABS: Add Urine Microscopic? YES; Appearance Urine Cloudy (Clear); Bilirubin Urine Negative (Negative); Blood Urine 2+ (Negative); Calcium Oxalate Crystals Urine Present /hpf; Color Urine Yellow (Yellow); Glucose Urine UA 3+ mg/dL (Negative); Ketones Urine 2+ mg/dL (Negative); Leukocyte Esterase Ur Negative LEU/UL (Negative); Mucus Urine Moderate /lpf; Nitrate Urine Negative (Negative); Protein Urine 1+ mg/dL (Negative); RBC Urine >75 /hpf (0-2); Specific Grav Ur 1.021 (1.001-1.035); Squamous Epithelial Cell Urine Rare /hpf (Few); Urobilinogen Urine Negative mg/dL (<2.0)
[2021-01-24 17:37] LABS: INR 1.1; Prothrombin Time 14.2 Seconds (11.1-14.7)
[2021-01-24 17:39] LABS: Partial Thromboplastin Time 25.1 SECONDS (22.3-36.8)
[2021-01-24 19:04] VITALS: BP 116/63; PULSE 124; RESP 20; O2SAT 100
[2021-01-24 20:30] VITALS: BP 115/81; PULSE 128; RESP 25; O2SAT 97
[2021-01-24 20:33] LABS: Lactic Acid Reflex 1.6 mmol/L (0.7-2.1)
--- NOTE | 2021-01-24 21:02 | PM.IMHP ---
H&P: HPI History of Present Illness Date/Time: 01/24/21 21:02 Chief Complaint: vomiting blood Narrative: unfortunate 70-year-old female well known to the hospitalist service with extensive past medical history including Advanced dementia, DVT and PE, insulin-dependent diabetes, CVA with expressive aphasia, dysphagia with G-tube present, esophagitis and gastritis with history of ulcers in GI bleed, acute cholecystitis with cholecystectomy tube in place, and chronic indwelling Baltazar catheter root presented to the ER from home via EMS due to hematemesis. This is the patient's 7th hospitalization since November. Five of those hospitalizations were due to upper GI bleed. Patient is typically discharged home for 2-4 days and then readmitted for recurrent GI bleed. her most recent EGD 01/19/2021 demonstrated reflux esophagitis grade 4, single superficial esophageal ulcer with adherent clot and standard gastrotomy tube with coil J-tube present. Her esophageal ulcer was injected with lidocaine. During her last hospitalization the patient's hemoglobin remained stable and she did not require transfusion.She also has a cholecystectomy drain in place due to acute cholecystitis since December 2020. She was discharged home with hospice on 12/30/20 . She returned to the hospital the next admission and revoked hospice but has remained palliative care ever since that time. While at home last night the patient began having vomiting. The patient's daughter reported that the patient had hematemesis with her 1st episode of emesis. She vomited off and on all night. Subsequently her daughter brought her into the ER this afternoon. Review of Systems Review of Systems: ROS unobtainable: Yes unobtainable due to medical condition and unobtainable due to mental status PMF Past Medical History Medical History (Updated 01/24/21 @ 21:19 by Yue Clark DO) Acute on chronic blood loss anemia Bilateral cataracts Bleeding ulcer Cholecystostomy care cholecystectomy drain in place 12/16/2020 Chronic anemia Iron deficiency Chronic indwelling Baltazar catheter Dementia with behavioral disturbance DVT (deep venous thrombosis) Most recent right upper extremity DVT 09/2020 Erosive esophagitis Esophageal stricture Essential hypertension Gastroesophageal reflux disease History of bleeding peptic ulcer History of pulmonary embolism Insulin dependent type 2 diabetes mellitus Hemoglobin A1c was 6.9% on 04/19/2020. Lesion of spleen Surgical History Surgical History Gastrointestinal tube in situ History of bilateral carpal tunnel release History of section X3 History of replacement of both shoulder joints Family History Family History Sibling Cerebrovascular accident Family history of diabetes mellitus in first degree relative Father Carcinoma of colon Family history of malignant neoplasm Mother Family history of diabetes mellitus in first degree relative Hypertension Family history of arthritis Family history of malignant neoplasm Family history of type 2 diabetes mellitus Stomach cancer Sibling Hypertension Hyperlipidemia Cancer Other Diabetes mellitus Family history of cardiovascular disease Family history of gout Family history of seizure disorder Social History Social History (Updated 01/25/21 @ 00:54 by Yue Clark DO) Social History: 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 Lifelong nonsmoker. No alcohol or illicit substance use. Healthcare power of trial attorney is her daughter, Paty Garrett. She had 3 children. Code status: Currently CPR loud, no intubation Smoking status: Never smoker Alcohol intake: never Substance use: never Substance use type: does not use Gender identity (if verbalized by the patient): Female Spiritual care concerns: No Meds Home Medications and Allergies Home
[2021-01-24 21:30] VITALS: BP 116/64; PULSE 123; RESP 24; TEMP 36.5; O2SAT 98; BMI 27.9
--- NOTE | 2021-01-24 21:36 | ADMGEN ---
This patient, Diane Garrett, was admitted to [facility] Surg Room [id number]. Patient/family oriented to hospital policies and general routines including ID bracelet, bed and alarms, visiting hours, pain management, procedures, bathroom and other care routines, personal items, smoking policy, room service/diet, and visiting hours. Information on how to activate the Rapid Response Team has been discussed. Patient/Family are encouraged to report perceived risks to care and to ask questions if they do not understand what they are told or what they should do.
[2021-01-24] MEDS: SODIUM CHLORIDE 0.9% IV 1,000 ML 125 ML IV CONT (22:51)
[2021-01-24] MEDS: CIPROFLOXACIN 400 MG/D5W 200ML 200 ML 200 MG IVPB (22:53)
[2021-01-24] MEDS: PANTOPRAZOLE SODIUM IV 40 MG VIAL IV PUSH (22:59)
[2021-01-24 23:11] LABS: Glucose Point of Care 250 mg/dl (65-105)
[2021-01-25] VITALS (20 sets, daily range): BP systolic 92–127; BP diastolic 50–80; PULSE 93–130; RESP 16–20; TEMP 36.4–37.2; O2SAT 92–100
--- NOTE | 2021-01-25 | CONS_ITS ---
This report was moved to the correct visit, [id number] on 02/24/21. Original report was signed by Kit Clarke MD 02/24/21 0907. Assessment and Plan Assessment and plan (1) Cholecystitis: Onset Date: Unknown Code(s): K81.9 - Cholecystitis, unspecified Status: Acute Assessment and Plan: We had seen this patient multiple times and she has her infection control with the cholecystostomy tube. I discussed the situation with hospitalist's following her and there was nothing more for surgery to do. In fact the patient's daughter request that the patient have no more surgery although she wanted almost everything else done. Therefore, this consultation was canceled however apparently not cancel within the computer system. (2) Sepsis: Qualifiers: Sepsis acute organ dysfunction status: unspecified Sepsis type: sepsis due to unspecified organism Qualified Code(s): A41.9 - Sepsis, unspecified organism Code(s): A41.9 - Sepsis, unspecified organism Status: Acute Additional Plan Consultation canceled by primary service however not canceled in the computer so no consultation done. History of Present Illness Consult details Consult date: 01/25/21 Requesting physician: Angy Torre PA-C Narrative: Late entry on 02/24/2021 Date of consultation put and was for 01/25/2021. We had seen this patient multiple times and she has her infection control with the cholecystostomy tube. I discussed the situation with hospitalist's following her and there was nothing more for surgery to do. In fact the patient's daughter request that the patient have no more surgery although she wanted almost everything else done. Therefore, this consultation was canceled however apparently not cancel within the computer system. [facility] Past Medical History Medical History (Updated 02/24/21 @ 09:05 by Kit Clarke MD) Acute on chronic blood loss anemia Bilateral cataracts Bleeding ulcer Cholecystostomy care cholecystectomy drain in place 12/16/2020 Chronic anemia Iron deficiency Chronic indwelling Baltazar catheter Dementia with behavioral disturbance DVT (deep venous thrombosis) Most recent right upper extremity DVT 09/2020 Erosive esophagitis Esophageal stricture Essential hypertension Gastroesophageal reflux disease History of bleeding peptic ulcer History of pulmonary embolism Insulin dependent type 2 diabetes mellitus Hemoglobin A1c was 6.9% on 04/19/2020. Lesion of spleen Surgical History Surgical History Gastrointestinal tube in situ History of bilateral carpal tunnel release History of section X3 History of replacement of both shoulder joints Family History Family History Sibling Cerebrovascular accident Family history of diabetes mellitus in first degree relative Father Carcinoma of colon Family history of malignant neoplasm Mother Family history of diabetes mellitus in first degree relative Hypertension Family history of arthritis Family history of malignant neoplasm Family history of type 2 diabetes mellitus Stomach cancer Sibling Hypertension Hyperlipidemia Cancer Other Diabetes mellitus Family history of cardiovascular disease Family history of gout Family history of seizure disorder Social History Social History (Updated 01/25/21 @ 00:54 by Yue Clark DO) 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 Lifelong nonsmoker. No alcohol or illicit substance use. Healthcare power of estate attorney is her daughter, Paty Garrett. She had 3 children. Code status: Currently CPR loud, no
[2021-01-25] MEDS: metroNIDAZOLE 250MG/ISO 50 ML 250 MG/50 ML BAG 50 MG IVPB ×4 (00:11→16:51)
[2021-01-25 00:15] LABS: Hematocrit 24.8 % (37.0-47.0); Hemoglobin 7.2 g/dL (12.0-15.0)
[2021-01-25] MEDS: INSULIN ASPART (*BKC) 100 UNITS/ML SUB-Q ×2 (00:26→06:08)
[2021-01-25 00:31] LABS: Glucose Point of Care 291 mg/dl (65-105)
[2021-01-25] MEDS: INSULIN GLARGINE (*BKC) 100 UNITS/ML 10 UNITS SUB-Q (06:08)
[2021-01-25 06:18] LABS: Glucose Point of Care 240 mg/dl (65-105)
[2021-01-25 06:44] LABS: Hematocrit 22.8 % (37.0-47.0); Mean Corpuscular HGB Conc 29.4 g/dl (32-36); Mean Corpuscular Hemoglobin 24.4 pg (26-34); Mean Corpuscular Volume 82.9 fl (80-100); Mean Platelet Volume 9.1 fl (7.4-10.4); Platelet Count Result 443 k/mm3 (150-375); Red Blood Count 2.75 M/mm3 (4.2-5.4); Red Cell Distribution Width 22.4 % (11.5-14.5); White Blood Count 13.2 K/mm3 (4.5-10.0)
[2021-01-25 06:54] LABS: Hemoglobin 6.7 g/dL (12.0-15.0)
[2021-01-25 06:58] LABS: Anion Gap 3 mmol/L (8-16); Blood Urea Nitrogen 10 mg/dL (7-17); Calcium 8.3 mg/dL (8.4-10.2); Carbon Dioxide 33 mmol/L (22-30); Chloride 106 mmol/L (98-107); Estimated CRCL calculation 113 ml/min; Estimated Glomerular Filt Rate > 60; Glucose 236 mg/dL (65-105); Sodium 142 mmol/L (137-145)
--- NOTE | 2021-01-25 07:05 | PC.NURSE ---
Lab called with critical hemoglobin 0653, call made to Hector Fay, no answer or voicemail box. Call made to Hospitalist office extension as well as Hospital cell phone- also no answer. Will try again and report to oncoming nurse.
[2021-01-25] MEDS: TOLNAFTATE 1% POWDER 45 GM BTL 1 APPLIC TOPICAL ×2 (08:05→20:33)
[2021-01-25] MEDS: PANTOPRAZOLE SODIUM IV 40 MG VIAL IV PUSH ×2 (08:06→22:12)
[2021-01-25] MEDS: COLLAGENASE OINT 30 GM TUBE 1 APPLIC TOPICAL (08:07)
[2021-01-25] MEDS: CIPROFLOXACIN 400 MG/D5W 200ML 200 ML 200 MG IVPB ×2 (08:07→22:06)
[2021-01-25] MEDS: METOCLOPRAMIDE HCL 10 MG TABLET FEED TUBE ×3 (08:07→16:51)
[2021-01-25] MEDS: FERROUS SULFATE LIQUID 325 MG/7.4 ML ELIXIR FEED TUBE ×2 (08:08→16:51)
[2021-01-25 11:46] LABS: Glucose Point of Care 173 mg/dl (65-105)
[2021-01-25] MEDS: GENTAMICIN SULFATE 0.1% CR 15 GM TUBE 1 APPLIC TOPICAL (11:49)
--- NOTE | 2021-01-25 12:07 | PC.NURSE ---
Attempted to call Dr. Fay again about critical hemoglobin. Phone constantly ringing; never went to voicemail. Called hospitalist number and spoke with Daja @ [phone] about this. She stated she would pass along the information and have the MD call back.
[2021-01-25] MEDS: POTASSIUM CHLORIDE 20 MEQ PACKET (FOR LIQUID) 40 MEQ FEED TUBE (12:26)
--- NOTE | 2021-01-25 13:45 | PM.IMPN ---
Progress Note: A&P Assessment and Plan (1) GI bleed: Qualifiers: GI bleed type/associated pathology: unspecified gastrointestinal hemorrhage type Qualified Code(s): K92.2 - Gastrointestinal hemorrhage, unspecified Code(s): K92.2 - Gastrointestinal hemorrhage, unspecified Status: Acute (2) Cholecystitis: Code(s): K81.9 - Cholecystitis, unspecified Status: Acute (3) Acute blood loss anemia: Code(s): D62 - Acute posthemorrhagic anemia Status: Acute (4) Sinus tachycardia: Code(s): R00.0 - Tachycardia, unspecified Status: Acute (5) Type 2 diabetes mellitus with hyperglycemia, with long-term current use of insulin: Code(s): E11.65 - Type 2 diabetes mellitus with hyperglycemia; Z79.4 - terminal system operator (current) use of insulin Status: Acute (6) Chronic indwelling Baltazar catheter: Code(s): Z97.8 - Presence of other specified devices Status: Chronic (7) Chronic anemia: Code(s): D64.9 - Anemia, unspecified Status: Chronic (8) Dementia: Qualifiers: Dementia behavioral disturbance: without behavioral disturbance Dementia type: unspecified type Qualified Code(s): F03.90 - Unspecified dementia without behavioral disturbance Code(s): F03.90 - Unspecified dementia without behavioral disturbance Status: Chronic (9) History of pulmonary embolism: Code(s): Z86.711 - Personal history of pulmonary embolism Status: Chronic (10) Decubitus ulcer: Qualifiers: Pressure injury location: unspecified location Pressure injury stage: unstageable Qualified Code(s): L89.95 - Pressure ulcer of unspecified site, unstageable Code(s): L89.90 - Pressure ulcer of unspecified site, unspecified stage Status: Acute Additional Plan Patient has a history of pulmonary embolism and DVT. Last blood clot in the right arm was in September. 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 The patient has recurrent GI bleed likely from her known esophageal ulcers and esophagitis. Continue Protonix IV b.i.d.. Follow H&H after transfusion completed. BP soft but should improve with transfusion. Follow BP closely. Patient has cholecystostomy tube in place. Patient's gallbladder has decreased in size. PEG-J tube in better position. Leukocytosis better and may be from demargination. Currently on empiric antibiotic therapy with Cipro and Flagyl. She was tachycardic on admisison but HR has improved with IV fluids. Tele showing no acute findings. Continue IV fluid hydration after transfusion complete. Glucose reviewed and mostly in the 200's. G-tube feeds are on hold. Resume TF since no further bleeding. Continue moderate sliding scale insulin with Accu-Cheks every 6 hours and hypoglycemia protocol. Continue Lantus and advance dose. Wound care consult for decubitus ulcer. COntinue routine wound care. SCD for DVT prophylaxis. Aricept reordered for her dementia. Subjective Date/time seen: 01/25/21 13:45 Interval history: 70yo female with history of dementia with dysphagia with PEG placement, recent cholecystitis status post cholecystectomy tube and recent esophagitis here for hematemesis. Patient has been hospitalized multiple times since November. Last admission from 01/18-01/22 for hematemesis and was seen by GI. EGD 01/19/21 showing grade 4 reflux esophagitis with distal esophageal ulcer and adherent clot. The area was injected with epinephrine and the lesion was cauterized. Hemoglobin was 10.2 on admission but did drop in the 7 range and they remain stable. Hemoglobin here was 8.9 on admission but has dropped to 6.7. Transfusion has been ordered. Patient is responsive but nonverbal and unable to provide history. Review of Systems Review of Systems: ROS unobtainable: Yes unobtainable due to mental status Exam Narrative: Exam Narrative: AF 97.5 103/57 104 18 93% RA Gen Paige jacobo
[2021-01-25] MEDS: SODIUM CHLORIDE 0.9% IV 250 ML 30 ML IV CONT (14:00)
--- NOTE | 2021-01-25 14:29 | WPDGICN ---
Assessment and Plan Assessment and plan (1) Hematemesis: Qualifiers: Nausea presence: unspecified Qualified Code(s): K92.0 - Hematemesis Code(s): K92.0 - Hematemesis Status: Acute Assessment and Plan: continue with iv protonix, noted drop in hb and will get blood transfusion no need to repeat EGD unless more obvious gib RN did not report more bleeding today (2) Acute on chronic blood loss anemia: Code(s): D62 - Acute posthemorrhagic anemia Status: Acute Assessment and Plan: will get blood transfusion, then monitor hb she is not longer on blood thinners (3) GI bleed: Qualifiers: GI bleed type/associated pathology: unspecified gastrointestinal hemorrhage type Qualified Code(s): K92.2 - Gastrointestinal hemorrhage, unspecified Code(s): K92.2 - Gastrointestinal hemorrhage, unspecified Status: Acute (4) Cholecystitis with cholelithiasis: Qualifiers: Biliary obstruction: without biliary obstruction Cholecystitis acuity: chronic Cholelithiasis location: gallbladder Qualified Code(s): K80.10 - Calculus of gallbladder with chronic cholecystitis without obstruction Code(s): K80.10 - Calculus of gallbladder with chronic cholecystitis without obstruction Status: Acute Assessment and Plan: on abx again, she had leukocytosis cholecystostomy tube is draining appropriately (5) Cholecystostomy care: Code(s): Z43.4 - Encounter for attention to other artificial openings of digestive tract Status: Acute (6) Chronic indwelling Baltazar catheter: Code(s): Z97.8 - Presence of other specified devices Status: Chronic (7) Dementia with behavioral disturbance: Code(s): F03.91 - Unspecified dementia with behavioral disturbance Status: Chronic Assessment and Plan: end-stage dementia tube feeding on hold today, will reassess tomorrow GI Consult Note Consult date/time: 01/25/21 14:29 Reason for consult: hematemesis HPI: Diane Garrett is a 70 year old female who is well known to me because multiple recent hospitalizations. She has advanced dementia non-verbal now with G-J tube feeding, DVT and PE not longer on anticoagulation because recurrent GIB, insulin-dependent diabetes, CVA with expressive aphasia, acute cholecystitis treated medically with cholecystectomy tube in place and antibiotics, and chronic indwelling Baltazar. She has been here multiple times with hematemesis, finally another EGD 01/19/[address] Herrera revealed reflux esophagitis grade 4, single superficial esophageal ulcer with adherent clot treated with epi and standard gastrotomy tube with coil J-tube present. At some point she was under hospice care but revoked by family and has remained palliative care ever since that time. She is here again with another episode of hematemesis, hb 6.7 (hb 7-9). RN has not seen any more bleeding since admission. Review of Systems Review of Systems: ROS unobtainable: Yes unobtainable due to mental status [facility] Past Medical History Medical History (Updated 01/24/21 @ 21:19 by Yue Clark DO) Acute on chronic blood loss anemia Bilateral cataracts Bleeding ulcer Cholecystostomy care cholecystectomy drain in place 12/16/2020 Chronic anemia Iron deficiency Chronic indwelling Baltazar catheter Dementia with behavioral disturbance DVT (deep venous thrombosis) Most recent right upper extremity DVT 09/2020 Erosive esophagitis Esophageal stricture Essential hypertension Gastroesophageal reflux disease History of bleeding peptic ulcer History of pulmonary embolism Insulin dependent type 2 diabetes mellitus Hemoglobin A1c was 6.9% on 04/19/2020. Lesion of spleen Surgical History Surgical History Gastrointestinal tube in situ History of bilateral carpal tunnel release History of section X3 History of replacement of both shoulder joints
[2021-01-25] MEDS: FUROSEMIDE INJ 40 MG/4 ML VIAL 20 MG IV PUSH (16:51)
[2021-01-25 18:15] LABS: Glucose Point of Care 158 mg/dl (65-105)
[2021-01-25] MEDS: DONEPEZIL HCL 10 MG TABLET FEED TUBE (20:33)
[2021-01-25] MEDS: INSULIN GLARGINE (*BKC) 100 UNITS/ML 14 UNITS SUB-Q (21:52)
[2021-01-25 23:08] LABS: Glucose Point of Care 145 mg/dl (65-105)
[2021-01-25 23:27] LABS: Hematocrit 31.5 % (37.0-47.0); Hemoglobin 9.7 g/dL (12.0-15.0)
[2021-01-26] VITALS (8 sets, daily range): BP systolic 119–152; BP diastolic 66–78; PULSE 72–97; RESP 14–18; TEMP 35.7–37.1; O2SAT 93–98; BMI 27.9
[2021-01-26 00:07] LABS: Glucose Point of Care 158 mg/dl (65-105)
[2021-01-26] MEDS: metroNIDAZOLE 250MG/ISO 50 ML 250 MG/50 ML BAG 50 MG IVPB ×5 (04:59→22:55)
[2021-01-26 05:25] LABS: Glucose Point of Care 109 mg/dl (65-105)
[2021-01-26 06:40] LABS: Hematocrit 33.4 % (37.0-47.0); Hemoglobin 9.8 g/dL (12.0-15.0); Mean Corpuscular HGB Conc 29.3 g/dl (32-36); Mean Corpuscular Volume 85.2 fl (80-100); Mean Platelet Volume 9.7 fl (7.4-10.4); Platelet Count Result 245 k/mm3 (150-375); Red Blood Count 3.92 M/mm3 (4.2-5.4); Red Cell Distribution Width 19.4 % (11.5-14.5); White Blood Count 8.8 K/mm3 (4.5-10.0)
[2021-01-26 07:00] LABS: Alanine Aminotransferase 10 U/L (4-35); Albumin Level 2.8 g/dL (3.5-5.1); Alkaline Phosphatase 57 U/L (38-126); Anion Gap 6 mmol/L (8-16); Aspartate Amino Transferase 19 U/L (14-36); Bilirubin,Total 0.5 mg/dL (0.2-1.3); Blood Urea Nitrogen 8 mg/dL (7-17); Calcium 8.6 mg/dL (8.4-10.2); Carbon Dioxide 29 mmol/L (22-30); Chloride 106 mmol/L (98-107); Estimated CRCL calculation 144 ml/min; Estimated Glomerular Filt Rate > 60; Glucose 109 mg/dL (65-105); Magnesium 1.8 mg/dL (1.6-2.3); Phosphorus 3.2 mg/dL (2.5-4.5); Potassium 3.1 mmol/L (3.4-5.0); Sodium 141 mmol/L (137-145)
--- NOTE | 2021-01-26 08:15 | P.CDI_ITS ---
CDI Query Clarification Request -GI bleed documented -01/24 H&H 8.9/29.8 01/25 H&H 6.7/22.8 -2 units of blood transfused -01/26 H&H 9.8/33.4 Please clarify if there is a possible corresponding diagnosis for above findings: * Acute blood loss anemia * Acute on chronic blood loss anemia * Acute anemia of other cause * Chronic anemia of other cause * Unable to determine <Louann Segovia RN - Last Filed: 01/26/21 08:21>
--- NOTE | 2021-01-26 08:15 | WPDCDIQUERY2 ---
CDI Query Clarification Request -GI bleed documented -01/24 H&H 8.9/29.8 01/25 H&H 6.7/22.8 -2 units of blood transfused -01/26 H&H 9.8/33.4 Please clarify if there is a possible corresponding diagnosis for above findings: Acute blood loss anemia Acute on chronic blood loss anemia Acute anemia of other cause Chronic anemia of other cause Unable to determine <Louann Segovia RN - Last Filed: 01/26/21 08:21>
[2021-01-26] MEDS: INSULIN GLARGINE (*BKC) 100 UNITS/ML 14 UNITS SUB-Q ×2 (08:29→21:29)
[2021-01-26] MEDS: FERROUS SULFATE LIQUID 325 MG/7.4 ML ELIXIR FEED TUBE ×2 (08:32→17:04)
[2021-01-26] MEDS: TOLNAFTATE 1% POWDER 45 GM BTL 1 APPLIC TOPICAL ×2 (08:33→21:30)
[2021-01-26] MEDS: GENTAMICIN SULFATE 0.1% CR 15 GM TUBE 1 APPLIC TOPICAL (08:33)
[2021-01-26] MEDS: COLLAGENASE OINT 30 GM TUBE 1 APPLIC TOPICAL (08:33)
[2021-01-26] MEDS: PANTOPRAZOLE SODIUM IV 40 MG VIAL IV PUSH ×2 (08:34→21:30)
[2021-01-26] MEDS: METOCLOPRAMIDE HCL 10 MG TABLET FEED TUBE ×3 (08:34→17:04)
[2021-01-26] MEDS: CIPROFLOXACIN 400 MG/D5W 200ML 200 ML 200 MG IVPB ×2 (08:37→21:29)
[2021-01-26] MEDS: POTASSIUM CHLORIDE 20 MEQ PACKET (FOR LIQUID) 40 MEQ FEED TUBE (10:51)
[2021-01-26 11:18] LABS: Glucose Point of Care 111 mg/dl (65-105)
--- NOTE | 2021-01-26 12:14 | PCNSR ---
On 01/26/21, the student, Shannon Lindsay, provided care and completed [facility] documentation on this patient. I have reviewed the student's documentation and agree with the findings.
[2021-01-26] MEDS: SODIUM CHLORIDE 0.9% IV 1,000 ML 125 ML IV CONT (13:44)
--- NOTE | 2021-01-26 15:11 | WPDGIPROGNO ---
Progress Note: A&P Assessment and Plan (1) GI bleed: Qualifiers: GI bleed type/associated pathology: unspecified gastrointestinal hemorrhage type Qualified Code(s): K92.2 - Gastrointestinal hemorrhage, unspecified Code(s): K92.2 - Gastrointestinal hemorrhage, unspecified Status: Acute Assessment and Plan: no more signs of bleeding recent EGD showed ulcer in esophagus treated with epi continue with iv protonix and monitor h/h (2) Acute on chronic blood loss anemia: Code(s): D62 - Acute posthemorrhagic anemia Status: Acute Assessment and Plan: appropriate response after blood transfusion no more obvious bleeding she is back on tube feeding again (3) Hematemesis: Qualifiers: Nausea presence: unspecified Qualified Code(s): K92.0 - Hematemesis Code(s): K92.0 - Hematemesis Status: Acute (4) Esophageal stricture: Code(s): K22.2 - Esophageal obstruction Status: Acute (5) Cholecystitis with cholelithiasis: Qualifiers: Biliary obstruction: without biliary obstruction Cholecystitis acuity: chronic Cholelithiasis location: gallbladder Qualified Code(s): K80.10 - Calculus of gallbladder with chronic cholecystitis without obstruction Code(s): K80.10 - Calculus of gallbladder with chronic cholecystitis without obstruction Status: Acute Assessment and Plan: on iv antibiotics cholecystostomy tube functioning ok (6) Cholecystostomy care: Code(s): Z43.4 - Encounter for attention to other artificial openings of digestive tract Status: Acute (7) Dementia with behavioral disturbance: Code(s): F03.91 - Unspecified dementia with behavioral disturbance Status: Chronic Assessment and Plan: end-stage with guarded prognosis Subjective Date/time seen: 01/26/21 15:12 Interval history: she is tolerating tube feeding at 40 ml/h, RN did not report any more hematemesis. Review of Systems Review of Systems: All systems reviewed & are unremarkable except as noted in HPI and below Exam Const: General: ill appearing chronically Other: awake but non-verbal HENMT: General nose exam: Normal nares present Eyes: Sclera: sclerae normal Neck: Neck: supple Resp: Auscultation: clear to auscultation bilaterally Cardio: Rate: regular rate Heart sounds: Murmur heart sound present GI: GI Palp: Yes Soft to palpation and No Guarding due to palpation present (GI) Auscultation: normal bowel sounds Other: g-tube in place, also cholecystostomy tube with good bile drainage Urinary Catheter: Urinary Catheter: patent and draining Skin: General skin exam: no erythema Neuro: Cognition (Neuro): abnormal cognition (at baseline) Extrem: General: no edema Objective Data Vital Signs Vital Signs: Vital Signs - 24 hr 01/25/21 16:00 01/25/21 16:10 01/25/21 18:05 Temperature 99.0 F 98.6 F Pulse Rate 105 H 108 H 113 H Respiratory Rate 20 18 Blood Pressure 106/68 127/80 Pulse Oximetry 100 94 01/25/21 18:20 01/25/21 19:20 01/25/21 20:00 Temperature 98.3 F 98.7 F Pulse Rate 112 H 113 H 101 H Respiratory Rate 19 20 Blood Pressure 109/76 106/73 Pulse Oximetry 96 94 01/25/21 20:20 01/25/21 21:20 01/25/21 21:55 Temperature 98.7 F 98.8 F 99.0 F Pulse Rate 102 H 93 95 Respiratory Rate 16 16 16 Blood Pressure 110/71 100/68 101/61 Pulse Oximetry 97 97 97 01/25/21 22:00 01/26/21 00:00 01/26/21 04:00 Temperature 97.8 F Pulse Rate 95 97 84 Respiratory Rate 20 Blood Pressure 116/69 Pulse Oximetry 98 01/26/21 06:00 01/26/21 08:00 01/26/21 08:37 Temperature 98.7 F Pulse Rate 72 75 Respiratory Rate 14 Blood Pressure 131/78 Pulse Oximetry 97 93 01/26/21 12:00 01/26/21 14:00 Temperature 96.3 F L Pulse Rate 89 85 Respiratory Rate 16 Blood Pressure 119/70 Pulse Oximetry 98 Intake/Output Intake/Output: Intake & Output 01/23/21 01/24/21
--- NOTE | 2021-01-26 16:57 | PM.IMPN ---
Progress Note: A&P Assessment and Plan (1) GI bleed: Qualifiers: GI bleed type/associated pathology: unspecified gastrointestinal hemorrhage type Qualified Code(s): K92.2 - Gastrointestinal hemorrhage, unspecified Code(s): K92.2 - Gastrointestinal hemorrhage, unspecified Status: Acute (2) Acute blood loss anemia: Code(s): D62 - Acute posthemorrhagic anemia Status: Acute (3) Cholecystitis: Code(s): K81.9 - Cholecystitis, unspecified Status: Acute (4) Chronic anemia: Code(s): D64.9 - Anemia, unspecified Status: Chronic (5) Sinus tachycardia: Code(s): R00.0 - Tachycardia, unspecified Status: Acute (6) Type 2 diabetes mellitus with hyperglycemia, with long-term current use of insulin: Code(s): E11.65 - Type 2 diabetes mellitus with hyperglycemia; Z79.4 - [facility] (current) use of insulin Status: Acute (7) Chronic indwelling Baltazar catheter: Code(s): Z97.8 - Presence of other specified devices Status: Chronic (8) Dementia: Qualifiers: Dementia type: unspecified type Dementia behavioral disturbance: without behavioral disturbance Qualified Code(s): F03.90 - Unspecified dementia without behavioral disturbance Code(s): F03.90 - Unspecified dementia without behavioral disturbance Status: Chronic (9) History of pulmonary embolism: Code(s): Z86.711 - Personal history of pulmonary embolism Status: Chronic (10) Decubitus ulcer: Qualifiers: Pressure injury location: unspecified location Pressure injury stage: unstageable Qualified Code(s): L89.95 - Pressure ulcer of unspecified site, unstageable Code(s): L89.90 - Pressure ulcer of unspecified site, unspecified stage Status: Acute Additional Plan Patient has a history of pulmonary embolism and DVT. Last blood clot in the right arm was in September. 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 Patient was hospitalized last week for GI bleed and underwent EGD 01/19/21 which showed grade 4 reflux esophagitis with distal esophageal ulcer and adherent clot. The area was injected with epinephrine and the lesion was cauterized. The patient re-hospitalized for recurrent GI bleed likely from her known esophageal ulcers and esophagitis. Continue Protonix IV b.i.d.. GI foloowing and appreciate their input. Hgb dropped to 6.7 on 01/25 and she received 2U PRBC. She has acute blood loss anemia with chronic anemia. Hgb back up to 9.8 today. Follow H&H. BP was soft yesterday but improved with transfusion. Follow BP closely. Patient has cholecystostomy tube in place. Patient's gallbladder has decreased in size. PEG-J tube in good position. Leukocytosis resolved and felt related to demargination. Currently on empiric antibiotic therapy with Cipro and Flagyl which were suposed to be through today. BCx NGTD. Will plan to stop abx tomorrow. She was tachycardic on admission but HR has improved with IV fluids. Tele showing no acute findings. Tolerating TF so will wean off IV fluids. Okay to stop tele. A1c 7.3 earlier this month. Glucose reviewed and now well controlled. Continue J-tube feedings. Continue moderate sliding scale insulin with Accu-Cheks every 6 hours and hypoglycemia protocol. Continue Lantus at current dose. Wound care consult for decubitus ulcer. Continue routine wound care. SCD for DVT prophylaxis. Aricept reordered for her dementia. Subjective Date/time seen: 01/26/21 16:57 Interval history: 70yo female with history of dementia with dysphagia with PEG placement, recent cholecystitis status post cholecystectomy tube and recent esophagitis here for hematemesis. Patient has been hospitalized multiple times since November. Last admission from 01/18-01/22 for hematemesis and was seen by GI. EGD 01/19/21 showing grade 4 reflux esophagitis with distal esophageal ulcer and adherent clot. The area was inject
[2021-01-26 17:02] LABS: Glucose Point of Care 102 mg/dl (65-105)
[2021-01-26] MEDS: SUCRALFATE SUSP 100 MG/ML 10 ML UDC 1000 MG FEED TUBE (17:39)
[2021-01-26] MEDS: DONEPEZIL HCL 10 MG TABLET FEED TUBE (21:29)
[2021-01-26 22:07] LABS: Glucose Point of Care 149 mg/dl (65-105)
[2021-01-27] MEDS: SUCRALFATE SUSP 100 MG/ML 10 ML UDC 1000 MG FEED TUBE ×4 (00:14→20:34)
[2021-01-27 00:47] LABS: Glucose Point of Care 149 mg/dl (65-105)
[2021-01-27] MEDS: metroNIDAZOLE 250MG/ISO 50 ML 250 MG/50 ML BAG 50 MG IVPB (04:30)
[2021-01-27 05:34] VITALS: BP 121/70; PULSE 94; RESP 18; TEMP 36.2; O2SAT 97
[2021-01-27 05:59] LABS: Glucose Point of Care 150 mg/dl (65-105)
[2021-01-27 06:32] LABS: Hematocrit 29.6 % (37.0-47.0); Hemoglobin 9.1 g/dL (12.0-15.0); Mean Corpuscular HGB Conc 30.7 g/dl (32-36); Mean Corpuscular Hemoglobin 25.3 pg (26-34); Mean Corpuscular Volume 82.5 fl (80-100); Mean Platelet Volume 9.1 fl (7.4-10.4); Platelet Count Result 328 k/mm3 (150-375); Red Blood Count 3.59 M/mm3 (4.2-5.4); Red Cell Distribution Width 18.8 % (11.5-14.5); White Blood Count 8.8 K/mm3 (4.5-10.0)
[2021-01-27 06:42] LABS: Anion Gap 5 mmol/L (8-16); Blood Urea Nitrogen 8 mg/dL (7-17); Calcium 8.6 mg/dL (8.4-10.2); Carbon Dioxide 28 mmol/L (22-30); Chloride 108 mmol/L (98-107); Estimated CRCL calculation 144 ml/min; Estimated Glomerular Filt Rate > 60; Glucose 148 mg/dL (65-105); Potassium 3.2 mmol/L (3.4-5.0); Sodium 141 mmol/L (137-145)
[2021-01-27 08:00] VITALS: O2SAT 97
[2021-01-27] MEDS: POTASSIUM CHLORIDE 20 MEQ PACKET (FOR LIQUID) FEED TUBE (08:11)
[2021-01-27] MEDS: PANTOPRAZOLE SODIUM IV 40 MG VIAL IV PUSH (08:11)
[2021-01-27] MEDS: FERROUS SULFATE LIQUID 325 MG/7.4 ML ELIXIR FEED TUBE ×2 (08:11→17:51)
[2021-01-27] MEDS: METOCLOPRAMIDE HCL 10 MG TABLET FEED TUBE ×3 (08:11→17:51)
[2021-01-27] MEDS: INSULIN GLARGINE (*BKC) 100 UNITS/ML 14 UNITS SUB-Q ×2 (08:16→20:34)
--- NOTE | 2021-01-27 11:02 | PCNFU ---
Nutrition Follow-Up Complete: Altered GI function as related to cholecystits as evidenced by patient vomiting up blood. Have patient meet estimated nutritional needs. Goal is in progress. Nutrition recommendation: Continue with Glucerna 1.2 at goal rate of 75mls/hr, which gives 1980 calories, 99 grams of protein, and 1328 grams of free water. Last recorded weight is 81 kg. Recommend obtaining new weight. Bowel Motility: Patient has cholecystostomy tube in place, last documented today 01/27. Labs Reviewed: Hgb(9.1), Hct(29.6), K(3.2), Cr(0.3), Glu(148) Meds Noted: Bisacodyl, Tolnaftate, Collagenase, Aricept, Ferrous Sulfate, Glucagon, Novolog, Lantus, Reglan, Protonix, Carafate Additional Notes: Stage 3 pressure ulcer on buttocks. Agree with diet orders, patient is tolerating tube feedings. Potassium has been replaced. Will monitor every Saturday and Saturday.
--- NOTE | 2021-01-27 12:23 | PCNSR ---
On 01/27/21, the student,Shannon Lindsay, provided care and completed [facility] documentation on this patient. I have reviewed the student's documentation and agree with the findings.
[2021-01-27 12:25] LABS: Glucose Point of Care 189 mg/dl (65-105)
[2021-01-27] MEDS: COLLAGENASE OINT 30 GM TUBE 1 APPLIC TOPICAL (13:17)
[2021-01-27] MEDS: TOLNAFTATE 1% POWDER 45 GM BTL 1 APPLIC TOPICAL ×2 (13:18→20:34)
[2021-01-27 13:55] VITALS: BP 143/69; PULSE 101; RESP 14; TEMP 36.7; O2SAT 97
--- NOTE | 2021-01-27 14:53 | WPDGIPROGNO ---
Progress Note: A&P Assessment and Plan (1) GI bleed: Qualifiers: GI bleed type/associated pathology: unspecified gastrointestinal hemorrhage type Qualified Code(s): K92.2 - Gastrointestinal hemorrhage, unspecified Code(s): K92.2 - Gastrointestinal hemorrhage, unspecified Status: Acute Assessment and Plan: no more signs of bleeding recent EGD showed ulcer in esophagus treated with epi she can be discharged with skilled nursing ppi twice daily stable hb after blood transfusion (2) Acute on chronic blood loss anemia: Code(s): D62 - Acute posthemorrhagic anemia Status: Acute Assessment and Plan: appropriate response after blood transfusion no more obvious bleeding continue with tube feeding (3) Hematemesis: Qualifiers: Nausea presence: unspecified Qualified Code(s): K92.0 - Hematemesis Code(s): K92.0 - Hematemesis Status: Acute Assessment and Plan: resolved (4) Esophageal stricture: Code(s): K22.2 - Esophageal obstruction Status: Acute (5) Cholecystitis with cholelithiasis: Qualifiers: Biliary obstruction: without biliary obstruction Cholecystitis acuity: chronic Cholelithiasis location: gallbladder Qualified Code(s): K80.10 - Calculus of gallbladder with chronic cholecystitis without obstruction Code(s): K80.10 - Calculus of gallbladder with chronic cholecystitis without obstruction Status: Acute Assessment and Plan: cholecystostomy tube functioning ok (6) Cholecystostomy care: Code(s): Z43.4 - Encounter for attention to other artificial openings of digestive tract Status: Acute (7) Dementia with behavioral disturbance: Code(s): F03.91 - Unspecified dementia with behavioral disturbance Status: Chronic Assessment and Plan: end-stage with guarded prognosis Subjective Date/time seen: 01/27/21 14:53 Interval history: no events, tolerating tube feeding and no signs of bleeding Review of Systems Review of Systems: All systems reviewed & are unremarkable except as noted in HPI and below Exam Const: General: comfortable, no acute distress and ill appearing chronically Other: awake but non-verbal HENMT: General nose exam: Normal nares present Eyes: Sclera: sclerae normal Neck: Neck: supple Resp: Auscultation: clear to auscultation bilaterally Cardio: Rate: regular rate Heart sounds: Murmur heart sound present GI: GI Palp: Yes Soft to palpation and No Guarding due to palpation present (GI) Auscultation: normal bowel sounds Other: g-tube in place, also cholecystostomy tube with good bile drainage Urinary Catheter: Urinary Catheter: patent and draining Skin: General skin exam: no erythema Neuro: Cognition (Neuro): abnormal cognition (at baseline, non-verbal) Extrem: General: no edema Objective Data Vital Signs Vital Signs: Vital Signs - 24 hr 01/26/21 22:00 01/27/21 05:34 01/27/21 08:00 Temperature 97.3 F L 97.1 F L Pulse Rate 92 94 Respiratory Rate 18 18 Blood Pressure 152/66 H 121/70 Pulse Oximetry 97 97 97 01/27/21 13:55 Temperature 98.0 F Pulse Rate 101 H Respiratory Rate 14 Blood Pressure 143/69 H Pulse Oximetry 97 Intake/Output Intake/Output: Intake & Output 01/24/21 01/25/21 01/26/21 01/27/21 23:59 23:59 23:59 23:59 Intake Total 2200 1300 1700 0 Output Total 775 525 150 Balance 2200 525 1175 -150 Meds/Results Medications: Active Medications Generic Name Dose Route Start Last Admin Trade Name Freq PRN Reason Stop Dose Admin Bisacodyl 10 mg 01/25/21 00:38 Bisacodyl 10 Mg Suppository RECTAL DAILY PRN Constipation Collagenase 1 applic 01/25/21 09:00 01/27/21 13:17 Collagenase Oint 30 Gm Tube TOPICAL 1 applic DAILY EVELIO Administration Dextrose 12.5 gm 01/24/21 20:59 Dextrose 50% 25 Gm/50 Ml Syringe IV PUSH PRN PRN Hypoglycemia Protocol Donepezil HCl 1
--- NOTE | 2021-01-27 15:49 | PM.DS ---
DS: Admitting Diagnosis Admitting Diagnosis Admitting Diagnosis: Hematemesis DS: Discharge Diagnosis Discharge Diagnosis (1) GI bleed: Qualifiers: GI bleed type/associated pathology: unspecified gastrointestinal hemorrhage type Qualified Code(s): K92.2 - Gastrointestinal hemorrhage, unspecified Code(s): K92.2 - Gastrointestinal hemorrhage, unspecified Status: Acute (2) Cholecystitis: Code(s): K81.9 - Cholecystitis, unspecified Status: Acute (3) Acute blood loss anemia: Code(s): D62 - Acute posthemorrhagic anemia Status: Acute (4) Sinus tachycardia: Code(s): R00.0 - Tachycardia, unspecified Status: Acute (5) Type 2 diabetes mellitus with hyperglycemia, with long-term current use of insulin: Code(s): E11.65 - Type 2 diabetes mellitus with hyperglycemia; Z79.4 - [facility] long term care (current) use of insulin Status: Acute (6) Chronic indwelling Baltazar catheter: Code(s): Z97.8 - Presence of other specified devices Status: Chronic (7) Chronic anemia: Code(s): D64.9 - Anemia, unspecified Status: Chronic (8) Dementia: Qualifiers: Dementia behavioral disturbance: without behavioral disturbance Dementia type: unspecified type Qualified Code(s): F03.90 - Unspecified dementia without behavioral disturbance Code(s): F03.90 - Unspecified dementia without behavioral disturbance Status: Chronic (9) History of pulmonary embolism: Code(s): Z86.711 - Personal history of pulmonary embolism Status: Chronic (10) Decubitus ulcer: Qualifiers: Pressure injury location: unspecified location Pressure injury stage: unstageable Qualified Code(s): L89.95 - Pressure ulcer of unspecified site, unstageable Code(s): L89.90 - Pressure ulcer of unspecified site, unspecified stage Status: Acute DS: Summary Hospital Course Reason for hospitalization: 70yo female with advanced dementia and known esophageal ulcer here for hematemesis. Please see H&P for details Hospital Course: Patient has a history of pulmonary embolism and DVT. Last blood clot in the right arm was in September. She was on Eliquis correction but this has been stopped due to recurent GI bleeds. Patient was hospitalized last week for GI bleed and underwent EGD 01/19/21 which showed grade 4 reflux esophagitis with distal esophageal ulcer and adherent clot. The area was injected with epinephrine and the lesion was cauterized. The patient re-hospitalized now for recurrent GI bleed likely from her known esophageal ulcers and esophagitis. We continued Protonix IV b.i.d.. GI followed along. Hgb dropped to 6.7 on 01/25 and she received 2U PRBC. She has acute blood loss anemia with chronic anemia. Hgb climbed to the 9 range and remained stable. There was no further evidence of GI bleed. Discussed with GI who felt patient could be discharged home safely. Patient has cholecystostomy tube in place. Patient's gallbladder has decreased in size. PEG-J tube was in good position. Leukocytosis resolved and felt related to demargination. Patient was discharged on 01/22 with instructions for 4 more days of Cipro and Flagyl. These abx wree continued here and completed on 01/26. BCx NGTD. She was tachycardic on admission but HR improved with IV fluids. Tele showing no acute findings. Tube feeding held initially. Tube feeding resumed at low rate and she tolerated this well. She was advanced to goal without difficulty. A1c 7.3 performed earlier this month. Glucose moderated closely with sliding scale insulin with Accu-Cheks every 6 hours and hypoglycemia protocol. We continued Lantus. Wound care was consulted for decubitus ulcer. Aricept reordered for her dementia. She did well since without evidence of rebleeding. GI had no plans for repeat endoscopy at this time. Discussed with family. Pateint did well and was able to be discharged home with family. Status at D
[2021-01-27 18:48] LABS: Glucose Point of Care 178 mg/dl (65-105)
[2021-01-27] MEDS: DONEPEZIL HCL 10 MG TABLET FEED TUBE (20:34)
[2021-01-27 21:28] LABS: Glucose Point of Care 167 mg/dl (65-105)
[2021-01-27 21:52] VITALS: BP 134/78; PULSE 93; RESP 18; TEMP 37.1; O2SAT 99
[2021-01-28] MEDS: SUCRALFATE SUSP 100 MG/ML 10 ML UDC 1000 MG FEED TUBE (00:51)
[2021-01-28 02:41] LABS: Glucose Point of Care 167 mg/dl (65-105)
== END 2021-01-28 05:50 | disposition home health service (06) | DRG 381 ==
LOC: ANHED 15:45 → ANH3MEDSUR 20:45
PROVIDERS: Admitting Provider Internal Medicine; Emergency Provider Emergency Medicine; PCP Family Medicine; Visit Provider Internal Medicine
DX: K22.11 Ulcer of esophagus with bleeding (principal); D62 Acute posthemorrhagic anemia; K80.10 Calculus of gallbladder with chronic cholecystitis without obstruction; K21.01 Gastro-esophageal reflux disease with esophagitis, with bleeding; R00.0 Tachycardia, unspecified; F03.90 Unspecified dementia, unspecified severity, without behavioral disturbance, psychotic disturbance, mood disturbance, and anxiety; I69.320 Aphasia following cerebral infarction; E11.65 Type 2 diabetes mellitus with hyperglycemia; E11.36 Type 2 diabetes mellitus with diabetic cataract; H26.9 Unspecified cataract; D50.9 Iron deficiency anemia, unspecified; L89.95 Pressure ulcer of unspecified site, unstageable; Z79.4 Long term (current) use of insulin; Z79.899 Other long term (current) drug therapy; Z93.1 Gastrostomy status; Z93.8 Other artificial opening status; Z97.8 Presence of other specified devices; Z86.711 Personal history of pulmonary embolism; Z86.718 Personal history of other venous thrombosis and embolism
CPT/HCPCS: 36415; 36430; 74177; 80048; 80053; 81001; 82948; 83605; 83690; 83735; 84100; 85014; 85018; 85025; 85027; 85610; 85730; 86850; 86900; 86901; 86920; 87040; 93005; 96360; 99285; A9270; C9113; J0744; J1815; J1940; J7030; J7050; P9016; Q9967

== ENCOUNTER 2021-02-20 12:37 | Emergency (ER) | payer MEDICARE, MEDICAID, SELFPAY ==
[2021-02-20] VITALS (8 sets, daily range): BP systolic 47–68; BP diastolic 27–44; PULSE 33–168; RESP 0–40; TEMP 39.3–42.1; O2SAT 98–100
--- NOTE | ~2021-02-20 | XR_ITS ---
EXAMINATION: XR chest ET placement INDICATION: Endotracheal tube placement TECHNIQUE: Portable AP chest at 1248 hours COMPARISON: 01/09/2021 FINDINGS: The endotracheal tube ends with its tip in the right mainstem bronchus. There is mild volum e loss in the left hemithorax. The lungs are free of acute opacities. There is no pleural effusion or pneumothorax. The cardiomediastinal silhouette is normal. A feeding tube is noted. IMPRESSION: 1. Endotracheal tube with its tip in the right mainstem bronchus. Tube has been removed at the time o f interpretation. Reviewed, dictated and finalized at location B. IMPRESSION: 1. Endotracheal tube with its tip in the right mainstem bronchus. Tube has been removed at the time of interpretation.
[2021-02-20] MEDS: MIDAZOLAM HCL (*CRX) 2 MG/2 ML VIAL (12:42)
[2021-02-20] MEDS: MORPHINE SULFATE (*CRX) 4 MG/ML INJ (12:43)
--- NOTE | 2021-02-20 12:51 | PC.NURSE ---
Pt extubated by Dr. Prieto at 1253
--- NOTE | 2021-02-20 12:51 | PC.NURSE ---
Dr. Prieto spoke with pt family who decided they did not want her to be on a vent. They state they only want comfort measures only. Dr. Prieto VORB for 4 mg Morphine.
--- NOTE | 2021-02-20 13:05 | ED.GENADULT ---
HPI - General Adult General Chief complaint: Altered Mental Status Stated complaint: UNRESPONSIVE Time Seen by Provider: 02/20/21 12:42 History of Present Illness HPI narrative: Patient is a 70-year-old female with multiple medical issues who presents ER by EMS unresponsive. According to EMS a hospice nurse was at the house and family revoked hospice. They then called EMS because they wanted full treatment for the patient. Patient found to be tachycardic and hypotensive and poorly responsive. In route EMS intubated the patient. They are bagging upon arrival. Patient has no spontaneous respirations or movement. Related Data Home Medications Medication Instructions Recorded Confirmed bisacodyl [Dulcolax (bisacodyl)] 10 mg RECTAL DAILY PRN 12/01/20 01/24/21 Lantus Solostar U-100 Insulin See Rx Instructions .ROUTE .COMPLEX 01/19/21 01/24/21 insulin aspart U-100 [Novolog See Rx Instructions .ROUTE .COMPLEX 01/19/21 01/24/21 Flexpen U-100 Insulin] Glucerna 1.2 Nirav See Rx Instructions .ROUTE .COMPLEX 01/24/21 01/24/21 Allergies Allergy/AdvReac Type Severity Reaction Status Date / Time Penicillins Allergy Mild hives Verified 01/19/21 12:27 hydrocodone Allergy Unknown Unknown Verified 01/19/21 12:27 peanut Allergy Unknown Itching Verified 01/19/21 12:27 shellfish derived Allergy Unknown Unknown Verified 01/19/21 12:27 Review of Systems Review of Systems: ROS unobtainable: Yes unobtainable due to medical condition PMFSH Past Medical History Medical History (Updated 02/20/21 @ 17:16 by Pedrito Prieto MD) Acute on chronic blood loss anemia Bilateral cataracts Bleeding ulcer Cholecystostomy care cholecystectomy drain in place 12/16/2020 Chronic anemia Iron deficiency Chronic indwelling Baltazar catheter Dementia with behavioral disturbance DVT (deep venous thrombosis) Most recent right upper extremity DVT 09/2020 Erosive esophagitis Esophageal stricture Essential hypertension Gastroesophageal reflux disease History of bleeding peptic ulcer History of pulmonary embolism Insulin dependent type 2 diabetes mellitus Hemoglobin A1c was 6.9% on 04/19/2020. Lesion of spleen Surgical History Surgical History Gastrointestinal tube in situ History of bilateral carpal tunnel release History of section X3 History of replacement of both shoulder joints Family History Family History Sibling Cerebrovascular accident Family history of diabetes mellitus in first degree relative Father Carcinoma of colon Family history of malignant neoplasm Mother Family history of diabetes mellitus in first degree relative Hypertension Family history of arthritis Family history of malignant neoplasm Family history of type 2 diabetes mellitus Stomach cancer Sibling Hypertension Hyperlipidemia Cancer Other Diabetes mellitus Family history of cardiovascular disease Family history of gout Family history of seizure disorder Social History Social History (Updated 01/25/21 @ 00:54 by Yue Clark DO) Social History: 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 Lifelong nonsmoker. No alcohol or illicit substance use. Healthcare power of employee benefits attorney is her daughter, Paty Garrett. She had 3 children. Code status: Currently CPR loud, no intubation Smoking status: Never smoker Alcohol intake: never Substance use: never Substance use type: does not use Gender identity (if verbalized by the patient): Female Spiritual care concerns: No Exam Narrative: GENERAL: Chronically ill-appearing, well-nourished, and unresponsive. HEAD: Normocephalic, atraumatic. ENT: Dry mucous membranes. Emesis in mouth. ETT not in airway. CHEST: No spontaneous respirations, requiring bagging. HEART: Tachycardic regular. Normal peripheral pulses. ABDOMEN: Soft, G-tube in cholecystostomy tube present, nondistended.
[2021-02-20] MEDS: SODIUM CHLORIDE 0.9% IV 1,000 ML 999 ML IV CONT ×2 (13:13→13:14)
[2021-02-20] MEDS: MORPHINE SULFATE (*CRX) 4 MG/ML INJ IV PUSH (13:15)
[2021-02-20] MEDS: LORazepam INJ (*CRX) 2 MG/ML VIAL 1 MG IV PUSH (13:41)
--- NOTE | 2021-02-20 14:52 | PC.NURSE ---
Dr. Prieto at bedside at this time with daughter. Pt heartrate extreme kevin and pt not breathing at this time.
--- NOTE | 2021-02-20 15:02 | PC.NURSE ---
Pt at 1457 with this RN, Dr. Prieto and daughter at bedside
--- NOTE | 2021-02-20 15:16 | PC.NURSE ---
pt very difficult to draw from. Called phlebotomy to come and draw for blood work 1904
--- NOTE | 2021-02-24 09:02 | PM.CNGS ---
Assessment and Plan Assessment and plan (1) Cholecystitis: Onset Date: Unknown Code(s): K81.9 - Cholecystitis, unspecified Status: Acute Assessment and Plan: We had seen this patient multiple times and she has her infection control with the cholecystostomy tube. I discussed the situation with hospitalist's following her and there was nothing more for surgery to do. In fact the patient's daughter request that the patient have no more surgery although she wanted almost everything else done. Therefore, this consultation was canceled however apparently not cancel within the computer system. (2) Sepsis: Qualifiers: Sepsis acute organ dysfunction status: unspecified Sepsis type: sepsis due to unspecified organism Qualified Code(s): A41.9 - Sepsis, unspecified organism Code(s): A41.9 - Sepsis, unspecified organism Status: Acute Additional Plan Consultation canceled by primary service however not canceled in the computer so no consultation done. History of Present Illness Consult details Consult date: 01/25/21 Requesting physician: Angy Torre PA-C Narrative: Late entry on 02/24/2021 Date of consultation put and was for 01/25/2021. We had seen this patient multiple times and she has her infection control with the cholecystostomy tube. I discussed the situation with hospitalist's following her and there was nothing more for surgery to do. In fact the patient's daughter request that the patient have no more surgery although she wanted almost everything else done. Therefore, this consultation was canceled however apparently not cancel within the computer system. [facility] Past Medical History Medical History (Updated 02/24/21 @ 09:05 by Kit Clarke MD) Acute on chronic blood loss anemia Bilateral cataracts Bleeding ulcer Cholecystostomy care cholecystectomy drain in place 12/16/2020 Chronic anemia Iron deficiency Chronic indwelling Baltazar catheter Dementia with behavioral disturbance DVT (deep venous thrombosis) Most recent right upper extremity DVT 09/2020 Erosive esophagitis Esophageal stricture Essential hypertension Gastroesophageal reflux disease History of bleeding peptic ulcer History of pulmonary embolism Insulin dependent type 2 diabetes mellitus Hemoglobin A1c was 6.9% on 04/19/2020. Lesion of spleen Surgical History Surgical History Gastrointestinal tube in situ History of bilateral carpal tunnel release History of section X3 History of replacement of both shoulder joints Family History Family History Sibling Cerebrovascular accident Family history of diabetes mellitus in first degree relative Father Carcinoma of colon Family history of malignant neoplasm Mother Family history of diabetes mellitus in first degree relative Hypertension Family history of arthritis Family history of malignant neoplasm Family history of type 2 diabetes mellitus Stomach cancer Sibling Hypertension Hyperlipidemia Cancer Other Diabetes mellitus Family history of cardiovascular disease Family history of gout Family history of seizure disorder Social History Social History (Updated 01/25/21 @ 00:54 by Yue Clark DO) Social History: 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 Lifelong nonsmoker. No alcohol or illicit substance use. Healthcare power of prosecuting attorney is her daughter, Paty Garrett. She had 3 children. Code status: Currently CPR loud, no intubation Smoking status: Never smoker Alcohol intake: never Substance use: never Substance use type: does not use Gender identity (if verbalized by the patient): Female Spiritual care concerns: No Meds Home Medications and Allergies Home Medications Medication Instructions Recorded Confirmed Type bisacodyl [Dulcolax (bisacodyl)] 10 mg RECTAL DAILY PRN
== END 2021-02-20 20:35 | disposition expired ==
PROVIDERS: Emergency Provider Emergency Medicine; PCP Family Medicine
DX: A41.9 Sepsis, unspecified organism (principal); R65.20 Severe sepsis without septic shock; I46.9 Cardiac arrest, cause unspecified; F03.91 Unspecified dementia, unspecified severity, with behavioral disturbance; E11.9 Type 2 diabetes mellitus without complications; D50.9 Iron deficiency anemia, unspecified; I10 Essential (primary) hypertension; K21.9 Gastro-esophageal reflux disease without esophagitis; Z86.718 Personal history of other venous thrombosis and embolism; Z86.711 Personal history of pulmonary embolism; Z79.4 Long term (current) use of insulin; Z96.612 Presence of left artificial shoulder joint; Z96.611 Presence of right artificial shoulder joint; Z93.1 Gastrostomy status
CPT/HCPCS: 31500; 96365; 96375; 96376; 99285; J0131; J2060; J2250; J2270; J2704; J7030